=== PATIENT | male | born 1960 | race Caucasian/White ===

== ENCOUNTER 2019-12-29 11:49 | Inpatient (IN) ==
--- NOTE | 2019-12-29 12:20 | Emergency Department Note ---
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 He states his electronic systems technician was concerned that he might have infection and was concern for osteomyelitis. He states he noticed the ulcer 4 days ago. He denies any fevers. He does did not describe tenderness as well as redness around the toe. Home Medications Home Medications Medication Instructions Recorded Confirmed Type aspirin 81 mg PO QAM 12/29/19 12/29/19 History epinephrine 0.3 mg SUBCUT UD 12/29/19 12/29/19 History ezetimibe 10 mg PO QAM 12/29/19 12/29/19 History insulin lispro [Humalog U-100 100 unit CONTINUOUS SUBCUTANEOUS 12/29/19 12/29/19 History Insulin] INFUSION DAILY multivitamin 1 tab PO QAM 12/29/19 12/29/19 History niacin 0 mg PO QAM 12/29/19 12/29/19 History omega 5-mfq-fud-fish oil [Fish Oil] 1 cap PO QAM 12/29/19 12/29/19 History vitamin E 400 unit PO QAM 12/29/19 12/29/19 History Allergies Allergy/AdvReac Type Severity Reaction Status Date / Time bee venom protein (honey bee) Allergy Severe Anaphylaxis Unverified 12/29/19 13:36 Past Med/Surg History Medical History Amputation toe Diabetes HTN (hypertension) Social History Preferred Language: Setswana Communication Ability: Effective Loin Trimmer Required: No Beliefs That Will Affect Care: None Current Living Situation: Spouse Other Information That Helps Us Care for You: No Feels Safe at Home: Yes Safety Concerns: Feels Safe At This Time Smoking Status: Never smoker Hx Alcohol Use: No Hx Substance Use: No Review of Systems A total of 10 systems reviewed and were otherwise negative Physical Exam Vital Signs Vital Signs - 24 hr 12/29/19 12:00 06/03/20 14:00 Temperature 36.7 C Temperature Source Oral Pulse Rate 86 Pulse Rate [Right Finger] 75 Pulse Rhythm [Right Finger] Regular Pulse Strength [Right Finger] Normal Respiratory Rate 20 16 Respiratory Effort / Characteristics Non-Labored Non-Labored Respiratory Depth Normal Normal Respiratory Pattern Regular Blood Pressure 192/93 H Blood Pressure [Right Arm] 194/99 H Blood Pressure Mean 126 Blood Pressure Mean [Right Arm] 130 Blood Pressure Position [Right Arm] Lying Pulse Oximetry 96 98 Oxygen Delivery Method Room Air Room Air Sepsis Recent Fever Within 48 Hours No Sepsis Action Taken by Nursing No Action Required Physical Exam GENERAL: He is oriented to person, place, and time. He appears well-developed and well-nourished. He does not appear distressed. HENT: Exam performed. - Head: Normocephalic and atraumatic. - Right Ear: External ear normal. No mastoid tenderness. - Left Ear: External ear normal. No mastoid tenderness. - Mouth/Throat: The oropharynx is clear and moist. No trismus in the jaw. No dental abscesses or uvula swelling. No oropharyngeal exudate or tonsillar abscesses. EYES: Conjunctivae and EOM are normal. Pupils are equal, round, and reactive to light. Right eye exhibits no discharge. Left eye exhibits no discharge. No scleral icterus. NECK: Normal range of motion. Neck supple. No JVD present. No spinous process tenderness present. No carotid bruit present. No rigidity. No tracheal deviation and normal range of motion present. No Brudzinski's sign and no Kernig's sign noted. CV: Normal rate, regular rhythm, normal heart sounds and intact distal pulses. There is no peripheral edema. Palpable radial pulses bue. PULM/CHEST: Effort normal and breath sounds normal. No respiratory distress. No stridor. He has no wheezes. He has no rales. - Chest Wall: He exhibits no tenderness. ABD: The abdomen is soft. Bowel sounds are normal. He has no distension. No mass is present. There is no tenderness. There is no rebound, no guarding, no Lao's sign and no tenderness at McBurney's point. Rovsig negative. MUSC/SKEL: Left foot: Multiple amputated toes. Ulcer over the fourth digit. No discharge. Mild surrounding erythema. Purulent swelling LYMPH: No cervical adenopathy. NEURO: He is alert and oriented to person, place, and time. He has normal strength. No cranial nerve deficit or sensory deficit. Coordination and gait normal. GCS eye subscore is 4. GCS verbal subscore is 5. GCS motor subscore is 6. Cerebellar tests wnl. SKIN: Skin is warm and dry. He is not diaphoretic. PSYCH: He has a normal mood and affect. Behavior is normal. Judgment and thought content normal. Course Course 1215: The patient was evaluated in room B2. A complete history and physical exam was performed. 1350: Vital signs stable. Labs within normal limits. X-ray nonconclusive for osteomyelitis. Given the patient's long history of diabetes and resultant amputations of his toes, the patient would be admitted for IV antibiotics. Discussed with Dr. Moran [facility] hospitalist who agreed to accept the patient. Administered Medications Gadobutrol (Gadavist 65ml) 11.5 ml IV ONCE PRN PRN Reason: Interaction Checking Stop: 01/02/20 18:47 Last Admin: 12/29/19 18:48 Dose: 11.5 ml Documented by: [id number] Discontinued Medications Vancomycin HCl 2,250 mg/ (Sodium Chloride) 545 mls @ 200 mls/hr IV NOW ONE Stop: 12/29/19 16:31 Last Infusion: 12/29/19 17:05 Dose: 0 mls/hr Documented by: [id number] Admin: 12/29/19 14:02 Dose: 200 mls/hr Documented by: [id number] Piperacillin Sod/Tazobactam (Sod 3.375 gm/ Dextrose) 115 mls @ 28.75 mls/hr IV Q8H COUNT INCLUDES THE [facility]; Protocol Stop: 12/29/19 18:00 Last Admin: 12/29/19 16:22 Dose: 28.8 mls/hr Documented by: [id number] Lisinopril (Zestril) 2.5 mg PO ONE ONE Stop: 12/29/19 17:31 Last Admin: 12/29/19 19:00 Dose: 2.5 mg Documented by: [id number] Medical Decision Making Laboratory Data Result diagrams: 12/29/19 12:25 12/29/19 12:25 Lab Results 12/29/19 12/29/19 12/29/19 Range/Units 12:25 12:25 12:25 WBC 8.06 (4.8-10.8) K/uL RBC 5.62 (4.7-6.1) M/uL Hgb 15.5 (14.0-18.0) g/dL Hct 46.7 (42-52) % MCV 83.1 (80-100) fL MCH 27.6 (25-34) pg MCHC 33.2 (32-36) g/dL RDW Std Deviation 40.4 (36.4-46.3) fL RDW Coeff of Spenser 13.4 (11.5-14.5) % Plt Count 240 (130-400) K/uL MPV 11.0 H (7.4-10.4) fL Immature Gran % (Auto) 0.2 % Neut % (Auto) 66.3 % Lymph % (Auto) 24.3 % [place] % (Auto) 6.6 % Eos % (Auto) 2.0 % Baso % (Auto) 0.6 % Immature Gran # (Auto) 0.02 (0.00-0.02) K/uL Neut # (Auto) 5.34 (1.4-6.5) K/uL Lymph # (Auto) 1.96 (1.2-3.4) K/uL [place] # (Auto) 0.53 (0.11-0.59) K/uL Eos # (Auto) 0.16 (0-0.5) K/uL Baso # (Auto) 0.05 (0-0.2) K/uL ESR (0-14) mm/hr Sodium 138 (136-145) mmol/L Potassium 4.3 (3.5-5.1) mmol/L Chloride 104 (98-107) mmol/L Carbon Dioxide 29 (21-32) mmol/L Anion Gap 5.0 (3-11) BUN 18 (7-18) mg/dl Creatinine 0.98 (0.6-1.4) mg/dl Est Cr Clr Drug Dosing 109.6 ml/min Est GFR ( Amer) 98.1 Est GFR (Non-Af Amer) 84.6 BUN/Creatinine Ratio 18.7 (10-20) Glucose 201 H (70-99) mg/dl Lactate 1.6 (0.4-2.0) mmol/L Calcium 9.3 (8.5-10.1) mg/dl C-Reactive Protein (0-0.29) mg/dl 12/29/19 12/29/19 Range/Units 12:25 12:25 WBC (4.8-10.8) K/uL RBC (4.7-6.1) M/uL Hgb (14.0-18.0) g/dL Hct (42-52) % MCV (80-100) fL MCH (25-34) pg MCHC (32-36) g/dL RDW Std Deviation (36.4-46.3) fL RDW Coeff of Spenser (11.5-14.5) % Plt Count (130-400) K/uL MPV (7.4-10.4) fL Immature Gran % (Auto) % Neut % (Auto) % Lymph % (Auto) % [place] % (Auto) % Eos % (Auto) % Baso % (Auto) % Immature Gran # (Auto) (0.00-0.02) K/uL Neut # (Auto) (1.4-6.5) K/uL Lymph # (Auto) (1.2-3.4) K/uL [place] # (Auto) (0.11-0.59) K/uL Eos # (Auto) (0-0.5) K/uL Baso # (Auto) (0-0.2) K/uL ESR 18 H (0-14) mm/hr Sodium (136-145) mmol/L Potassium (3.5-5.1) mmol/L Chloride (98-107) mmol/L Carbon Dioxide (21-32) mmol/L Anion Gap (3-11) BUN (7-18) mg/dl Creatinine (0.6-1.4) mg/dl Est Cr Clr Drug Dosing ml/min Est GFR ( Amer) Est GFR (Non-Af Amer) BUN/Creatinine Ratio (10-20) Glucose (70-99) mg/dl Lactate (0.4-2.0) mmol/L Calcium (8.5-10.1) mg/dl C-Reactive Protein 3.61 H (0-0.29) mg/dl Imaging Data Radiologist's Impression: LEFT FOURTH AND FIFTH TOES CLINICAL HISTORY: Ulceration. Evaluate for osteomyelitis. COMPARISON: None. DISCUSSION: There are postsurgical changes of amputation of the second toe at the level of the proximal interphalangeal joint. There are postsurgical changes of amputation of the third/middle toe at the level of the distal interphalangeal joint. No acute fractures are visualized. No destructive lesions are delineated. IMPRESSION: 1. Postsurgical changes 2. No conventional radiographic evidence of acute osteomyelitis ACT 112: Negative or not required by law. Electronically signed by: Gopi Palencia M.D. 12/29/2019 1:19 PM Dictated: 12/29/19 1317 Transcribed: 12/29/19 1317 [facility] [place] Narrative Vital signs stable. Labs within normal limits. X-ray nonconclusive for osteomyelitis. Given the patient's long history of diabetes and resultant ampu tations of his toes, the patient would be admitted for IV antibiotics. Discussed with Dr. Moran [facility] hospitalist who agreed to accept the patient. Impression & Plan Diabetic ulcer of toe Discharge Plan Visit Data *Final* Discharge Date/Time: 12/29/19 16:34 Chief Complaint: Infection, Wound Stated Complaint: INFECTION IN TOE ON LEFT FOOT ED Provider: Zach Prasad Discharge Problem: Diabetic ulcer of toe Patient Disposition: Admitted As Inpatient Discharge Instructions Interventions: ED Discharge Assessment Last Done: 12/29/19 16:34 Discharge Problem: Diabetic ulcer of toe Qualifiers: Diabetes mellitus type: other specified (including MAR) Laterality: left Non- pressure ulcer stage: unspecified non-pressure ulcer stage Qualified Code(s): E13.621 - Other specified diabetes mellitus with foot ulcer
[2019-12-29 12:40] LABS: Basophils # (auto) 0.05 K/uL (0-0.2); Basophils % (auto) 0.6 %; Eosinophils # (auto) 0.16 K/uL (0-0.5); Hematocrit (blood only) 46.7 % (42-52); Hemoglobin 15.5 g/dL (14.0-18.0); Immature Granulocytes # (auto) 0.02 K/uL (0.00-0.02); Immature Granulocytes % (auto) 0.2 %; Lymphocytes # (auto) 1.96 K/uL (1.2-3.4); Lymphocytes % (auto) 24.3 %; Mean Corpuscular Hemoglobin 27.6 pg (25-34); Mean Corpuscular Hgb Conc 33.2 g/dL (32-36); Mean Corpuscular Volume 83.1 fL (80-100); Monocytes # (auto) 0.53 K/uL (0.11-0.59); Monocytes % (auto) 6.6 %; Neutrophils # (auto) 5.34 K/uL (1.4-6.5); Neutrophils % (auto) 66.3 %; Platelet Count 240 K/uL (130-400); RDW Coefficient of Variation 13.4 % (11.5-14.5); RDW Standard Deviation 40.4 fL (36.4-46.3); Red Blood Count 5.62 M/uL (4.7-6.1); White Blood Count 8.06 K/uL (4.8-10.8)
[2019-12-29 12:55] LABS: BUN Creatinine Ratio 18.7 (10-20); Calcium 9.3 mg/dl (8.5-10.1); Creatinine Clr Calc Pharmacy 109.6 ml/min; Est GFR (African American) 98.1; Est GFR (Non-African American) 84.6; Potassium 4.3 mmol/L (3.5-5.1)
--- NOTE | 2019-12-29 13:20 | XRay Report ---
LEFT FOURTH AND FIFTH TOES CLINICAL HISTORY: Ulceration. Evaluate for osteomyelitis. COMPARISON: None. DISCUSSION: There are postsurgical changes of amputation of the second toe at the level of the proxim al interphalangeal joint. There are postsurgical changes of amputation of the third/middle toe at the level of the distal interphalangeal joint. No acute fractures are visualized. No destructive lesions are delineated. IMPRESSION: 1. Postsurgical changes 2. No conventional radiographic evidence of acute osteomyelitis ACT 112: Negative or not required by law. Electronically signed by: Gopi Palencia M.D. 12/29/2019 1:19 PM
[2019-12-29] MEDS ORDERED: VANCOMYCIN CONSULT ACTIVE PRN ×2 (13:48→16:48)
[2019-12-29] MEDS ORDERED: VANCOMYCIN HCL 2,250 MG in SODIUM CHLORIDE 0.9% 500 ML IV ONE (13:48)
--- NOTE | 2019-12-29 15:16 | History & Physical Report ---
Date of Service December 29, 2019 Assessment & Plan (1) Diabetic ulcer of toe: Here with rapidly worsening left fourth toe diabetic foot ulcer with cellulitis spreading up the foot and leg and possible osteomyelitis ESR and CRP are not significantly elevated X-rays not significant for osteomyelitis, but MRI obtained shortly after admission is very concerning for osteomyelitis of the left fourth toe With a history of multiple other amputations of toes on the same foot Follows closely with podiatry who does not have privileges at the hospital (Dr. Meraz)-she has spoken with Dr. Vannesa Carrion who will consult on the patient here to see about possible amputation -Admit to medical/surgical floor -IV vancomycin was given in the ER-we will continue this and add on IV Zosyn for Pseudomonas coverage given that he is an uncontrolled diabetic -No evidence of sepsis at this time-no blood cultures were drawn prior to initiation of antibiotics -Needs improved control of diabetes -will keep dressing on wound for drainage and keep foot elevated -We will keep n.p.o. after midnight in case of surgery planned for tomorrow (2) Diabetic neuropathy: Longstanding history of such With uncontrolled diabetes since 1995 and multiple toe amputations as above -Neuropathy precautions -Continue care with podiatry (3) HTN (hypertension): With hypertensive urgency here with blood pressure close to 200 systolic over 99 diastolic, ECG with T wave inversions in inferior leads but no chest pain or shortness of breath, no headache or neurological focal symptoms Patient reports in the past when he has been tried on antihypertensives, that when he exercises, he gets very lightheaded. He reports his usual blood pressure is 160-180 systolic over 90s diastolic. He is willing to try a low-dose of lisinopril -Start lisinopril 2.5 mg p.o. once daily -Monitor blood pressures (4) Diabetes: Uncontrolled as noted above, he reports his last hemoglobin A1c is around 9% He follows with endocrinology Dr. Rajendra Monet in [place] Has an insulin pump and would like to continue using this while he is in the hospital-his basal rate he thinks is 1.6 units/h and he typically uses 75-100 units/day of insulin including his bolus insulin -Accu-Cheks before meals and at bedtime -If uncontrolled, could always turn off pump and resort to basal and bolus insulin here -will start D5 normal saline after midnight while n.p.o. in case of surgery tomorrow so he does not become hypoglycemic while n.p.o. (5) Hyperlipidemia: -Continue home Zetia -Hold home fish oil as is a blood thinner -Okay to continue home aspirin 81 mg even if going to surgery as primary prevention for HI (6) DVT prophylaxis: TO hose to the right leg only at this time, would add on Lovenox SQ if surgery to be delayed beyond tomorrow Disposition-admit to medical/surgical floor, expected least a 2 midnight stay given osteomyelitis, need for IV antibiotics, and likely amputation of the toe History of Present Illness Chief Complaint: Toe infection, sent by naturopathic physician Primary Care Provider: Maxwell Velarde This patient is a 59-year-old male with a history of longstanding uncontrolled diabetes with insulin pump, HTN, hyperlipidemia, and diabetic neuropathy with 3 previous toe amputations, who presents from the podiatry office with rapidly worsening left fourth toe ulcer and infection to start IV antibiotics and be evaluated for amputation. He reports he first noticed the ulcer about 4 to 5 days ago when he was doing some work at his property in [place]. He does check his feet daily and has a history of rapidly progressing lower extremity infections. He was just on Augmentin and finished a 10-day course last week for another cellulitis of the left leg in the posterior calf which resolved. He denies a history of MRSA and does not know of any previous organisms that have grown out from his other infections. An x-ray in the ER did not show any evidence of osteomyelitis, and he was afebrile, no leukocytosis or evidence of sepsis. Allergies Allergy/AdvReac Type Severity Reaction Status Date / Time bee venom protein (honey bee) Allergy Severe Anaphylaxis Unverified 12/29/19 13:36 Home Medications Home Medications Medication Instructions Recorded Confirmed Type aspirin 81 mg PO QAM 12/29/19 12/29/19 History epinephrine 0.3 mg SUBCUT UD 12/29/19 12/29/19 History ezetimibe 10 mg PO QAM 12/29/19 12/29/19 History insulin lispro [Humalog U-100 100 unit CONTINUOUS SUBCUTANEOUS 12/29/19 12/29/19 History Insulin] INFUSION DAILY multivitamin 1 tab PO QAM 12/29/19 12/29/19 History niacin 0 mg PO QAM 12/29/19 12/29/19 History omega 6-egf-lxw-fish oil [Fish Oil] 1 cap PO QAM 12/29/19 12/29/19 History vitamin E 400 unit PO QAM 12/29/19 12/29/19 History Past Med/Surg History Medical History Amputation toe Diabetes Diabetic neuropathy HTN (hypertension) Hyperlipidemia Surgical History History of amputation of toe History of arthroscopic knee surgery History of tonsillectomy Family History Father Heart disease, Onset Age: 54 Had CABG at age 54 Mother Diabetes Social History Preferred Language: Korean Communication Ability: Effective Billing Collections Specialist Required: No Beliefs That Will Affect Care: None Current Living Situation: Spouse current occupational status: employed 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 No fevers or chills. Physical Exam Constitutional: WD/WN, vitals as above Eyes: PERRL, conjunctivae normal, anicteric sclerae ENMT: external ear and nose normal, oropharynx normal Neck: trachea midline, no thyromegaly Respiratory: normal respiratory effort, lungs clear to auscultation Cardiovascular: RRR, no murmur, no edema Chest (Breasts): Chest: normal inspection of chest Gastrointestinal (Abdomen): normal bowel sounds, soft, nontender, no hepatosplenomegaly Musculoskeletal: Extremities: no cyanosis and no clubbing Left fourth toe appears to be a sausage digit with an open deep ulceration on the plantar and dorsal surface of the distal phalanx with significant erythema, with mild er ythema and edema spread up to the mid tibia anteriorly 1+ dorsalis pedis pulses bilaterally Also noted to have distal phalanx amputations of the left great and middle toes Skin: no rashes, warm and dry Neurologic: moves all extremities and awake; no focal motor deficits Psychiatric: A+Ox3, euthymic affect Lymphatic: no lymphedema Results & Data Results & Data ([facility]) Vital Signs (Past 12 Hours) Vital Signs Temp Pulse Pulse Resp BP BP Pulse Ox 12/29/19 14:00 75 16 194/99 H 98 12/29/19 12:00 36.7 C 86 20 192/93 H 96 Laboratory Results 12/29/19 12/29/19 12/29/19 Range/Units 12:25 12:25 12:25 WBC (4.8-10.8) K/uL RBC (4.7-6.1) M/uL Hgb (14.0-18.0) g/dL Hct (42-52) % MCV (80-100) fL MCH (25-34) pg MCHC (32-36) g/dL RDW Std Deviation (36.4-46.3) fL RDW Coeff of Spenser (11.5-14.5) % Plt Count (130-400) K/uL MPV (7.4-10.4) fL Immature Gran % (Auto) % Neut % (Auto) % Lymph % (Auto) % [place] % (Auto) % Eos % (Auto) % Baso % (Auto) % Immature Gran # (Auto) (0.00-0.02) K/uL Neut # (Auto) (1.4-6.5) K/uL Lymph # (Auto) (1.2-3.4) K/uL [place] # (Auto) (0.11-0.59) K/uL Eos # (Auto) (0-0.5) K/uL Baso # (Auto) (0-0.2) K/uL ESR 18 H (0-14) mm/hr Sodium (136-145) mmol/L Potassium (3.5-5.1) mmol/L Chloride (98-107) mmol/L Carbon Dioxide (21-32) mmol/L Anion Gap (3-11) BUN (7-18) mg/dl Creatinine (0.6-1.4) mg/dl Est Cr Clr Drug Dosing ml/min Est GFR ( Amer) Est GFR (Non-Af Amer) BUN/Creatinine Ratio (10-20) Glucose (70-99) mg/dl Lactate 1.6 (0.4-2.0) mmol/L Calcium (8.5-10.1) mg/dl C-Reactive Protein 3.61 H (0-0.29) mg/dl 12/29/19 12/29/19 Range/Units 12:25 12:25 WBC 8.06 (4.8-10.8) K/uL RBC 5.62 (4.7-6.1) M/uL Hgb 15.5 (14.0-18.0) g/dL Hct 46.7 (42-52) % MCV 83.1 (80-100) fL MCH 27.6 (25-34) pg MCHC 33.2 (32-36) g/dL RDW Std Deviation 40.4 (36.4-46.3) fL RDW Coeff of Spenser 13.4 (11.5-14.5) % Plt Count 240 (130-400) K/uL MPV 11.0 H (7.4-10.4) fL Immature Gran % (Auto) 0.2 % Neut % (Auto) 66.3 % Lymph % (Auto) 24.3 % [place] % (Auto) 6.6 % Eos % (Auto) 2.0 % Baso % (Auto) 0.6 % Immature Gran # (Auto) 0.02 (0.00-0.02) K/uL Neut # (Auto) 5.34 (1.4-6.5) K/uL Lymph # (Auto) 1.96 (1.2-3.4) K/uL [place] # (Auto) 0.53 (0.11-0.59) K/uL Eos # (Auto) 0.16 (0-0.5) K/uL Baso # (Auto) 0.05 (0-0.2) K/uL ESR (0-14) mm/hr Sodium 138 (136-145) mmol/L Potassium 4.3 (3.5-5.1) mmol/L Chloride 104 (98-107) mmol/L Carbon Dioxide 29 (21-32) mmol/L Anion Gap 5.0 (3-11) BUN 18 (7-18) mg/dl Creatinine 0.98 (0.6-1.4) mg/dl Est Cr Clr Drug Dosing 109.6 ml/min Est GFR ( Amer) 98.1 Est GFR (Non-Af Amer) 84.6 BUN/Creatinine Ratio 18.7 (10-20) Glucose 201 H (70-99) mg/dl Lactate (0.4-2.0) mmol/L Calcium 9.3 (8.5-10.1) mg/dl C-Reactive Protein (0-0.29) mg/dl Diagnostic Findings LEFT FOURTH AND FIFTH TOES CLINICAL HISTORY: Ulceration. Evaluate for osteomyelitis. COMPARISON: None. DISCUSSION: There are postsurgical changes of amputation of the second toe at the level of the proximal interphalangeal joint. There are postsurgical changes of amputation of the third/middle toe at the level of the distal interphalangeal joint. No acute fractures are visualized. No destructive lesions are delineated. IMPRESSION: 1. Postsurgical changes 2. No conventional radiographic evidence of acute osteomyelitis ECG Additional Comments: ECG with normal sinus rhythm with T wave inversions in leads III and aVF with T wave flattening in lead II, no old ECGs to compare to Code Status & VTE Plan Code Status Full code VTE Prophylaxis Plan VTE Prophylaxis will be ordered: Yes PG Care Time/CCT Total # of Minutes Spent Total Time Spent with Patient: Total time spent is greater than 50% in coordination of care (as documented) at patient's floor/unit and/or counseling patient: Coding Level of Care Code 62257 Initial Inpt Care Lvl 3 Diagnoses Diabetic ulcer of toe E13.621; L97.529 Diabetes mellitus type: other specified (including MAR) Laterality: left Non-pressure ulcer stage: unspecified non-pressure ulcer stage Diabetic neuropathy E11.40 HTN (hypertension) I10 Diabetes E11.9 Hyperlipidemia E78.5 DVT prophylaxis Z29.9 (1) Diabetic ulcer of toe Diabetes mellitus type: other specified (including MAR) Laterality: left Non-pressure ulcer stage: unspecified non-pressure ulcer stage Qualified Code(s): E13.621 - Other specified diabetes mellitus with foot ulcer; L97.529 - Non-pressure chronic ulcer of other part of left foot with unspecified severity
[2019-12-29] MEDS ORDERED: PIPERACILLIN/TAZOBACTAM 3.375 GM in DEXTROSE 5% 100 ML IV SCH (15:58)
[2019-12-29] MEDS ORDERED: PIPERACILL/TAZOBAC CONSULT ACTIVE PRN (15:58)
[2019-12-29] MEDS ORDERED: DEXTROSE 50% 50 ML SYRINGE IV PRN ×2 (16:48→17:15)
[2019-12-29] MEDS ORDERED: MAGNESIUM HYDROXIDE SUSP 30 ML UDC PO PRN (16:48)
[2019-12-29] MEDS ORDERED: GLUCOSE 10 TABS/TUBE PO PRN ×2 (16:48→17:15)
[2019-12-29] MEDS ORDERED: POLYETHYLENE (MIRALAX) 17 GM PACK PO PRN (16:48)
[2019-12-29] MEDS ORDERED: ONDANSETRON INJ 2 MG/ML 2 ML VIAL IV PRN (16:48)
[2019-12-29] MEDS ORDERED: ALUMINUM/MAGNESIUM SUSP 30 ML UDC PO PRN (16:48)
[2019-12-29] MEDS ORDERED: ACETAMINOPHEN 325 MG TAB PO PRN (16:48)
[2019-12-29] MEDS ORDERED: CARBOHYDRATES FOR HYPOGLYCEMIA PO PRN ×2 (16:48→17:15)
[2019-12-29] MEDS ORDERED: GLUCAGON FOR INJ 1 MG VIAL SQ PRN ×2 (16:48→17:15)
[2019-12-29] MEDS ORDERED: GLUCOSE 40% GEL 15 GM TUBE PO PRN ×2 (16:48→17:15)
[2019-12-29] MEDS ORDERED: INSULIN HUMAN LISPRO (humaLOG) 100 UNITS/ML VIAL SC PRN (17:15)
[2019-12-29] MEDS ORDERED: GADOBUTROL 65ML VIAL IV PRN (18:48)
--- NOTE | 2019-12-29 19:03 | Magnetic Resonance Report ---
Study: MRI left foot HISTORY: Toe infection COMPARISON: Routine series 12/29/2019 FINDINGS: Findings suggesting potential bone marrow replacement involving the distal phalanx of the f ourth toe. Considerable surrounding granulation and/or inflammatory tissue. Generalized cellulitis about the foot. All major ligamentous and tendinous structures are intact. No evidence for drainable abscess or collection. IMPRESSION: 1. Abnormal signal characteristics distal phalanx left fourth toe. 2. Osteomyelitis must be considered. 3. Considerable surrounding local extensive soft tissue granulation and/or inflammatory tissue. 4. No evidence for drainable abscess or collection. 5. Mild to moderate degenerative change of the articular surfaces throughout. Electronically signed by: Rajendra Garcia M.D. 12/29/2019 7:02 PM
--- NOTE | 2019-12-29 19:49 | Pharmacy Report ---
Pharmacy Abx Initial Consult - Date of Service December 29, 2019 - Pharmacy Dosing Scope Date of Consult: 12/29/19 Consultation requested by: Dr. Moran Pharmacy is consulted to initiate vancomycin and zosyn IV dosing therapy, order appropriate labs and adjust drug dose/frequency. - Subjective The patient is a 59 year old M admitted on 12/29/19 15:58. - Objective Height: 6 ft 1 in Weight: 116 kg Vital Signs (Past 12hrs): Vital Signs Temp Pulse Pulse Resp BP BP Pulse Ox 12/29/19 16:50 36.8 C 71 18 197/91 H 97 12/29/19 16:18 79 19 192/91 H 96 12/29/19 14:00 75 16 194/99 H 98 12/29/19 12:00 36.7 C 86 20 192/93 H 96 Lab Results (24hrs): Laboratory Tests (24 Hours) 12/29/19 12/29/19 12/29/19 12:25 12:25 12:25 WBC Neut # (Auto) ESR 18 H Creatinine 0.98 Est Cr Clr Drug Dosing 109.6 C-Reactive Protein 3.61 H 12/29/19 12:25 WBC 8.06 Neut # (Auto) 5.34 ESR Creatinine Est Cr Clr Drug Dosing C-Reactive Protein - Assessment & Plan Assessment 59 year old M ordered empiric vancomycin and Zosyn for treatment of infected left fourth toe. Osteomyelitis must be considered per foot MRI obtained on 12/28. CRP and ESR elevated. Patient afebrile with no leukocytosis. Unsure of baseline renal function - current SCr of 0.98 mg/dL. Plan Vancomycin IV * Estimated PK Parameters: Vd 0.61 L/kg, Walt 0.096 hr-1, t1/2 7 hr * Loading dose: 2250 mg (19 mg/kg) * Maintenance dose: 1250 mg IV (11 mg/kg) every 8 hours * Goal trough level for osteomyelitis : 15 to 20 mcg/mL * Trough level ordered for 12/31/19 Piperacillin/tazobactam * 3.375 g bolus administered over 30 minutes, then 3.375 g IV extended infusion every 8 hours for CrCl greater than 20 mL/min Pharmacy will continue to follow and will adjust dose/frequency as necessary. Thank you.
[2019-12-29] MEDS: VANCOMYCIN HCL 1,250 MG in SODIUM CHLORIDE 0.9% 250 ML IV SCH (21:31)
[2019-12-29] MEDS: PIPERACILLIN/TAZOBACTAM 3.375 GM in DEXTROSE 5% 100 ML IV SCH (21:31)
[2019-12-29] MEDS ORDERED: D5NSS + 20MEQ KCL 20 MEQ/1,000 ML BAG IV SCH (23:59)
[2019-12-30] MEDS: SODIUM CHLOR 0.45% + 20MEQ KCL 20 MEQ/1,000 ML BAG IV SCH (01:15)
[2019-12-30] MEDS: PIPERACILLIN/TAZOBACTAM 3.375 GM in DEXTROSE 5% 100 ML IV SCH ×3 (05:40→21:23)
[2019-12-30] MEDS: VANCOMYCIN HCL 1,250 MG in SODIUM CHLORIDE 0.9% 250 ML IV SCH ×3 (05:41→21:23)
[2019-12-30 05:53] LABS: Basophils # (auto) 0.04 K/uL (0-0.2); Basophils % (auto) 0.6 %; Eosinophils # (auto) 0.15 K/uL (0-0.5); Eosinophils % (auto) 2.2 %; Hematocrit (blood only) 42.9 % (42-52); Hemoglobin 14.5 g/dL (14.0-18.0); Immature Granulocytes # (auto) 0.01 K/uL (0.00-0.02); Immature Granulocytes % (auto) 0.1 %; Lymphocytes # (auto) 1.92 K/uL (1.2-3.4); Lymphocytes % (auto) 27.6 %; Mean Corpuscular Hemoglobin 27.9 pg (25-34); Mean Corpuscular Hgb Conc 33.8 g/dL (32-36); Mean Corpuscular Volume 82.5 fL (80-100); Mean Platelet Volume 10.4 fL (7.4-10.4); Monocytes # (auto) 0.45 K/uL (0.11-0.59); Monocytes % (auto) 6.5 %; Neutrophils # (auto) 4.39 K/uL (1.4-6.5); Platelet Count 228 K/uL (130-400); RDW Coefficient of Variation 13.2 % (11.5-14.5); RDW Standard Deviation 39.9 fL (36.4-46.3); White Blood Count 6.96 K/uL (4.8-10.8)
[2019-12-30 06:05] LABS: Partial Thromboplastin Time 29.2 Seconds (21.0-31.0); Prothrombin Time 10.7 Seconds (9.0-12.0)
[2019-12-30 06:22] LABS: Estimated Average Glucose 200 mg/dl; Hemoglobin A1C 8.6 % (4.5-5.6)
[2019-12-30 06:32] LABS: BUN Creatinine Ratio 15.7 (10-20); Calcium 8.6 mg/dl (8.5-10.1); Creatinine Clr Calc Pharmacy 119.4 ml/min; Est GFR (African American) 108.7; Est GFR (Non-African American) 93.8; Potassium 3.8 mmol/L (3.5-5.1)
[2019-12-30] MEDS: ASPIRIN 81 MG ECTAB PO SCH (08:17)
[2019-12-30] MEDS: MULTIVITAMIN TAB PO SCH (08:17)
[2019-12-30] MEDS: EZETIMIBE 10 MG TABLET PO SCH (08:17)
--- NOTE | 2019-12-30 13:05 | Podiatry Consultation ---
Date of Consultation December 30, 2019 Assessment & Plan (1) Diabetic ulcer of toe: Diabetes mellitus type: other specified (including MAR) Laterality: left Non-pressure ulcer stage: unspecified non-pressure ulcer stage Qualified Code(s): E13.621 - Other specified diabetes mellitus with foot ulcer; L97.529 - Non-pressure chronic ulcer of other part of left foot with unspecified severity (2) Diabetic neuropathy: History of Present Illness Attending Physician: Vivi Alcantara MD Patient seen at bedside today due to an infected diabetic ulcer of the left 4th toe. 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 Patient stated he developed this ulcer recently and it escalated to the infection present. MRI ordered at the hospital concerning for osteomyelitis of the distal phalanx of the left 4th toe. Patient was sent to the ED from another podiatry office, patient is being seen today and will need distal Symes amputation of the left 4th toe. Consent was obtained at bedside today and patient is scheduled in the OR for procedure tomorrow 12/30 at 1:15pm and will need to be NPO tonight in prep for the procedure tomorrow. Allergies Allergy/AdvReac Type Severity Reaction Status Date / Time bee venom protein (honey bee) Allergy Severe Anaphylaxis Unverified 12/29/19 13:36 Home Medications Home Medications Medication Instructions Recorded Confirmed Type aspirin 81 mg PO QAM 12/29/19 12/29/19 History epinephrine 0.3 mg SUBCUT UD 12/29/19 12/29/19 History ezetimibe 10 mg PO QAM 12/29/19 12/29/19 History insulin lispro [Humalog U-100 100 unit CONTINUOUS SUBCUTANEOUS 12/29/19 12/29/19 History Insulin] INFUSION DAILY multivitamin 1 tab PO QAM 12/29/19 12/29/19 History niacin 0 mg PO QAM 12/29/19 12/29/19 History omega 4-zch-gsa-fish oil [Fish Oil] 1 cap PO QAM 12/29/19 12/29/19 History vitamin E 400 unit PO QAM 12/29/19 12/29/19 History Patient History Medical History Amputation toe Diabetes Diabetic neuropathy HTN (hypertension) Hyperlipidemia Surgical History History of amputation of toe History of arthroscopic knee surgery History of tonsillectomy Family History Father Heart disease, Onset Age: 54 Had CABG at age 54 Mother Diabetes Social History Preferred Language: Ecuadorean Communication Ability: Effective Rim Roller Operator Required: No Beliefs That Will Affect Care: None Current Living Situation: Spouse current occupational status: employed 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 History of well healed 1,2,3 digit distal Symes amputation left 4th toe with significant swelling and proximal erythema of the digit, ulcer is present of the distal aspect of the toe with malodor and significant swelling. Patient has neuropathy and cannot "feel" the pain. MRI concerning for osteomyelitis dorsal pedis pulse palpable 2 out of 4 and pedal hair is present, capillary refill time less than 3 seconds to the left foot with good turgor pressure noted to the remaining digits. Patient in need of distal Symes amputation left 4th toe Results & Data Vital Signs (Past 12 Hours) Vital Signs Temp Pulse Pulse Resp BP Pulse Ox 12/30/19 07:50 63 12/30/19 07:19 36.7 C 69 18 163/90 H 94 12/30/19 02:43 76
--- NOTE | 2019-12-30 13:09 | Hospitalist Progress Note ---
Date of Service December 30, 2019 Assessment & Plan (1) Diabetes: Lul Mendez is a 59 year old man with a past medical history of diabetes with diabetic neuropathy, and hyperlipidemia who is here with suppurative fourth toe ulcer Osteomyelitis Left fourth toe, MRI showing osteomyelitis Has had three other amputations on this foot Does not appear to be spreading infection, patient not septic, no fever, no systemic symptoms Will treat with vanc and zosyn Podiatry consulted tentatively planning on amputation tomorrow NPO after midnight Diabetes Has insulin pump he uses keeps bsg in the 100's for the most part However his last A1C was 8.6 Will monitor his control while inpatient and if not successful will transition to sliding scale While inpatient Will need close outpatient follow up. Follows with Dr. Rajendra Keller in [place]. HLD Continuing home zetia HTN Admits his blood pressure is normally high has not taken anything for it previously. Lisinopril 2.5 mg daily. Will need outpatient BP management DVT PPx: Son stockings and ambulation F/E/N: diabetic diet, npo at midnight with D5 nss Dispo: Admit to med/surg pending podiatry evaluation and likely amputation, home following amputation tomorrow Full Code (2) Diabetic ulcer of toe: (3) Amputation toe: (4) HTN (hypertension): (5) Diabetic neuropathy: (6) Hyperlipidemia: (7) DVT prophylaxis: Admission and Anticipated Discharge Date Admission Date: December 29, 2019 Supervising Physician Co-Signing Physician Notes Resident Physician Supervision Note: I independently interviewed and examined the patient and verified the moise history and physical, reviewed labs and image studies, discussed the case with the resident Dr. Zhang and agree with the findings and care plan. Subjective Lul Mendez is resting comfortably today, he tells me he feels in his usual state of health. He has no sensation below his mid shah and first noticed this wound last . As it became more purulent he decided to come in. No fevers, chills, sweats, or any other systemic symptoms on review of systems. Ambulating without difficulty. Review of Systems Review of Systems: All systems reviewed & are unremarkable except as noted in HPI & below Physical Exam Constitutional: WD/WN, vitals as above + well hydrated and + obese Eyes: PERRL, conjunctivae normal, anicteric sclerae ENMT: external ear and nose normal, oropharynx normal Neck: trachea midline, no thyromegaly Respiratory: normal respiratory effort, lungs clear to auscultation Cardiovascular: RRR, no murmur, no edema Gastrointestinal (Abdomen): normal bowel sounds, soft, nontender, no hepatosplenomegaly Musculoskeletal: Amputations to 3 of toes on left foot, large bloody purulent ulcer of 3rd digit Skin: no rashes, warm and dry No spreading cellulitis up leg. Results & Data Results & Data ([facility]) Vital Signs (Past 12 Hours) Vital Signs Temp Pulse Pulse Resp BP Pulse Ox 12/30/19 07:50 63 12/30/19 07:19 36.7 C 69 18 163/90 H 94 12/30/19 02:43 76 Resident Activity Tracking Resident Involvement: Resident Care Provided Care Provided: Adult Hospital Medicine (1) Diabetic ulcer of toe Diabetes mellitus type: other specified (including MAR) Laterality: left Non-pressure ulcer stage: unspecified non-pressure ulcer stage Qualified Code(s): E13.621 - Other specified diabetes mellitus with foot ulcer; L97.529 - Non-pressure chronic ulcer of other part of left foot with unspecified severity
--- NOTE | 2019-12-30 14:49 | Electrocardiogram Report ---
Test Reason : Blood Pressure : / mmHG Vent. Rate : 068 BPM Atrial Rate : 068 BPM P-R Int : 204 ms QRS Dur : 102 ms QT Int : 408 ms P-R-T Axes : 036 007 -31 degrees QTc Int : 433 ms Normal sinus rhythm Cannot rule out Anterior infarct , age undetermined T wave abnormality, consider inferior ischemia Abnormal ECG No previous ECGs available Confirmed by Faustino Oliveros ([id number]) on 12/30/2019 2:49:21 PM Referred By: REFERRED SELF Confirmed By:Faustino Oliveros
--- NOTE | 2019-12-30 17:59 | Anesthesiology Consultation ---
Date of Service December 30, 2019 The patient has poorly controlled DM with HA1c of 8.6. His EKG is concerning for possible inferior ischemia. The surgery is urgent as the patient has osteomyelitis. Dr. Jama will be the anesthesia provider and is aware of the EKG. Assessment & Plan (1) Encounter for pre-operative examination: Chart Review Chart Review: Acceptable Risk for Surgery (elevated risk but necessary surgery) and Patient NOT seen in Pre Admission Testing Consults Requested none History Surgery Operation Date: 12/31/19 13:15 Proposed Procedures p Left 4th Toe Amputation - Letitia Granado DPM Height/Weight Height: 6 ft 1 in Weight: 116 kg Allergies Allergy/AdvReac Type Severity Reaction Status Date / Time bee venom protein (honey bee) Allergy Severe Anaphylaxis Unverified 12/29/19 13 :36 Medications Home Medications Medication Instructions Recorded Confirmed Last Taken aspirin 81 mg PO QAM 12/29/19 12/29/19 12/29/19 epinephrine 0.3 mg SUBCUT UD 12/29/19 12/29/19 Unknown ezetimibe 10 mg PO QAM 12/29/19 12/29/19 12/29/19 insulin lispro [Humalog U-100 100 unit CONTINUOUS SUBCUTANEOUS 12/29/19 12/29/19 12/29/19 Insulin] INFUSION DAILY multivitamin 1 tab PO QAM 12/29/19 12/29/19 12/29/19 niacin 0 mg PO QAM 12/29/19 12/29/19 12/29/19 omega 6-xdz-zcq-fish oil [Fish Oil] 1 cap PO QAM 12/29/19 12/29/19 12/29/19 vitamin E 400 unit PO QAM 12/29/19 12/29/19 12/29/19 Active Medications Generic Name Dose Route Start Last Admin Trade Name Freq PRN Reason Stop Dose Admin Aspirin 81 mg 12/30/19 09:00 12/30/19 08:17 Ecotrin Ectab PO 01/29/20 08:59 81 mg QAM IZAIAH Administration Ezetimibe 10 mg 12/30/19 09:00 12/30/19 08:17 Zetia PO 01/29/20 08:59 10 mg QAM IZAIAH Administration Gadobutrol 11.5 ml 12/29/19 18:48 12/29/19 18:48 Gadavist 65ml IV 01/02/20 18:47 11.5 ml ONCE PRN Administration Interaction Checking Vancomycin HCl 1,250 mg/ 275 mls @ 125 mls/hr 12/29/19 22:00 12/30/19 16:57 Sodium Chloride IV 01/05/20 21:59 Infused Q8H IZAIAH Infusion Protocol Piperacillin Sod/Tazobactam 115 mls @ 28.75 mls/hr 12/29/19 22:00 12/30/19 14:10 Sod 3.375 gm/ Dextrose IV 01/05/20 21:59 28.8 mls/hr Q8H IZAIAH Administration Protocol Potassium Chloride/Sodium Chloride 20 meq in 1,000 mls @ 80 mls/hr 12/30/19 00:15 12/30/19 13:55 1/2 Nss + 20meq Kcl 1000ml IV 01/29/20 00:14 Infused .[id number] IZAIAH Infusion Insulin Human Lispro 1 ea 12/29/19 21:00 12/30/19 12:36 Humalog Insulin Pump N/A 01/28/20 20:59 1 ea ACHS IZAIAH Administration Protocol Lisinopril 2.5 mg 12/30/19 09:00 12/30/19 08:17 Zestril PO 01/29/20 08:59 2.5 mg QAM IZAIAH Administration Multivitamins 1 tab 12/30/19 09:00 12/30/19 08:17 Multivitamin Tab PO 01/29/20 08:59 1 tab QAM IZAIAH Administration Past Medical History Medical History Amputation toe Diabetes Diabetic neuropathy HTN (hypertension) Hyperlipidemia Past Family History Family History Father Heart disease, Onset Age: 54 Had CABG at age 54 Mother Diabetes Past Surgical History Surgical History History of amputation of toe History of arthroscopic knee surgery History of tonsillectomy Social History Smoking Status: Never smoker Hx Alcohol Use: No Hx Substance Use: No Physical Exam Vital Signs Last Vital Signs Temp 37.3 C 12/30/19 15:13 Pulse 74 12/30/19 15:23 Resp 16 12/30/19 15:13 BP 169/82 H 12/30/19 15:13 Pulse Ox 96 12/30/19 15:13 Testing Laboratory Results 12/30/19 05:36 12/30/19 05:36 PT 10.7 Seconds (9.0-12.0) 12/30/19 05:36 INR 1.0 (0.9-1.1) 12/30/19 05:36 APTT 29.2 Seconds (21.0-31.0) 12/30/19 05:36 Hemoglobin A1c 8.6 % (4.5-5.6) H 12/30/19 05:36 12/30/19 12/30/19 12/30/19 16:46 12:06 07:33 POC Glucose 196 H 166 H 200 H Electrocardiogram Date: 12/29/19 Findings: + NSR @ cannot rule out anterior infarct, consider inferior ischemia
[2019-12-31] MEDS: SODIUM CHLOR 0.45% + 20MEQ KCL 20 MEQ/1,000 ML BAG IV SCH (00:08)
[2019-12-31] MEDS: PIPERACILLIN/TAZOBACTAM 3.375 GM in DEXTROSE 5% 100 ML IV SCH ×2 (05:13→13:56)
[2019-12-31] MEDS ORDERED: VANCOMYCIN TROUGH ONE (05:30)
[2019-12-31] MEDS: VANCOMYCIN HCL 1,250 MG in SODIUM CHLORIDE 0.9% 250 ML IV SCH (06:14)
[2019-12-31 06:53] LABS: Creatinine Clr Calc Pharmacy 107.4 ml/min; Est GFR (African American) 95.7; Est GFR (Non-African American) 82.6
[2019-12-31 07:59] LABS: Basophils # (auto) 0.05 K/uL (0-0.2); Basophils % (auto) 0.7 %; Eosinophils # (auto) 0.16 K/uL (0-0.5); Eosinophils % (auto) 2.3 %; Hematocrit (blood only) 45.1 % (42-52); Hemoglobin 14.7 g/dL (14.0-18.0); Immature Granulocytes # (auto) 0.02 K/uL (0.00-0.02); Immature Granulocytes % (auto) 0.3 %; Lymphocytes % (auto) 23.5 %; Mean Corpuscular Hemoglobin 27.3 pg (25-34); Mean Corpuscular Hgb Conc 32.6 g/dL (32-36); Mean Corpuscular Volume 83.8 fL (80-100); Mean Platelet Volume 10.7 fL (7.4-10.4); Monocytes # (auto) 0.55 K/uL (0.11-0.59); Monocytes % (auto) 8.1 %; Neutrophils # (auto) 4.43 K/uL (1.4-6.5); Neutrophils % (auto) 65.1 %; Platelet Count 250 K/uL (130-400); RDW Coefficient of Variation 13.3 % (11.5-14.5); Red Blood Count 5.38 M/uL (4.7-6.1); White Blood Count 6.81 K/uL (4.8-10.8)
[2019-12-31] MEDS: EZETIMIBE 10 MG TABLET PO SCH (08:07)
[2019-12-31] MEDS: MULTIVITAMIN TAB PO SCH (08:07)
[2019-12-31] MEDS: ASPIRIN 81 MG ECTAB PO SCH (08:08)
--- NOTE | 2019-12-31 08:53 | Pharmacy Report ---
Pharmacy Abx Dose Short Note - Date of Service December 31, 2019 - Assessment & Plan Assessment 59 year old M receiving vancomycin and Zosyn for treatment of L toe osteomyelitis Day # 3 of antimicrobial therapy. Plan Vancomycin * Trough level of 12 mcg/mL is subtherapeutic * Change to 1500 mg IV every 8 hours + start 2 hours earlier since trough subtherapeutic. * Goal trough level for osteomyelitis : 15 to 20 mcg/mL * Trough ordered for: 12/31/2019 prior to 0400 dose to ensure no accumulation Pharmacy will continue to follow and will adjust dose/frequency as necessary. Thank you.
[2019-12-31] MEDS ORDERED: VANCOMYCIN HCL 1,500 MG in SODIUM CHLORIDE 0.9% 500 ML IV ONE (11:00)
[2019-12-31] MEDS ORDERED: VANCOMYCIN HCL 1,500 MG in SODIUM CHLORIDE 0.9% 500 ML IV SCH (12:00)
[2019-12-31] MEDS ORDERED: MIDAZOLAM HCL 1 MG/ML 2ML VIAL ONE (12:01)
[2019-12-31] MEDS ORDERED: fentaNYL citrate 100 MCG/2 ML VIAL ONE (12:02)
--- NOTE | 2019-12-31 12:21 | History & Physical Bridge Note ---
Date of Service December 31, 2019 History & Physical Bridge Note I have examined the patient, reviewed the History & Physical and in the interval since the performance of the History & Physical I have noted the following changes of clinical significance: no changes noted left foot fourth digit amputation.
[2019-12-31] MEDS ORDERED: LIDOCAINE HCL 1% 20 ML VIAL ONE (12:27)
[2019-12-31] MEDS ORDERED: BUPIVACAINE 0.25% 30 ML VIAL ONE (12:27)
[2019-12-31] MEDS ORDERED: fentaNYL citrate 100 MCG/2 ML VIAL IV PRN (12:30)
[2019-12-31] MEDS ORDERED: ePHEDrine sulfate 50 MG/ML AMP IV PRN (12:30)
[2019-12-31] MEDS ORDERED: ONDANSETRON INJ 2 MG/ML 2 ML VIAL IV PRN (12:30)
[2019-12-31] MEDS ORDERED: ATROPINE SULFATE 0.1 MG/ML 10ML SYR IV PRN (12:30)
[2019-12-31] MEDS ORDERED: ONDANSETRON INJ 2 MG/ML 2 ML VIAL ONE (12:46)
[2019-12-31] MEDS ORDERED: PROPOFOL IV EMULSION 10 MG/ML 20 ML VIAL IV ONE (12:46)
[2019-12-31] MEDS ORDERED: LIDOCAINE HCL 2% 2 ML VIAL/AMP(20MG/ML) INFIL ONE (12:46)
--- NOTE | 2019-12-31 13:25 | Post Operative Brief Note ---
Immediate Post Op Note v1 Date of Surgery December 31, 2019 Pre & Post Diagnosis Operation Date: 12/31/19 13:15 Pre-Op Diagnosis: Diabetic toe infection, left 4th toe Post-Op Diagnosis: Diabetic toe infection, left 4th toe I identified the patient and participated in the time-out.: Yes Procedure Operation Date: 12/31/19 13:15 Actual Procedures p Left 4th Toe Amputation(Left) - Letitia Granado DPM Surgeon Letitia Granado DPM Melter Operator none Estimated Blood Loss 0 Findings Consistent with Post-Op Diagnosis
--- NOTE | 2019-12-31 14:02 | Operative Report (OR) ---
DATE OF OPERATION: 12/31/2019 The patient is a 59-year-old male. PREOPERATIVE DIAGNOSIS: Left foot fourth toe diabetic ulcer with osteomyelitis of distal phalanx. POSTOPERATIVE DIAGNOSIS: Left foot fourth toe diabetic ulcer with osteomyelitis of distal phalanx. PROCEDURE: Left foot fourth toe distal Syme's amputation. BLOOD LOSS: Zero. HEMOSTASIS: Pneumatic ankle tourniquet at 250 mmHg. ANESTHESIA: Local IV sedation. DESCRIPTION OF PROCEDURE FOLLOWS: The patient was brought into the operating room and placed in the supine position. The left lower extremity was prepped and draped in the usual sterile manner. A 1:1 mix of 1% lidocaine plain and 0.5% Marcaine was utilized to anesthetize the left foot in the area of the left fourth distal interphalangeal joint. An injection was also given at the metatarsophalangeal joint as well. Next, a time-out was taken. The patient was identified, procedure verified and anesthesia was induced. A 1:1 mix of 1% lidocaine plain and 0.5% Marcaine was utilized to inject in a digital block at the left fourth toe. Next, anesthesia was induced and the procedure began. A fish mouth incision was made at the distal interphalangeal joint. Dissection was carried through the skin and subcutaneous tissues to the level of the joint capsule. Next, the joint capsule was transcribed in line with the fish mouth incision and the distal interphalangeal joint was disarticulated distally. The area was then flushed with copious amounts of normal saline followed by pulse lavage. Next, any redundant tissue and skin was removed. Another portion of the bone of the head of the middle phalanx was removed utilizing the sagittal and sent with the toe that was disarticulated and removed for permanent specimen to assess that there was no further osteomyelitic infection past the distal phalanx. All remaining bone was hard and within normal appearance, and there did not appear to be any further infection deeper past that distal interphalangeal joint. Next, 3-0 Vicryl was used for subcutaneous tissues followed by 2-0 Prolene for reapproximation of the skin. Next, corrective and compressive dressings were applied. The tourniquet was deflated. The patient had good hemodynamic response noted to the left lower extremity. He was taken to the recovery room with all vital signs stable and intact. He will then return to his medicine bed via the medicine team, which is taking care of this patient. I attest to the content of the Intraoperative Record and any orders documented therein. Any exception s are noted below.
--- NOTE | 2019-12-31 14:12 | XRay Report ---
XR foot LT min 3V routine CLINICAL HISTORY: post op portable COMPARISON: 12/29/2019 DISCUSSION: Evidence for amputation of prior phalanges throughout the foot. Interval resection of distal phalanx of the fourth toe. Partial resection of the distal component of the middle phalanx. All remaining bony structures are stable. There are findings of moderate stable degenerative changes throughout. There is no evidence for soft tissue swelling. IMPRESSION: Interval resection of the distal phalanx as well as components of the middle phalanx left fourth toe. Pre-existing amputations as described. ACT 112: Negative or not required by law. The above report was generated using voice recognition software. It may contain grammatical, syntax or spelling errors. Electronically signed by: Rajendra Garcia M.D. 12/31/2019 2:11 PM
--- NOTE | 2019-12-31 14:30 | Anesthesiology Progress Note ---
Date of Service December 31, 2019 Anesthesia Post Procedure Vital Signs Vital Signs: Temp Pulse Pulse Pulse Resp BP Pulse Ox 12/31/19 14:21 36.5 C 65 18 172/92 H 93 12/31/19 14:00 36.8 C 64 20 179/91 H 97 12/31/19 13:50 64 21 183/85 H 95 12/31/19 13:40 72 21 184/97 H 96 12/31/19 13:31 36.8 C 67 18 172/84 H 95 12/31/19 12:20 36.8 C 68 16 188/90 H 96 12/31/19 08:00 59 L 12/31/19 07:29 36.4 C L 64 16 172/98 H 98 12/31/19 00:21 66 12/30/19 22:20 36.8 C 68 18 170/72 H 96 12/30/19 15:23 74 12/30/19 15:13 37.3 C 66 16 169/82 H 96 Transfer of Care Handoff Completed per policy Notes Mental Status: alert / awake / arousable Patient Amnestic to Procedure: Yes Nausea / Vomiting: adequately controlled Pain: adequately controlled Airway Patency, RR, SpO2: stable & adequate BP & HR: stable & adequate Hydration State: stable & adequate Anesthetic Complications: no major complications apparent
--- NOTE | 2019-12-31 15:33 | Discharge Summary ---
Date of Service December 31, 2019 Admission HPI Per Admitting Provider This patient is a 59-year-old male with a history of longstanding uncontrolled diabetes with insulin pump, HTN, hyperlipidemia, and diabetic neuropathy with 3 previous toe amputations, who presents from the podiatry office with rapidly worsening left fourth toe ulcer and infection to start IV antibiotics and be evaluated for amputation. He reports he first noticed the ulcer about 4 to 5 days ago when he was doing some work at his property in [place]. He does check his feet daily and has a history of rapidly progressing lower extremity infections. He was just on Augmentin and finished a 10-day course last week for another cellulitis of the left leg in the posterior calf which resolved. He denies a history of MRSA and does not know of any previous organisms that have grown out from his other infections. An x-ray in the ER did not show any evidence of osteomyelitis, and he was afebrile, no leukocytosis or evidence of sepsis. Admission Exam Per Admitting Provider Constitutional: WD/WN, vitals as above Eyes: PERRL, conjunctivae normal, anicteric sclerae ENMT: external ear and nose normal, oropharynx normal Neck: trachea midline, no thyromegaly Respiratory: normal respiratory effort, lungs clear to auscultation Cardiovascular: RRR, no murmur, no edema Chest (Breasts): Chest: normal inspection of chest Gastrointestinal (Abdomen): normal bowel sounds, soft, nontender, no hepatosplenomegaly Musculoskeletal: Extremities: no cyanosis and no clubbing Left fourth toe appears to be a sausage digit with an open deep ulceration on the plantar and dorsal surface of the distal phalanx with significant erythema, with mild erythema and edema spread up to the mid tibia anteriorly 1+ dorsalis pedis pulses bilaterally Also noted to have distal phalanx amputations of the left great and middle toes Skin: no rashes, warm and dry Neurologic: moves all extremities and awake; no focal motor deficits Psychiatric: A+Ox3, euthymic affect Lymphatic: no lymphedema Principal Diagnosis OSteomyelitis distal fourth toe of left foot s/p amputation. Discharge Exam Constitutional: WD/WN, vitals as above + well hydrated and + obese Eyes: PERRL, conjunctivae normal, anicteric sclerae ENMT: external ear and nose normal, oropharynx normal Neck: trachea midline, no thyromegaly Respiratory: normal respiratory effort, lungs clear to auscultation Cardiovascular: RRR, no murmur, no edema Gastrointestinal (Abdomen): normal bowel sounds, soft, nontender, no hepatosplenomegaly Musculoskeletal: Fresh bandage across foot. Skin: no rashes, warm and dry No spreading cellulitis up leg. Constitutional WD/WN, vitals as above + well hydrated and + obese Eyes PERRL, conjunctivae normal, anicteric sclerae ENMT external ear and nose normal, oropharynx normal Neck trachea midline, no thyromegaly Respiratory normal respiratory effort, lungs clear to auscultation Cardiovascular RRR, no murmur, no edema Gastrointestinal (Abdomen) normal bowel sounds, soft, nontender, no hepatosplenomegaly Skin no rashes, warm and dry Discharge Data Allergies Allergy/AdvReac Type Severity Reaction Status Date / Time bee venom protein (honey bee) Allergy Severe Anaphylaxis Unverified 12/29/19 13:36 Procedures Performed Operation Date: 12/31/19 13:15 Actual Procedures p Left 4th Toe Amputation(Left) - Letitia Granado DPM Ordered Studies 12/29/19 15:58 MR foot LT wo/w con Routine Hospital Course (1) Diabetes: Lul Mendez is a 59 year old man with a past medical history of diabetes with diabetic neuropathy, and hyperlipidemia who is here with suppurative fourth toe ulcer Osteomyelitis Left fourth toe, MRI showed osteomyelitis Has had three other amputations on this foot in past Placed on vanc and jon Podiatry performed distal fourth digit amputation Home on one week of augmentin and bactrim Follow up with Dr. Vannesa Carrion on Friday Diabetes Has insulin pump he uses keeps bsg in the 100's for the most part However his last A1C was 8.6 Will need close outpatient follow up. Follows with Dr. Rajendra Keller in [place]. Recommended scheduling outpatient diabetes appointment in the next couple of weeks. HLD Continue zetia for HLD HTN Admits his blood pressure is normally high has not taken anything for it previously. Starting new medication Lisinopril 2.5 mg daily. Will need outpatient BP management (2) Diabetic ulcer of toe: (3) Amputation toe: (4) HTN (hypertension): (5) Diabetic neuropathy: (6) Hyperlipidemia: (7) DVT prophylaxis: Total Time Total Time Spent Total Time Spent (In Minutes): 28 Discharge Plan Discharge Items Patient Disposition: Home - Self-Care Reason For Visit: DIABETIC TOE INFECTION Discharge Diagnosis: Diabetic toe wound with osteomyelitis requiring amputation Activity: Per Instructions section Non-emergency contact: Primary Care Provider Call non-emergency contact if: you have any medication questions, your symptoms worsen and your pain is not controlled Follow-up/Referrals: Maxwell Velarde [Primary Care Provider] - Diet: Carb Consistent or DM2 Addtl Attending Provider Instructions: Mr. Mendez, it was our pleasure taking care of you for your osteomyelitis. We believe this infection arose secondary to your diabetes and peripheral neuropathy. The infection appears to have been confined to just the distal aspect of your bone. This bone has been removed in surgery by Dr. Geo Carrion and everything is looking good. We will send you home with a surgical boot and on oral antibiotics. You can follow up with podiatry and your primary care provider when you are able. The most improtant thing is to try to keep your diabetes well controlled and to regular check your feet for wounds moving forward to prevent futher infections and amputations. Your follow up appointment for Dr. Thibodeaux will be on this coming Friday at 1 pm and will be located at the [facility] orthopedic office on the first floor of the building across from this hospital at [address] We want to sincerely wish you all the best moving forward, Gregory Zhang MD Pending Studies at Discharge: Yes Studies:: Wound cultures Stand-Alone Forms: My [facility] [employer], Smoking Cessation Medications and DC Order Prescriptions: New lisinopril 2.5 mg Tablet 2.5 mg PO QAM Qty: 30 RF: 0 amoxicillin-pot clavulanate [Augmentin] 875-125 mg tablet 1 tab PO BID Qty: 14 RF: 0 sulfamethoxazole-trimethoprim [Bactrim DS] 800-160 mg tablet 2 tab PO BID 7 Days Qty: 28 RF: 0 Continued multivitamin Tablet 1 tab PO QAM RF: 0 aspirin 81 mg Tablet,Delayed Release (Dr/Ec) 81 mg PO QAM RF: 0 insulin lispro [Humalog U-100 Insulin] 100 unit/mL solution 100 unit continuous subcutaneous infusion DAILY RF: 0 epinephrine 0.3 mg/0.3 mL auto-injector 0.3 mg subcut UD RF: 0 vitamin E 400 unit Capsule 400 unit PO QAM RF: 0 ezetimibe 10 mg tablet 10 mg PO QAM RF: 0 omega 2-jgo-osq-fish oil [Fish Oil] 1,000 mg (120 mg-180 mg) Capsule 1 cap PO QAM RF: 0 niacin 1,000 mg Tablet Extended Release 0 mg PO QAM RF: 0 Discharge Orders: Discharge Order (Routine); Ordered 12/31/19 Ordered By: Gregory Farfan/Other Patient Handouts: Diabetes Manage A1C Test Admission Data Admit Date/Time: 12/29/19 23:36 Attending Provider: Vivi Alcantara Admit Provider: Argelia Moran Primary Care Provider: Maxwell Velarde Other Interventions: Discharge Summary Assessment (RN) Last Done: 12/31/19 14:37 DC Date/Time DO NOT enter until pt leaves facility: 12/31/19 16:20 Supervising Physician Co-Signing Physician Notes Resident Physician Supervision Note: I independently interviewed and examined the patient and verified the moise history and physical, reviewed labs and image studies, discussed the case with the resident Dr. Zhang and agree with the findings and care plan. Resident Activity Tracking Resident Involvement: Resident Care Provided Care Provided: Adult Hospital Medicine
[2020-01-01] MEDS ORDERED: VANCOMYCIN TROUGH ONE (03:30)
[2020-01-01] MEDS ORDERED: OMEGA-3 (PURIFIED FISH OIL) 1 GM CAP PO SCH (09:00)
[2020-01-01] MEDS ORDERED: TOCOPHERYL, DL-ALPHA 400 UNITS CAP PO SCH (09:00)
== END 2019-12-31 16:20 | disposition home or self-care (01) | DRG 617 ==
LOC: ED 11:49 → 2N 11:49 → SUATTDRO 23:36

== ENCOUNTER 2021-09-10 10:28 | Inpatient (IN) ==
[2021-09-10 11:35] LABS: Basophils # (auto) 0.06 K/uL (0-0.2); Basophils % (auto) 0.3 %; Eosinophils # (auto) 0.07 K/uL (0-0.5); Eosinophils % (auto) 0.4 %; Hematocrit (blood only) 37.9 % (42-52); Hemoglobin 12.7 g/dL (14.0-18.0); Immature Granulocytes # (auto) 0.04 K/uL (0.00-0.02); Immature Granulocytes % (auto) 0.2 %; Lymphocytes # (auto) 1.12 K/uL (1.2-3.4); Lymphocytes % (auto) 6.2 %; Mean Corpuscular Hemoglobin 27.9 pg (25-34); Mean Corpuscular Hgb Conc 33.5 g/dL (32-36); Mean Corpuscular Volume 83.1 fL (80-100); Mean Platelet Volume 9.6 fL (7.4-10.4); Monocytes # (auto) 0.84 K/uL (0.11-0.59); Monocytes % (auto) 4.7 %; Neutrophils # (auto) 15.88 K/uL (1.4-6.5); Neutrophils % (auto) 88.2 %; Platelet Count 384 K/uL (130-400); RDW Coefficient of Variation 13.3 % (11.5-14.5); RDW Standard Deviation 40.3 fL (36.4-46.3); Red Blood Count 4.56 M/uL (4.7-6.1); White Blood Count 18.01 K/uL (4.8-10.8)
[2021-09-10 11:50] LABS: Albumin Globulin Ratio 0.9 (0.9-2); Albumin Level 3.2 gm/dl (3.4-5.0); BUN Creatinine Ratio 18.6 (10-20); Bilirubin,Total 0.7 mg/dl (0.2-1.0); Calcium 8.7 mg/dl (8.5-10.1); Creatinine Clr Calc Pharmacy 109.1 ml/min; Est GFR (African American) 98.6 ml/min; Est GFR (Non-African American) 85.1 ml/min; Globulin 3.6 gm/dl (2.5-4.0); Total Protein 6.8 gm/dl (6.0-8.3)
[2021-09-10] MEDS ORDERED: CLINDAMYCIN 600 MG in DEXTROSE 5% 50 ML IV ONE (12:07)
--- NOTE | 2021-09-10 12:07 | Emergency Department Note ---
Impression & Plan Infection of left foot, Leukocytosis ED Provider Note Name: ADE DAVIES Age: 60 Sex: M Arrives Via: Walk-In Informant: Patient ED Provider: Lenny Allison MD Chief Complaint: Foot infection Impression: As per impressions above Medical Decision Makin-year-old male with diabetes who arrives for evaluation of infection of his left pinky toe and left side of his foot. He has extensive history of foot infections with multiple toe amputations. He was seen by podiatry this morning who noted gas-forming bacteria in the lateral aspect of his left foot. Plan is to go directly to the OR after ER evaluation. I examined the patient and while he is not septic appearing he does have a moderately elevated white blood cell count. After evaluation I ordered blood cultures and a lactic acid as well as empiric antibiotics with Zosyn and clindamycin and made the manager employee benefits aware of patient's arrival to the ER. Preoperative chest x-ray and Covid testing was also ordered. Due to the extreme volumes associated with the COVID-19 pandemic patient was evaluated in a triage that waiting room but was agreeable to this approach. He understands that this is not a typical ER room and was on board with moving the work-up as quickly as possible. Furthermore after consulting the manager employee benefits I made the hospitalist aware as patient will likely need hospitalization after the surgery. Patient was rapidly taken to the OR for further management in stable condition. Prior Medical Record and Triage/Nursing Notes reviewed by Me Additional history obtained from chart Differentials:Cellulitis, gangrene, ischemia, sepsis, abscess, hyperglycemia, amongst others Vital Signs: reviewed and remarkable for hypertension Interventions: IV Zosyn, IV clindamycin ordered Labs:Reviewed and remarkable for elevated WBC Imaging:Reviewed in chart Consults:Podiatry and hospitalist medicine Plan: Disposition:Taken to OR Condition: Good History of Present Illness:60-year-old male arrives for evaluation of foot infection. Patient with a long history of foot infections and multiple toe amputations. Secondary to his diabetes. He notes a left toe pinky infection last few weeks. It has been operated on by the manager employee benefits. Over the last week rapidly worsening infection. He has been on Keflex and Cipro without improvement. He was seen this morning by his manager employee benefits who sent him to the ER for evaluation and IV antibiotics. He was advised he will need further surgery to remove the toe and likely part of the foot. He states there is gas under the skin. He denies any fevers, chills, syncope or other symptoms. He just notes some foot pain and swelling. He denies any calf pain, leg swelling, shortness of breath, chest pain, fevers, chills, syncope, nausea, vomiting or other symptoms. He states pain is worse with walking. Sitting and resting makes the foot better. He had no medications for pain this morning. Symptoms have not gotten better with Keflex or the Cipro that he is now on. ROS: See above HPI for pertinent positives & negatives. A total of 10 systems reviewed and were otherwise negative. Past Medical History:See Below Past Surgical History:See Below Family History:See Below Social History:See Below Home Medications:See Below Allergies:bees Vitals:Blood Pressure: 162/79, Pulse 96, RR 18, T 36.4C, O2 98% on RA Physical Exam: GENERAL: Patient is well appearing and in mild distress. EYES: No scleral icterus, unremarkable pupils. ENT: Mucous membranes moist, no nasal congestion. NECK: No masses appreciated, nomeningismus, trachea is midline. RESPIRATORY: No dyspnea. Clear to auscultation and equal bilaterally. No wheeze, no rhonchi. CARDIOVASCULAR: Regular rate and rhythm.No murmurs, rubs, gallops appreciated. GASTROINTESTINAL: Abdomen soft, non-tender, no peritonitis.Bowel sounds positive.No masses appreciated. BACK: No midline tenderness, no CVA tenderness EXTREMITIES: foot in boot and wrapped. Normal motion all extremities, no cyanosis, no edema. NEUROLOGIC: Alert and oriented, no acute motor or sensory deficits, no focal weakness, cranial nerves grossly intact. SKIN: No rash, no jaundice, no diaphoresis. PSYCH: Appropriate GCS: 15 Lenny Allison MD Past Med/Surg History Medical History BPH (benign prostatic hyperplasia) Cardiac murmur slight--follows with Dr. Singh Diabetes type 2--IDDM has insulin pump in place Diabetic neuropathy bilt feet HTN (hypertension) Hyperlipidemia Insulin pump in place Osteoarthritis Surgical History History of amputation of toe x4 History of arthroscopic knee surgery meniscus repair History of cardiac cath x2--in [place] 1995 (no stents) and [place] 2019 no stents--follows with Dr. 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 [employer] Feels Safe at Home: Yes Assistive Devices: Glasses Allergies Allergies Allergy/AdvReac Type Severity Reaction Status Date / Time bee venom protein (honey bee) Allergy Severe Anaphylaxis Verified 09/10/21 12:33 Home Meds Home Medications Medication Instructions Recorded Confirmed aspirin 81 mg tablet,delayed 81 mg PO QAM 12/29/19 09/10/21 release epinephrine 0.3 mg/0.3 mL 0.3 mg SUBCUT UD PRN 12/29/19 09/10/21 injection, auto-injector ezetimibe 10 mg tablet 10 mg PO QAM 12/29/19 09/10/21 insulin lispro 100 unit/mL 100 unit CONTINUOUS SUBCUTANEOUS 12/29/19 09/10/21 subcutaneous solution (Humalog INFUSION DAILY U-100 Insulin) omega 6-tys-fxb-fish oil 1,000 mg 2 cap PO QAM 12/29/19 09/10/21 (120 mg-180 mg) capsule (Fish Oil) cholecalciferol (vitamin D3) 125 125 mcg PO QAM 09/07/21 09/10/21 mcg (5,000 unit) tablet (Vitamin D3) finasteride 5 mg tablet 5 mg PO QPM 09/07/21 09/10/21 ibuprofen 200 mg tablet 600 mg PO TID PRN 09/07/21 09/10/21 lisinopril 20 mg tablet 20 mg PO QAM 09/07/21 09/10/21 tamsulosin 0.4 mg capsule 0.4 mg PO QPM 09/07/21 09/10/21 vitamin E 100 unit tablet 180 unit PO QAM 09/07/21 09/10/21 zinc 50 mg tablet 50 mg PO QAM 09/07/21 09/10/21 Previous Rx's Medication Instructions Recorded ciprofloxacin HCl 500 mg tablet 500 mg PO BID #2 tab 08/13/21 Results & Data (ED) Vital Signs Vital Signs - 24 hr 09/10/21 10:53 Temperature 36.4 C L Temperature Source Temporal Artery Scan Pulse Rate 96 H Pulse Rhythm Regular Pulse Strength Normal Respiratory Rate 18 Respiratory Effort / Characteristics Non-Labored Spontaneous Respiratory Depth Normal Respiratory Pattern Regular Blood Pressure 162/79 H Blood Pressure Mean 106 Blood Pressure Position Sitting Pulse Oximetry 98 Oxygen Delivery Method Room Air Sepsis Recent Fever Within 48 Hours No Sepsis New/Unexplained Change in Mental Status No Sepsis Action Taken by Nursing No Action Required Laboratory Data Result diagrams: 09/10/21 11:10 09/10/21 11:10 Lab Results 09/10/21 09/10/21 09/10/21 Range/Units 11:10 11:10 11:10 WBC 18.01 H (4.8-10.8) K/uL RBC 4.56 L (4.7-6.1) M/uL Hgb 12.7 L (14.0-18.0) g/dL Hct 37.9 L (42-52) % MCV 83.1 (80-100) fL MCH 27.9 (25-34) pg MCHC 33.5 (32-36) g/dL RDW Std Deviation 40.3 (36.4-46.3) fL RDW Coeff of Spenser 13.3 (11.5-14.5) % Plt Count 384 (130-400) K/uL MPV 9.6 (7.4-10.4) fL Immature Gran % (Auto) 0.2 % Neut % (Auto) 88.2 % Lymph % (Auto) 6.2 % Bracken % (Auto) 4.7 % Eos % (Auto) 0.4 % Baso % (Auto) 0.3 % Neut # (Auto) 15.88 H (1.4-6.5) K/uL Lymph # (Auto) 1.12 L (1.2-3.4) K/uL Bracken # (Auto) 0.84 H (0.11-0.59) K/uL Eos # (Auto) 0.07 (0-0.5) K/uL Baso # (Auto) 0.06 (0-0.2) K/uL Immature Gran # (Auto) 0.04 H (0.00-0.02) K/uL Sodium 130 L (136-145) mmol/L Potassium 4.0 (3.5-5.1) mmol/L Chloride 98 (98-107) mmol/L Carbon Dioxide 22 (21-32) mmol/L Anion Gap 10 (3-11) BUN 18 (6-23) mg/dl Creatinine 0.97 (0.6-1.4) mg/dl Est Cr Clr Drug Dosing 109.1 ml/min Est GFR ( Amer) 98.6 ml/min Est GFR (Non-Af Amer) 85.1 ml/min BUN/Creatinine Ratio 18.6 (10-20) Glucose 278 H (70-99(Fasting)) mg/dl POC Glucose (70-99) mg/dl Calcium 8.7 (8.5-10.1) mg/dl Total Bilirubin 0.7 (0.2-1.0) mg/dl AST 19 (13-39) U/L ALT 17 (7-52) U/L Alkaline Phosphatase 131 H (34-104) U/L C-Reactive Protein 34.85 H (0-0.5) mg/dl Total Protein 6.8 (6.0-8.3) gm/dl Albumin 3.2 L (3.4-5.0) gm/dl Globulin 3.6 (2.5-4.0) gm/dl Albumin/Globulin Ratio 0.9 (0.9-2) 09/10/21 09/10/21 Range/Units 12:35 16:30 WBC (4.8-10.8) K/uL RBC (4.7-6.1) M/uL Hgb (14.0-18.0) g/dL Hct (42-52) % MCV (80-100) fL MCH (25-34) pg MCHC (32-36) g/dL RDW Std Deviation (36.4-46.3) fL RDW Coeff of Spenser (11.5-14.5) % Plt Count (130-400) K/uL MPV (7.4-10.4) fL Immature Gran % (Auto) % Neut % (Auto) % Lymph % (Auto) % Bracken % (Auto) % Eos % (Auto) % Baso % (Auto) % Neut # (Auto) (1.4-6.5) K/uL Lymph # (Auto) (1.2-3.4) K/uL Bracken # (Auto) (0.11-0.59) K/uL Eos # (Auto) (0-0.5) K/uL Baso # (Auto) (0-0.2) K/uL Immature Gran # (Auto) (0.00-0.02) K/uL Sodium (136-145) mmol/L Potassium (3.5-5.1) mmol/L Chloride (98-107) mmol/L Carbon Dioxide (21-32) mmol/L Anion Gap (3-11) BUN (6-23) mg/dl Creatinine (0.6-1.4) mg/dl Est Cr Clr Drug Dosing ml/min Est GFR ( Amer) ml/min Est GFR (Non-Af Amer) ml/min BUN/Creatinine Ratio (10-20) Glucose (70-99(Fasting)) mg/dl POC Glucose 280 H 205 H (70-99) mg/dl Calcium (8.5-10.1) mg/dl Total Bilirubin (0.2-1.0) mg/dl AST (13-39) U/L ALT (7-52) U/L Alkaline Phosphatase (34-104) U/L C-Reactive Protein (0-0.5) mg/dl Total Protein (6.0-8.3) gm/dl Albumin (3.4-5.0) gm/dl Globulin (2.5-4.0) gm/dl Albumin/Globulin Ratio (0.9-2) Discharge Plan Visit Data Chief Complaint: Infection, Wound Stated Complaint: INFECTION IN LEFT FOOT,OPEN WOUND ED Provider: Lenny Allison Discharge Problem: Infection of left foot, Leukocytosis Patient Disposition: Admitted As Inpatient Discharge Instructions Interventions: ED Discharge Assessment Last Done: 09/10/21 12:10 Discharge Problem: Leukocytosis Qualifiers: Leukocytosis type: unspecified Qualified Code(s): D72.829 - Elevated white blood cell count, unspecified
[2021-09-10] MEDS ORDERED: PIPERACILLIN/TAZOBACTAM 4.5 GM/120 ML BAG IV ONE (12:11)
[2021-09-10] MEDS ORDERED: PIPERACILL/TAZOBAC CONSULT ACTIVE PRN (12:11)
[2021-09-10] MEDS ORDERED: CLINDAMYCIN 900 MG in DEXTROSE 5% 50 ML IV ONE (12:17)
[2021-09-10] MEDS ORDERED: HYDROmorphone INJ 0.5 MG/0.5 ML SYR IV PRN (16:57)
--- NOTE | 2021-09-11 02:07 | Operative Report ---
DATE OF SURGERY: 09/10/2021. SURGEON: Letitia Granado DPM. PREOPERATIVE DIAGNOSES: Left foot diabetic foot ulcer, gas gangrene, cellulitis and osteomyelitis of the fifth toe. POSTOPERATIVE DIAGNOSES: Left foot diabetic foot ulcer, gas gangrene, cellulitis and osteomyelitis o f the fifth toe. PROCEDURE: Left fifth toe amputation and fifth metatarsal head resection with incision and drainage. ANESTHESIA: Local IV sedation. BLOOD LOSS: 1 mL. HEMOSTASIS: Pneumatic ankle tourniquet at 250 mmHg. DESCRIPTION OF PROCEDURE: The patient was brought in the operating room and placed in the supine pos ition. The left lower extremity was prepped and draped in the usual sterile manner. A 1:1 mix of 1% lidocaine plain, 0.5% Marcaine was utilized to anesthetize the left foot in the area of the left fif th metatarsophalangeal joint and left fifth toe. A timeout was taken. The patient was verified, pro cedure verified and the procedure began. A fishmouth incision was made at the left fifth toe and the toe was disarticulated at the metatarsophalangeal joint. There was significant purulent drainage ex pressible from the area. Next, the incision was extended along the lateral aspect of the fifth metatarsal and the bone of the fifth metatarsal head appeared to be irregular with osteomyelitic change. The head of the fifth meta tarsal was resected until the bone showed no further changes consistent with osteomyelitis there. Th ere was still considerable amounts of purulent drainage about 2-3 mL expressed from the area. The ar ea was then flushed with a pulse lavage with 1000 mL of normal saline. Next, any remaining tissue th at appeared abnormal with discoloration or changes consistent with necrotic tissue was debrided from the site. Next, care was used to obtain all cultures and sensitivities. The toe on all soft tissue was sent to pathology for permanent specimen. Next, utilizing 2-0 Vicryl and 2-0 Prolene, the wound was closed, packing was applied at both the proximal and distal ends of the incision. The patient then was admi tted through the ER and is under the care of the medicine team. He will return to the floor bed unde r the medicine care for continued antibiotics and I will continue to follow with the patient. Job ID: [id number]
== END 2021-09-14 14:54 | disposition home health service (06) | DRG 853 ==
LOC: ED 10:28 → OR 12:10 → EDINP 17:07

== ENCOUNTER 2021-09-10 16:56 | Inpatient (IN) ==
--- NOTE | 2021-09-10 13:43 | History & Physical Bridge Note ---
Date of Service September 10, 2021 History & Physical Bridge Note I have examined the patient, reviewed the History & Physical and in the interval since the performance of the History & Physical I have noted the following changes of clinical significance: no changes noted, patient has been cleared by cardiology and his PCP, he was seen by medicine and admitted under medicine service, he has failed outpatient therapy and has worsening left foot wound, necessitating surgery today and has subcutaneous gas on x-ray taken today, left foot surgery.
--- NOTE | 2021-09-10 16:14 | Post Operative Brief Note ---
Immediate Post Op Note v1 Date of Surgery September 10, 2021 Pre & Post Diagnosis Operation Date: 09/10/21 12:05 Pre-Op Diagnosis: Left Toe Amputation and metatarsal head resection, incision and drainage I identified the patient and participated in the time-out.: Yes Procedure Operation Date: 09/10/21 12:05 Actual Procedures p Left Fifth Toe Amputation(Left) - Letitia Thibodeaux DPM left fifth metatarsal head resection incision and drainage left foot Surgeon Letitia Thibodeaux DPM V Belt Builder Aishwarya Aguirre Estimated Blood Loss 1 Findings Consistent with Post-Op Diagnosis
[~2021-09-10 16:56] MED LIST: ATROPINE SULFATE 0.1 MG/ML 10ML SYR IV PRN; BUPIVACAINE 0.25% 30 ML VIAL ONE; FLUMAZENIL 0.1 MG/1 ML 10 ML VIAL IV PRN; HYDROmorphone INJ 1 MG/ML SYRINGE IV PRN; KETAMINE 50 MG/5 ML SYRINGE ONE; LABETALOL HCL IV 5 MG/ML 20ML IV PRN; LIDOCAINE 1% LOCAL 20 ML VIAL ONE; LIDOCAINE 2% 2 ML VIAL/AMP(20MG/ML) INFIL ONE; MIDAZOLAM HCL 1 MG/ML 2ML VIAL ONE; NALOXONE HCL 0.4 MG/1 ML VIAL/CARP IV PRN; ONDANSETRON INJ 2 MG/ML 2 ML VIAL IV PRN; ONDANSETRON INJ 2 MG/ML 2 ML VIAL ONE; PROMETHAZINE HCL 12.5 MG in SODIUM CHLORIDE 0.9% 50 ML IV PRN; PROPOFOL IV EMULSION 10 MG/ML 20 ML VIAL IV ONE; ePHEDrine sulfate 50 MG/ML AMP IV PRN; fentaNYL citrate 100 MCG/2 ML VIAL IV PRN; fentaNYL citrate 100 MCG/2 ML VIAL ONE
[2021-09-10] MEDS ORDERED: LABETALOL HCL IV 5 MG/ML 20ML IV STA (17:32)
--- NOTE | 2021-09-10 18:11 | Anesthesiology Progress Note ---
Date of Service September 10, 2021 Anesthesia Post Procedure Vital Signs Vital Signs: Temp Pulse Pulse Resp BP Pulse Ox 09/10/21 18:00 36.7 C 91 H 28 H 172/86 H 99 09/10/21 17:50 91 H 28 H 147/78 H 98 09/10/21 17:40 96 H 21 163/88 H 96 09/10/21 17:30 36.8 C 98 H 33 H 183/98 H 98 09/10/21 17:20 91 H 23 162/81 H 99 09/10/21 17:12 80 21 160/78 H 98 09/10/21 17:00 76 20 140/75 98 09/10/21 16:50 77 17 141/74 H 98 09/10/21 16:40 76 17 138/69 98 09/10/21 16:31 75 24 126/61 100 09/10/21 16:21 36.0 C L 74 20 117/61 99 09/10/21 12:46 36.5 C 94 H 20 156/83 H 97 09/10/21 12:35 36.5 C 94 H 20 156/83 H 97 Pain Intensity Left Foot: Pain Intensity: 2 Transfer of Care Handoff Completed per policy Notes Mental Status: alert / awake / arousable Patient Amnestic to Procedure: Yes Nausea / Vomiting: adequately controlled Pain: adequately controlled Airway Patency, RR, SpO2: stable & adequate BP & HR: stable & adequate Hydration State: stable & adequate Anesthetic Complications: no major complications apparent
[2021-09-10] MEDS ORDERED: GLUCAGON FOR INJ 1 MG VIAL SQ PRN ×2 (19:15→21:00)
[2021-09-10] MEDS ORDERED: PHARMACY GLYCEMIC MGMT CONSULT PRN (19:15)
[2021-09-10] MEDS ORDERED: GLUCOSE 40% GEL 15 GM TUBE PO PRN ×2 (19:15→21:00)
[2021-09-10] MEDS ORDERED: DEXTROSE 50% 50 ML SYRINGE IV PRN ×2 (19:15→21:00)
[2021-09-10] MEDS ORDERED: HYDROmorphone INJ 0.5 MG/0.5 ML SYR IV PRN (19:15)
[2021-09-10] MEDS ORDERED: CARBOHYDRATES FOR HYPOGLYCEMIA PO PRN ×2 (19:15→21:00)
[2021-09-10] MEDS ORDERED: POLYETHYLENE (MIRALAX) 17 GM PACK PO PRN (19:15)
[2021-09-10] MEDS ORDERED: PIPERACILL/TAZOBAC CONSULT ACTIVE PRN (19:15)
[2021-09-10] MEDS ORDERED: GLUCOSE 10 TABS/TUBE PO PRN ×2 (19:15→21:00)
[2021-09-10] MEDS ORDERED: lisinopril 20 MG TAB PO ONE (19:18)
[2021-09-10] MEDS ORDERED: PIPERACILLIN/TAZOBACTAM 3.375 GM in DEXTROSE 5% 100 ML IV ONE (19:30)
[2021-09-10] MEDS: ACETAMINOPHEN 325 MG TAB PO PRN (19:36)
[2021-09-10] MEDS: CLINDAMYCIN 600 MG in DEXTROSE 5% 50 ML IV SCH (19:57)
[2021-09-10] MEDS: DAPTOmycin 325 MG in SYRINGE 0 ML IV SCH (20:42)
[2021-09-10] MEDS: FINASTERIDE 5 MG TAB PO SCH (20:47)
[2021-09-10] MEDS ORDERED: INSULIN HUMAN LISPRO (humaLOG) 100 UNITS/ML VIAL SC PRN (21:00)
[2021-09-11] MEDS: PIPERACILLIN/TAZOBACTAM 3.375 GM in DEXTROSE 5% 100 ML IV SCH ×3 (00:42→17:59)
--- NOTE | 2021-09-11 02:07 | Operative Report ---
DATE OF SURGERY: 09/10/2021. SURGEON: Letitia Granado DPM. PREOPERATIVE DIAGNOSES: Left foot diabetic foot ulcer, gas gangrene, cellulitis and osteomyelitis of the fifth toe. POSTOPERATIVE DIAGNOSES: Left foot diabetic foot ulcer, gas gangrene, cellulitis and osteomyelitis o f the fifth toe. PROCEDURE: Left fifth toe amputation and fifth metatarsal head resection with incision and drainage. ANESTHESIA: Local IV sedation. BLOOD LOSS: 1 mL. HEMOSTASIS: Pneumatic ankle tourniquet at 250 mmHg. DESCRIPTION OF PROCEDURE: The patient was brought in the operating room and placed in the supine pos ition. The left lower extremity was prepped and draped in the usual sterile manner. A 1:1 mix of 1% lidocaine plain, 0.5% Marcaine was utilized to anesthetize the left foot in the area of the left fif th metatarsophalangeal joint and left fifth toe. A timeout was taken. The patient was verified, pro cedure verified and the procedure began. A fishmouth incision was made at the left fifth toe and the toe was disarticulated at the metatarsophalangeal joint. There was significant purulent drainage ex pressible from the area. Next, the incision was extended along the lateral aspect of the fifth metatarsal and the bone of the fifth metatarsal head appeared to be irregular with osteomyelitic change. The head of the fifth meta tarsal was resected until the bone showed no further changes consistent with osteomyelitis there. Th ere was still considerable amounts of purulent drainage about 2-3 mL expressed from the area. The ar ea was then flushed with a pulse lavage with 1000 mL of normal saline. Next, any remaining tissue th at appeared abnormal with discoloration or changes consistent with necrotic tissue was debrided from the site. Next, care was used to obtain all cultures and sensitivities. The toe on all soft tissue was sent to pathology for permanent specimen. Next, utilizing 2-0 Vicryl and 2-0 Prolene, the wound was closed, packing was applied at both the proximal and distal ends of the incision. The patient then was admi tted through the ER and is under the care of the medicine team. He will return to the floor bed unde r the medicine care for continued antibiotics and I will continue to follow with the patient. Job ID: [id number]
[2021-09-11] MEDS: ACETAMINOPHEN 325 MG TAB PO PRN ×2 (04:26→19:28)
[2021-09-11] MEDS: CLINDAMYCIN 600 MG in DEXTROSE 5% 50 ML IV SCH ×4 (04:26→20:26)
[2021-09-11] MEDS ORDERED: MELATONIN 3 MG TAB PO PRN (07:36)
[2021-09-11 08:01] LABS: Hematocrit (blood only) 35.3 % (42-52); Hemoglobin 11.6 g/dL (14.0-18.0); Mean Corpuscular Hemoglobin 27.2 pg (25-34); Mean Corpuscular Hgb Conc 32.9 g/dL (32-36); Mean Corpuscular Volume 82.9 fL (80-100); Mean Platelet Volume 9.2 fL (7.4-10.4); Platelet Count 362 K/uL (130-400); RDW Coefficient of Variation 13.6 % (11.5-14.5); RDW Standard Deviation 41.6 fL (36.4-46.3); Red Blood Count 4.26 M/uL (4.7-6.1); White Blood Count 17.55 K/uL (4.8-10.8)
[2021-09-11 08:21] LABS: Basophils # (auto) 0.05 K/uL (0-0.2); Basophils % (auto) 0.3 %; Eosinophils # (auto) 0.07 K/uL (0-0.5); Eosinophils % (auto) 0.4 %; Immature Granulocytes # (auto) 0.08 K/uL (0.00-0.02); Immature Granulocytes % (auto) 0.5 %; Lymphocytes # (auto) 1.43 K/uL (1.2-3.4); Lymphocytes % (auto) 8.1 %; Monocytes # (auto) 1.02 K/uL (0.11-0.59); Monocytes % (auto) 5.8 %; Neutrophils % (auto) 84.9 %
[2021-09-11] MEDS: lisinopril 20 MG TAB PO SCH (09:22)
[2021-09-11] MEDS: EZETIMIBE 10 MG TABLET PO SCH (09:23)
--- NOTE | 2021-09-11 10:27 | Podiatry Consultation ---
Date of Consultation September 11, 2021 Assessment & Plan (1) Infection of left foot: continue abx per medicine team and await c and s results continue light ambulation to left foot and elevate left foot dressing changed today dueing my visit (2) Diabetic ulcer of toe: Diabetes mellitus type: other specified (including MAR) Laterality: left Non-pressure ulcer stage: unspecified non-pressure ulcer stage Qualified Code(s): E13.621 - Other specified diabetes mellitus with foot ulcer; L97.529 - Non-pressure chronic ulcer of other part of left foot with unspecified severity (3) Diabetic neuropathy: History of Present Illness Reason for Consultation: patient seen today at bedside s/p left foot I and D, 5th toe amputation and 5th metatarsal head resection patient noted today he was feeling much better, WBC with slight decrease, temp remains normal I still was able to express purulent drainage from the wound/incision with some malodor still detected All dressings removed and incision flushed with saline, new dressings applied patient will need to continue to rest and elevate the left LE, continue IV abx, cultures still pending I will order a post op show for patient to wear as well Post op day #1 Attending Physician: Bertrand Liao DO Allergies Allergy/AdvReac Type Severity Reaction Status Date / Time bee venom protein (honey bee) Allergy Severe Anaphylaxis Verified 09/10/21 12:33 Home Medications Medication Instructions Recorded Confirmed Type aspirin 81 mg tablet,delayed 81 mg PO QAM 12/29/19 09/10/21 History release epinephrine 0.3 mg/0.3 mL 0.3 mg SUBCUT UD PRN 12/29/19 09/10/21 History injection, auto-injector ezetimibe 10 mg tablet 10 mg PO QAM 12/29/19 09/10/21 History insulin lispro 100 unit/mL 100 unit CONTINUOUS SUBCUTANEOUS 12/29/19 09/10/21 History subcutaneous solution (Humalog INFUSION DAILY U-100 Insulin) omega 0-bbx-yuv-fish oil 1,000 mg 2 cap PO QAM 12/29/19 09/10/21 History (120 mg-180 mg) capsule (Fish Oil) ciprofloxacin HCl 500 mg tablet 500 mg PO BID #2 tab 08/13/21 09/10/21 Rx cholecalciferol (vitamin D3) 125 125 mcg PO QAM 09/07/21 09/10/21 History mcg (5,000 unit) tablet (Vitamin D3) finasteride 5 mg tablet 5 mg PO QPM 09/07/21 09/10/21 History ibuprofen 200 mg tablet 600 mg PO TID PRN 09/07/21 09/10/21 History lisinopril 20 mg tablet 20 mg PO QAM 09/07/21 09/10/21 History tamsulosin 0.4 mg capsule 0.4 mg PO QPM 09/07/21 09/10/21 History vitamin E 100 unit tablet 180 unit PO QAM 09/07/21 09/10/21 History zinc 50 mg tablet 50 mg PO QAM 09/07/21 09/10/21 History Patient History Medical History BPH (benign prostatic hyperplasia) Cardiac murmur slight--follows with Dr. Singh Diabetes type 2--IDDM has insulin pump in place Diabetic neuropathy bilt feet HTN (hypertension) Hyperlipidemia Insulin pump in place Osteoarthritis Surgical History History of amputation of toe x4 History of arthroscopic knee surgery meniscus repair History of cardiac cath x2--in [place] 1995 (no stents) and [place] 2019 no stents--follows with Dr. 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 [employer] Feels Safe at Home: Yes Assistive Devices: Glasses Physical Exam Skin: dressings removed, and incision flushed as stated above, erythema and swelling improving from yesterdays visit, I still appreciated pitting edema but again improved from yesterday patient has a ways to go and will need continued abx and wound dressings but stable today and patient feeling better Results & Data ([facility]) Vital Signs (Past 12 Hours) Vital Signs Temp Pulse Pulse Resp BP Pulse Ox 09/11/21 07:35 36.8 C 86 18 145/77 H 96 09/11/21 06:20 89 09/11/21 05:19 37.0 C 09/11/21 03:58 37.5 C 101 H 18 185/85 H 94 09/11/21 00:43 36.7 C 99 H 16 167/79 H 93 09/10/21 23:33 37.4 C 95 H 16 161/73 H 94 09/10/21 23:25 37.1 C 96 H 18 149/71 H 93
[2021-09-11 11:08] LABS: BUN Creatinine Ratio 15.5 (10-20); Creatinine Clr Calc Pharmacy 123.6 ml/min; Est GFR (African American) 111.1 ml/min; Est GFR (Non-African American) 95.8 ml/min; Potassium 4.1 mmol/L (3.5-5.1)
[2021-09-11 14:44] LABS: Estimated Average Glucose 189 mg/dl; Hemoglobin A1C 8.2 % (4.5-5.6)
[2021-09-11] MEDS: ADVANCED PROBIOTIC 1250 MG CAPSULE PO SCH (15:27)
--- NOTE | 2021-09-11 17:34 | Hospitalist Progress Note ---
Date of Service September 11, 2021 Assessment & Plan (1) Infection of left foot: Plan: sepsis present on admission gas in foot - probably polymicrobial gangrene, can't definitively r/o early necrotizing fasciitis from my pesrpective - will d/w podiatry re ?intraop ddx (mostly this factors in to ?continuing clinda or not) - continue polymicrobial coverage for now, ocnitnue clinda for anti-toxin effect until at least situation has become more clear (2) Diabetes: Plan: extensive education -discussed "high sugars clog arteries" -discussed carb matching and 2hr pp glucose checks to "grade his work" and discussed "soft carb counting" as an alternative to weighing/measuring -discussed re-balancing basal/bolus to closer to 50/50 on the day (for now increased basal rate to 2) (3) Hyperlipidemia: Plan: contineu zetia for now. will need to explore further re ?adrs or reasons why not - but if no contraindication would probably benefit from high intensity statin (4) HTN (hypertension): Plan: continue home meds, follow (5) DVT prophylaxis: Plan: lovenox Admission and Anticipated Discharge Date Admission Date: September 10, 2021 Subjective feeling better foot and leg still hurt but better has a hard time w glucoses - eats well, exercises regularly - but ntoes that he feels like sugars are often random. checks different times of day but not consistently 2hr postprandial. notes a hard time w carb counting. basal 1.5/hr but total insulin on the day ~100 units suggesting bolus >>> basal Review of Systems Review of Systems: All systems reviewed & are unremarkable except as noted in HPI & below Physical Exam Physical Exam: gen aao pleasant nad heent nc at mmm breathing unlabored no accessory muscles good effort skin no rashes but does have tender erythema L shha no crepitis (+) edema foot dressed and wrapped. no focal neuro deficits Results & Data Results & Data ([facility]) Vital Signs (Past 12 Hours) Vital Signs Temp Pulse Pulse Resp BP Pulse Ox 09/11/21 15:33 99.9 F H 95 H 18 163/75 H 97 09/11/21 14:20 90 09/11/21 13:29 98.2 F 09/11/21 11:14 100.2 F H 102 H 18 184/84 H 97 09/11/21 07:35 98.2 F 86 18 145/77 H 96 09/11/21 06:20 89 PG Care Time/CCT Total # of Minutes Spent Total Time Spent with Patient: Total time spent is greater than 50% in coordination of care (as documented) at patient's floor/unit and/or counseling patient: Coding Level of Care Code 70254 Subseq Hosp Care Lvl 3 Diagnoses Infection of left foot L08.9 Diabetes E11.9 Hyperlipidemia E78.5 HTN (hypertension) I10 DVT prophylaxis Z29.9
[2021-09-11] MEDS: ENOXAPARIN INJ 40 MG/0.4 ML SYR SQ SCH (18:59)
[2021-09-11] MEDS: DAPTOmycin 325 MG in SYRINGE 0 ML IV SCH (20:19)
[2021-09-11] MEDS: FINASTERIDE 5 MG TAB PO SCH (20:26)
[2021-09-12] MEDS: PIPERACILLIN/TAZOBACTAM 3.375 GM in DEXTROSE 5% 100 ML IV SCH ×3 (00:02→16:35)
[2021-09-12] MEDS: CLINDAMYCIN 600 MG in DEXTROSE 5% 50 ML IV SCH ×4 (04:50→20:42)
[2021-09-12 06:41] LABS: Basophils # (auto) 0.05 K/uL (0-0.2); Basophils % (auto) 0.3 %; Eosinophils # (auto) 0.18 K/uL (0-0.5); Eosinophils % (auto) 1.1 %; Hematocrit (blood only) 34.5 % (42-52); Hemoglobin 11.3 g/dL (14.0-18.0); Immature Granulocytes # (auto) 0.06 K/uL (0.00-0.02); Immature Granulocytes % (auto) 0.4 %; Lymphocytes # (auto) 1.53 K/uL (1.2-3.4); Mean Corpuscular Hemoglobin 27.6 pg (25-34); Mean Corpuscular Hgb Conc 32.8 g/dL (32-36); Mean Corpuscular Volume 84.1 fL (80-100); Mean Platelet Volume 9.2 fL (7.4-10.4); Monocytes # (auto) 1.18 K/uL (0.11-0.59); Neutrophils # (auto) 13.94 K/uL (1.4-6.5); Neutrophils % (auto) 82.2 %; Platelet Count 434 K/uL (130-400); RDW Coefficient of Variation 13.8 % (11.5-14.5); RDW Standard Deviation 42.4 fL (36.4-46.3); White Blood Count 16.94 K/uL (4.8-10.8)
[2021-09-12 07:05] LABS: BUN Creatinine Ratio 13.9 (10-20); Creatinine Clr Calc Pharmacy 132.1 ml/min; Est GFR (African American) 113.9 ml/min; Est GFR (Non-African American) 98.3 ml/min; Potassium 3.9 mmol/L (3.5-5.1)
[2021-09-12] MEDS: ADVANCED PROBIOTIC 1250 MG CAPSULE PO SCH (08:21)
[2021-09-12] MEDS: lisinopril 20 MG TAB PO SCH (08:21)
[2021-09-12] MEDS: ASPIRIN 81 MG ECTAB PO SCH (08:22)
[2021-09-12] MEDS: EZETIMIBE 10 MG TABLET PO SCH (08:22)
[2021-09-12] MEDS: SACCHAROMYCES BOULARDII 250 MG CAP PO SCH (10:17)
--- NOTE | 2021-09-12 12:34 | Medical Student Progress Note ---
Date of Service September 12, 2021 Assessment & Plan (1) Infection of left foot: Plan: sepsis present on admission gas in foot - probably polymicrobial gangrene, can't definitively r/o early necrotizing fasciitis from my pesrpective - will d/w podiatry re ?intraop ddx (mostly this factors in to ?continuing clinda or not) - continue polymicrobial coverage for now, ocnitnue clinda for anti-toxin effect until at least situation has become more clear (2) Diabetes: Plan: extensive education -discussed "high sugars clog arteries" -discussed carb matching and 2hr pp glucose checks to "grade his work" and discussed "soft carb counting" as an alternative to weighing/measuring -discussed re-balancing basal/bolus to closer to 50/50 on the day (for now increased basal rate to 2) (3) Hyperlipidemia: Plan: contineu zetia for now. will need to explore further re ?adrs or reasons why not - but if no contraindication would probably benefit from high intensity statin (4) HTN (hypertension): Plan: continue home meds, follow (5) DVT prophylaxis: Plan: lovenox Admission and Anticipated Discharge Date Admission Date: September 10, 2021 Subjective Pt is a 60 yo insulin dependent diabetic s/p day #3 surgical debridement of the left 5th toe and metatarsal bone. Pt feels his change in basal rate to 2.1 units/h has brought his sugar down some, but it was recently still high above 200's after a meal. He is able to move his left foot with no pain. checks different times of day but not consistently 2hr postprandial. notes a hard time w carb counting. basal 1.5/hr but total insulin on the day ~100 units suggesting bolus >>> basal Physical Exam Physical Exam: gen aao pleasant nad heent nc at mmm breathing unlabored no accessory muscles good effort skin no rashes but does have tender erythema L shah no crepitis (+) edema foot dressed and wrapped. no focal neuro deficits Results & Data ([facility]) Vital Signs (Past 12 Hours) Vital Signs Temp Pulse Pulse Resp BP Pulse Ox 09/12/21 11:12 36.9 C 79 24 166/86 H 96 09/12/21 07:09 36.4 C L 87 24 174/90 H 94 09/12/21 06:16 43 L 09/12/21 02:53 36.9 C 93 H 18 162/83 H 93
--- NOTE | 2021-09-12 12:46 | Medical Student Progress Note ---
Date of Service September 12, 2021 Assessment & Plan (1) Infection of left foot: Plan: Pt is a 60 yo insulin dependent diabetic post op day #2 amputation of the left 5th toe and part of the metatarsal bone. Infection: Pt had crepitus in the left foot on admission and left foot XR showed gas in the tissue. OR culture came back GBS +ve. Pt's WBC still elevated but downtrending (16.94). Daptomycin- 325 mg IV Q24H Clindamycin- 600 mg IV Q8H for anti-toxen effect Rogwtikvrwdv-Tgjyglhsiq-3.375 gm IV Q8H (2) Diabetes: Plan: -increased basal from 1.6 u/h to 2.1 u/h -last a1c 8.2% -follow up with [place] die [employer] electronic Rajendra Monet (3) Hyperlipidemia: Plan: -contineu zetia for now. will need to explore further reasons or reasons why not - but if no contraindication would probably benefit from high intensity statin (4) HTN (hypertension): Plan: continue home lisinopril (5) DVT prophylaxis: Plan: lovenox 4mg Q24H inj Admission and Anticipated Discharge Date Admission Date: September 10, 2021 Supervising Attestation I personally examined the patient and verified all moise points of history and exam, discussed case, and agree with decision making with A Leopoldo MS2 foot feeling better hurting less. sugars running high since a little after breakfast vitals noted nad heent nc at mmm breathing unlabored no accessory muscles good effort LLE resolving erythema distal shah, benzol still operator but less than before sepsis present on admission due to gas gangrene DM foot infection - probably polymicrobial - continue broad coverage. improving. appreciate podiatry input DM -uncontrolled -ongoing education -biggest problems appear to be that he is not covering meals quite as aggressively as he needs to be; also paradoxically that he concomittantly tends to run far more bolus than basal in 24hrs -educating, helping adjust insulin -follow otherwise as above Subjective Pt reports feeling better. Pt feels his change in basal rate to 2.1 units/h has brought his sugar down some, but it was recently still high above 200's immediately after breakfast meal. He is able to move his left foot with no pain and can ambulate to and from bathroom using his walker. He feels he may have no problem walking without the walker but hasnt tried it yet. Understands to check before and after a meal preferably at 2 hrs. Review of Systems Constitutional: no fever, no chills, no sweats and no body aches Physical Exam Physical Exam: Gen Appearance: pt appears in no acute distress Respiration: non labored breathing Ext: left foot able to move without pain. Patient benzol still operator to palpation in the shah. Shah is still erythematous and swollen but not as bad as yesterday. Results & Data ([facility]) Vital Signs (Past 12 Hours) Vital Signs Temp Pulse Pulse Resp BP Pulse Ox 09/12/21 11:12 36.9 C 79 24 166/86 H 96 09/12/21 07:09 36.4 C L 87 24 174/90 H 94 09/12/21 06:16 43 L 09/12/21 02:53 36.9 C 93 H 18 162/83 H 93 Laboratory Results 09/10/21 15:50 Gram Stain - Final Foot,Left Aerobic and Anaerobic Culture - Preliminary Group B Beta Strep 09/12/21 09/12/21 09/12/21 11:30 07:29 06:10 WBC RBC Hgb Hct MCV MCH MCHC RDW Std Deviation RDW Coeff of Spenser Plt Count MPV Immature Gran % (Auto) Neut % (Auto) Lymph % (Auto) [place] % (Auto) Eos % (Auto) Baso % (Auto) Neut # (Auto) Lymph # (Auto) [place] # (Auto) Eos # (Auto) Baso # (Auto) Immature Gran # (Auto) Sodium 132 L Potassium 3.9 Chloride 100 Carbon Dioxide 24 Anion Gap 8 BUN 11 Creatinine 0.79 Est Cr Clr Drug Dosing 132.1 Est GFR ( Amer) 113.9 Est GFR (Non-Af Amer) 98.3 BUN/Creatinine Ratio 13.9 Glucose 144 H POC Glucose 223 H 160 H Estimat Average Glucose Hemoglobin A1c Calcium 8.0 L 09/12/21 09/11/21 09/11/21 06:10 20:07 16:49 WBC 16.94 H RBC 4.10 L Hgb 11.3 L Hct 34.5 L MCV 84.1 MCH 27.6 MCHC 32.8 RDW Std Deviation 42.4 RDW Coeff of Spenser 13.8 Plt Count 434 H MPV 9.2 Immature Gran % (Auto) 0.4 Neut % (Auto) 82.2 Lymph % (Auto) 9.0 [place] % (Auto) 7.0 Eos % (Auto) 1.1 Baso % (Auto) 0.3 Neut # (Auto) 13.94 H Lymph # (Auto) 1.53 [place] # (Auto) 1.18 H Eos # (Auto) 0.18 Baso # (Auto) 0.05 Immature Gran # (Auto) 0.06 H Sodium Potassium Chloride Carbon Dioxide Anion Gap BUN Creatinine Est Cr Clr Drug Dosing Est GFR ( Amer) Est GFR (Non-Af Amer) BUN/Creatinine Ratio Glucose POC Glucose 174 H 147 H Estimat Average Glucose Hemoglobin A1c Calcium 09/11/21 07:42 WBC RBC Hgb Hct MCV MCH MCHC RDW Std Deviation RDW Coeff of Spenser Plt Count MPV Immature Gran % (Auto) Neut % (Auto) Lymph % (Auto) [place] % (Auto) Eos % (Auto) Baso % (Auto) Neut # (Auto) Lymph # (Auto) [place] # (Auto) Eos # (Auto) Baso # (Auto) Immature Gran # (Auto) Sodium Potassium Chloride Carbon Dioxide Anion Gap BUN Creatinine Est Cr Clr Drug Dosing Est GFR ( Amer) Est GFR (Non-Af Amer) BUN/Creatinine Ratio Glucose POC Glucose Estimat Average Glucose 189 Hemoglobin A1c 8.2 H Calcium Diagnostic Findings L foot XR: gas in 5th digit
[2021-09-12] MEDS: ACETAMINOPHEN 325 MG TAB PO PRN (14:42)
--- NOTE | 2021-09-12 16:37 | Podiatry Consultation ---
Date of Consultation September 12, 2021 Assessment & Plan (1) Infection of left foot: continue abx per medicine team group b strep noted continue light ambulation to left foot and elevate left foot dressing changed today during my visit (2) Diabetic ulcer of toe: Diabetes mellitus type: other specified (including MAR) Laterality: left Non-pressure ulcer stage: unspecified non-pressure ulcer stage Qualified Code(s): E13.621 - Other specified diabetes mellitus with foot ulcer; L97.529 - Non-pressure chronic ulcer of other part of left foot with unspecified severity (3) Diabetic neuropathy: History of Present Illness Attending Physician: Bertrand Liao DO History of Present Illness post op day 2 patient was feeling significantly better, still has purulent drainage expressible from incision but I not the swelling and erythema, continuing today to improve even more, wbc continues to decline continue Zosyn and clinda due to gas gangrene dressings changed today and incision flushed Allergies Allergy/AdvReac Type Severity Reaction Status Date / Time bee venom protein (honey bee) Allergy Severe Anaphylaxis Verified 09/10/21 12:33 Home Medications Medication Instructions Recorded Confirmed Type aspirin 81 mg tablet,delayed 81 mg PO QAM 12/29/19 09/10/21 History release epinephrine 0.3 mg/0.3 mL 0.3 mg SUBCUT UD PRN 12/29/19 09/10/21 History injection, auto-injector ezetimibe 10 mg tablet 10 mg PO QAM 12/29/19 09/10/21 History insulin lispro 100 unit/mL 100 unit CONTINUOUS SUBCUTANEOUS 12/29/19 09/10/21 History subcutaneous solution (Humalog INFUSION DAILY U-100 Insulin) omega 2-drm-ogb-fish oil 1,000 mg 2 cap PO QAM 12/29/19 09/10/21 History (120 mg-180 mg) capsule (Fish Oil) ciprofloxacin HCl 500 mg tablet 500 mg PO BID #2 tab 08/13/21 09/10/21 Rx cholecalciferol (vitamin D3) 125 125 mcg PO QAM 09/07/21 09/10/21 History mcg (5,000 unit) tablet (Vitamin D3) finasteride 5 mg tablet 5 mg PO QPM 09/07/21 09/10/21 History ibuprofen 200 mg tablet 600 mg PO TID PRN 09/07/21 09/10/21 History lisinopril 20 mg tablet 20 mg PO QAM 09/07/21 09/10/21 History tamsulosin 0.4 mg capsule 0.4 mg PO QPM 09/07/21 09/10/21 History vitamin E 100 unit tablet 180 unit PO QAM 09/07/21 09/10/21 History zinc 50 mg tablet 50 mg PO QAM 09/07/21 09/10/21 History Patient History Medical History BPH (benign prostatic hyperplasia) Cardiac murmur slight--follows with Dr. Singh Diabetes type 2--IDDM has insulin pump in place Diabetic neuropathy bilt feet HTN (hypertension) Hyperlipidemia Insulin pump in place Osteoarthritis Surgical History History of amputation of toe x4 History of arthroscopic knee surgery meniscus repair History of cardiac cath x2--in [place] 1995 (no stents) and [place] 2019 no stents--follows with Dr. 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 [employer] Feels Safe at Home: Yes Assistive Devices: Glasses and Walker Physical Exam Skin: dressing removed and incision inspected, there is still some non viable tissue with purulent drainage, erythema swelling improved, less malodor appreciated today vs yesterday dressings reapplied today as well Results & Data ([facility]) Vital Signs (Past 12 Hours) Vital Signs Temp Pulse Pulse Resp BP Pulse Ox 09/12/21 14:58 36.8 C 79 18 168/81 H 96 09/12/21 14:18 86 09/12/21 11:12 36.9 C 79 24 166/86 H 96 09/12/21 07:09 36.4 C L 87 24 174/90 H 94 09/12/21 06:16 43 L
[2021-09-12] MEDS: ENOXAPARIN INJ 40 MG/0.4 ML SYR SQ SCH (18:02)
--- NOTE | 2021-09-12 18:20 | Billing Data ---
Date of Service September 12, 2021 Coding Level of Care Code 11616 Subseq Hosp Care Lvl 3
--- NOTE | 2021-09-12 18:20 | Billing Data ---
Date of Service September 12, 2021 Coding Level of Care Code 74926 Subseq Hosp Care Lvl 3
[2021-09-12] MEDS: FINASTERIDE 5 MG TAB PO SCH (20:42)
[2021-09-12] MEDS: DAPTOmycin 325 MG in SYRINGE 0 ML IV SCH (20:42)
[2021-09-13] MEDS: PIPERACILLIN/TAZOBACTAM 3.375 GM in DEXTROSE 5% 100 ML IV SCH ×3 (00:16→16:51)
[2021-09-13] MEDS: CLINDAMYCIN 600 MG in DEXTROSE 5% 50 ML IV SCH ×3 (03:55→20:51)
[2021-09-13 06:44] LABS: Hematocrit (blood only) 37.5 % (42-52); Hemoglobin 12.4 g/dL (14.0-18.0); Mean Corpuscular Hemoglobin 27.5 pg (25-34); Mean Corpuscular Hgb Conc 33.1 g/dL (32-36); Mean Corpuscular Volume 83.1 fL (80-100); Mean Platelet Volume 8.9 fL (7.4-10.4); Platelet Count 413 K/uL (130-400); RDW Coefficient of Variation 13.6 % (11.5-14.5); RDW Standard Deviation 41.4 fL (36.4-46.3); Red Blood Count 4.51 M/uL (4.7-6.1); White Blood Count 13.48 K/uL (4.8-10.8)
[2021-09-13 07:11] LABS: BUN Creatinine Ratio 12.6 (10-20); Calcium 8.4 mg/dl (8.5-10.1); Creatinine Clr Calc Pharmacy 119.9 ml/min; Est GFR (African American) 109.5 ml/min; Est GFR (Non-African American) 94.5 ml/min
[2021-09-13] MEDS: ACETAMINOPHEN 325 MG TAB PO PRN (07:30)
[2021-09-13] MEDS: ASPIRIN 81 MG ECTAB PO SCH (07:33)
[2021-09-13] MEDS: EZETIMIBE 10 MG TABLET PO SCH (07:33)
[2021-09-13] MEDS: lisinopril 20 MG TAB PO SCH (07:33)
[2021-09-13] MEDS: SACCHAROMYCES BOULARDII 250 MG CAP PO SCH (09:26)
--- NOTE | 2021-09-13 09:57 | Orthopedic Progress Note ---
Date of Service September 13, 2021 Assessment & Plan (1) Amputation toe: Plan: Patient was seen in his room. A new dressing was applied by me. He he may continue to be weightbearing as tolerated in his postop shoe. Dr. Vannesa Carrion will follow with him tomorrow. At this point, his wound is improving. Continue the IV Zosyn and clindamycin. Admission and Anticipated Discharge Date Admission Date: September 10, 2021 Subjective Patient is seen in his room this morning. I have checking on him at the request of Dr. Vannesa Carrion. He denies any complaints overnight. States his leg is feeling better. He was able to bear weight on it this morning without pain. He denies any fevers or chills. No chest pain or shortness of breath. No nausea or vomiti ng. Review of Systems Review of Systems: Unchanged from previous. Physical Exam Physical Exam: Left lower extremity has an intact bandage with Derian wrap. Upon removal, there is scant dried blood on the inner dressings. His surgical wound has eschar present. There is no active drainage. Sutures are in place. Wound remains mildly unstable distally. There is no pus present. Nothing is expressible. He has no significant erythema on the lower leg, ankle, or heel. Very mild edema in the foot, though it is minimal. Musculoskeletal: Patient has intact motor function of his ankle. Neurologic: Gross sensation is intact across the lower leg and ankle. He has no pain with palpation over the midfoot or forefoot. Peripheral pulses are 2+. Results & Data ([facility]) Vital Signs (Past 12 Hours) Vital Signs Temp Pulse Pulse Resp BP Pulse Ox 09/13/21 07:06 36.3 C L 81 75 18 174/96 H 94 09/13/21 03:29 36.8 C 89 20 186/93 H 97 09/12/21 23:08 37.2 C 88 18 197/89 H 95 09/12/21 22:18 90 Laboratory Results H&H this morning are 12.4 and 37.5. White count has improved from yesterday. It was 16.9 and is now 13.5. Glucose this morning is 159. PRP is unremarkable. BUN of 11 with creatinine 0.87.
--- NOTE | 2021-09-13 12:57 | Medical Student Progress Note ---
Date of Service September 13, 2021 Assessment & Plan (1) Infection of left foot: Plan: Pt is a 60 yo insulin dependent diabetic post op day #3 amputation of the left 5th toe and part of the metatarsal bone. Pt had crepitus in the left foot on admission and left foot XR showed gas in the tissue. OR culture came back GBS +ve. Pt's WBC still elevated but downtrending (13.48). Culture resistant is to azithromycin and erythromycin. 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 notes that PA was really pleased with appearance at dressing change. 7-10 units bolus for breakfast and lunch, sugars in high 100's after. bolused 15 for dinner - sugar now about 150 but also just finished eating/just bolused about 30mins ago so too soon to really placing judge vitals noted nad heent nc at mmm breathing unlabored no accessory muscles good effort LLE resolved erythema distal shah, essentially nontender sepsis present on admission due to gas gangrene DM foot infection - probably polymicrobial - continue broad coverage. improving. appreciate podiatry input. depending on ?any concerning bone -- if none - then probably home on PO abx. if concerning bone left - then may need to consider outpt IV given risk/complexity of situation. given progress, though - will want to discuss with podiatry but possibly IV through tomorrow then home late tomorrow vs early friday DM -uncontrolled -ongoing education -biggest problems appear to be that he is not covering meals quite as aggressively as he needs to be; also paradoxically that he concomittantly tends to run far more bolus than basal in 24hrs -educating, helping adjust insulin - increased basal appears to be helping. today encouraged to bolus a bit more aggressively. -follow - improving. otherwise as above Subjective Pt doing better this morning. He denies any complaints overnight. States his leg is feeling better. He was able to bear weight on it this morning without pain. His POC glc this morning was 166, and corrected with 2.8 units of insulin. For breakfast his bolus was 4.4 insulin. He does report feeling sweaty. He denies any fevers or chills. No chest pain or shortness of breath. No nausea or vomiting. Review of Systems Review of Systems: per HPI Physical Exam Physical Exam: Gen Appearance: pt appears in no acute distress Respiration: non labored breathing Ext: left foot able to move without pain. Patient no longer tender to palpation in the shah. Shah still has some redness. Results & Data ([facility]) Vital Signs (Past 12 Hours) Vital Signs Temp Pulse Pulse Resp BP Pulse Ox 09/13/21 11:28 36.4 C L 70 20 183/84 H 96 09/13/21 07:06 36.3 C L 81 75 18 174/96 H 94 09/13/21 03:29 36.8 C 89 20 186/93 H 97
[2021-09-13] MEDS: ENOXAPARIN INJ 40 MG/0.4 ML SYR SQ SCH (18:29)
--- NOTE | 2021-09-13 19:39 | Billing Data ---
Date of Service September 13, 2021 Coding Level of Care Code 23603 Subseq Hosp Care Lvl 3
[2021-09-13] MEDS ORDERED: DAPTOmycin 325 MG in SYRINGE 0 ML IV SCH (20:00)
[2021-09-13] MEDS: FINASTERIDE 5 MG TAB PO SCH (20:52)
[2021-09-14] MEDS: PIPERACILLIN/TAZOBACTAM 3.375 GM in DEXTROSE 5% 100 ML IV SCH ×2 (00:50→09:21)
[2021-09-14] MEDS: CLINDAMYCIN 600 MG in DEXTROSE 5% 50 ML IV SCH ×2 (03:22→11:27)
[2021-09-14] MEDS: SACCHAROMYCES BOULARDII 250 MG CAP PO SCH (07:45)
[2021-09-14] MEDS: EZETIMIBE 10 MG TABLET PO SCH (07:45)
[2021-09-14] MEDS: lisinopril 20 MG TAB PO SCH (07:45)
[2021-09-14] MEDS: ASPIRIN 81 MG ECTAB PO SCH (07:45)
[2021-09-14 08:38] LABS: Basophils # (auto) 0.04 K/uL (0-0.2); Basophils % (auto) 0.4 %; Eosinophils # (auto) 0.35 K/uL (0-0.5); Eosinophils % (auto) 3.4 %; Hematocrit (blood only) 39.3 % (42-52); Immature Granulocytes # (auto) 0.09 K/uL (0.00-0.02); Immature Granulocytes % (auto) 0.9 %; Lymphocytes # (auto) 1.59 K/uL (1.2-3.4); Lymphocytes % (auto) 15.4 %; Mean Corpuscular Hemoglobin 27.8 pg (25-34); Mean Corpuscular Hgb Conc 33.1 g/dL (32-36); Mean Corpuscular Volume 84.2 fL (80-100); Monocytes # (auto) 0.68 K/uL (0.11-0.59); Monocytes % (auto) 6.6 %; Neutrophils # (auto) 7.56 K/uL (1.4-6.5); Neutrophils % (auto) 73.3 %; Platelet Count 546 K/uL (130-400); RDW Coefficient of Variation 13.7 % (11.5-14.5); Red Blood Count 4.67 M/uL (4.7-6.1); White Blood Count 10.31 K/uL (4.8-10.8)
[2021-09-14 09:03] LABS: BUN Creatinine Ratio 16.5 (10-20); Calcium 8.8 mg/dl (8.5-10.1); Creatinine Clr Calc Pharmacy 132.1 ml/min; Est GFR (African American) 113.9 ml/min; Est GFR (Non-African American) 98.3 ml/min; Potassium 4.1 mmol/L (3.5-5.1)
[2021-09-14] MEDS: ADVANCED PROBIOTIC 1250 MG CAPSULE PO SCH (09:58)
--- NOTE | 2021-09-14 12:09 | Podiatry Consultation ---
Date of Consultation September 14, 2021 Assessment & Plan (1) Infection of left foot: ok for d/c today with abx and will f/u with me on Friday (2) Diabetic ulcer of toe: Diabetes mellitus type: other specified (including MAR) Laterality: left Non-pressure ulcer stage: unspecified non-pressure ulcer stage Qualified Code(s): E13.621 - Other specified diabetes mellitus with foot ulcer; L97.529 - Non-pressure chronic ulcer of other part of left foot with unspecified severity (3) Diabetic neuropathy: History of Present Illness Attending Physician: Bertrand Liao DO History of Present Illness Patient is s/p left foot I and D, 5th toe amputation and metatarsal head resection, significant improvement noted today -no purulent material expressible from incision, patient feeling better, temp is normal and WBC normal - patient is ok for d/c today, and discussed with medicine team that if possible to d/c with picc line, if not oral combo of Augmentin/Bactrim is good as well - he will use the surgical shoe ordered and is at bedside, I changed the dressing today and I asked him to leave it in place until f/u with me Friday - he will see me Friday in my office Allergies Allergy/AdvReac Type Severity Reaction Status Date / Time bee venom protein (honey bee) Allergy Severe Anaphylaxis Verified 09/10/21 12:33 Home Medications Medication Instructions Recorded Confirmed Type aspirin 81 mg tablet,delayed 81 mg PO QAM 12/29/19 09/10/21 History release epinephrine 0.3 mg/0.3 mL 0.3 mg SUBCUT UD PRN 12/29/19 09/10/21 History injection, auto-injector ezetimibe 10 mg tablet 10 mg PO QAM 12/29/19 09/10/21 History insulin lispro 100 unit/mL 100 unit CONTINUOUS SUBCUTANEOUS 12/29/19 09/10/21 History subcutaneous solution (Humalog INFUSION DAILY U-100 Insulin) omega 5-ibw-itx-fish oil 1,000 mg 2 cap PO QAM 12/29/19 09/10/21 History (120 mg-180 mg) capsule (Fish Oil) ciprofloxacin HCl 500 mg tablet 500 mg PO BID #2 tab 08/13/21 09/10/21 Rx cholecalciferol (vitamin D3) 125 125 mcg PO QAM 09/07/21 09/10/21 History mcg (5,000 unit) tablet (Vitamin D3) finasteride 5 mg tablet 5 mg PO QPM 09/07/21 09/10/21 History ibuprofen 200 mg tablet 600 mg PO TID PRN 09/07/21 09/10/21 History lisinopril 20 mg tablet 20 mg PO QAM 09/07/21 09/10/21 History tamsulosin 0.4 mg capsule 0.4 mg PO QPM 09/07/21 09/10/21 History vitamin E 100 unit tablet 180 unit PO QAM 09/07/21 09/10/21 History zinc 50 mg tablet 50 mg PO QAM 09/07/21 09/10/21 History Patient History Medical History BPH (benign prostatic hyperplasia) Cardiac murmur slight--follows with Dr. Singh Diabetes type 2--IDDM has insulin pump in place Diabetic neuropathy bilt feet HTN (hypertension) Hyperlipidemia Insulin pump in place Osteoarthritis Surgical History History of amputation of toe x4 History of arthroscopic knee surgery meniscus repair History of cardiac cath x2--in [place] 1995 (no stents) and [place] 2019 no stents--follows with Dr. 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 Required: No Beliefs That Will Affect Care: None marital status: Current Living Situation: Spouse current occupational status: employed 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
[2021-09-14] MEDS ORDERED: cefTRIAXone SODIUM 2,000 MG in DEXTROSE 5% 50 ML IV SCH (13:00)
--- NOTE | 2021-09-14 16:05 | Discharge Summary ---
Date of Service September 14, 2021 Admission HPI Per Admitting Provider Lul Mendez is a 60-year-old male with a past medical history of diabetes with foot ulceration, lower urinary tract symptoms, hypertension who was seen as outpatient by podiatry and who was referred for a left gas-forming bacterial infection of the foot. Is pending surgical debridement with Dr. Vannesa Carrion and has been recommended for medical admission pending debridement.Multiple foot infections and amputations Patient is seen in the [facility] has he is being prepped for surgical intervention. History somewhat abbreviated by surgical urgency. Patient reports that he has no sensation in his feet bilaterally up until about the mid calf, and does not generally experience pain. Has had increased pain in his ankle for approximately 1 week and has been followed as an outpatient. He denies fever, chills, sweats, chest pain, chest pressure, lightheadedness, dizziness, nausea, vomiting, diarrhea although he does endorse a diminished appetite. He denies lung problems, heart attack, and angina but does note he had a catheterization a year ago which noted 40% obstruction of a blood vessel of which 1 he does not remember. Has a history of diabetes last A1c approximately 8, on continuous glucose pump. Endorses left foot problems as noted, denies any history of kidney disease or eye disease. Does endorse swelling of his left foot, worsened over the last week. History of multiple distal toe amputations, no proximal toe amputations. No amputations of the right foot Denies any medication allergies Medical History: Reviewed Medications: Reviewed FHx: CABG in his father Surgical History: Reviewed Allergies: Reviewed Social History:Denies tobacco use, alcohol use, recreational drug use Code Status:Full code. Surrogate decision maker would be his . Admission Exam Per Admitting Provider General: A&Ox3. NAD. Cooperative. HEENT: Atraumatic, normocephalic.[place] acuity and hearing grossly intact. Pulm: CTAB A&P. -wheezes, -rales, -rhonchi. Symmetrical chest rise. No increase in work of breathing. No respiratory distress. Cardiac: RRR, -mrg. Radial pulses intact and symmetrical. Abdominal: Nontender, nondistended, soft. BS present. Extremities: Left lower extremity in Derian wrap, erythematous to 2-3 cm proximal to the ankle. Patient with absent sensation at baseline, but does endorse pain in the ankle with weight loading to his left foot. All L toes with distal amputations. Difficult to assess for crepitus due to swelling and surgical wrap. Right foot intact, atraumatic but with absent sensation to the mid calf. PT pulse difficult to appreciate on left due to swelling, intact on the right. Radial pulses intact bilaterally. Gas Appliance Servicer Helper strength 5/5 bilaterally. Principal Diagnosis foot infection Discharge Exam General: well appearing, no acute distress cardio: rrr wo mrg lungs: cta, nonlabored breathing ext: left leg swollen, slightly tender to palpation, no redness Discharge Data Allergies Allergy/AdvReac Type Severity Reaction Status Date / Time bee venom protein (honey bee) Allergy Severe Anaphylaxis Verified 09/10/21 12:33 Procedures Performed Operation Date: 09/10/21 12:05 Actual Procedures p Left fifth toe amputation and metatarsal head resection,(Left) - Letitia Thibodeaux DPM s Incision and drainage(Left) - Letitia Thibodeaux DPM Hospital Course (1) Infection of left foot: (1) Infection of left foot: Plan: Pt is a 60 yo man with a pmh of uncontrolled insulin dependent T2D complicated by neuropathy, multiple toe amputations, HTN, and HLD who presented to the ED Sep 10 at the direction of his Systems Software Engineer for concern of necrotizing fasciitis. he was given empiric abx and taken immediately to the OR for surgical debridement. due to the visualization of bony involvement (osteomyelitis), the fifth digit and part of the 5th metatarsal bone was amputated. He is now Post Op day #4. OR tissue culture came back GBS +ve. Culture sensitivity: resistant to azithromycin and erythromycin. While inpatient pt received 5 days of the following regimen: Daptomycin- 325 mg IV Q24H cover for MRSA Clindamycin- 600 mg IV Q8H empiric tx for gas forming organisms Jhsbkkkexaul-Ratldcnlys-1.375 gm IV Q8H Pt's WBC have normalized to 10.3 from 18 on admission Continue treatment at home: Cetriaxone- 2g IV daily 14 days Doxycycline- 100mg 2x/day 14 days flagyl- 500 mg TID 14 days follow up with Dr. Thibodeaux (2) Diabetes: Plan: --uncontrolled, last a1c 8.2% -biggest problems appear to be that he is not covering meals quite as aggressively as he needs to be; also paradoxically that he concomittantly tends to run far more bolus than basal in 24hrs -helping adjust insulin - increased basal appears to be helping. 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 Rajendra Monet (3) Hyperlipidemia: Plan: patient taking zetia: had intolerance in the past to high intensity statins consider trial of low/high dose statin as outpatient (4) CAD: Plan: continue daily baby aspirin, zetia, antihypertinsives (5) HTN (hypertension): Plan: continue home lisinopril Total Time Total Time Spent Total Time Spent (In Minutes): <30 min Discharge Plan Discharge Items Patient Disposition: Home - Home Health Services Reason For Visit: SOFT TISSUE INFECTION OF DIABETIC FOOT WITH GAS Discharge Diagnosis: Infected skin wound Activity: Resume your previous activity Non-emergency contact: Primary Care Provider and Surgeon Call non-emergency contact if: you have any medication questions, your symptoms worsen and your temperature is above 101 Follow-up/Referrals: PCP,NO [Physician] - Diet: Carb Consistent or DM2 Addtl Attending Provider Instructions: You were hospitalized at [facility] for treatment of a left foot infection. Your ball assembler, Dr. Thibodeaux, took you to the operating room and debrided the wound (cleaned out the , infected tissue). We treated with you 3 different IV antibiotics in the days following your surgery. Your white blood cell count, a marker of infection, was elevated on admission, but normalized by the time of your discharge. We recommend you take the following antibiotics at discharge to complete treatment for the foot infection: ceftriaxone 2 grams IV daily for 14 days, metronidazole 500mg three times a day for 14 days, and doxycycline 100mg twice a day for 14 days (take with food as it can upset your stomach) We discussed how your diabetes pre-disposes you to get recurrent infections - and empathized that improving control of your blood sugars will help reduce the risk of further infections and other complications. Working underlying the principle that high blood sugars clog arteries, the quicker we can achieve good blood sugar control, the lower your chance of suffering further vascular damage. We increased your basal glucose dose rate from 1.6 units/hr to 2.1 units/hr, which resulted in improved blood sugars. We recommend continuing on the 2.1 units/hr of your basal insulin upon discharge. With regards to your mealtime insulin dosing, we also recommended checking a post-meal blood glucose level, roughly 90 minutes after eating - as a way to "check your work." Ie if your blood sugar is greater than 150 on the post-meal check, this would suggest your under-dosed your insulin for that meal - and the next time you have that same meal, or one of similar nutrient composition, you use a higher dose of meal-time insulin. As a starting point, we recommend you use between 8-12 units for mealtime boluses, and if you're finding that this isn't enoug to get to a goal of 100-150, then give a trial to a little bit more. As a general rule, look to have your total insulin in 24 hours be about 50% basal and about 50% bolus -- this doesn't have to be an ironclad rule, but the more hpr-bw-[id number] the ratio between basal and bolus gets, the more sugars can sometimes seem erratic in ways that are hard to interpret. Please follow up with Dr. Thibodeaux as directed - and also your PCP in the next week. Your HbA1c will be due to be rechcked in 3 months. Your goal is an A1c < 7.0. Pending Studies at Discharge: No Stand-Alone Forms: My [facility] [employer], Smoking Cessation Medications and DC Order Prescriptions: New ceftriaxone 2 gram recon soln 2 g IV DAILY Qty: 14 RF: 0 metronidazole 500 mg tablet 500 mg PO TID Qty: 42 RF: 0 doxycycline hyclate 100 mg capsule 100 mg PO BID 14 Days Qty: 28 RF: 0 Continued aspirin 81 mg Tablet,Delayed Release (Dr/Ec) 81 mg PO QAM RF: 0 insulin lispro [Humalog U-100 Insulin] 100 unit/mL solution 100 unit continuous subcutaneous infusion DAILY RF: 0 epinephrine 0.3 mg/0.3 mL auto-injector 0.3 mg subcut UD PRN (Reason: Anaphylaxis) RF: 0 ezetimibe 10 mg tablet 10 mg PO QAM RF: 0 omega 8-zlc-wwl-fish oil [Fish Oil] 1,000 mg (120 mg-180 mg) Capsule 2 cap PO QAM RF: 0 lisinopril 20 mg Tablet 20 mg PO QAM RF: 0 tamsulosin 0.4 mg Capsule 0.4 mg PO QPM RF: 0 zinc 50 mg Tablet 50 mg PO QAM RF: 0 finasteride 5 mg Tablet 5 mg PO QPM RF: 0 vitamin E 100 unit Tablet 180 unit PO QAM RF: 0 cholecalciferol (vitamin D3) [Vitamin D3] 125 mcg (5,000 unit) Tablet 125 mcg PO QAM RF: 0 Discontinued ciprofloxacin HCl 500 mg tablet 500 mg PO BID Qty: 2 RF: 0 ibuprofen 200 mg Tablet 600 mg PO TID PRN (Reason: Pain) RF: 0 Discharge Orders: Discharge Order (Routine); Ordered 09/14/21 Ordered By: Bertrand Liao Admission Data Admit Date/Time: 09/10/21 17:07 Attending Provider: Bertrand Liao Admit Provider: Altaf Whyte Primary Care Provider: Maxwell Velarde Other Providers: Altaf Whyte ; [facility] Other Interventions: Discharge Summary Assessment (RN) Last Done: 09/14/21 13:57 Supervising Physician Co-Signing Physician Notes I personally examined the patient and verified all moise points of history and exam, discussed case, and agree with decision making with A Leopoldo MS2 feels up to going home. no new complaitns. podiatry input appreciated vitals noted nad heent nc at mmm breathing unlabored no accessory muscles good effort LLE resolved erythema distal shah, essentially nontender sepsis present on admission due to gas gangrene DM foot infection - probably polymicrobial - continue broad coverage. d/w podiatry -- feels strongly that all infected bone was removed, but also she notes knowing the patient well she harbors significant concerns on a purely PO course since he's failed so much before to that end: -ceftriaxone - covering the strep cultured well, as well as other possible gram negatives. low concern on pseudomonas since none grew on culture, given the circumstances -metronidazole - to cover for anaerobes since gangrenous/gas forming infection -doxy as this was a skin and soft tissue infection with purulence, these are often polymicrobial, and somewhere on the order of ~30% of community acquired staph is MRSA ---->treating as polymicrobial for certain given the risk and probability of this being the case, as well as the risk to him if treatment doesn't cover all offenders given his severity of infection and risk of future amputation DM -uncontrolled -ongoing education -biggest problems appear to be that he is not covering meals quite as aggressive ly as he needs to be; also paradoxically that he concomittantly tends to run far more bolus than basal in 24hrs -educating, helping adjust insulin - see discharge instructions. outpt PCP and endocrine f/u otherwise as above
--- NOTE | 2021-09-14 17:46 | Billing Data ---
Date of Service September 14, 2021 Coding Level of Care Code D/C DAY MANAGEMENT <30 MINS
== END 2021-09-14 14:54 | disposition home health service (06) | DRG 853 ==
LOC: ASU 16:56 → 2N 16:57 → SUATTDRO 16:57

== ENCOUNTER 2023-01-04 11:47 | Inpatient (IN) ==
--- NOTE | 2023-01-04 12:46 | Emergency Department Note ---
Impression & Plan Acute urinary retention, Overflow incontinence, LUIS (acute kidney injury), Enlarged prostate, Acute hyperglycemia, Ataxia [facility] Provider Note NAME: ADE DAVIES AGE: 62 SEX: M ARRIVES VIA: Walk-In INFORMANT: Patient and his ED PROVIDER(S): Maricel Carrillo DO CHIEF COMPLAINT: Urinary incontinence and ataxia PLAN: Disposition: [facility] Condition: Guarded MEDICAL DECISION MAKING: This is a 62-year-old male patient who presents to the emergency department with worsening urinary incontinence and balance issues since November 30. Patient has also noticed that his blood sugars have been significantly rising over the past 4 days. Patient states that he first noticed a problem when he was out walking and felt as if he could not walk straight and lost his balance back in November. He then noticed that he was losing control of his ability to hold his urine. He describes slowly becoming incontinent to the point now that he will completely soaked his bed over the past 2 nights. He is now also describing moderate suprapubic abdominal pain. CT scan showed evidence of a significantly enlarged prostate that was greater than 7 cm which was causing massive urinary retention. This led to hydroureteronephrosis with perinephric stranding. This also led to obstructive uropathy which in turn has led to overflow incontinence. A Milner catheter was placed and the patient felt much better. There was no evidence of UTI. I believe the patient's obstructive uropathy has most likely led to an LUIS. I did perform a CT scan of the brain initially to rule out the possibility of hydrocephalus. This was negative. The patient does describe significant ataxia. On physical exam, there were no focal neurological deficits with testing of his strength in his lower extremities or sensation in his lower extremities. We did talk about the possibility of a demyelinating disorder as the cause but he denied any history of this or any family history of this. This would be unusual to present so abruptly as he describes November 30 as the day that this abruptly happened. I discussed this with the [facility] and they will admit the patient to the hospital for further evaluation. Triage Nursing notes reviewed and agree with them. Additional history obtained from patient's is at the bedside Vital Signs: reviewed and remarkable for hypertension Differential diagnosis: Hydrocephalus; spinal cord compression; demyelinating process, intra-abdominal pathology; UTI; prostatitis or prostate enlargement with urinary overflow ER treatment provided: IV normal saline bolus Diagnostics interpreted by me: ECG: Normal sinus rhythm at a rate of [address] segment depression in the inferior leads. This was compared to an EKG from 2019 and was essentially unchanged. Cardiac Monitoring: Normal sinus rhythm at a rate of 70 Laboratory studies: See below Imaging studies: As per radiology CT brain: See report CT abdomen/pelvis: See report CT lumbar spine: See report HPI: 62/M arrives for evaluation of urinary incontinence, ataxia and hyperglycemia. ROS: See above HPI for pertinent positives & negatives. A total of 10 systems reviewed and were otherwise negative. PAST MEDICAL HISTORY:Type 2 diabetes; large prostate; heart murmur PAST SURGICAL HISTORY:See Below FAMILY HISTORY:See Below SOCIAL HISTORY:Patient lives with his HOME MEDICATIONS:See Below ALLERGIES:See Below VITALS:See Below PHYSICAL EXAMINATION: HEENT: Head - normocephalic and atraumatic. Pupils are equal, round, and reactive to light. Extraocular eye muscles are intact and sclera are anicteric. Ears - bilaterally patent canals with noninjected tympanic membranes and no evidence of hemotympanum. Nose - moist nasal mucosa without discharge. Mouth - moist buccal mucosa. Oropharynx is nonerythematous and there is no tonsillar exudate or edema noted. Neck: Supple; no JVD, nuchal rigidity, cervical lymphadenopathy, or auscultated bruits. Heart: Regular rate with a 3/6 systolic ejection murmur there is a normal S1 and S2 with no murmurs, clicks, or gallops appreciated. Lungs: Clear to auscultation bilaterally with no wheezes, rales, or rhonchi. Abdomen: Soft, moderately distended and tender to palpation in the suprapubic region With good bowel sounds. There are no palpable pulsatile masses or hepatosplenomegaly. There is no guarding, rigidity, or rebound noted. Extremities: No evidence of cyanosis, clubbing, or edema. There are easily palpable peripheral pulses. Neuro:The patient is awake and alert, oriented to day, time, and place. Muscle strength is 5/5 in all 4 extremities. The patient has equal stereotyper helper strength and equal pedal push and pull. There are no cerebellar signs. ED COURSE: Times/Reassessments: 1205: Patient was evaluated in room A-11. A complete history and physical was performed. A twelve-lead EKG was obtained. An order was placed for continuous cardiac monitoring. The patient was in a normal sinus rhythm at a rate of 70. An IV lock was initiated and labs were drawn as above. Patient went for CT scan of the abdomen/pelvis which showed a very large urine filled bladder. A Milner catheter was immediately placed to relieve his urinary retention. Urinalysis was sent and there was no signs of infection. Patient had also had a CT scan of the brain which was unremarkable. They reconstructed the CT of the lumbar spine which showed no significant abnormalities. Laboratory studies revealed no leukocytosis and a stable H&H. Sodium level was slightly low at 130. There was evidence of acute kidney injury with a BUN of 49 and creatinine of 2.49 and the patient was significantly hyperglycemic with a blood sugar of 459. Of note on the CT scan of the abdomen/pelvis there was not only significant amount of urine in the bladder consistent with significant urinary retention and obstructive uropathy but there was also perinephric fluid and hydroureteronephrosis. There was extreme prostamegaly with the prostate measuring greater than 7 cm. This has significantly increased in size from the previous CT from a year ago. I discussed the case with the [facility]ist and they will evaluate for further management. Maricel Carrillo DO Past Med/Surg History Medical History BPH (benign prostatic hyperplasia) Cardiac murmur slight--follows with Dr. Singh Diabetes type 2--IDDM has insulin pump in place HTN (hypertension) Hyperlipidemia Insulin pump in place Osteoarthritis Surgical History History of amputation of lesser toe of left foot (~09/10/21) fifth toe amputation and fifth metatarsal head resection with I&D History of amputation of toe x4 History of arthroscopic knee surgery meniscus repair History of cardiac cath x2--in 1995 (no stents) and 2019 no stents--follows with Dr. Singh History of colonoscopy History of tonsillectomy and adenoids History of wisdom tooth extraction Status post insertion of insulin pump Family History Father Heart disease, Onset Age: 54 Had CABG at age 54 Mother Diabetes Other No family history of adverse response to anesthesia Social History Smoking Status: Never smoker Second Hand Exposure: No; Do You Dip or Chew Tobacco: No; Hx Alcohol Use: No Hx Substance Use: No Preferred Language: [place]se Communication Ability: Effective Visual Impairment: Limited Hearing Ability: Normal Shirring Tender Required: No Beliefs That Will Affect Care: None marital status: Current Living Situation: Spouse current occupational status: employed 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 [employer] Feels Safe at Home: Yes Diet: diabetic and low carbohydrate caffeine: Yes (tea) Assistive Devices: None Allergies Allergies Allergy/AdvReac Type Severity Reaction Status Date / Time bee venom protein (honey bee) Allergy Severe Anaphylaxis Verified 04/02/22 14:45 Home Meds Home Medications Medication Instructions Recorded Confirmed aspirin 81 mg tablet,delayed 81 mg PO QAM 12/29/19 01/04/23 release epinephrine 0.3 mg/0.3 mL 0.3 mg subcut UD PRN Anaphylaxis 12/29/19 01/04/23 injection, auto-injector ezetimibe 10 mg tablet 10 mg PO QAM 12/29/19 01/04/23 omega [id number]-wky-[id number]-fish oil 1,000 mg 2 cap PO QAM 12/29/19 01/04/23 (120 mg-180 mg) capsule (Fish Oil) cholecalciferol (vitamin D3) 125 125 mcg PO QAM 09/07/21 01/04/23 mcg (5,000 unit) tablet (Vitamin D3) lisinopril 20 mg tablet 20 mg PO BID 09/07/21 01/04/23 vitamin E 100 unit tablet 180 unit PO QAM 09/07/21 04/02/22 zinc 50 mg tablet 50 mg PO QAM 09/07/21 01/04/23 coQ10 (ubiquinol) 100 mg capsule 100 mg PO QAM 11/26/21 01/04/23 insulin degludec 100 unit/mL (3 25 unit subcut BID 01/04/23 01/04/23 mL) subcutaneous pen (Tresiba FlexTouch U-100 insulin) Previous Rx's Medication Instructions Recorded finasteride 5 mg tablet 5 mg PO DAILY #90 tabs 04/09/22 tamsulosin 0.4 mg capsule 0.4 mg PO QPM #90 caps 09/03/22 Results & Data (ED) Vital Signs Vital Signs - 24 hr 01/04/23 11:49 01/04/23 13:00 01/04/23 13:07 Temperature 36.9 C Temperature Source Temporal Artery Scan Pulse Rate 81 81 78 Pulse Rate [Right Finger] Pulse Rate from SpO2 Sensor 64 Pulse Rhythm Regular Respiratory Rate 18 25 H Blood Pressure 188/74 H 179/93 H Blood Pressure [Left Arm] Blood Pressure Mean 112 121 Blood Pressure Mean [Left Arm] Pulse Oximetry 97 97 96 Oxygen Delivery Method Room Air Room Air Sepsis Recent Fever Within 48 Hours No Sepsis New/Unexplained Change in Mental Status No Sepsis Action Taken by Nursing No Action Required 01/04/23 13:30 01/04/23 14:02 01/04/23 15:46 Temperature Temperature Source Pulse Rate 76 80 Pulse Rate [Right Finger] 71 Pulse Rate from SpO2 Sensor 74 Pulse Rhythm Respiratory Rate 18 19 Blood Pressure 199/94 H Blood Pressure [Left Arm] 200/109 H Blood Pressure Mean 129 Blood Pressure Mean [Left Arm] 139 Pulse Oximetry 95 97 Oxygen Delivery Method Room Air Sepsis Recent Fever Within 48 Hours Sepsis New/Unexplained Change in Mental Status Sepsis Action Taken by Nursing 01/04/23 16:00 01/04/23 14:00 01/04/23 14:00 Temperature Temperature Source Pulse Rate 79 Pulse Rate [Right Finger] 72 Pulse Rate from SpO2 Sensor 79 Pulse Rhythm Respiratory Rate 16 22 Blood Pressure 208/105 H Blood Pressure [Left Arm] 221/109 H Blood Pressure Mean 139 Blood Pressure Mean [Left Arm] 146 Pulse Oximetry 97 97 Oxygen Delivery Method Sepsis Recent Fever Within 48 Hours Sepsis New/Unexplained Change in Mental Status Sepsis Action Taken by Nursing 01/04/23 14:30 01/04/23 14:30 01/04/23 15:00 Temperature Temperature Source Pulse Rate 75 Pulse Rate [Right Finger] Pulse Rate from SpO2 Sensor 76 68 Pulse Rhythm Respiratory Rate 22 Blood Pressure 200/107 H Blood Pressure [Left Arm] Blood Pressure Mean 138 Blood Pressure Mean [Left Arm] Pulse Oximetry 97 98 Oxygen Delivery Method Sepsis Recent Fever Within 48 Hours Sepsis New/Unexplained Change in Mental Status Sepsis Action Taken by Nursing 01/04/23 15:13 01/04/23 15:45 01/04/23 16:00 Temperature Temperature Source Pulse Rate Pulse Rate [Right Finger] Pulse Rate from SpO2 Sensor 74 Pulse Rhythm Respiratory Rate Blood Pressure 200/109 H 221/109 H Blood Pressure [Left Arm] Blood Pressure Mean 139 146 Blood Pressure Mean [Left Arm] Pulse Oximetry 98 Oxygen Delivery Method Sepsis Recent Fever Within 48 Hours Sepsis New/Unexplained Change in Mental Status Sepsis Action Taken by Nursing 01/04/23 16:00 01/04/23 16:30 01/04/23 16:30 Temperature Temperature Source Pulse Rate 72 69 Pulse Rate [Right Finger] Pulse Rate from SpO2 Sensor Pulse Rhythm Respiratory Rate 14 17 Blood Pressure 231/108 H Blood Pressure [Left Arm] Blood Pressure Mean 149 Blood Pressure Mean [Left Arm] Pulse Oximetry Oxygen Delivery Method Sepsis Recent Fever Within 48 Hours Sepsis New/Unexplained Change in Mental Status Sepsis Action Taken by Nursing 01/04/23 16:32 01/04/23 16:32 Temperature Temperature Source Pulse Rate 75 Pulse Rate [Right Finger] Pulse Rate from SpO2 Sensor Pulse Rhythm Respiratory Rate 20 Blood Pressure 211/116 H Blood Pressure [Left Arm] Blood Pressure Mean 147 Blood Pressure Mean [Left Arm] Pulse Oximetry Oxygen Delivery Method Sepsis Recent Fever Within 48 Hours Sepsis New/Unexplained Change in Mental Status Sepsis Action Taken by Nursing Laboratory Data 01/04/23 13:00 01/04/23 16:49 Lab Results 01/04/23 01/04/23 01/04/23 Range/Units 13:00 13:00 13:00 WBC 10.07 (4.8-10.8) K/ul RBC 5.29 (4.70-6.10) M/uL Hgb 15.0 (14.0-18.0) g/dl POC Hgb (14.0-18.0) g/dl Hct 43.7 (42.0-52.0) % POC Hct (42-52) % MCV 82.6 (80.0-100.0) fL MCH 28.4 (25.0-34.0) pg MCHC 34.3 (32.0-36.0) g/dL RDW Std Deviation 38.9 (36.4-46.3) fL RDW Coeff of Spenser 13.1 (11.5-14.5) % Plt Count 196 (130-400) K/uL MPV 11.3 (9.4-12.4) fL Immature Gran % (Auto) 0.4 % Neut % (Auto) 79.7 % Lymph % (Auto) 9.8 % Jefferson % (Auto) 8.4 % Eos % (Auto) 1.1 % Baso % (Auto) 0.6 % Neut # (Auto) 8.02 H (1.40-6.50) K/uL Lymph # (Auto) 0.99 L (1.2-3.4) K/uL Jefferson # (Auto) 0.85 H (0.11-0.59) K/uL Eos # (Auto) 0.11 (0-0.50) K/uL Baso # (Auto) 0.06 (0-0.2) K/uL Immature Gran # (Auto) 0.04 (0.01-0.20) K/uL POC Sodium (135-144) mmol/L Sodium 130 L (136-145) mmol/L POC Potassium (3.3-5.0) mmol/L Potassium TNP POC Chloride (101-112) mmol/L Chloride 99 (98-107) mmol/L Carbon Dioxide 21 (21-32) mmol/L POC Total CO2 (24-31) mmol/L Anion Gap 10 (3-11) POC Anion Gap (16-25) mmol/L POC BUN (7-18) mg/dl BUN 49 H (6-23) mg/dl Creatinine 2.49 H D (0.6-1.4) mg/dl POC Creatinine (0.6-1.3) mg/dl Est Cr Clr Drug Dosing 40.5 ml/min Est GFR ( Amer) 31.1 ml/min Est GFR (Non-Af Amer) 26.8 ml/min BUN/Creatinine Ratio 19.7 (10-20) Glucose 459 H* (70-99(Fasting)) mg/dl POC Glucose (other) (70-99) mg/dl Calcium 8.9 (8.6-10.3) mg/dl POC Ioniz Calcium Demond (1.12-1.32) mmol/l Magnesium 2.0 (1.7-2.4) mg/dl Total Bilirubin 0.7 (0.2-1.0) mg/dl AST TNP ALT 15 (7-52) U/L Alkaline Phosphatase 71 (34-104) U/L Total Creatine Kinase 102 (30-223) U/L Total Protein 6.6 (6.0-8.3) gm/dl Albumin 3.7 (3.4-5.0) gm/dl Globulin 2.9 (2.5-4.0) gm/dl Albumin/Globulin Ratio 1.3 (0.9-2) TSH 1.548 (0.300-4.500) uIu/ml Urine Color Urine Appearance (Clear) Urine pH (4.5-7.5) Ur Specific [place] (1.000-1.030) Urine Protein (Negative) Urine Glucose (UA) (Negative) Urine Ketones (Negative) Urine Blood (Negative) Urine Nitrite (Negative) Urine Bilirubin (Negative) Urine Urobilinogen (Negative) Ur Leukocyte Esterase (Negative) Urine WBC (Auto) (0-5) /hpf Urine RBC (Auto) (0-4) /hpf U Hyaline Cast (Auto) (0-5) /lpf U Epithel Cells (Auto) (0-5) /lpf Urine Bacteria (Auto) (Negative) Anaplasma Smear See Comment Lyme Disease IgG Ab (Negative) Lyme Disease IgM Ab (Negative) SARS-CoV-2, RNA, NAAT (NEGATIVE) 01/04/23 01/04/23 01/04/23 Range/Units 15:36 15:50 16:23 WBC (4.8-10.8) K/ul RBC (4.70-6.10) M/uL Hgb (14.0-18.0) g/dl POC Hgb (14.0-18.0) g/dl Hct (42.0-52.0) % POC Hct (42-52) % MCV (80.0-100.0) fL MCH (25.0-34.0) pg MCHC (32.0-36.0) g/dL RDW Std Deviation (36.4-46.3) fL RDW Coeff of Spenser (11.5-14.5) % Plt Count (130-400) K/uL MPV (9.4-12.4) fL Immature Gran % (Auto) % Neut % (Auto) % Lymph % (Auto) % [place] % (Auto) % Eos % (Auto) % Baso % (Auto) % Neut # (Auto) (1.40-6.50) K/uL Lymph # (Auto) (1.2-3.4) K/uL [place] # (Auto) (0.11-0.59) K/uL Eos # (Auto) (0-0.50) K/uL Baso # (Auto) (0-0.2) K/uL Immature Gran # (Auto) (0.01-0.20) K/uL POC Sodium (135-144) mmol/L Sodium (136-145) mmol/L POC Potassium (3.3-5.0) mmol/L Potassium TNP POC Chloride (101-112) mmol/L Chloride (98-107) mmol/L Carbon Dioxide (21-32) mmol/L POC Total CO2 (24-31) mmol/L Anion Gap (3-11) POC Anion Gap (16-25) mmol/L POC BUN (7-18) mg/dl BUN (6-23) mg/dl Creatinine (0.6-1.4) mg/dl POC Creatinine (0.6-1.3) mg/dl Est Cr Clr Drug Dosing ml/min Est GFR ( Amer) ml/min Est GFR (Non-Af Amer) ml/min BUN/Creatinine Ratio (10-20) Glucose (70-99(Fasting)) mg/dl POC Glucose (other) (70-99) mg/dl Calcium (8.6-10.3) mg/dl POC Ioniz Calcium Demond (1.12-1.32) mmol/l Magnesium (1.7-2.4) mg/dl Total Bilirubin (0.2-1.0) mg/dl AST TNP ALT (7-52) U/L Alkaline Phosphatase (34-104) U/L Total Creatine Kinase (30-223) U/L Total Protein (6.0-8.3) gm/dl Albumin (3.4-5.0) gm/dl Globulin (2.5-4.0) gm/dl Albumin/Globulin Ratio (0.9-2) TSH (0.300-4.500) uIu/ml Urine Color Yellow Urine Appearance Clear (Clear) Urine pH 5.0 (4.5-7.5) Ur Specific [place] 1.012 (1.000-1.030) Urine Protein 1+ H (Negative) Urine Glucose (UA) 3+ H (Negative) Urine Ketones Trace H (Negative) Urine Blood 2+ H (Negative) Urine Nitrite Negative (Negative) Urine Bilirubin Negative (Negative) Urine Urobilinogen Negative (Negative) Ur Leukocyte Esterase Negative (Negative) Urine WBC (Auto) 1-5 (0-5) /hpf Urine RBC (Auto) 0-4 (0-4) /hpf U Hyaline Cast (Auto) 1-5 (0-5) /lpf U Epithel Cells (Auto) 5-10 H (0-5) /lpf Urine Bacteria (Auto) Negative (Negative) Anaplasma Smear Lyme Disease IgG Ab (Negative) Lyme Disease IgM Ab (Negative) SARS-CoV-2, RNA, NAAT NEGATIVE (NEGATIVE) 01/04/23 01/04/23 01/04/23 Range/Units 16:49 16:51 19:05 WBC (4.8-10.8) K/ul RBC (4.70-6.10) M/uL Hgb (14.0-18.0) g/dl POC Hgb 16.0 (14.0-18.0) g/dl Hct (42.0-52.0) % POC Hct 47 (42-52) % MCV (80.0-100.0) fL MCH (25.0-34.0) pg MCHC (32.0-36.0) g/dL RDW Std Deviation (36.4-46.3) fL RDW Coeff of Spenser (11.5-14.5) % Plt Count (130-400) K/uL MPV (9.4-12.4) fL Immature Gran % (Auto) % Neut % (Auto) % Lymph % (Auto) % [place] % (Auto) % Eos % (Auto) % Baso % (Auto) % Neut # (Auto) (1.40-6.50) K/uL Lymph # (Auto) (1.2-3.4) K/uL [place] # (Auto) (0.11-0.59) K/uL Eos # (Auto) (0-0.50) K/uL Baso # (Auto) (0-0.2) K/uL Immature Gran # (Auto) (0.01-0.20) K/uL POC Sodium 136 (135-144) mmol/L Sodium (136-145) mmol/L POC Potassium 4.4 (3.3-5.0) mmol/L Potassium 4.4 POC Chloride 100 L (101-112) mmol/L Chloride (98-107) mmol/L Carbon Dioxide (21-32) mmol/L POC Total CO2 22 L (24-31) mmol/L Anion Gap (3-11) POC Anion Gap 19.0 (16-25) mmol/L POC BUN 44 H (7-18) mg/dl BUN (6-23) mg/dl Creatinine (0.6-1.4) mg/dl POC Creatinine 2.4 H (0.6-1.3) mg/dl Est Cr Clr Drug Dosing ml/min Est GFR ( Amer) ml/min Est GFR (Non-Af Amer) ml/min BUN/Creatinine Ratio (10-20) Glucose (70-99(Fasting)) mg/dl POC Glucose (other) 401 H* (70-99) mg/dl Calcium (8.6-10.3) mg/dl POC Ioniz Calcium Demond 1.24 (1.12-1.32) mmol/l Magnesium (1.7-2.4) mg/dl Total Bilirubin (0.2-1.0) mg/dl AST 18 ALT (7-52) U/L Alkaline Phosphatase (34-104) U/L Total Creatine Kinase (30-223) U/L Total Protein (6.0-8.3) gm/dl Albumin (3.4-5.0) gm/dl Globulin (2.5-4.0) gm/dl Albumin/Globulin Ratio (0.9-2) TSH (0.300-4.500) uIu/ml Urine Color Urine Appearance (Clear) Urine pH (4.5-7.5) Ur Specific [place] (1.000-1.030) Urine Protein (Negative) Urine Glucose (UA) (Negative) Urine Ketones (Negative) Urine Blood (Negative) Urine Nitrite (Negative) Urine Bilirubin (Negative) Urine Urobilinogen (Negative) Ur Leukocyte Esterase (Negative) Urine WBC (Auto) (0-5) /hpf Urine RBC (Auto) (0-4) /hpf U Hyaline Cast (Auto) (0-5) /lpf U Epithel Cells (Auto) (0-5) /lpf Urine Bacteria (Auto) (Negative) Anaplasma Smear Lyme Disease IgG Ab Negative (Negative) Lyme Disease IgM Ab Negative (Negative) SARS-CoV-2, RNA, NAAT (NEGATIVE) Administered Medications Ezetimibe (Ezetimibe 10 Mg Tablet) 10 mg PO QAM [facility] Stop: 02/04/23 08:59 Last Admin: 01/06/23 08:24 Dose: 10 mg Documented By: Admin: 01/05/23 08:17 Dose: 10 mg Documented By: JADON Finasteride (Finasteride 5 Mg Tab) 5 mg PO DAILY [facility] Stop: 02/04/23 08:59 Last Admin: 01/06/23 08:24 Dose: 5 mg Documented By: Admin: 01/05/23 08:17 Dose: 5 mg Documented By: JADON Fish Oil ([place]-3 (Purified Fish Oil) 1 Gm Cap) 2 gm PO QAM [facility] Stop: 02/04/23 08:59 Last Admin: 01/06/23 08:23 Dose: 2 gm Documented By: Admin: 01/05/23 08:18 Dose: 2 gm Documented By: JADON Insulin Aspart (Insulin Aspart Per Unit Charge) 0 units SC ACHS [facility] Stop: 02/03/23 20:59 Last Admin: 01/06/23 12:12 Dose: 3 units Documented By: JADON Co-signed By: MILEY Admin: 01/06/23 09:54 Dose: Not Given Documented By: JADON Co-signed By: SHAINA Admin: 01/05/23 20:30 Dose: 3 units Documented By: TAVO Co-signed By: JORDYN Admin: 01/05/23 17:17 Dose: 6 units Documented By: JADON Co-signed By: SAMUEL Admin: 01/05/23 12:43 Dose: 4 units Documented By: JADON Co-signed By: SAMUEL Admin: 01/05/23 08:45 Dose: 3 units Documented By: JADON Co-signed By: SAMUEL Admin: 01/04/23 21:33 Dose: 5 units Documented By: JEEVAN Co-signed By: JAMARCUS Insulin Glargine (Lantus Per Unit Charge) 13 units SQ BID [facility] Stop: 02/03/23 20:59 Last Admin: 01/06/23 09:55 Dose: 13 units Documented By: JADON Co-signed By: SHAINA Admin: 01/05/23 20:30 Dose: 13 units Documented By: TAOV Co-signed By: JORDYN Admin: 01/05/23 08:46 Dose: 13 units Documented By: JADON Co-signed By: SAMUEL Admin: 01/04/23 21:34 Dose: 13 units Documented By: JEEVAN Co-signed By: JAMARCUS Tamsulosin HCl (Tamsulosin Hcl 0.4 Mg Cap) 0.4 mg PO QPM [facility] Stop: 02/03/23 20:59 Last Admin: 01/05/23 20:32 Dose: 0.4 mg Documented By: Admin: 01/04/23 21:35 Dose: 0.4 mg Documented By: JEEVAN Vitamin D (Cholecalciferol 5,000 Units 125 Mcg Tab) 5,[facility] [place] Stop: 02/04/23 08:59 Last Admin: 01/06/23 08:24 Dose: 5,000 units Documented By: Admin: 01/05/23 08:18 Dose: 5,000 units Documented By: JADON Zinc Sulfate (Zinc Sulfate 220 Mg Capsule) 220 mg [facility] [place] Stop: 02/04/23 08:59 Last Admin: 01/06/23 08:23 Dose: 220 mg Documented By: Admin: 01/05/23 08:17 Dose: 220 mg Documented By: JADON Discontinued Medications Gadobutrol (Gadobutrol 65ml Vial) 10.5 ml IV ONCE ONE Stop: 01/05/23 16:18 Last Admin: 01/05/23 16:17 Dose: 10.5 ml Documented By: BECKI Hydralazine HCl (Hydralazine Hcl 20 Mg/Ml Vial) 5 mg IV NOW ONE Stop: 01/04/23 16:42 Last Admin: 01/04/23 16:47 Dose: 5 mg Documented By: MES Sodium Chloride (Nss) 500 mls @ 999 mls/hr IV .Q31M ONE Stop: 01/04/23 14:58 Last Infusion: 01/04/23 15:11 Dose: 0 mls/hr Documented By: Admin: 01/04/23 14:34 Dose: 999 mls/hr Documented By: KJS Sodium Chloride (Nss 1000ml) 1,000 mls @ 125 mls/hr IV .Q8H [facility] Stop: 02/03/23 19:14 Last Admin: 01/06/23 11:53 Dose: Not Given Documented By: Infusion: 01/06/23 09:57 Dose: 0 mls/hr Documented By: Admin: 01/06/23 01:37 Dose: 125 mls/hr Documented By: Infusion: 01/06/23 01:37 Dose: 125 mls/hr Documented By: Admin: 01/05/23 12:40 Dose: 125 mls/hr Documented By: Infusion: 01/05/23 12:40 Dose: 125 mls/hr Documented By: Admin: 01/05/23 05:31 Dose: 125 mls/hr Documented By: Infusion: 01/05/23 05:31 Dose: 125 mls/hr Documented By: Admin: 01/04/23 21:36 Dose: 125 mls/hr Documented By: JEEVAN Insulin Human Regular (Novolin-R Insulin Per Unit Charge) 10 units IV NOW STA Stop: 01/04/23 16:55 Last Admin: 01/04/23 17:06 Dose: 10 units Documented By: ZAHIRA Co-signed By: LUZ MARIA Insulin Human Regular (Novolin-R Insulin Per Unit Charge) 5 units IV NOW STA Stop: 01/04/23 19:42 Last Admin: 01/04/23 19:54 Dose: 5 units Documented By: YARIEL Co-signed By: RIVERA Imaging Data Radiologist's Impression: Abdomen/Pelvis CT 01/04/23 12:36 CT OF THE ABDOMEN AND PELVIS WITHOUT CONTRAST CLINICAL HISTORY: Lower abdominal pain. COMPARISON STUDY: CT of the abdomen and pelvis April 11, 2022. TECHNIQUE: Axial images of the abdomen and pelvis were obtained without IV contrast. Images were reviewed in the axial, sagittal, and coronal planes. Automated exposure control was utilized for the study. A dose lowering technique was utilized adhering to the principles of ALARA. FINDINGS: Lung bases are unremarkable. No pneumatosis, free air or portal venous gas is present. Small 3 mm left renal calculus is present. There are no ureteral calculi. There is mild to moderate bilateral hydroureteronephrosis. The bladder is significantly distended. The prostate is markedly enlarged, measuring 7.3 cm in transverse dimension. Bilateral perinephric fluid extends into the pelvis. Evaluation of the remainder of the abdomen and pelvis is suboptimal on this unenhanced exam. 2.8 cm left adrenal nodule is unchanged and CT of April 11, 2022. Liver, spleen, right adrenal gland and pancreas are unremarkable. Prominent bilateral iliac chain lymph nodes remain unchanged. The appendix is normal. No acute fractures are identified. Lumbar spine CT will be reported separately. IMPRESSION: 1. Mild to moderate bilateral hydroureteronephrosis with significant bladder distention. Associated perinephric fluid extending into the pelvis. The findings suggest acute bladder outlet obstruction, likely due to a markedly enlarged prostate. 2. 3 mm left renal calculus. No ureteral calculi or hydronephrosis. 3. No bowel obstruction. No bowel wall thickening on unenhanced exam. 4. No change in a 2.8 cm left adrenal nodule since CT of April 11, 2022. Given stability, this is likely benign but should be assessed on follow-up exams. ACT 112: Negative or not required by law. Electronically signed by: Jf Mathis M.D. 01/04/2023 3:[address] 01/04/23 12:36 CT OF THE HEAD WITHOUT CONTRAST CLINICAL HISTORY: urinary incontinence; ataxia COMPARISON STUDY: No previous studies for comparison. CT DOSE: 625.80 mGy.cm TECHNIQUE: Helical axial images of the head were obtained without IV contrast. Automated exposure control was utilized for the study. A dose lowering technique was utilized adhering to the principles of ALARA. FINDINGS: No acute intracranial hemorrhage, midline shift or mass effect is present. Mild white matter hypodensities favor small vessel disease. The ventricular system is unremarkable. The basal cisterns are patent. No extra- axial collections are present. There are no findings to suggest acute dural sinus thrombosis or acute territorial infarct. No significant calvarial abnormalities are present. Visualized portions of the sinuses and mastoid air cells are clear. IMPRESSION: No acute intracranial findings. ACT 112: Negative or not required by law. Electronically signed by: Jf Mathis M.D. 01/04/2023 3:[address] 01/04/23 12:39 CT lumbar spine wo con CLINICAL HISTORY: Left lower back pain. COMPARISON STUDY: CT of the abdomen and pelvis April 11, 2022. TECHNIQUE: Axial images of the lumbar spine were obtained without IV contrast. Sagittal and coronal reconstructions were viewed. Automated exposure control was utilized for the study. A dose lowering technique was utilized adhering to the principles of ALARA. FINDINGS: Alignment of the lumbar spine is anatomic. Vertebral body heights are maintained. There is no lumbar spine fracture. A lucent lesion within the L2 vertebral bodies unchanged. This favors a hemangioma. There are no suspicious osseous lesions within the lumbar spine. There is mild disc space narrowing with osteophytosis at L5-S1. There is mild multilevel facet arthrosis. The central canal and neural foramen are suboptimally assessed given CT technique. Mild to moderate bilateral hydroureteronephrosis is better depicted on CT of the abdomen and pelvis as is bladder distention. There is a 3 mm left renal calculus. IMPRESSION: 1. No acute lumbar spine fracture or subluxation. 2. Mild multilevel degenerative disc disease and facet arthrosis within lumbar spine. 3. Mild to moderate bilateral hydroureteronephrosis with a distended bladder, better depicted on the CT of the abdomen and pelvis which will be reported separately. ACT 112: Negative or not required by law. Electronically signed by: Jf Mathis M.D. 01/04/2023 3:15 PM Brain MRI 01/04/23 16:35 MRI OF THE BRAIN WITHOUT CONTRAST CLINICAL HISTORY: Severe acute urinary retention, ataxia. COMPARISON STUDY: Head CT performed earlier today. TECHNIQUE: Utilizing a 1.5 Anita magnet and dedicated coil, multiplanar, multiecho imaging of the brain was performed without IV contrast. FINDINGS: Note is made of numerous small hyperintense foci within the bilateral cerebral hemispheres on the diffusion-weighted sequence. These appear isointense on the ADC map and therefore do not reflect acute infarcts. Brain volume is normal. Ventricular system is normal. Basal cisterns are patent. There are no extra axial collections. Flow-voids for the major intracranial vessels are present. No intracranial mass is identified on this unenhanced examination. Note is made of numerous supra and infratentorial T2 hyperintense foci, predominantly within the white matter. Several of these are periventricular in distribution. There is also a 1.9 x 0.7 cm T2 hyperintense focus within the medial left cerebellar hemisphere. A few foci of signal abnormality within the corpus callosum are also noted. There is no mass effect. Calvarial signal is normal. Orbits are unremarkable. There is no evidence for sinusitis. There is no mastoid fluid. No acute intracranial hemorrhage is present. IMPRESSION: 1. Numerous white matter T2 hyperintense foci, several of which are periventricular in distribution. In addition, T2 hyperintense foci within the medial left cerebellar hemisphere and portions of the corpus callosum. Although nonspecific, the findings are highly suggestive of a demyelinating process such as multiple sclerosis or Lyme disease. Assessment for active demyelination is suboptimal given lack of postcontrast imaging. 2. No evidence for acute infarct. No acute intracranial hemorrhage. No mass effect. ACT 112: Negative or not required by law. Electronically signed by: Jf Mathis M.D. 01/04/2023 5:58 PM Lumbar Spine MRI 01/04/23 16:43 MRI OF THE LUMBAR SPINE WITHOUT CONTRAST CLINICAL HISTORY: loss of bladder funct, saddle paresthesia, ataxia COMPARISON STUDY: Lumbar spine CT performed earlier today. TECHNIQUE: Utilizing a 1.5 Anita magnet and dedicated coil, multiplanar, multiecho imaging of the lumbar spine was performed without IV contrast. FINDINGS: For purposes of numbering on this exam, the L5-S1 disc space is assigned to axial image 27 of 30. Alignment of the lumbar spine is anatomic. Vertebral body heights are maintained. A T1 and T2 hyperintense lesion within the L5 to vertebral body is noted. This represents a hemangioma. There are also hemangiomas within the S2 and S3 vertebral bodies. There is no suspicious marrow replacement. The conus terminates at the mid L1 level. No definite cord signal abnormality is identified within the visualized lower cord. There is no intraca nalicular mass or fluid collection. Paravertebral soft tissues are unremarkable. Bilateral hydronephrosis is noted. This is better depicted on recent abdominal CT. This may slightly improved. L1-2: The central canal and neural foramen are patent. L2-3: The central canal and neural foramen are patent. L3-4: There is mild facet arthrosis. Central canal is patent. There is mild bilateral neural foraminal stenosis. L4-5: Central canal is patent. There is mild facet arthrosis. There is mild bilateral neural foraminal stenosis. L5-S1: Mild disc space narrowing is noted. The central canal is patent. There is mild facet arthrosis. The neural foramen are patent. IMPRESSION: 1. No acute process within the lumbar spine by MRI. 2. No central canal stenosis. Mild degenerative changes within the lumbar spine. Mild multilevel neural foraminal stenosis. 3. Several hemangiomas within the lumbar spine and sacrum. ACT 112: Negative or not required by law. Electronically signed by: Jf Mathis M.D. 01/04/2023 6:37 PM Discharge Plan Visit Data Chief Complaint: Dehydration Stated Complaint: DEHYDRATION ED Provider: Maricel Carrillo Discharge Problem: Acute urinary retention, Overflow incontinence, LUIS (acute kidney injury), Enlarged prostate, Acute hyperglycemia, Ataxia Patient Disposition: Admitted As Inpatient Discharge Instructions Interventions: ED Discharge Assessment Last Done: 01/04/23 19:58
[2023-01-04 13:22] LABS: Basophils # (auto) 0.06 K/uL (0-0.2); Basophils % (auto) 0.6 %; Eosinophils # (auto) 0.11 K/uL (0-0.50); Eosinophils % (auto) 1.1 %; Hematocrit (blood only) 43.7 % (42.0-52.0); Immature Granulocytes # (auto) 0.04 K/uL (0.01-0.20); Immature Granulocytes % (auto) 0.4 %; Lymphocytes # (auto) 0.99 K/uL (1.2-3.4); Lymphocytes % (auto) 9.8 %; Mean Corpuscular Hemoglobin 28.4 pg (25.0-34.0); Mean Corpuscular Hgb Conc 34.3 g/dL (32.0-36.0); Mean Corpuscular Volume 82.6 fL (80.0-100.0); Mean Platelet Volume 11.3 fL (9.4-12.4); Monocytes # (auto) 0.85 K/uL (0.11-0.59); Monocytes % (auto) 8.4 %; Neutrophils # (auto) 8.02 K/uL (1.40-6.50); Neutrophils % (auto) 79.7 %; Platelet Count 196 K/uL (130-400); RDW Coefficient of Variation 13.1 % (11.5-14.5); RDW Standard Deviation 38.9 fL (36.4-46.3); Red Blood Count 5.29 M/uL (4.70-6.10); White Blood Count 10.07 K/ul (4.8-10.8)
[2023-01-04 13:53] LABS: Alanine Aminotransferase 15 U/L (7-52); Albumin Globulin Ratio 1.3 (0.9-2); Albumin Level 3.7 gm/dl (3.4-5.0); Alkaline Phosphatase 71 U/L (34-104); Anion Gap 10 (3-11); BUN Creatinine Ratio 19.7 (10-20); Bilirubin,Total 0.7 mg/dl (0.2-1.0); Blood Urea Nitrogen 49 mg/dl (6-23); Calcium 8.9 mg/dl (8.6-10.3); Carbon Dioxide 21 mmol/L (21-32); Chloride 99 mmol/L (98-107); Creatine Kinase 102 U/L (30-223); Creatinine Clr Calc Pharmacy 40.5 ml/min; Est GFR (African American) 31.1 ml/min; Est GFR (Non-African American) 26.8 ml/min; Globulin 2.9 gm/dl (2.5-4.0); Glucose 459 mg/dl (70-99(Fasting)); Sodium 130 mmol/L (136-145); Total Protein 6.6 gm/dl (6.0-8.3)
[2023-01-04] MEDS ORDERED: SODIUM CHLORIDE 0.9% 500 ML IV ONE (14:28)
--- NOTE | 2023-01-04 15:12 | CT Scan Report ---
CT OF THE ABDOMEN AND PELVIS WITHOUT CONTRAST CLINICAL HISTORY: Lower abdominal pain. COMPARISON STUDY: CT of the abdomen and pelvis April 11, 2022. TECHNIQUE: Axial images of the abdomen and pelvis were obtained without IV contrast. Images were revi ewed in the axial, sagittal, and coronal planes. Automated exposure control was utilized for the darling dy. A dose lowering technique was utilized adhering to the principles of ALARA. FINDINGS: Lung bases are unremarkable. No pneumatosis, free air or portal venous gas is present. Smal l 3 mm left renal calculus is present. There are no ureteral calculi. There is mild to moderate bilat eral hydroureteronephrosis. The bladder is significantly distended. The prostate is markedly enlarged , measuring 7.3 cm in transverse dimension. Bilateral perinephric fluid extends into the pelvis. Eval uation of the remainder of the abdomen and pelvis is suboptimal on this unenhanced exam. 2.8 cm left adrenal nodule is unchanged and CT of April 11, 2022. Liver, spleen, right adrenal gland and panc reas are unremarkable. Prominent bilateral iliac chain lymph nodes remain unchanged. The appendix is normal. No acute fractures are identified. Lumbar spine CT will be reported separately. IMPRESSION: 1. Mild to moderate bilateral hydroureteronephrosis with significant bladder distention. Associated p erinephric fluid extending into the pelvis. The findings suggest acute bladder outlet obstruction, li sonam due to a markedly enlarged prostate. 2. 3 mm left renal calculus. No ureteral calculi or hydronephrosis. 3. No bowel obstruction. No bowel wall thickening on unenhanced exam. 4. No change in a 2.8 cm left adrenal nodule since CT of April 11, 2022. Given stability, this is likely benign but should be assessed on follow-up exams. ACT 112: Negative or not required by law. Electronically signed by: Jf Mathis M.D. 01/04/2023 3:10 PM
--- NOTE | 2023-01-04 15:13 | CT Scan Report ---
CT OF THE HEAD WITHOUT CONTRAST CLINICAL HISTORY: urinary incontinence; ataxia COMPARISON STUDY: No previous studies for comparison. CT DOSE: 625.80 mGy.cm TECHNIQUE: Helical axial images of the head were obtained without IV contrast. Automated exposure con trol was utilized for the study. A dose lowering technique was utilized adhering to the principles o f ALARA. FINDINGS: No acute intracranial hemorrhage, midline shift or mass effect is present. Mild white matte r hypodensities favor small vessel disease. The ventricular system is unremarkable. The basal cistern s are patent. No extra-axial collections are present. There are no findings to suggest acute dural si nus thrombosis or acute territorial infarct. No significant calvarial abnormalities are present. Visu alized portions of the sinuses and mastoid air cells are clear. IMPRESSION: No acute intracranial findings. ACT 112: Negative or not required by law. Electronically signed by: Jf Mathis M.D. 01/04/2023 3:11 PM
--- NOTE | 2023-01-04 15:17 | CT Scan Report ---
CT lumbar spine wo con CLINICAL HISTORY: Left lower back pain. COMPARISON STUDY: CT of the abdomen and pelvis April 11, 2022. TECHNIQUE: Axial images of the lumbar spine were obtained without IV contrast. Sagittal and coronal r econstructions were viewed. Automated exposure control was utilized for the study. A dose lowering t echnique was utilized adhering to the principles of ALARA. FINDINGS: Alignment of the lumbar spine is anatomic. Vertebral body heights are maintained. There is no lumbar spine fracture. A lucent lesion within the L2 vertebral bodies unchanged. This favors a hem angioma. There are no suspicious osseous lesions within the lumbar spine. There is mild disc space na rrowing with osteophytosis at L5-S1. There is mild multilevel facet arthrosis. The central canal and neural foramen are suboptimally assessed given CT technique. Mild to moderate bilateral hydroureteron ephrosis is better depicted on CT of the abdomen and pelvis as is bladder distention. There is a 3 mm left renal calculus. IMPRESSION: 1. No acute lumbar spine fracture or subluxation. 2. Mild multilevel degenerative disc disease and facet arthrosis within lumbar spine. 3. Mild to moderate bilateral hydroureteronephrosis with a distended bladder, better depicted on the CT of the abdomen and pelvis which will be reported separately. ACT 112: Negative or not required by law. Electronically signed by: Jf Mathis M.D. 01/04/2023 3:15 PM
[2023-01-04 15:58] LABS: Appearance Urine Clear (Clear); Bacteria Urine Automated Negative (Negative); Bilirubin Urine Negative (Negative); Blood Urine 2+ (Negative); Color Urine Yellow; Glucose Urine UA 3+ (Negative); Ketones Urine Trace (Negative); Leukocyte Esterase Urine Negative (Negative); Nitrite Urine Negative (Negative); Protein Urine 1+ (Negative); RBC Urine Automated 0-4 /hpf (0-4); Specific Gravity Urine 1.012 (1.000-1.030); Urobilinogen Urine Negative (Negative)
--- NOTE | 2023-01-04 16:34 | History & Physical Report ---
Date of Service January 04, 2023 Assessment & Plan (1) Urinary retention: Plan: Obstructive AKR, severe urinary retention Suspect obstructive due to enlarged prostate With evaluation for MS below Follows with urology as outpatient, given enlarged prostate and obstructive LUIS urology consulted on admission. Patient has also had decompressive bladder hematuria - Meets criteria for acute renal failure based on creatinine rise greater than 3 times baseline (2.49 on admission). Milner placed, trended Has been on maximal medical therapy noted 03/2022, further complications would require surgical intervention per that note. Was recommended to [facility] for HOLEP based on gland size, patient was not interested in surgical intervention at that time. Is on tamsulosin 0.4 mg, finasteride [address] CLEARER -CThead: No acute findings -CTA/P without contrast: Mild to moderate bilateral hydro with bladder distention, perinephric fluid extending into the pelvis. Suggestive of acute bladder outlet obstruction suspect due to prostatomegaly. 3 mm left renal calculus. Stable 2.8 cm left adrenal nodule. -CTL-spine: No acute lumbar spine fracture or subluxation, multilevel degenerative disc disease. Bilateral hydroureteronephrosis with distended bladder. -No leukocytosis -Hemoglobin normal - Potassium pending -Creatinine baseline: 1.25, previously below 1.0 2021; last creatinine 1.72, acutely elevated at 2.49 on admission -UA: No leukocyte esterase, no bacteria. Epithelial cells, glucose, blood. Uninfected appearing. -EKG: Normal sinus rhythm, no ST segment changes, T wave inversions in anterolateral leads similar in comparison to 12/28/2022 Continue Milner, draining light yellow urine and then subsequently light pink urine after 4 L of drainage. Do not clamp. Bladder scan every shift, if retaining with Milner may have formed clot and need irrigation Ataxia, paresthesia suspect MS 1 month of symptoms, patient reports he was walking a dog and following that walk he felt his legs were heavier bilaterally than normal, easily fatigued, and has had some increased paresthesias although the legs themselves are not numb. He reports he does have a history of lower extremity neuropathy from his diabetes. Patient reports that many many years ago he had a history of 6th nerve palsy which resolved after 3 months. Before that had symptoms and tingling of the legs, had nerve studies but it was unclear the cause of this and was multifactorial in the setting of diabetes Given history of multiple neurologic symptoms at different times, and MRI findings below suspect multiple sclerosis Deficits have been present for at least several days, and initial onset was a month ago -MRI-B:1. Numerous white matter T2 hyperintense foci, several of which are periventricular in distribution. In addition, T2 hyperintense foci within the medial left cerebellar hemisphere and portions of the corpus callosum. Although nonspecific, the findings are highly suggestive of a demyelinating process such as multiple sclerosis or Lyme disease. Assessment for active demyelination is suboptimal given lack of postcontrast imaging. 2. No evidence for acute infarct. No acute intracranial hemorrhage. No mass effect. -MRI-Lspine: 1. No acute process within the lumbar spine by MRI. 2. No central canal stenosis. Mild degenerative changes within the lumbar spine. Mild multilevel neural foraminal stenosis.3. Several hemangiomas within the lumbar spine and sacrum. Discussed with neurology. Will defer additional MRI imaging pending creatinine improvement, and then complete work-up with cervical and thoracic spine with contrast. Recommended LP under fluoroscopy and completion of CSF studies prior to steroid initiation. We will formally consult once all studies are back. Appreciate recommendations Type II DM A1c 12/2022 greater than 9 With history of foot ulceration, fifth left toe amputation, and distal left toe 1-4 partial amputations Admitting BSG 459, 10 units insulin ordered at time of hospitalist consultation Additional fluids limited in the setting of clinical hypervolemia and obstructive LUIS Potassium 4.4 Q1H BSG x3. If BSG downtrends under [id number] then may convert to basal bolus SQ insulin at that time Total home insulin-based 50 units converted to basal 13 twice daily, CF 30, ratio 11 Hypertension Aspirin 81 mg Lisinopril 20 mg p.o. twice daily held for LUIS Dissipate will improve now that urine is draining. Hydralazine every 6 hours as needed for SBP greater than 180 persistently over 180, contact provider for reassessment. No Lasix in the setting of LUIS Patient reports he is on a ketogenic diet for his diabetes which has been very helpful for lipid control; however as part of this diet he takes a very large amount of salt including several bouillon cubes per day. With concurrent severe urinary obstruction likely hypertensive from salt/volume overload. No headache. Obstruction being managed as above, hydralazine as needed. Defer Lasix in the setting of LUIS. Hyperlipidemia Zetia 10 mg every morning DVT prophylaxis: Heparin SQ Diet: N.p.o. pending MRI results, advance to DM 2 if clear Disposition: Telemetry for hyperglycemia, severe urinary retention (2) Diabetic peripheral neuropathy associated with type 2 diabetes mellitus: (3) Status post partial amputation of foot: (4) Hyperlipidemia: (5) HTN (hypertension): (6) Diabetes: History of Present Illness Primary Care Provider: Maxwell Mccarty is a 62-year-old male with a past medical history of type II DM, LUTS, hyperlipidemia, hypertension who presented to the ER 01/04 with urinary incontinence, poor balance, elevated blood sugars. Per reprot pts symptoms began November 30 and was walking his dog uphill, when coming back downhill he felt his legs became weak and could not walk well. He started to lose control of urine and was Ataxic acutely. Now has overflow incontience. Last 2-3 days no control of bladder, has been feely leaking into depends. Saw PCP as outpatient, was pending some tests but his symptoms continued Friday- Friday and he came to ER Has had tinling in the legs into the groin which began from the knees down and now extends into the thighs and lower back.Has come and gone, not there right. Does have some tinlging in the saddle area. Some R lumbar low back tingling, no pain. BP has always been high (160s -> 190s) even in college, has been following with [facility] and a strict ketogenic diet which he started in October with dramatic improvements in BP but does take bullion cubes every day and salt with each meal due to that diet. Had prostate MRI, no evidence of cancer. NO headache NO chest pain, chest pressure NO headache, no vision change. Had a heart cath 3 years ago in [facility] to 'get a baseline' due to very high FHX. Had not had chest pain. Father had HI at 54 and 75. 40% single artery blockage, no stents placed. Denies chest pain, crescendo angina, shortness of breath Last A1C >9%. Multiple DM infection sin the past. Denies current ulcers/infection 2021. Medical History: Reviewed Medications: Reviewed. Took AM meds. Surgical History: Reviewed. Hx of L 5th digit revision 2/2 DM infection last year, well healed. Sep 10, 2021. Distal amputation of each L distal digit. NO R foot surgeries. Family history: Reviewed Allergies: Reviewed. NKDA Social History: no tobacco or etoh use. Code Status: FUll COde Allergies Allergy/AdvReac Type Severity Reaction Status Date / Time bee venom protein (honey bee) Allergy Severe Anaphylaxis Verified 04/02/22 14:45 Home Medications Medication Instructions Recorded Confirmed Type aspirin 81 mg tablet,delayed 81 mg PO QAM 12/29/19 01/04/23 History release epinephrine 0.3 mg/0.3 mL 0.3 mg subcut UD PRN Anaphylaxis 12/29/19 01/04/23 History injection, auto-injector ezetimibe 10 mg tablet 10 mg PO QAM 12/29/19 01/04/23 History omega 3-dpz-mbj-fish oil 1,000 mg 2 cap PO QAM 12/29/19 01/04/23 History (120 mg-180 mg) capsule (Fish Oil) cholecalciferol (vitamin D3) 125 125 mcg PO QAM 09/07/21 01/04/23 History mcg (5,000 unit) tablet (Vitamin D3) lisinopril 20 mg tablet 20 mg PO BID 09/07/21 01/04/23 History vitamin E 100 unit tablet 180 unit PO QAM 09/07/21 04/02/22 History zinc 50 mg tablet 50 mg PO QAM 09/07/21 01/04/23 History coQ10 (ubiquinol) 100 mg capsule 100 mg PO QAM 11/26/21 01/04/23 History finasteride 5 mg tablet 5 mg PO DAILY #90 tabs 04/09/22 01/04/23 Rx tamsulosin 0.4 mg capsule 0.4 mg PO QPM #90 caps 09/03/22 01/04/23 Rx insulin degludec 100 unit/mL (3 25 unit subcut BID 01/04/23 01/04/23 History mL) subcutaneous pen (Tresiba FlexTouch U-100 insulin) Past Med/Surg History Medical History (Updated 01/04/23 @ 17:16 by Altaf Whyte MD) BPH (benign prostatic hyperplasia) Cardiac murmur slight--follows with Dr. Shanoudy Diabetes type 2--IDDM has insulin pump in place HTN (hypertension) Hyperlipidemia Insulin pump in place Osteoarthritis Surgical History History of amputation of lesser toe of left foot (~09/10/21) fifth toe amputation and fifth metatarsal head resection with I&D History of amputation of toe x4 History of arthroscopic knee surgery meniscus repair History of cardiac cath x2--in [place] 1995 (no stents) and [place] 2019 no stents--follows with Dr. Singh History of colonoscopy History of tonsillectomy and adenoids History of wisdom tooth extraction Status post insertion of insulin pump Family History Father Heart disease, Onset Age: 54 Had CABG at age 54 Mother Diabetes Other No family history of adverse response to anesthesia Social History Smoking Status: Never smoker Second Hand Exposure: No; Do You Dip or Chew Tobacco: No; Hx Alcohol Use: No Hx Substance Use: No Preferred Language: Slovenian Communication Ability: Effective Visual Impairment: Limited Hearing Ability: Normal Staff Radiation Therapist Required: No Beliefs That Will Affect Care: None marital status: Current Living Situation: Spouse current occupational status: employed 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 NAD. Cooperative. HEENT: Atraumatic, normocephalic. Pulm: CTAB A&P. -wheezes, -rales, -rhonchi. Symmetrical chest rise. No increased work of breathing. No respiratory distress. Cardiac: RRR,+sm. Radial pulses intact and symmetrical. Abdominal: Nontender, nondistended, soft. BS present. CRANIAL NERVES: II: Pupils equal and reactive, no relative afferent pupillary defect, no VF cuts III, IV, : EOM intact, no gaze preference or deviation, no nystagmus. V: normal sensation in V1, V2, and V3 segments bilaterally VII: no asymmetry, no nasolabial fold flattening VIII: normal hearing to speech IX, X: normal palatal elevation, no uvular deviation XI: 5/5 head turn and 5/5 shoulder shrug bilaterally XII: midline tongue protrusion Sensory: Sensation of soft touch intact in hands, feet, ankles, and thighs bilaterally. Patient does not have saddle anesthesia, but does have saddle paresthesias and reports numbness and tingling running in a straight from his l umbar spine down around his side and inner proximal thighs bilaterally MOTOR: RUE: 5/5 Elbow flexion/extension, wrist flexion/extension 5/5 vice president strength, finger flexion/extension, interosseus LUE: 5/5 Elbow flexion/extension, wrist flexion/extension 5/5 vice president strength, finger flexion/extension, interosseus RLE: 5/5 to hip flexion, ankle dorsiflexion/plantarflexion LLE: 5/5 to hip flexion, ankle dorsiflexion/plantarflexion Coordination: [id number]-xx-butc intact without prominent dysmetria Results & Data Results & Data Vital Signs (Past 12 Hours) Vital Signs Temp Pulse Pulse Resp BP BP Pulse Ox 01/04/23 16:00 72 16 221/109 H 97 01/04/23 15:46 71 19 200/109 H 97 01/04/23 14:02 80 01/04/23 13:30 76 18 199/94 H 95 01/04/23 13:07 78 25 H 179/93 H 96 01/04/23 13:00 81 18 97 01/04/23 11:49 36.9 C 81 188/74 H 97 O2 Del Method 01/04/23 16:00 01/04/23 15:46 Room Air 01/04/23 14:02 01/04/23 13:30 01/04/23 13:07 01/04/23 13:00 Room Air 01/04/23 11:49 Room Air PG Care Time/CCT Total # of Minutes Spent Total Time Spent with Patient: Total time spent is greater than 50% in coordination of care (as documented) at patient's floor/unit and/or counseling patient: Coding Level of Care Code 70757 INT INP/OBS CARE 3/75MIN Diagnoses Urinary retention R33.9 Diabetic peripheral neuropathy associated with type 2 diabetes mellitus E11.42 Status post partial amputation of foot Z89.439 Hyperlipidemia E78.5 HTN (hypertension) I10 Diabetes E11.9
[2023-01-04] MEDS ORDERED: hydrALAZINE HCL 20 MG/ML VIAL IV ONE (16:41)
[2023-01-04] MEDS ORDERED: NovoLIN-R INSULIN PER UNIT CHARGE IV STA ×2 (16:54→19:41)
[2023-01-04 17:03] LABS: iSTAT Creatinine 2.4 mg/dl (0.6-1.3); iSTAT Ionized Calcium 1.24 mmol/l (1.12-1.32); iSTAT Potassium 4.4 mmol/L (3.3-5.0)
[2023-01-04 17:24] LABS: Potassium 4.4 mmol/L (3.5-5.1)
--- NOTE | 2023-01-04 18:00 | Magnetic Resonance Report ---
MRI OF THE BRAIN WITHOUT CONTRAST CLINICAL HISTORY: Severe acute urinary retention, ataxia. COMPARISON STUDY: Head CT performed earlier today. TECHNIQUE: Utilizing a 1.5 Anita magnet and dedicated coil, multiplanar, multiecho imaging of the bra in was performed without IV contrast. FINDINGS: Note is made of numerous small hyperintense foci within the bilateral cerebral hemispheres on the diffusion-weighted sequence. These appear isointense on the ADC map and therefore do not refle ct acute infarcts. Brain volume is normal. Ventricular system is normal. Basal cisterns are patent. T here are no extra axial collections. Flow-voids for the major intracranial vessels are present. No in tracranial mass is identified on this unenhanced examination. Note is made of numerous supra and infr atentorial T2 hyperintense foci, predominantly within the white matter. Several of these are perivent ricular in distribution. There is also a 1.9 x 0.7 cm T2 hyperintense focus within the medial left ce rebellar hemisphere. A few foci of signal abnormality within the corpus callosum are also noted. Ther e is no mass effect. Calvarial signal is normal. Orbits are unremarkable. There is no evidence for si nusitis. There is no mastoid fluid. No acute intracranial hemorrhage is present. IMPRESSION: 1. Numerous white matter T2 hyperintense foci, several of which are periventricular in distribution. In addition, T2 hyperintense foci within the medial left cerebellar hemisphere and portions of the co rpus callosum. Although nonspecific, the findings are highly suggestive of a demyelinating process rodriguez ch as multiple sclerosis or Lyme disease. Assessment for active demyelination is suboptimal given lac k of postcontrast imaging. 2. No evidence for acute infarct. No acute intracranial hemorrhage. No mass effect. ACT 112: Negative or not required by law. Electronically signed by: Jf Mathis M.D. 01/04/2023 5:58 PM
--- NOTE | 2023-01-04 18:39 | Magnetic Resonance Report ---
MRI OF THE LUMBAR SPINE WITHOUT CONTRAST CLINICAL HISTORY: loss of bladder funct, saddle paresthesia, ataxia COMPARISON STUDY: Lumbar spine CT performed earlier today. TECHNIQUE: Utilizing a 1.5 Anita magnet and dedicated coil, multiplanar, multiecho imaging of the bob ar spine was performed without IV contrast. FINDINGS: For purposes of numbering on this exam, the L5-S1 disc space is assigned to axial image 27 of 30. Ali gnment of the lumbar spine is anatomic. Vertebral body heights are maintained. A T1 and T2 hyperinten se lesion within the L5 to vertebral body is noted. This represents a hemangioma. There are also tanner ngiomas within the S2 and S3 vertebral bodies. There is no suspicious marrow replacement. The conus t erminates at the mid L1 level. No definite cord signal abnormality is identified within the visualize d lower cord. There is no intracanalicular mass or fluid collection. Paravertebral soft tissues are u nremarkable. Bilateral hydronephrosis is noted. This is better depicted on recent abdominal CT. This may slightly improved. L1-2: The central canal and neural foramen are patent. L2-3: The central canal and neural foramen are patent. L3-4: There is mild facet arthrosis. Central canal is patent. There is mild bilateral neural foramina l stenosis. L4-5: Central canal is patent. There is mild facet arthrosis. There is mild bilateral neural foramina l stenosis. L5-S1: Mild disc space narrowing is noted. The central canal is patent. There is mild facet arthrosis . The neural foramen are patent. IMPRESSION: 1. No acute process within the lumbar spine by MRI. 2. No central canal stenosis. Mild degenerative changes within the lumbar spine. Mild multilevel neur al foraminal stenosis. 3. Several hemangiomas within the lumbar spine and sacrum. ACT 112: Negative or not required by law. Electronically signed by: Jf Mathis M.D. 01/04/2023 6:37 PM
[2023-01-04] MEDS ORDERED: hydrALAZINE HCL 20 MG/ML VIAL IV PRN (19:12)
--- NOTE | 2023-01-04 20:07 | Urology Consultation ---
Date of Consultation January 04, 2023 Assessment & Plan (1) Urinary retention: (2) Hematuria, gross: (3) Diuresis: (4) Diabetic peripheral neuropathy associated with type 2 diabetes mellitus: (5) Diabetes: (6) Lower urinary tract symptoms (LUTS): Plan Patient going to be admitted for observation. Severe bladder outlet obstruction/retention. Patient has history of prostate enlargement and has previously been on dual therapy. Had been voiding fairly well. Does have a complicated history. Has history of diabetes. Also has been having increasing issues and was undergoing work-up for a possible neurologic issue. Patient found to have severe retention. Imaging had all been reviewed interpreted by myself. On imaging patient had severe distention of the bladder with bilateral hydronephrosis. This was seen on CT scan. The patient subsequently underwent catheter placement while in the ER and greater than 4 L of urine had drained over the course of the initial placement. Patient had had significant issues with voiding that has been worsening over a while. Reviewed extensively concerns and issues. Discussed severe obstructive issues. Discussed possible issues related to neurogenic bladder as well as other problems and concerns. Discussed need for further work-up after the resolution of the acute episode. Did discuss the patient's sudden large-volume diuresis. Discussed possible issues related to electrolyte abnormalities. Discussed different options for management. At this point patient is eating and drinking normally he had been having some nausea earlier in the day but is otherwise tolerating p.o. at this point. Would recommend normal fluid intake. Did discuss utilization of drinks with electrolytes such as Gatorade or other sports type drink. This would help to replenish some of the salts that would likely be diuresed during the process. Patient's creatinine had elevated significantly to 2.49 above his baseline however was not severe and prior to admission he had previously had a PSA done and in February 2022 that had been 2.53. Previously patient's creatinine had been around 1.2. Patient's white count is 10.07. Hemoglobin was 15.0. Extensively reviewed options. Discussed concerns and issues. Discussed need for outpatient work-up and assessment. Patient complicated medical and surgical history was reviewed and summarized above. All imaging have been reviewed interpreted by myself please see the above notes. His labs and vitals were all reviewed with pertinent values as above. Currently he is satting 97% on room air. He is mildly hypertensive. Had initially had hypertension but no significant tachycardia. Currently afebrile. We will plan to monitor moving forward. Gross hematuria is likely due to the severe over distention of the bladder. Will likely resolve over time. We will monitor for development of clots or other obstructive issues that would possibly worsen issues with emptying. At this point all small clots that are visible within the catheter tubing appear to be passing without major issue. Did discuss that only a small amount of blood is necessary to turn the urine is fairly bright red color. We will plan to monitor output moving forward. We will likely need strict input and output monitored while during this admission. We will also need likely close electrolyte monitoring due to the possibility of postobstructive diuresis. We will need to monitor patient's sodium as well as his other electrolytes very closely. Could consider possible replacement including IV replacement if necessary. Most likely as patient is tolerating p.o. intake would likely be good with normal fluid intake and management without considerable replacement unless necessary based on electrolyte abnormality. Did discuss briefly with patient and family the possibility of significant issues with severe electrolyte imbalances. Discussed possibility of seizures arrhythmias and other issues that will need to be monitored closely and is the main reason for the observation after the significant retention. Patient is going to be monitored closely. We will plan to follow while hospitalized with plans for outpatient work-up and assessment in order to fully assess the patient's bladder outlet obstruction issues as well as to assist in the work-up of some of the neurologic concerns and issues. History of Present Illness History of Present Illness Consult for urinary issues with incomplete emptying and possible retention. Patient presents to the ER with worsening weakness ill feelings and trouble voiding. Patient has known history of significant prostate enlargement issues. Had previously seen Dr. Farley. Found to have prostate enlargement and was started on medical therapy. Has been utilizing dual therapy with some mixed results. Patient has had worsening lower urinary tract issues. Has known history of diabetes as well as concern for possibly developing a neurologic condition. There was some concern about the increasing issues of neurologic problems. Patient had been found on assessment to have a severely dilated bladder with bilateral hydronephrosis. Imaging was reviewed interpreted by myself. A catheter was placed by the ER and over 4 L of urine was drained over the course of the drainage with the initial placement. Patient has mild to moderate discomfort in pelvis and groin going to back and side in waves. Is dealing with acute illness. Has been deconditioned from this. Has decreased mobility significantly with acute issues. Developed hematuria after the significant diuresis. Previously no major issues and denies bleeding in the past. No severe nausea or vomiting. Currently no fevers. Discussed with patient multifactorial nature of urinary issues, retention, and incomplete bladder emptying. Discussed concerns and issues. Discussed decreased mobility and trouble voiding. Discussed issues related to deconditioning and weakened state. Discussed possibility that patient had more moderate to severe issues and with the acute illness and deconditioning these issues became more prevalent and obvious. Discussed bowel function and possible issues related to decrease in function and its relation to other pelvic organs and systems. Discussed different medications, will use during hospitalization and their effect on ability to empty. Allergies Allergy/AdvReac Type Severity Reaction Status Date / Time bee venom protein (honey bee) Allergy Severe Anaphylaxis Verified 04/02/22 14:45 Home Medications Medication Instructions Recorded Confirmed Type aspirin 81 mg tablet,delayed 81 mg PO QAM 12/29/19 01/04/23 History release epinephrine 0.3 mg/0.3 mL 0.3 mg subcut UD PRN Anaphylaxis 12/29/19 01/04/23 History injection, auto-injector ezetimibe 10 mg tablet 10 mg PO QAM 12/29/19 01/04/23 History omega 0-csr-uix-fish oil 1,000 mg 2 cap PO QAM 12/29/19 01/04/23 History (120 mg-180 mg) capsule (Fish Oil) cholecalciferol (vitamin D3) 125 125 mcg PO QAM 09/07/21 01/04/23 History mcg (5,000 unit) tablet (Vitamin D3) lisinopril 20 mg tablet 20 mg PO BID 09/07/21 01/04/23 History vitamin E 100 unit tablet 180 unit PO QAM 09/07/21 04/02/22 History zinc 50 mg tablet 50 mg PO QAM 09/07/21 01/04/23 History coQ10 (ubiquinol) 100 mg capsule 100 mg PO QAM 11/26/21 01/04/23 History finasteride 5 mg tablet 5 mg PO DAILY #90 tabs 04/09/22 01/04/23 Rx tamsulosin 0.4 mg capsule 0.4 mg PO QPM #90 caps 09/03/22 01/04/23 Rx insulin degludec 100 unit/mL (3 25 unit subcut BID 01/04/23 01/04/23 History mL) subcutaneous pen (Tresiba FlexTouch U-100 insulin) Patient History Medical History BPH (benign prostatic hyperplasia) Cardiac murmur slight--follows with Dr. Singh Diabetes type 2--IDDM has insulin pump in place HTN (hypertension) Hyperlipidemia Insulin pump in place Osteoarthritis Surgical History History of amputation of lesser toe of left foot (~09/10/21) fifth toe amputation and fifth metatarsal head resection with I&D History of amputation of toe x4 History of arthroscopic knee surgery meniscus repair History of cardiac cath x2--in [place] 1995 (no stents) and [place] 2019 no stents--follows with Dr. Singh History of colonoscopy History of tonsillectomy and adenoids History of wisdom tooth extraction Status post insertion of insulin pump Family History Father Heart disease, Onset Age: 54 Had CABG at age 54 Mother Diabetes Other No family history of adverse response to anesthesia Social History Smoking Status: Never smoker Second Hand Exposure: No; Do You Dip or Chew Tobacco: No; Hx Alcohol Use: No Hx Substance Use: No Preferred Language: Bulgarian Communication Ability: Effective Visual Impairment: Limited Hearing Ability: Normal Global Commodity Manager Required: No Beliefs That Will Affect Care: None marital status: Current Living Situation: Spouse current occupational status: employed 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 Patient is well nourished and well kept. HEENT: Normocephalic Atraumatic. Inspection normal. Cranial Nerves 2-12 Grossly intact. Nares are clear. Neck is supple. Normal inspection of face. Normal inspection of neck. Neurologic: No deficits on inspection. Baseline for motor function and sensory. Psychologic: Normal affect. Respiratory: Nonlabored. No use of accessory muscles. No tachypnea or dyspnea. Cardiovascular: No tachycardia Skin: [place] and Dry. No rashes or visible lesions. Extremities: Moving without issues. No motor deficits on inspection Lymphatics: No edema Abdomen: Soft Non-distended. No acites. No rebound or guarding. : Milner catheter in place draining light red urine without considerable clot. Results & Data Vital Signs (Past 12 Hours) Vital Signs Temp Pulse Pulse Resp BP BP Pulse Ox 01/04/23 19:58 01/04/23 19:30 69 188/85 H 97 01/04/23 16:32 211/116 H 01/04/23 16:32 75 20 01/04/23 16:30 69 17 01/04/23 16:30 231/108 H 01/04/23 16:00 72 14 01/04/23 16:00 221/109 H 01/04/23 15:45 200/109 H 01/04/23 15:13 98 01/04/23 15:00 98 01/04/23 14:30 75 22 97 01/04/23 14:30 200/107 H 01/04/23 14:00 79 22 97 01/04/23 14:00 208/105 H 01/04/23 16:00 72 16 221/109 H 97 01/04/23 15:46 71 19 200/109 H 97 01/04/23 14:02 80 01/04/23 13:30 76 18 199/94 H 95 01/04/23 13:07 78 25 H 179/93 H 96 01/04/23 13:00 81 18 97 01/04/23 11:49 36.9 C 81 188/74 H 97 O2 Del Method 01/04/23 19:58 Room Air 01/04/23 19:30 Room Air 01/04/23 16:32 01/04/23 16:32 01/04/23 16:30 01/04/23 16:30 01/04/23 16:00 01/04/23 16:00 01/04/23 15:45 01/04/23 15:13 01/04/23 15:00 01/04/23 14:30 01/04/23 14:30 01/04/23 14:00 01/04/23 14:00 01/04/23 16:00 01/04/23 15:46 Room Air 01/04/23 14:02 01/04/23 13:30 01/04/23 13:07 01/04/23 13:00 Room Air 01/04/23 11:49 Room Air PG Care Time/CCT Total # of Minutes Spent Total Time Spent with Patient: Total time spent is greater than 50% in coordination of care (as documented) at patient's floor/unit and/or counseling patient: Coding Level of Care Code 79067 IN/OBS CONSULT LVL 5,80M Diagnoses Urinary retention R33.9 Hematuria, gross R31.0 Diuresis R35.89 Diabetic peripheral neuropathy associated with type 2 diabetes mellitus E11.42 Diabetes E11.9 Lower urinary tract symptoms (LUTS) R39.9
[2023-01-04 20:27] LABS: Lyme Ab IgG w/WB Rflx Negative (Negative); Lyme Ab IgM w/WB Rflx Negative (Negative)
[2023-01-04] MEDS ORDERED: CARBOHYDRATES FOR HYPOGLYCEMIA PO PRN (20:48)
[2023-01-04] MEDS ORDERED: GLUCOSE 40% GEL 15 GM TUBE PO PRN (20:48)
[2023-01-04] MEDS ORDERED: GLUCAGON FOR INJ 1 MG VIAL SQ PRN (20:48)
[2023-01-04] MEDS ORDERED: POLYETHYLENE (MIRALAX) 17 GM PACK PO PRN (20:48)
[2023-01-04] MEDS ORDERED: DEXTROSE 50% 50 ML SYRINGE IV PRN (20:48)
[2023-01-04] MEDS ORDERED: ACETAMINOPHEN 325 MG TAB PO PRN (20:48)
[2023-01-04] MEDS ORDERED: GLUCOSE 10 TAB/TUBE PO PRN (20:48)
[2023-01-04] MEDS: INSULIN ASPART PER UNIT CHARGE SC SCH (21:33)
[2023-01-04] MEDS: LANTUS PER UNIT CHARGE SQ SCH (21:34)
[2023-01-04] MEDS: TAMSULOSIN HCL 0.4 MG CAP PO SCH (21:35)
[2023-01-04] MEDS: SODIUM CHLORIDE 0.9% 1000ML 1,000 ML IV SCH (21:36)
[2023-01-05] MEDS: SODIUM CHLORIDE 0.9% 1000ML 1,000 ML IV SCH ×2 (05:31→12:40)
[2023-01-05 07:21] LABS: Basophils # (auto) 0.06 K/uL (0-0.2); Basophils % (auto) 0.8 %; Eosinophils # (auto) 0.22 K/uL (0-0.50); Eosinophils % (auto) 2.8 %; Hematocrit (blood only) 43.5 % (42.0-52.0); Hemoglobin 14.7 g/dl (14.0-18.0); Immature Granulocytes # (auto) 0.03 K/uL (0.01-0.20); Immature Granulocytes % (auto) 0.4 %; Lymphocytes # (auto) 1.67 K/uL (1.2-3.4); Lymphocytes % (auto) 21.2 %; Mean Corpuscular Hemoglobin 28.2 pg (25.0-34.0); Mean Corpuscular Hgb Conc 33.8 g/dL (32.0-36.0); Mean Corpuscular Volume 83.5 fL (80.0-100.0); Mean Platelet Volume 11.9 fL (9.4-12.4); Monocytes # (auto) 0.61 K/uL (0.11-0.59); Monocytes % (auto) 7.8 %; Neutrophils # (auto) 5.27 K/uL (1.40-6.50); Platelet Count 207 K/uL (130-400); RDW Coefficient of Variation 13.2 % (11.5-14.5); RDW Standard Deviation 39.8 fL (36.4-46.3); Red Blood Count 5.21 M/uL (4.70-6.10); White Blood Count 7.86 K/ul (4.8-10.8)
--- NOTE | 2023-01-05 07:33 | Electrocardiogram Report ---
Test Reason : Blood Pressure : / mmHG Vent. Rate : 076 BPM Atrial Rate : 076 BPM P-R Int : 180 ms QRS Dur : 096 ms QT Int : 372 ms P-R-T Axes : 068 008 -26 degrees QTc Int : 418 ms Normal sinus rhythm Possible Anterior infarct (cited on or before 29-DEC-2019) T wave abnormality, consider inferolateral ischemia Abnormal ECG When compared with ECG of 29-DEC-2019 16:14, No significant change was found Confirmed by Del Trammell ([id number]) on 01/05/2023 7:33:08 AM Referred By: REFERRED SELF Confirmed By:Del Trammell
[2023-01-05 07:40] LABS: Albumin Globulin Ratio 1.4 (0.9-2); Albumin Level 3.4 gm/dl (3.4-5.0); BUN Creatinine Ratio 27.4 (10-20); Bilirubin,Total 0.8 mg/dl (0.2-1.0); Calcium 8.6 mg/dl (8.6-10.3); Creatinine Clr Calc Pharmacy 80.1 ml/min; Est GFR (African American) 72.3 ml/min; Est GFR (Non-African American) 62.4 ml/min; Globulin 2.5 gm/dl (2.5-4.0); Potassium 3.9 mmol/L (3.5-5.1); Total Protein 5.9 gm/dl (6.0-8.3)
[2023-01-05] MEDS: ZINC SULFATE 220 MG CAPSULE PO SCH (08:17)
[2023-01-05] MEDS: EZETIMIBE 10 MG TABLET PO SCH (08:17)
[2023-01-05] MEDS: FINASTERIDE 5 MG TAB PO SCH (08:17)
[2023-01-05] MEDS: CHOLECALCIFEROL 5,000 UNITS 125 MCG TAB PO SCH (08:18)
[2023-01-05] MEDS: OMEGA-3 (PURIFIED FISH OIL) 1 GM CAP PO SCH (08:18)
[2023-01-05] MEDS: INSULIN ASPART PER UNIT CHARGE SC SCH ×4 (08:45→20:30)
[2023-01-05] MEDS: LANTUS PER UNIT CHARGE SQ SCH ×2 (08:46→20:30)
[2023-01-05] MEDS ORDERED: NON-FORMULARY MEDICATION (Coq10 (Ubiquinol) 100 mg Capsule) PO SCH (09:00)
[2023-01-05] MEDS ORDERED: GADOBUTROL 65ML VIAL IV ONE (16:17)
--- NOTE | 2023-01-05 16:55 | Hospitalist Progress Note ---
Date of Service January 05, 2023 Assessment & Plan (1) Urinary retention: Plan: Obstructive LUIS, severe urinary retention Suspect obstructive due to enlarged prostate With evaluation for MS below as far as concern for your neurogenic bladder Follows with urology as outpatient, given enlarged prostate and obstructive LUIS urology consulted on admission. 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 Suggestive of acute bladder outlet obstruction suspect due to prostatomegaly. 3 mm left renal calculus. Stable 2.8 cm left adrenal nodule. -CTL-spine: No acute lumbar spine fracture or subluxation, multilevel degenerative disc disease. Bilateral hydroureteronephrosis with distended bladder. - -MRI-B brain:1. Numerous white matter T2 hyperintense foci, several of which are periventricular in distribution. In addition, T2 hyperintense foci within the medial left cerebellar hemisphere and portions of the corpus callosum. Although nonspecific, the findings are highly suggestive of a demyelinating process such as multiple sclerosis or Lyme disease. Assessment for active demyelination is suboptimal given lack of postcontrast imaging. 2. No evidence for acute infarct. No acute intracranial hemorrhage. No mass effect. -MRI-Lspine: 1. No acute process within the lumbar spine by MRI. 2. No central canal stenosis. Mild degenerative changes within the lumbar spine. Mild multilevel neural foraminal stenosis.3. Several hemangiomas within the lumbar spine and sacrum. Discussed with neurology. Will defer additional MRI imaging pending creatinine improvement, and then complete work-up with cervical and thoracic spine with contrast. Recommended LP under fluoroscopy and completion of CSF studies prior to steroid initiation. We will formally consult once all studies are back. Appreciate recommendations Pending MRI of C-spine and T-spine neurology consultation and lumbar puncture Type II DM uncontrolledcould make high-dose steroids challenging A1c 12/2022 greater than 9 With history of foot ulceration, fifth left toe amputation, and distal left toe 1-4 partial amputations Admitting BSG 459, 10 units insulin ordered at time of hospitalist consultation Basal bolus insulin with attempts of better control Hypertension chronic and stable Aspirin 81 mg Lisinopril 20 mg p.o. twice daily held for LUIS Hyperlipidemia Zetia 10 mg every morning DVT prophylaxis: Heparin SQ Diet: N.p.o. pending MRI results, advance to DM 2 if clear Disposition: Telemetry for hyperglycemia, severe urinary retention (2) Diabetic peripheral neuropathy associated with type 2 diabetes mellitus: (3) Status post partial amputation of foot: (4) Hyperlipidemia: (5) HTN (hypertension): (6) Diabetes: Admission and Anticipated Discharge Date Admission Date: January 04, 2023 Subjective Patient is improved after urinary catheter was placed. Still has some hematuria in the bag but is recurrent urine that is effluxing from his bladder is now without bleeding. Patient still has lower extremity weakness and paresthesias or tingling to his lower legs below the knees bilaterally. He is aware of concerns of possible multiple sclerosis seen on imaging and is agreeable to continue work-up with the remainder of his spine imaging and lumbar puncture likely on 01/06/2023 Physical Exam Physical Exam: Awake alert appropriate. Patient has mostly subjective paresthesias his leg weakness is difficult to test in bed but he definitely does legs against gravity no hyperreflexia seen Results & Data Results & Data Vital Signs (Past 12 Hours) Vital Signs Temp Pulse Pulse Pulse Resp BP Pulse Ox 01/05/23 15:06 58 L 01/05/23 14:24 58 L 01/05/23 11:59 97.9 F 60 18 166/81 H 97 01/05/23 11:21 01/05/23 07:07 98.2 F 70 18 145/77 H 98 01/05/23 05:13 79 O2 Del Method 01/05/23 15:06 01/05/23 14:24 01/05/23 11:59 Room Air 01/05/23 11:21 Room Air 01/05/23 07:07 Room Air 01/05/23 05:13 Laboratory Results Reviewed CBC reviewed chemistry reviewed [id number] glucose PG Care Time/CCT Total # of Minutes Spent Total Time Spent with Patient: Total time spent is greater than 50% in coordination of care (as documented) at patient's floor/unit and/or counseling patient: Coding Level of Care Code 75499 SUB INP/OBS CARE 2/35MIN Diagnoses Urinary retention R33.9 Diabetic peripheral neuropathy associated with type 2 diabetes mellitus E11.42 Status post partial amputation of foot Z89.439 Hyperlipidemia E78.5 HTN (hypertension) I10 Diabetes E11.9
[2023-01-05] MEDS: TAMSULOSIN HCL 0.4 MG CAP PO SCH (20:32)
--- NOTE | 2023-01-05 21:53 | Magnetic Resonance Report ---
CLINICAL HISTORY: ms eval TECHNIQUE: MRI of the cervical spine and thoracic is performed utilizing various T1 and T2 sequences in the axial and sagittal planes. IV contrast was administered for this examination. Comparison: None available at the time of this dictation. FINDINGS: Multilevel degenerative changes are seen. Disc disease is most prominent at C5-C6 however no signific ant canal or neuroforaminal stenosis is seen. In the cervical spine, focal T2 hyperintensities are seen most prominently at C3-C4, C5-C6, and C6-C7 . Enhancement is noted at C3-C4 and C6-C7. In the thoracic spine, T2 hyperintensity is seen at T4-5 and T7. Enhancement is seen at T4-T5. IMPRESSION: Multiple foci of T2 hyperintensity and a few foci of enhancement are seen to suggest demyelinating di sease with an active component. ACT 112: Negative or not required by law. Electronically signed by: Francis Resendiz M.D. 01/05/2023 9:50 PM
[2023-01-06] MEDS: SODIUM CHLORIDE 0.9% 1000ML 1,000 ML IV SCH ×2 (01:37→11:53)
[2023-01-06] MEDS ORDERED: Nursing to Pharmacy Communication SCH (01:45)
[2023-01-06] MEDS: OMEGA-3 (PURIFIED FISH OIL) 1 GM CAP PO SCH (08:23)
[2023-01-06] MEDS: ZINC SULFATE 220 MG CAPSULE PO SCH (08:23)
[2023-01-06] MEDS: FINASTERIDE 5 MG TAB PO SCH (08:24)
[2023-01-06] MEDS: EZETIMIBE 10 MG TABLET PO SCH (08:24)
[2023-01-06] MEDS: CHOLECALCIFEROL 5,000 UNITS 125 MCG TAB PO SCH (08:24)
[2023-01-06 08:28] LABS: Basophils # (auto) 0.08 K/uL (0-0.2); Basophils % (auto) 1.1 %; Eosinophils # (auto) 0.26 K/uL (0-0.50); Eosinophils % (auto) 3.4 %; Immature Granulocytes # (auto) 0.03 K/uL (0.01-0.20); Immature Granulocytes % (auto) 0.4 %; Lymphocytes # (auto) 2.15 K/uL (1.2-3.4); Lymphocytes % (auto) 28.5 %; Mean Corpuscular Hemoglobin 28.4 pg (25.0-34.0); Mean Corpuscular Hgb Conc 33.3 g/dL (32.0-36.0); Mean Corpuscular Volume 85.1 fL (80.0-100.0); Mean Platelet Volume 11.6 fL (9.4-12.4); Monocytes % (auto) 7.9 %; Neutrophils # (auto) 4.43 K/uL (1.40-6.50); Neutrophils % (auto) 58.7 %; Platelet Count 228 K/uL (130-400); RDW Coefficient of Variation 13.2 % (11.5-14.5); RDW Standard Deviation 40.6 fL (36.4-46.3); Red Blood Count 5.29 M/uL (4.70-6.10); White Blood Count 7.55 K/ul (4.8-10.8)
[2023-01-06 08:50] LABS: Est GFR (African American) 98.5 ml/min; Potassium 3.4 mmol/L (3.5-5.1)
[2023-01-06 08:51] LABS: Albumin Globulin Ratio 1.3 (0.9-2); Albumin Level 3.5 gm/dl (3.4-5.0); BUN Creatinine Ratio 17.7 (10-20); Bilirubin,Total 0.7 mg/dl (0.2-1.0); Calcium 8.4 mg/dl (8.6-10.3); Globulin 2.8 gm/dl (2.5-4.0); Total Protein 6.3 gm/dl (6.0-8.3)
[2023-01-06] MEDS: INSULIN ASPART PER UNIT CHARGE SC SCH ×5 (09:54→23:26)
--- NOTE | 2023-01-06 09:54 | Neurology Consultation ---
Date of Consultation January 06, 2023 Assessment & Plan (1) Multiple sclerosis: Patient meets Santizo criteria for the diagnosis of multiple sclerosis. Suspect this is the reason for his urinary retention. Would start solumedrol 1g IV x3 days for symptom management given the active lesions. This does not impact overall progression of disease. Monitor BGs closely, if they are unable to be controlled, would not continue steroids. Would arrange close outpatient follow- up to discuss disease modifying therapy. -- Solumedrol 1g IV x3 days, if wants to go home and BGs are controlled, can switch to 500mg PO prednisone BID as an outpatient alternative with equal efficacy -- If BGs not controlled on steroids, would stop the course -- Close outpatient follow-up for discussion of disease modifying therapy -- Send before discharge - DAKOTA, LANDRY, Hepatits B/C Panel, HIV, anti-NMO serum, anti-MOG serum (if available), B12, folate, vit D Telehealth Consultation Telehealth Information Telehealth Information: I performed this visit using a real-time telehealth connection between my location and the patients location ([facility]). After connecting through interactive tele-video, patient was identified by name and date of and/or wristband check.Patient (or authorized healthcare premium service representative) was informed that this was a telemedicine visit and it was being conducted confidentially over secure lines. My office door was closed and no one else was present in the room with me.Patient (or authorized healthcare premium service representative) provided consent to proceed with the visit, expressed an understanding of privacy and security of the telemedicine visit, and gave permission to have a hospital premium service representative in the room in order to assist with the visit and to conduct portions of the visit, as needed. I informed the patient (or authorized healthcare premium service representative) that I reviewed their record and presented the opportunity for them to ask any questions regarding the visit today. The patient agreed to participate. History of Present Illness Reason for Consultation: MS Requesting Physician: Dr. Lees Attending Physician: Miah Lees MD History of Present Illness Lul Mendez is a 62 yo M presenting with a month of lower extremity weakness, fatigue, gait instability and now urinary retention. The patient reports he has had diabetic neuropathy for years but never had difficulty with long hikes or using the treadmill as he has had over the past month. No history of autoimmune disorders, no vision changes in the past, no recent illnesses. Has a history of neuropathy secondary to diabetes. Currently complains of numbness at various levels of the back. No shooting pain. Allergies Allergy/AdvReac Type Severity Reaction Status Date / Time bee venom protein (honey bee) Allergy Severe Anaphylaxis Verified 04/02/22 14:45 Home Medications Medication Instructions Recorded Confirmed Type aspirin 81 mg tablet,delayed 81 mg PO QAM 12/29/19 01/04/23 History release epinephrine 0.3 mg/0.3 mL 0.3 mg subcut UD PRN Anaphylaxis 12/29/19 01/04/23 History injection, auto-injector ezetimibe 10 mg tablet 10 mg PO QAM 12/29/19 01/04/23 History omega 4-mbk-moe-fish oil 1,000 mg 2 cap PO QAM 12/29/19 01/04/23 History (120 mg-180 mg) capsule (Fish Oil) cholecalciferol (vitamin D3) 125 125 mcg PO QAM 09/07/21 01/04/23 History mcg (5,000 unit) tablet (Vitamin D3) lisinopril 20 mg tablet 20 mg PO BID 09/07/21 01/04/23 History vitamin E 100 unit tablet 180 unit PO QAM 09/07/21 04/02/22 History zinc 50 mg tablet 50 mg PO QAM 09/07/21 01/04/23 History coQ10 (ubiquinol) 100 mg capsule 100 mg PO QAM 11/26/21 01/04/23 History finasteride 5 mg tablet 5 mg PO DAILY #90 tabs 04/09/22 01/04/23 Rx tamsulosin 0.4 mg capsule 0.4 mg PO QPM #90 caps 09/03/22 01/04/23 Rx insulin degludec 100 unit/mL (3 25 unit subcut BID 01/04/23 01/04/23 History mL) subcutaneous pen (Tresiba FlexTouch U-100 insulin) Patient History Medical History BPH (benign prostatic hyperplasia) Cardiac murmur slight--follows with Dr. Singh Diabetes type 2--IDDM has insulin pump in place HTN (hypertension) Hyperlipidemia Insulin pump in place Osteoarthritis Surgical History History of amputation of lesser toe of left foot (~09/10/21) fifth toe amputation and fifth metatarsal head resection with I&D History of amputation of toe x4 History of arthroscopic knee surgery meniscus repair History of cardiac cath x2--in [place] 1995 (no stents) and [place] 2019 no stents--follows with Dr. Singh History of colonoscopy History of tonsillectomy and adenoids History of wisdom tooth extraction Status post insertion of insulin pump Family History Father Heart disease, Onset Age: 54 Had CABG at age 54 Mother Diabetes Other No family history of adverse response to anesthesia Social History Smoking Status: Never smoker Second Hand Exposure: No; Do You Dip or Chew Tobacco: No; Hx Alcohol Use: No Hx Substance Use: No Preferred Language: Croatian Communication Ability: Effective Visual Impairment: Limited Hearing Ability: Normal Director Learning Services Required: No Beliefs That Will Affect Care: None marital status: Current Living Situation: Spouse current occupational status: employed 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 Oriented to person, place, and time. Fluent. Comprehension intact. Affect appropriate. Cranial Nerves: II: pupils 3/3 to 2/2, crum grossly intact. III/IV/: Versions intact without nystagmus, no gaze preference. V: Facial sensation symmetric to light touch VII: Facial expression symmetric VIII: Hearing intact to voice IX/X: Palate elevates symmetrically XI: Shoulder shrug symmetric XII: Tongue midline Motor: Strength was symmetric and antigravity throughout. Pronator drift was absent. There were no abnormal movements. Coordination: Finger to nose intact. Mild dysmetria with HTS. Reflexes: Unable to assess over telemedicine Results & Data Vital Signs (Past 12 Hours) Vital Signs Temp Pulse Pulse Pulse Resp BP BP 01/06/23 07:05 36.5 C 57 L 19 174/90 H 01/06/23 02:54 36.7 C 70 18 174/86 H 01/05/23 22:01 61 01/05/23 23:00 36.7 C 70 17 157/81 H Pulse Ox O2 Del Method 01/06/23 07:05 98 Room Air 01/06/23 02:54 94 Room Air 01/05/23 22:01 01/05/23 23:00 95 Room Air Laboratory Results Abnormal lab results 01/05/23 01/05/23 01/05/23 Range/Units 11:32 16:54 20:14 [place] # (Auto) (0.11-0.59) K/uL Potassium (3.5-5.1) mmol/L Glucose (70-99(Fasting)) mg/dl POC Glucose 224 H 167 H 215 H (70-99) mg/dl Calcium (8.6-10.3) mg/dl 01/06/23 01/06/23 01/06/23 Range/Units 07:05 07:21 07:21 [place] # (Auto) 0.60 H (0.11-0.59) K/uL Potassium 3.4 L (3.5-5.1) mmol/L Glucose 125 H (70-99(Fasting)) mg/dl POC Glucose 138 H (70-99) mg/dl Calcium 8.4 L (8.6-10.3) mg/dl Diagnostic Findings Cervical Spine MRI 01/05/23 07:48 CLINICAL HISTORY: ms eval TECHNIQUE: MRI of the cervical spine and thoracic is performed utilizing various T1 and T2 sequences in the axial and sagittal planes. IV contrast was administered for this examination. Comparison: None available at the time of this dictation. FINDINGS: Multilevel degenerative changes are seen. Disc disease is most prominent at C5- C6 however no significant canal or neuroforaminal stenosis is seen. In the cervical spine, focal T2 hyperintensities are seen most prominently at C3-C4, C5-C6, and C6-C7. Enhancement is noted at C3-C4 and C6-C7. In the thoracic spine, T2 hyperintensity is seen at T4-5 and T7. Enhancement is seen at T4-T5. IMPRESSION: Multiple foci of T2 hyperintensity and a few foci of enhancement are seen to suggest demyelinating disease with an active component. ACT 112: Negative or not required by law. Electronically signed by: Francis Resendiz M.D. 01/05/2023 9:50 PM Thoracic Spine MRI 01/05/23 07:48 CLINICAL HISTORY: ms eval TECHNIQUE: MRI of the cervical spine and thoracic is performed utilizing various T1 and T2 sequences in the axial and sagittal planes. IV contrast was administered for this examination. Comparison: None available at the time of this dictation. FINDINGS: Multilevel degenerative changes are seen. Disc disease is most prominent at C5- C6 however no significant canal or neuroforaminal stenosis is seen. In the cervical spine, focal T2 hyperintensities are seen most prominently at C 3-C4, C5-C6, and C6-C7. Enhancement is noted at C3-C4 and C6-C7. In the thoracic spine, T2 hyperintensity is seen at T4-5 and T7. Enhancement is seen at T4-T5.
[2023-01-06] MEDS: LANTUS PER UNIT CHARGE SQ SCH (09:55)
[2023-01-06] MEDS ORDERED: PHARMACY GLYCEMIC MGMT CONSULT PRN (10:44)
[2023-01-06 14:16] LABS: Total Protein CSF 110.8 mg/dl (15-45)
--- NOTE | 2023-01-06 15:14 | Pharmacy Report ---
Pharmacy Glycemic Short Note 2 - Date of Service January 06, 2023 - Glycemic Short BSG Results (Last 24 hours): 01/05/23 01/05/23 01/06/23 16:54 20:14 07:05 Glucose POC Glucose 167 H 215 H 138 H 01/06/23 01/06/23 01/06/23 07:21 11:09 14:07 Glucose 125 H 210 H POC Glucose 179 H OUTPATIENT ANTIDIABETIC REGIMEN: * Tresiba 25 units bid * A1c 9.4% ASSESSMENT: * 62 year old, undergoing MS workup. Type 2 diabetic managed on Tresiba at home. A1c elevated from 01/03/23. Patient received total of 42 units of insulin yesterday, of which 26 units were basal insulin * Fasting BSG 138 mg/dL - continues on Lantus 13 units bid. Planning to start high dose steroids this evening therefore will increase basal ~30% and also tighten CF/CR. * Could consider addition of NPH once daily tomorrow AM if BSGs become uncontrolled PLAN FOR INPATIENT GLYCEMIC CONTROL: * Hold outpatient oral diabetes medications * Basal insulin - increase * Lantus 17 units bid * Bolus insulin * NovoLog per scale ACHS or Q6hrs while NPO * Goal Range: Low 110 mg/dL - High 140 mg/dL * Correction Factor: 15 mg/dL/unit * Nutritional / Prandial insulin per carb ratio of 1 unit per 5 grams CHO consumed
[2023-01-06 15:18] LABS: Appearance CSF Clear; CSF Count Tube # 3; CSF Xanthrochromic No xanthochromia; Color CSF Colorless
--- NOTE | 2023-01-06 15:44 | Hospitalist Progress Note ---
Date of Service January 06, 2023 Assessment & Plan (1) Urinary retention: Plan: Obstructive LUIS, severe urinary retention Suspect obstructive due to enlarged prostate cannot rule out neurogenic bladder from new MS diagnosis Follows with urology as outpatient, given enlarged prostate and obstructive LUIS urology consulted on admission. 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 Suggestive of acute bladder outlet obstruction suspect due to prostatomegaly. 3 mm left renal calculus. Stable 2.8 cm left adrenal nodule. Multiple sclerosis diagnosed by imaging, will have LP for confirmation testing and wolf virus send out -MRI-B brain:1. Numerous white matter T2 hyperintense foci, several of which are periventricular in distribution. In addition, T2 hyperintense foci within the medial left cerebellar hemisphere and portions of the corpus callosum. Although nonspecific, the findings are highly suggestive of a demyelinating process such as multiple sclerosis or Lyme disease. Assessment for active demyelination is suboptimal given lack of postcontrast imaging. 2. No evidence for acute infarct. No acute intracranial hemorrhage. No mass effect. -MRI cervical spine shows multiple foci of T2 hyperintensity and a few foci of enhancement seen to suggest demyelinating disease -MRI thoracic spine shows multiple areas of T2 hyperintensity and a few foci of enhancement suggesting demyelinating disease -MRI-Lspine: 1. No acute process within the lumbar spine by MRI. 2. No central canal stenosis. Mild degenerative changes within the lumbar spine. Mild multilevel neural foraminal stenosis.3. Several hemangiomas within the lumbar spine and sacrum. Neurologist consultation Dr. Jamil Patient meets Santizo criteria for the diagnosis of multiple sclerosis. Suspect this is the reason for his urinary retention. Would start solumedrol 1g IV x3 days for symptom management given the active lesions. This does not impact overall progression of disease. Monitor BGs closely, if they are unable to be controlled, would not continue steroids. Would arrange close outpatient follow- up to discuss disease modifying therapy. -- Solumedrol 1g IV x3 days, if wants to go home and BGs are controlled, can switch to 500mg PO prednisone BID as an outpatient alternative with equal efficacy -- If BGs not controlled on steroids, would stop the course -- Close outpatient follow-up for discussion of disease modifying therapy -- Send before discharge - DAKOTA, LANDRY, Hepatits B/C Panel, HIV, anti-NMO serum, anti-MOG serum (if available), B12, folate, vit D Type II DM uncontrolledcould make high-dose steroids challenging A1c 12/2022 greater than 9 With history of foot ulceration, fifth left toe amputation, and distal left toe 1-4 partial amputations Admitting BSG 459, 10 units insulin ordered at time of hospitalist consultation Basal bolus insulin with attempts of better control Personally spoke to his outpatient nurse practitioner in [facility] regarding his diabetic control Hypertension chronic and stable Aspirin 81 mg Lisinopril 20 mg p.o. twice daily held for LUIS Hyperlipidemia Zetia 10 mg every morning DVT prophylaxis: Heparin SQ Disposition: Telemetry for hyperglycemia, severe urinary retention (2) Diabetic peripheral neuropathy associated with type 2 diabetes mellitus: (3) Status post partial amputation of foot: (4) Hyperlipidemia: (5) HTN (hypertension): (6) Diabetes: Admission and Anticipated Discharge Date Admission Date: January 04, 2023 Subjective Patient was tearful today he has not no change in his physical symptoms. He was given news by the neurologist that this most likely is multiple sclerosis as he does have identified changes on his MRI scans consistent with the same. We will go ahead and perform a lumbar puncture to send away for formal MS testing and also sent for WOLF virus Physical Exam Physical Exam: Awake alert appropriate. Patient has mostly subjective paresthesias his leg weakness is difficult to test in bed but he definitely does legs against gravity no hyperreflexia seen Results & Data Results & Data Vital Signs (Past 12 Hours) Vital Signs Temp Pulse Pulse Resp BP BP Pulse Ox 01/06/23 15:36 98.1 F 72 20 197/93 H 200/88 H 95 01/06/23 15:31 72 01/06/23 08:00 67 01/06/23 11:09 97.7 F 71 19 172/72 H 95 01/06/23 09:17 01/06/23 07:05 97.7 F 57 L 19 174/90 H 98 O2 Del Method 01/06/23 15:36 Room Air 01/06/23 15:31 01/06/23 08:00 01/06/23 11:09 Room Air 01/06/23 09:17 Room Air 06/12/23 07:05 Room Air Laboratory Results Reviewed CBC reviewed chemistry reviewed lumbar puncture fluid analysis PG Care Time/CCT Total # of Minutes Spent Total Time Spent with Patient: Total time spent is greater than 50% in coordination of care (as documented) at patient's floor/unit and/or counseling patient: Prolonged Care Time I spent approximately 45 minutes additional time to my typical visit with this patient calling multiple people including his [facility] diabetic management nurse practitioner, discussing the case with the neurologist and then calling her laboratory to order the WOLF virus test which is not on our EMR system but needs to be ordered separately, to talk with my nurse navigator to coordinate outpatient neurology follow-up Coding Level of Care Code 62241 SUB INP/OBS CARE 3/50MIN (25 - SIGNIFICANT, SEPARATELY IDENTIFIABLE ) Diagnoses Urinary retention R33.9 Diabetic peripheral neuropathy associated with type 2 diabetes mellitus E11.42 Status post partial amputation of foot Z89.439 Hyperlipidemia E78.5 HTN (hypertension) I10 Diabetes E11.9
[2023-01-06] MEDS ORDERED: POTASSIUM CHLORIDE CRTAB 20 MEQ TABCR PO STA (15:58)
[2023-01-06] MEDS ORDERED: methylPREDNISolone 1,000 MG in DEXTROSE 5% 250 ML IV SCH (16:00)
--- NOTE | 2023-01-06 16:04 | Fluoroscopy Report ---
Lumbar puncture under fluoroscopy INDICATION: Evaluate for MS PROCEDURE: Procedure and risks were explained. Informed consent was obtained. A final timeout was com pleted. The patient was placed prone on the fluoroscopic exam table. The lower lumbar region was prep ped and draped in sterile fashion. 1% lidocaine was utilized for skin anesthesia. Utilizing fluoroscopic guidance, a 22-gauge spinal needle was advanced into the intrathecal space at the L4-5 disc space level. Fluoroscopic spot image was obtained. Approximately 8 mL of clear CSF flui d was removed and sent to lab for analysis. The needle was removed and Band-Aid applied. The patient tolerated the procedure well. Vital signs will be monitored postprocedure. Total fluoroscopy time 17 seconds. DAP is 2.87 mcGy/m2. IMPRESSION: Lumbar puncture as detailed above. Performed, dictated, and signed by Marco Kay PA-C; to be co-signed by Dr. Francis Resendiz. Electronically signed by: Francis Resendiz M.D. 01/06/2023 4:01 PM
--- NOTE | 2023-01-06 16:46 | Urology Progress Note ---
Date of Service January 06, 2023 Assessment & Plan (1) Acute urinary retention: Plan 62yo/M admitted with urinary retention, LUIS. Afebrile and hemodynamically stable. Labs show no leukocytosis, hemoglobin stable, normal renal function. Suspect obstructive issue possible due to enlarged prostate and/or neurogenic bladder from new MS diagnosis. Maintain Milner catheter for now. Can consider possible voiding trial prior to discharge or we can arrange as an outpatient. Continue dual therapy with Flomax and finasteride. Discussed need for further work-up after the resolution of the acute episode. Urology will sign-off. Please contact us with any further questions, concerns, or changes in patient status Admission and Anticipated Discharge Date Admission Date: January 04, 2023 Subjective Patient examined at bedside this AM. Awake, resting bed on arrival. No acute distress. Milner catheter intact, draining clear yellow urine. Review of Systems Constitutional: as per Subjective / HPI Genitourinary: + as per Subjective / HPI Physical Exam Constitutional: well developed and well nourished; no acute distress Respiratory: no respiratory distress and no labored breathing Musculoskeletal: Head/Neck/Chest: normocephalic Skin: No visible rashes or lesions to exposed skin areas Neurologic: awake Psychiatric: A+Ox3, euthymic affect Genitourinary: Milner catheter intact Results & Data Vital Signs (Past 12 Hours) Vital Signs Temp Pulse Pulse Resp BP BP Pulse Ox 01/06/23 16:03 194/85 H 01/06/23 15:36 36.7 C 72 20 197/93 H 200/88 H 95 01/06/23 15:31 72 01/06/23 08:00 67 01/06/23 11:09 36.5 C 71 19 172/72 H 95 01/06/23 09:17 01/06/23 07:05 36.5 C 57 L 19 174/90 H 98 O2 Del Method 01/06/23 16:03 01/06/23 15:36 Room Air 01/06/23 15:31 01/06/23 08:00 01/06/23 11:09 Room Air 01/06/23 09:17 Room Air 01/06/23 07:05 Room Air PG Care Time/CCT Total # of Minutes Spent Total Time Spent with Patient: Total time spent is greater than 50% in coordination of care (as documented) at patient's floor/unit and/or counseling patient: Coding Level of Care Code 37078 SUB INP/OBS CARE 2/35MIN Diagnoses Acute urinary retention R33.8
[2023-01-06] MEDS ORDERED: lisinopril 20 MG TAB PO STA (18:21)
[2023-01-06] MEDS ORDERED: hydrALAZINE HCL 20 MG/ML VIAL IV PRN (18:22)
[2023-01-06] MEDS ORDERED: hydrALAZINE HCL 20 MG/ML VIAL IV ONE (18:22)
[2023-01-06] MEDS: TAMSULOSIN HCL 0.4 MG CAP PO SCH (20:11)
[2023-01-06] MEDS ORDERED: LANTUS PER UNIT CHARGE SQ SCH (21:00)
[2023-01-07] MEDS: INSULIN ASPART PER UNIT CHARGE SC SCH ×5 (03:46→20:59)
[2023-01-07 06:49] LABS: Albumin Globulin Ratio 1.2 (0.9-2); Albumin Level 3.6 gm/dl (3.4-5.0); BUN Creatinine Ratio 21.8 (10-20); Bilirubin,Total 0.5 mg/dl (0.2-1.0); Calcium 8.8 mg/dl (8.6-10.3); Creatinine Clr Calc Pharmacy 126.7 ml/min; Est GFR (African American) 112.9 ml/min; Est GFR (Non-African American) 97.4 ml/min; Globulin 2.9 gm/dl (2.5-4.0); Potassium 3.4 mmol/L (3.5-5.1); Total Protein 6.5 gm/dl (6.0-8.3)
[2023-01-07 07:15] LABS: Vitamin B12 618 pg/ml (180-914)
[2023-01-07 08:38] LABS: Basophils # (auto) 0.02 K/uL (0-0.2); Basophils % (auto) 0.3 %; Hematocrit (blood only) 42.7 % (42.0-52.0); Hemoglobin 15.2 g/dl (14.0-18.0); Immature Granulocytes # (auto) 0.04 K/uL (0.01-0.20); Immature Granulocytes % (auto) 0.5 %; Lymphocytes # (auto) 0.95 K/uL (1.2-3.4); Lymphocytes % (auto) 11.9 %; Mean Corpuscular Hemoglobin 28.4 pg (25.0-34.0); Mean Corpuscular Hgb Conc 35.6 g/dL (32.0-36.0); Mean Corpuscular Volume 81.4 fL (80.0-100.0); Monocytes # (auto) 0.04 K/uL (0.11-0.59); Monocytes % (auto) 0.5 %; Neutrophils # (auto) 6.94 K/uL (1.40-6.50); Neutrophils % (auto) 86.8 %; Platelet Count 256 K/uL (130-400); RDW Coefficient of Variation 12.7 % (11.5-14.5); RDW Standard Deviation 35.9 fL (36.4-46.3); Red Blood Count 5.35 M/uL (4.70-6.10); White Blood Count 7.99 K/ul (4.8-10.8)
[2023-01-07] MEDS: LANTUS PER UNIT CHARGE SQ SCH ×2 (09:08→20:59)
[2023-01-07] MEDS: EZETIMIBE 10 MG TABLET PO SCH (09:11)
[2023-01-07] MEDS: FINASTERIDE 5 MG TAB PO SCH (09:12)
[2023-01-07] MEDS: CHOLECALCIFEROL 5,000 UNITS 125 MCG TAB PO SCH (09:12)
[2023-01-07] MEDS: OMEGA-3 (PURIFIED FISH OIL) 1 GM CAP PO SCH (09:12)
[2023-01-07] MEDS: ZINC SULFATE 220 MG CAPSULE PO SCH (09:12)
[2023-01-07] MEDS: POTASSIUM CHLORIDE CRTAB 20 MEQ TABCR PO SCH ×2 (09:16→21:00)
--- NOTE | 2023-01-07 09:24 | Pharmacy Report ---
Pharmacy Glycemic Short Note 2 - Date of Service January 07, 2023 - Glycemic Short BSG Results (Last 24 hours): 01/06/23 01/06/23 01/06/23 11:09 14:07 16:09 Glucose 210 H POC Glucose 179 H 168 H 01/06/23 01/06/23 01/07/23 20:17 23:10 03:22 Glucose POC Glucose 227 H 220 H 209 H 01/07/23 01/07/23 06:08 07:16 Glucose 214 H POC Glucose 221 H OUTPATIENT ANTIDIABETIC REGIMEN: * Tresiba 25 units bid HbA1c: 9.4% (01/03/23) ASSESSMENT: 01/07/23: * BSGs unsurprisingly elevated throughout the day yesterday with initiation of Solu-medrol 1000 mg IV daily * Fasting BSG of 221 mg/dL this morning - will increase basal insulin * Day 2 of 3 of methylprednisolone 1000 mg IV daily (timed for 1600) * BSGs trending up again at lunchtime - will further tighten Novolog parameters 01/06/23: * 62 year old, undergoing MS workup. Type 2 diabetic managed on Tresiba at home. A1c elevated from 01/03/23. Patient received total of 42 units of insulin yesterday, of which 26 units were basal insulin * Fasting BSG 138 mg/dL - continues on Lantus 13 units bid. Planning to start high dose steroids this evening therefore will increase basal ~30% and also tighten CF/CR. * Could consider addition of NPH once daily tomorrow AM if BSGs become uncontrolled PLAN FOR INPATIENT GLYCEMIC CONTROL: * Basal insulin - increase * Lantus 25 units SC BID * Bolus insulin * NovoLog per scale ACHS or Q6hrs while NPO * Goal Range: Low 110 mg/dL - High 140 mg/dL * Correction Factor: 12 mg/dL/unit * Nutritional / Prandial insulin per carb ratio of 1 unit per 4 grams CHO consumed
[2023-01-07] MEDS: lisinopril 20 MG TAB PO SCH (10:44)
[2023-01-07] MEDS ORDERED: methylPREDNISolone 1,000 MG in DEXTROSE 5% 250 ML IV ONE (14:00)
--- NOTE | 2023-01-07 14:34 | Hospitalist Progress Note ---
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 Suggestive of acute bladder outlet obstruction suspect due to prostatomegaly. 3 mm left renal calculus. Stable 2.8 cm left adrenal nodule. Multiple sclerosis diagnosed by imaging, will have LP for confirmation testing and wolf virus send out -MRI-B brain:1. Numerous white matter T2 hyperintense foci, several of which are periventricular in distribution. In addition, T2 hyperintense foci within the medial left cerebellar hemisphere and portions of the corpus callosum. Although nonspecific, the findings are highly suggestive of a demyelinating process such as multiple sclerosis or Lyme disease. Assessment for active demyelination is suboptimal given lack of postcontrast imaging. 2. No evidence for acute infarct. No acute intracranial hemorrhage. No mass effect. -MRI cervical spine shows multiple foci of T2 hyperintensity and a few foci of enhancement seen to suggest demyelinating disease -MRI thoracic spine shows multiple areas of T2 hyperintensity and a few foci of enhancement suggesting demyelinating disease -MRI-Lspine: 1. No acute process within the lumbar spine by MRI. 2. No central canal stenosis. Mild degenerative changes within the lumbar spine. Mild multilevel neural foraminal stenosis.3. Several hemangiomas within the lumbar spine and sacrum. Neurologist consultation Dr. Jamil Patient meets Santizo criteria for the diagnosis of multiple sclerosis. Suspect this is the reason for his urinary retention. Would start solumedrol 1g IV x3 days for symptom management given the active lesions. This does not impact overall progression of disease. Monitor BGs closely, if they are unable to be controlled, would not continue steroids. Would arrange close outpatient follow- up to discuss disease modifying therapy. -- Solumedrol 1g IV x3 days, if wants to go home after third pulse of steroids, patient is involved in [employer] which is an outpatient type 2 diabetes monitoring company in conjunction with his healthcare insurance I did speak personally to his nurse practitioner with regard to this service and his steroid pulse dosing -- If BGs not controlled on steroids, would stop the course -- Has outpatient neurology follow-up scheduled for discussion of disease modifying therapy -- Laboratory signout prior to discharge include- DAKOTA, LANDRY, Hepatits B/C Panel, HIV, anti-NMO serum, anti-MOG serum (if available), B12, folate, vit D Type II DM uncontrolledcould make high-dose steroids challenging A1c 12/2022 greater than 9 With history of foot ulceration, fifth left toe amputation, and distal left toe 1-4 partial amputations Admitting BSG 459, 10 units insulin ordered at time of hospitalist consultation Basal bolus insulin with attempts of better control Personally spoke to his outpatient nurse practitioner in [facility] regarding his diabetic control Hypertension chronic and stable Aspirin 81 mg Lisinopril 20 mg p.o. twice daily held for LUIS Hyperlipidemia Zetia 10 mg every morning DVT prophylaxis: Heparin SQ (2) Diabetic peripheral neuropathy associated with type 2 diabetes mellitus: (3) Status post partial amputation of foot: (4) Hyperlipidemia: (5) HTN (hypertension): (6) Diabetes: Admission and Anticipated Discharge Date Admission Date: January 04, 2023 Subjective Patient states feels somewhat improved after his initial dose of steroids glucoses not been significantly out of control however the patient's been checked on a more frequent basis every 4 hours. Patient has many questions on holistic treatment for MS in conjunction with his allopathic treatment Physical Exam Physical Exam: Awake alert appropriate. Patient has mostly subjective paresthesias his leg weakness patient states his legs feel more strong to him paresthesias are less He has no focal deficits Results & Data Results & Data Vital Signs (Past 12 Hours) Vital Signs Temp Pulse Pulse Pulse Resp BP Pulse Ox 01/07/23 11:22 97.5 F L 67 20 132/71 95 01/07/23 08:14 71 01/07/23 07:57 01/07/23 07:17 97.7 F 63 19 149/74 H 94 01/07/23 03:19 97.9 F 75 20 132/65 92 O2 Del Method 01/07/23 11:22 Room Air 01/07/23 08:14 01/07/23 07:57 Room Air 01/07/23 07:17 Room Air 01/07/23 03:19 Room Air PG Care Time/CCT Total # of Minutes Spent Total Time Spent with Patient: Total time spent is greater than 50% in coordination of care (as documented) at patient's floor/unit and/or counseling patient: Coding Level of Care Code 22740 SUB INP/OBS CARE 350MIN Diagnoses Urinary retention R33.9 Diabetic peripheral neuropathy associated with type 2 diabetes mellitus E11.42 Status post partial amputation of foot Z89.439 Hyperlipidemia E78.5 HTN (hypertension) I10 Diabetes E11.9
[2023-01-07] MEDS: TAMSULOSIN HCL 0.4 MG CAP PO SCH (21:00)
[2023-01-08] MEDS ORDERED: LANTUS PER UNIT CHARGE SC ONE (08:00)
[2023-01-08] MEDS: INSULIN ASPART PER UNIT CHARGE SC SCH ×3 (08:09→17:56)
--- NOTE | 2023-01-08 08:11 | Pharmacy Report ---
Pharmacy Glycemic Short Note 2 - Date of Service January 08, 2023 - Glycemic Short BSG Results (Last 24 hours): 01/07/23 01/07/23 01/07/23 11:21 16:11 20:16 POC Glucose 295 H 293 H 274 H 01/08/23 07:04 POC Glucose 248 H OUTPATIENT ANTIDIABETIC REGIMEN: * Tresiba 25 units BID HbA1c: 9.4% (01/03/23) ASSESSMENT: 01/08/23: * Blood sugars remain elevated on steroids, tighten CF/CR and give larger dose of basal x1 this AM. * Day 3 of 3 of methylprednisolone 1000 mg IV daily (timed for 1200) 01/07/23: * BSGs unsurprisingly elevated throughout the day yesterday with initiation of Solu-medrol 1000 mg IV daily * Fasting BSG of 221 mg/dL this morning - will increase basal insulin * Day 2 of 3 of methylprednisolone 1000 mg IV daily (timed for 1400) * BSGs trending up again at lunchtime - will further tighten Novolog parameters 01/06/23: * 62 year old, undergoing MS workup. Type 2 diabetic managed on Tresiba at home. A1c elevated from 01/03/23. Patient received total of 42 units of insulin yesterday, of which 26 units were basal insulin * Fasting BSG 138 mg/dL - continues on Lantus 13 units bid. Planning to start high dose steroids this evening therefore will increase basal ~30% and also tighten CF/CR. * Could consider addition of NPH once daily tomorrow AM if BSGs become uncontrolled PLAN FOR INPATIENT GLYCEMIC CONTROL: * Basal insulin * Lantus 40 units x1 this AM, then Lantus 25 units SC BID * Bolus insulin * NovoLog per scale ACHS or Q6hrs while NPO * Goal Range: Low 110 mg/dL - High 140 mg/dL * Correction Factor: 8 mg/dL/unit * Nutritional / Prandial insulin per carb ratio of 1 unit per 2 grams CHO consumed
[2023-01-08] MEDS: OMEGA-3 (PURIFIED FISH OIL) 1 GM CAP PO SCH (08:59)
[2023-01-08] MEDS: lisinopril 20 MG TAB PO SCH (08:59)
[2023-01-08] MEDS: ZINC SULFATE 220 MG CAPSULE PO SCH (08:59)
[2023-01-08] MEDS: FINASTERIDE 5 MG TAB PO SCH (08:59)
[2023-01-08] MEDS: EZETIMIBE 10 MG TABLET PO SCH (08:59)
[2023-01-08] MEDS: POTASSIUM CHLORIDE CRTAB 20 MEQ TABCR PO SCH (09:00)
[2023-01-08] MEDS: CHOLECALCIFEROL 5,000 UNITS 125 MCG TAB PO SCH (09:00)
[2023-01-08] MEDS ORDERED: methylPREDNISolone 1,000 MG in DEXTROSE 5% 250 ML IV ONE (12:00)
--- NOTE | 2023-01-08 16:34 | Discharge Summary ---
Date of Service January 08, 2023 Admission HPI Per Admitting Provider Lul is a 62-year-old male with a past medical history of type II DM, LUTS, hyperlipidemia, hypertension who presented to the ER 01/04 with urinary incontinence, poor balance, elevated blood sugars. Per reprot pts symptoms began November 30 and was walking his dog uphill, when coming back downhill he felt his legs became weak and could not walk well. He started to lose control of urine and was Ataxic acutely. Now has overflow incontience. Last 2-3 days no control of bladder, has been feely leaking into depends. Saw PCP as outpatient, was pending some tests but his symptoms continued Friday- Friday and he came to ER Has had tinling in the legs into the groin which began from the knees down and now extends into the thighs and lower back.Has come and gone, not there right. Does have some tinlging in the saddle area. Some R lumbar low back tingling, no pain. BP has always been high (160s -> 190s) even in college, has been following with [facility] and a strict ketogenic diet which he started in October with dramatic improvements in BP but does take bullion cubes every day and salt with each meal due to that diet. Had prostate MRI, no evidence of cancer. NO headache NO chest pain, chest pressure NO headache, no vision change. Had a heart cath 3 years ago in [facility] to 'get a baseline' due to very high FHX. Had not had chest pain. Father had LA at 54 and 75. 40% single artery blockage, no stents placed. Denies chest pain, crescendo angina, shortness of breath Last A1C >9%. Multiple DM infection sin the past. Denies current ulcers/infection 2021. Medical History: Reviewed Medications: Reviewed. Took AM meds. Surgical History: Reviewed. Hx of L 5th digit revision 2/2 DM infection last year, well healed. Sep 10, 2021. Distal amputation of each L distal digit. NO R foot surgeries. Family history: Reviewed Allergies: Reviewed. NKDA Social History: no tobacco or etoh use. Code Status: FUll COde Principal Diagnosis Multiple sclerosis Discharge Exam Awake alert appropriate. Patient has mostly subjective paresthesias his leg weakness patient states his legs feel more strong to him paresthesias are less He has no focal deficits Discharge Data Allergies Allergy/AdvReac Type Severity Reaction Status Date / Time bee venom protein (honey bee) Allergy Severe Anaphylaxis Verified 04/02/22 14:45 Consultations 01/04/23 16:33 ED Decision to Admit Stat 01/04/23 18:50 Consult Urology Routine 01/04/23 19:18 Consult Radiology Routine 01/06/23 08:13 Consult Neurology Stat Ordered Studies 01/04/23 12:36 CT abd pelvis wo con Stat CT head/brain wo con Stat 01/04/23 12:39 CT lumbar spine wo con Stat 01/04/23 16:35 MRI Brain [MR brain wo con] Stat 01/04/23 16:43 MRI Lumbar Spine [MR lumbar spine wo con] Stat 01/05/23 07:48 MRI Cervical [MR cervical spine wo/w con] Routine MRI Thoracic [MR thoracic spine wo/w con] Routine 01/06/23 08:00 IR lumbar puncture diagnostic Routine Hospital Course (1) Urinary retention: Obstructive LUIS, severe urinary retention suspect due to enlarged prostate and possible neurogenic bladder from multiple sclerosis Urology saw the patient recommends continue Milner at discharge with voiding trial set up likely for the office Continues on on tamsulosin 0.4 mg, 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 Suggestive of acute bladder outlet obstruction suspect due to prostatomegaly. 3 mm left renal calculus. Stable 2.8 cm left adrenal nodule. Multiple sclerosis diagnosed by imaging, will have LP for confirmation testing and wolf virus send out -MRI-B brain:1. Numerous white matter T2 hyperintense foci, several of which are periventricular in distribution. In addition, T2 hyperintense foci within the medial left cerebellar hemisphere and portions of the corpus callosum. Although nonspecific, the findings are highly suggestive of a demyelinating process such as multiple sclerosis or Lyme disease. Assessment for active demyelination is suboptimal given lack of postcontrast imaging. 2. No evidence for acute infarct. No acute intracranial hemorrhage. No mass effect. -MRI cervical spine shows multiple foci of T2 hyperintensity and a few foci of enhancement seen to suggest demyelinating disease -MRI thoracic spine shows multiple areas of T2 hyperintensity and a few foci of enhancement suggesting demyelinating disease -MRI-Lspine: 1. No acute process within the lumbar spine by MRI. 2. No central canal stenosis. Mild degenerative changes within the lumbar spine. Mild multilevel neural foraminal stenosis.3. Several hemangiomas within the lumbar spine and sacrum. Neurologist consultation Dr. Jamil Patient meets Santizo criteria for the diagnosis of multiple sclerosis. Suspect this is the reason for his urinary retention. Would start solumedrol 1g IV x3 days for symptom management given the active lesions. This does not impact overall progression of disease. Arranged close outpatient follow-up to discuss disease modifying therapy. -- Solumedrol 1g IV x3 days, if wants to go home after third pulse of steroids, patient is involved in [employer] which is an outpatient type 2 diabetes monitoring company in conjunction with his healthcare insurance I did speak personally to his nurse practitioner with regard to this service and his steroid pulse dosing -- If BGs not controlled on steroids, would stop the course -- Has outpatient neurology follow-up scheduled for discussion of disease modifying therapy -- Laboratory signout prior to discharge include- DAKOTA, LANDRY, Hepatits B/C Panel, HIV, anti-NMO serum, anti-MOG serum (if available), B12, folate, vit D Type II DM uncontrolledcould make high-dose steroids challenging A1c 12/2022 greater than 9 With history of foot ulceration, fifth left toe amputation, and distal left toe 1-4 partial amputations Admitting BSG 459, 10 units insulin ordered at time of hospitalist con sultation Basal bolus insulin with attempts of better control Personally spoke to his outpatient nurse practitioner in [employer] regarding his diabetic control Patient will be discharged on levemir 25 mg BID. may need to closely monitor his BSG as an outpatient and titrate up. Hypertension chronic and stable Aspirin 81 mg Lisinopril 20 mg p.o. twice daily held for LUIS Hyperlipidemia Zetia 10 mg every morning DVT prophylaxis: Heparin SQ (2) Diabetic peripheral neuropathy associated with type 2 diabetes mellitus: (3) Status post partial amputation of foot: (4) Hyperlipidemia: (5) HTN (hypertension): (6) Diabetes: Total Time Total Time Spent Total Time Spent (In Minutes): 35 Discharge Plan Discharge Items Patient Disposition: Home - Self-Care Reason For Visit: ARF 2/2 URINARY RETENTION, ?MS Discharge Diagnosis: ARF Activity: Resume your previous activity Non-emergency contact: Primary Care Provider Call non-emergency contact if: you have any medication questions Follow-up/Referrals: Maxwell Richards MD [Physician] - 01/16/23 10:30 am (Please arrive 15 minutes prior to appointment time. ) Maxwell Velarde [Primary Care Provider] - Albert Farley MD [Physician] - 01/10/23 8:30 am (Nurse appointment for Voiding Trial) Diet: Carb Consistent or DM2 Addtl Attending Provider Instructions: Recommendations: Urology recommends to continue Milner at discharge with voiding trial set up likely for the office Continues on tamsulosin 0.4 mg, finasteride 5 mg -CTA/P without contrast: Mild to moderate bilateral hydro with bladder distention, perinephric fluid extending into the pelvis. Suggestive of acute bladder outlet obstruction suspect due to prostatomegaly. 3 mm left renal calculus. Stable 2.8 cm left adrenal nodule. Multiple sclerosis diagnosed by imaging, will have LP for confirmation testing and wolf virus send out For your multplie sclerosis, you were treatd with IV solumedrol. We will have you followup with Neurology to discuss further therapy Pending Studies at Discharge: Yes (DAKOTA, LANDRY, Hepatits B/C Panel, HIV, anti-NMO serum, anti-MOG serum) Stand-Alone Forms: My [facility], Smoking Cessation Medications and DC Order Prescriptions: Continued finasteride 5 mg tablet 5 mg PO DAILY Qty: 90 3RF tamsulosin 0.4 mg capsule 0.4 mg PO QPM Qty: 90 3RF aspirin 81 mg Tablet,Delayed Release (Dr/Ec) 81 mg PO QAM epinephrine 0.3 mg/0.3 mL auto-injector 0.3 mg subcut UD PRN (Reason: Anaphylaxis) ezetimibe 10 mg tablet 10 mg PO QAM omega 3-wyu-lca-fish oil [Fish Oil] 1,000 mg (120 mg-180 mg) Capsule 2 cap PO QAM lisinopril 20 mg Tablet 20 mg PO BID zinc 50 mg Tablet 50 mg PO QAM vitamin E 100 unit Tablet 180 unit PO QAM cholecalciferol (vitamin D3) [Vitamin D3] 125 mcg (5,000 unit) Tablet 125 mcg PO QAM insulin degludec [Tresiba FlexTouch U-100] 100 unit/mL (3 mL) insulin pen 25 unit SUBCUT BID Qty: 15 0RF coQ10 (ubiquinol) 100 mg Capsule 100 mg PO QAM Discharge Orders: Discharge Order (Routine); Ordered 01/08/23 Ordered By: Juan F Farfan/Other Patient Handouts: High Blood Sugar (Hyperglycemia), Managing Type 2 Diabetes Admission Data Admit Date/Time: 01/04/23 19:09 Attending Provider: Juan F Pompa Admit Provider: Altaf Whyte Primary Care Provider: Maxwell Velarde Other Providers: Altaf Whyte ; Jan Kay ; Tara De La Fuente ; Lidia Godinez ; Jf Mathis ; Jeet Barnard ; Marco Kay ; Philip Otero ; Arnold Liu ; Francis Resendiz ; Anil Bateman ; Lane Jamil Other Interventions: Discharge Summary Assessment (RN) Last Done: 01/08/23 16:43 Coding Level of Care Code 69319 INP/OBS DISCH >30 MIN Diagnoses Urinary retention R33.9 Diabetic peripheral neuropathy associated with type 2 diabetes mellitus E11.42 Status post partial amputation of foot Z89.439 Hyperlipidemia E78.5 HTN (hypertension) I10 Diabetes E11.9
[2023-01-08 17:27] LABS: Angiotensin Converting Enzyme 7 U/L (9-67); Anti Nuclear Antibody Screen NEGATIVE (NEGATIVE); HBSAG NON-REACTIVE (NON-REACTIVE); Hepatitis A Antibody IgM NON-REACTIVE (NON-REACTIVE); Hepatitis B Core Antibody IgM NON-REACTIVE (NON-REACTIVE)
[2023-01-09] MEDS ORDERED: INSULIN ASPART PER UNIT CHARGE SC SCH
[2023-01-10 16:12] LABS: Lyme DNA PCR CSF or Synovial Not Detected (Not Detected); Lyme DNA Source CSF
== END 2023-01-08 17:58 | disposition home or self-care (01) | DRG 59 ==
LOC: ED 11:47 → 2S 19:09 → SUATTDRO 19:09 → 2S 19:58

== ENCOUNTER 2023-03-17 15:55 | Inpatient (IN) ==
[2023-03-17] MEDS ORDERED: CEFEPIME 2,000 MG/20 ML VIAL IV STA (16:11)
[2023-03-17] MEDS ORDERED: STAT IV Infusion **Titration per Protocol STA (16:11)
[2023-03-17] MEDS ORDERED: dilTIAZem HCl 5 MG/ML 5 ML VIAL IV STA (16:11)
[2023-03-17] MEDS ORDERED: dilTIAZem HCL 125 MG in DEXTROSE 5% 100 ML IV SCH (16:15)
[2023-03-17] MEDS ORDERED: SODIUM CHLORIDE 0.9% 500 ML IV SCH (16:15)
--- NOTE | 2023-03-17 16:19 | Emergency Department Note ---
Impression & Plan Atrial fibrillation with rapid ventricular response, Hypomagnesemia, Hypokalemia, Elevated troponin, Syncope, Abnormal ECG, Acute UTI ED Provider Note NAME: ADE DAVIES AGE: 62 SEX: M : 1960 ARRIVES VIA: Ambulance INFORMANT: [Patient][ems, nursing] ED PROVIDER(S): [Arnold Sanchez MD] CHIEF COMPLAINT: Cardiac assessment, syncope HISTORY OF PRESENT ILLNESS: The patient is a 62-year-old male who was recently diagnosed with MS. He has a Milner catheter in place. Last month, he was noted to have a UTI with Enterobacter. It is not completely clear whether this was ever completely treated. 4 days ago, he had a urine culture showing Enterobacter. He started Bactrim today for this infection. The patient states that around 2 hours ago he was at work and sitting. He began to feel sweaty and unwell and weak. He felt his heart was missing beats. He was not short of breath, no chest pain. The patient states that he did lose consciousness while standing. He was very dizzy and lightheaded and fainted. He did not hit his head and denies a current headache. There is no neck pain. He still has no chest pain. Patient states that he has never had any issues with dysrhythmia. EMS reports that he was in A-fib on their arrival. His blood pressure was soft at 90 sy stolic but improved to over 100 systolic after a 500 cc saline bolus. The patient takes aspirin, no other stronger blood thinners. No black or bloody stool reported. PMHx/PSHx: See Below SOCIAL HISTORY: See Below. PHYSICAL EXAM: GENERAL: Patient is in no acute distress. HEENT: No acute trauma, normocephalic atraumatic, mucous membranes dry, no nasal congestion. NECK: No stridor, no adenopathy, no meningismus, trachea is midline. LUNGS: Clear to auscultation bilaterally, no wheeze, no rhonchi, breath sounds equal. HEART: 3/6 systolic murmur, irregular rhythm, slightly tachycardic. ABDOMEN: Soft, nontender, bowel sounds positive, no peritonitis. Milner catheter noted. EXTREMITIES: No cyanosis, mild bilateral pedal edema, full range of motion of all the joints without pain or difficulty, no signs for acute trauma. NEUROLOGIC: Oriented x 3, no acute motor or sensory deficits, no focal weakness. SKIN: No rash, no jaundice, no diaphoresis. DIFFERENTIAL DIAGNOSIS: Sepsis or bacteremia, dysrhythmia, FL, anemia, electrolyte imbalance, A-fib or a flutter, UTI, among others. EMERGENCY DEPARTMENT COURSE/PROCEDURES: Prior/Outside records reviewed: Microbiology reports, recent pharmacy note, recent ED note. ECG per my interpretation: Indication was syncope. The ECG shows atrial fibrillation with a rate of 104. There are inverted T waves along the inferior and lateral leads. No ST elevation. No PVCs. The QTc is 476. Compared to an ECG from 04 January 2023, the inferior and lateral T wave changes are much more pronounced. A-fib is now present. Repeat ECG per my interpretation: Indication was A-fib. The ECG shows a normal sinus rhythm with a rate of 85. 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 There are inverted T waves in the inferior and lateral leads. No ST elevation, no PVCs. Compared to an ECG from earlier today, sinus rhythm is now present. Continuous Cardiac Monitoring per my interpretation: An order was placed for continuous cardiac monitoring. The monitor shows a rate of 108 with atrial fibrillation. Critical Care Note: I have personally spent 54 minutes of critical care time in the direct management of this patient. This includes bedside care, interpretation of diagnostic studies, and testing, discussion with consultants, patient, and family members, and other required patient management activities. This 54 minutes is in excess of all separately billable procedures. MEDICAL DECISION MAKING: There is no leukocytosis but the patient does have a mild anemia. This value is not low enough to have caused his syncope. There was a normal platelet count. No coagulopathy. Potassium was low, magnesium was low. No renal failure. Lactic acid level was not elevated making severe sepsis less likely. No concerning liver enzyme elevation the patient appeared to be in a euthyroid state. Procalcitonin level was not elevated making serious bacterial infection less likely. Chest x-ray per my review did not show mediastinal widening, pneumonia or pneumothorax. Initial ECG showed a rapid A-fib with some T wave inversions in the inferior lateral leads. No ST elevation. Cardiac enzyme testing x1 was slightly elevated. This cardiac elevation could be secondary to cardiac injury or potentially mismatch from his rapid rate. Of note, he had no chest pain. A repeat ECG was performed, he had converted to sinus rhythm, the T wave inversions were still noted. The patient was aggressively managed given his presentation. He had 2 IVs placed. He was given 500 cc of IV saline. He was given IV potassium and IV magnesium. He was given IV cefepime as empiric antibiotic coverage. He was initially placed on a diltiazem drip after an IV diltiazem bolus. The drip was discontinued when he converted to a sinus rhythm. Patient's doing well, he seems comfortable. His electrolytes are being replaced. He did receive IV antibiotics. He received IV saline. Luckily, he has converted to a sinus rhythm. His T wave abnormalities remain. The patient is in need of a hospital stay. I suspect the syncope was primarily from his rapid A-fib. His A-fib may be the result of the electrolyte abnormalities. I suspect his UTI was contributing to how he was feeling today. I did speak with the patient and case management, the on-call hospitalist was consulted. DISPOSITION: Patient's presentation and findings warrant a hospital stay. Past Med/Surg History Medical History BPH (benign prostatic hyperplasia) Cardiac murmur slight--follows with Dr. Singh Diabetes type 2--IDDM has insulin pump in place HTN (hypertension) Hyperlipidemia Insulin pump in place Osteoarthritis Surgical History History of amputation of lesser toe of left foot (~09/10/21) fifth toe amputation and fifth metatarsal head resection with I&D History of amputation of toe x4 History of arthroscopic knee surgery meniscus repair History of cardiac cath x2--in [place] 1995 (no stents) and [place] no stents--follows with Dr. Singh History of colonoscopy History of tonsillectomy and adenoids History of wisdom tooth extraction Status post insertion of insulin pump Family History Father Heart disease, Onset Age: 54 Had CABG at age 54 Mother Diabetes Other No family history of adverse response to anesthesia Social History Smoking Status: Never smoker Second Hand Exposure: No; Do You Dip or Chew Tobacco: No; Hx Alcohol Use: No Hx Substance Use: No Preferred Language: Hungarian Communication Ability: Effective Visual Impairment: Limited Hearing Ability: Normal Dentistry Professor Required: No Beliefs That Will Affect Care: None marital status: Current Living Situation: Spouse current occupational status: employed 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 [employer] Feels Safe at Home: Yes Diet: diabetic and low carbohydrate caffeine: Yes (tea) Assistive Devices: None Allergies Allergies Allergy/AdvReac Type Severity Reaction Status Date / Time bee venom protein (honey bee) Allergy Severe Anaphylaxis Verified 01/22/23 15:06 Home Meds Home Medications Medication Instructions Recorded Confirmed aspirin 81 mg tablet,delayed 81 mg PO QAM 12/29/19 03/17/23 release epinephrine 0.3 mg/0.3 mL 0.3 mg subcut UD PRN Anaphylaxis 12/29/19 03/17/23 injection, auto-injector ezetimibe 10 mg tablet 10 mg PO QAM 12/29/19 03/17/23 omega [id number] oil 1,000 mg 2 cap PO QAM 12/29/19 03/17/23 (120 mg-180 mg) capsule (Fish Oil) cholecalciferol (vitamin D3) 125 125 mcg PO QAM 09/07/21 03/17/23 mcg (5,000 unit) tablet (Vitamin D3) lisinopril 20 mg tablet 2.5 mg PO DAILY 09/07/21 03/17/23 vitamin E 100 unit tablet 180 unit PO QAM 09/07/21 03/17/23 zinc 50 mg tablet 50 mg PO QAM 09/07/21 03/17/23 coQ10 (ubiquinol) 100 mg capsule 100 mg PO QAM 11/26/21 03/17/23 insulin degludec 100 unit/mL (3 26 unit subcut DAILY 02/18/23 03/17/23 mL) subcutaneous pen (Tresiba FlexTouch U-100 insulin) Advance Digestive Enzyme 1 cap PO DAILY 03/17/23 03/17/23 B12 1 tab PO DAILY 03/17/23 03/17/23 Bcq 5 cap PO BID 03/17/23 03/17/23 Gi Revive Gut Health 1 dose PO DIRECTED 03/17/23 03/17/23 Nerve Support Complex 3 cap PO DIRECTED 03/17/23 03/17/23 Previous Rx's Medication Instructions Recorded finasteride 5 mg tablet 5 mg PO DAILY #90 tabs 04/09/22 tamsulosin 0.4 mg capsule 0.4 mg PO QPM #90 caps 09/03/22 sulfamethoxazole 800 1 tab PO BID 10 days #20 tabs 03/13/23 mg-trimethoprim 160 mg tablet (Bactrim DS) Results & Data (ED) Vital Signs Vital Signs - 24 hr 03/17/23 15:45 03/17/23 15:45 03/17/23 16:12 Temperature 35.5 C L Temperature Source Axillary Pulse Rate 83 Pulse Rate from SpO2 Sensor Respiratory Rate 18 Respiratory Effort / Characteristics Non-Labored Spontaneous Respiratory Depth Normal Respiratory Pattern Regular Blood Pressure 132/79 Blood Pressure Mean 96 Pulse Oximetry 98 98 98 Oxygen Delivery Method Room Air Room Air Room Air Oxygen Flow Rate 0 Sepsis Recent Fever Within 48 Hours No Sepsis New/Unexplained Change in Mental Status N/A Sepsis Action Taken by Nursing No Action Required 03/17/23 16:18 03/17/23 16:15 03/17/23 16:15 Temperature Temperature Source Pulse Rate 84 84 Pulse Rate from SpO2 Sensor 85 Respiratory Rate 21 Respiratory Effort / Characteristics Respiratory Depth Respiratory Pattern Blood Pressure 138/79 Blood Pressure Mean 99 Pulse Oximetry 100 Oxygen Delivery Method Oxygen Flow Rate Sepsis Recent Fever Within 48 Hours Sepsis New/Unexplained Change in Mental Status Sepsis Action Taken by Nursing 03/17/23 16:30 03/17/23 16:45 03/17/23 17:00 Temperature Temperature Source Pulse Rate 88 82 Pulse Rate from SpO2 Sensor Respiratory Rate 24 24 Respiratory Effort / Characteristics Respiratory Depth Respiratory Pattern Blood Pressure 158/80 H Blood Pressure Mean 97 Pulse Oximetry Oxygen Delivery Method Oxygen Flow Rate Sepsis Recent Fever Within 48 Hours Sepsis New/Unexplained Change in Mental Status Sepsis Action Taken by Nursing 03/17/23 17:00 03/17/23 17:15 03/17/23 17:15 Temperature Temperature Source Pulse Rate 82 85 Pulse Rate from SpO2 Sensor 86 Respiratory Rate 18 22 Respiratory Effort / Characteristics Respiratory Depth Respiratory Pattern Blood Pressure 165/85 H Blood Pressure Mean 104 Pulse Oximetry 96 Oxygen Delivery Method Room Air Oxygen Flow Rate Sepsis Recent Fever Within 48 Hours Sepsis New/Unexplained Change in Mental Status Sepsis Action Taken by Nursing 03/17/23 17:30 03/17/23 17:30 03/17/23 17:45 Temperature Temperature Source Pulse Rate 84 Pulse Rate from SpO2 Sensor 85 Respiratory Rate 23 Respiratory Effort / Characteristics Respiratory Depth Respiratory Pattern Blood Pressure 164/89 H 178/92 H Blood Pressure Mean 100 127 Pulse Oximetry 98 Oxygen Delivery Method Room Air Oxygen Flow Rate Sepsis Recent Fever Within 48 Hours Sepsis New/Unexplained Change in Mental Status Sepsis Action Taken by Nursing 03/17/23 17:45 03/17/23 18:00 03/17/23 18:00 Temperature Temperature Source Pulse Rate 86 91 H Pulse Rate from SpO2 Sensor 87 91 H Respiratory Rate 24 32 H Respiratory Effort / Characteristics Respiratory Depth Respiratory Pattern Blood Pressure 158/86 H Blood Pressure Mean 114 Pulse Oximetry 97 96 Oxygen Delivery Method Oxygen Flow Rate Sepsis Recent Fever Within 48 Hours Sepsis New/Unexplained Change in Mental Status Sepsis Action Taken by Nursing 03/17/23 18:15 03/17/23 18:15 03/17/23 18:30 Temperature Temperature Source Pulse Rate 81 Pulse Rate from SpO2 Sensor 81 Respiratory Rate 28 H Respiratory Effort / Characteristics Respiratory Depth Respiratory Pattern Blood Pressure 157/86 H 169/91 H Blood Pressure Mean 114 120 Pulse Oximetry 97 Oxygen Delivery Method Oxygen Flow Rate Sepsis Recent Fever Within 48 Hours Sepsis New/Unexplained Change in Mental Status Sepsis Action Taken by Nursing 03/17/23 18:30 03/17/23 18:45 03/17/23 18:45 Temperature Temperature Source Pulse Rate 84 82 Pulse Rate from SpO2 Sensor 85 82 Respiratory Rate 22 26 H Respiratory Effort / Characteristics Respiratory Depth Respiratory Pattern Blood Pressure 167/87 H Blood Pressure Mean 106 Pulse Oximetry 97 96 Oxygen Delivery Method Oxygen Flow Rate Sepsis Recent Fever Within 48 Hours Sepsis New/Unexplained Change in Mental Status Sepsis Action Taken by Custodial Medications Current Medication List: was personally reviewed by me Laboratory Data Attestation: I reviewed the patient's lab results. 03/17/23 16:08 03/17/23 16:08 Lab Results 03/17/23 03/17/23 03/17/23 Range/Units 16:08 16:08 16:08 WBC 5.64 (4.8-10.8) K/ul RBC 4.11 L (4.70-6.10) M/uL Hgb 11.9 L (14.0-18.0) g/dl POC Hgb (14.0-18.0) g/dl Hct 35.3 L (42.0-52.0) % POC Hct (42-52) % MCV 85.9 (80.0-100.0) fL MCH 29.0 (25.0-34.0) pg MCHC 33.7 (32.0-36.0) g/dL RDW Std Deviation 45.2 (36.4-46.3) fL RDW Coeff of Spenesr 14.5 (11.5-14.5) % Plt Count 162 (130-400) K/uL MPV 12.0 (9.4-12.4) fL Immature Gran % (Auto) 0.7 % Neut % (Auto) 71.3 % Lymph % (Auto) 25.5 % Cloud % (Auto) 1.6 % Eos % (Auto) 0.9 % Baso % (Auto) 0.0 % Neut # (Auto) 4.02 (1.40-6.50) K/uL Lymph # (Auto) 1.44 (1.2-3.4) K/uL Cloud # (Auto) 0.09 L (0.11-0.59) K/uL Eos # (Auto) 0.05 (0-0.50) K/uL Baso # (Auto) 0.00 (0-0.2) K/uL Immature Gran # (Auto) 0.04 (0.01-0.20) K/uL PT 11.0 (9.0-12.0) Seconds INR 1.0 (0.9-1.1) APTT < 20.0 L (21.0-31.0) Seconds PTT Ratio 0.7 POC Sodium (135-144) mmol/L Sodium 140 (136-145) mmol/L POC Potassium (3.3-5.0) mmol/L Potassium 3.0 L (3.5-5.1) mmol/L POC Chloride (101-112) mmol/L Chloride 105 (98-107) mmol/L Carbon Dioxide 24 (21-32) mmol/L POC Total CO2 (24-31) mmol/L Anion Gap 11 (3-11) POC Anion Gap (16-25) mmol/L POC BUN (7-18) mg/dl BUN 24 H (6-23) mg/dl Creatinine 1.23 (0.6-1.4) mg/dl POC Creatinine (0.6-1.3) mg/dl Est Cr Clr Drug Dosing 81.1 ml/min Est GFR ( Amer) 73.0 ml/min Est GFR (Non-Af Amer) 63.0 ml/min BUN/Creatinine Ratio 19.5 (10-20) Glucose 192 H (70-99(Fasting)) mg/dl POC Glucose (other) (70-99) mg/dl Lactate (0.4-2.0) mmol/L Calcium 8.9 (8.6-10.3) mg/dl POC Ioniz Calcium Demond (1.12-1.32) mmol/l Magnesium 1.6 L (1.7-2.4) mg/dl Total Bilirubin 0.5 (0.2-1.0) mg/dl Direct Bilirubin 0.1 (0-0.2) mg/dl AST 19 (13-39) U/L ALT 14 (7-52) U/L Alkaline Phosphatase 69 (34-104) U/L Troponin I High Sens 81.2 H* (0-20) pg/ml Total Protein 6.0 (6.0-8.3) gm/dl Albumin 3.8 (3.4-5.0) gm/dl Procalcitonin (0-0.5) ng/ml 03/17/23 03/17/23 03/17/23 Range/Units 16:08 16:18 16:38 WBC (4.8-10.8) K/ul RBC (4.70-6.10) M/uL Hgb (14.0-18.0) g/dl POC Hgb 12.2 L (14.0-18.0) g/dl Hct (42.0-52.0) % POC Hct 36 L (42-52) % MCV (80.0-100.0) fL MCH (25.0-34.0) pg MCHC (32.0-36.0) g/dL RDW Std Deviation (36.4-46.3) fL RDW Coeff of Spenser (11.5-14.5) % Plt Count (130-400) K/uL MPV (9.4-12.4) fL Immature Gran % (Auto) % Neut % (Auto) % Lymph % (Auto) % Cloud % (Auto) % Eos % (Auto) % Baso % (Auto) % Neut # (Auto) (1.40-6.50) K/uL Lymph # (Auto) (1.2-3.4) K/uL Cloud # (Auto) (0.11-0.59) K/uL Eos # (Auto) (0-0.50) K/uL Baso # (Auto) (0-0.2) K/uL Immature Gran # (Auto) (0.01-0.20) K/uL PT (9.0-12.0) Seconds INR (0.9-1.1) APTT (21.0-31.0) Seconds PTT Ratio POC Sodium 142 (135-144) mmol/L Sodium (136-145) mmol/L POC Potassium 2.8 L (3.3-5.0) mmol/L Potassium (3.5-5.1) mmol/L POC Chloride 102 (101-112) mmol/L Chloride (98-107) mmol/L Carbon Dioxide (21-32) mmol/L POC Total CO2 22 L (24-31) mmol/L Anion Gap (3-11) POC Anion Gap 21.0 (16-25) mmol/L POC BUN 24 H (7-18) mg/dl BUN (6-23) mg/dl Creatinine (0.6-1.4) mg/dl POC Creatinine 1.3 (0.6-1.3) mg/dl Est Cr Clr Drug Dosing ml/min Est GFR ( Amer) ml/min Est GFR (Non-Af Amer) ml/min BUN/Creatinine Ratio (10-20) Glucose (70-99(Fasting)) mg/dl POC Glucose (other) 190 H (70-99) mg/dl Lactate 1.9 (0.4-2.0) mmol/L Calcium (8.6-10.3) mg/dl POC Ioniz Calcium Demond 1.14 (1.12-1.32) mmol/l Magnesium (1.7-2.4) mg/dl Total Bilirubin (0.2-1.0) mg/dl Direct Bilirubin (0-0.2) mg/dl AST (13-39) U/L ALT (7-52) U/L Alkaline Phosphatase (34-104) U/L Troponin I High Sens (0-20) pg/ml Total Protein (6.0-8.3) gm/dl Albumin (3.4-5.0) gm/dl Procalcitonin < 0.05 (0-0.5) ng/ml Administered Medications Heparin Sodium (Porcine) (Heparin Sod 5,000 Unit/0.5 Ml Vial) 5,000 units SQ Q8 IZAIAH Stop: 04/16/23 21:59 Last Admin: 03/17/23 21:56 Dose: Not Given Documented By: AFSANEH Insulin Aspart (Insulin Aspart Per Unit Charge) 0 units SC ACHS IZAIAH Stop: 04/16/23 20:59 Last Admin: 03/17/23 21:20 Dose: Not Given Documented By: AFSANEH Insulin Glargine (Lantus Per Unit Charge) 10 units SQ BID IZAIAH Stop: 04/16/23 20:59 Last Admin: 03/17/23 21:56 Dose: 10 units Documented By: AFSANEH Co-signed By: VERONICA Tamsulosin HCl (Tamsulosin Hcl 0.4 Mg Cap) 0.4 mg PO QPM IZAIAH Stop: 04/16/23 20:59 Last Admin: 03/17/23 21:56 Dose: 0.4 mg Documented By: AFSANEH Discontinued Medications Diltiazem HCl (Diltiazem Hcl 5 Mg/Ml 5 Ml Vial) 10 mg IV NOW STA Stop: 03/17/23 16:12 Last Admin: 03/17/23 16:29 Dose: 10 mg Documented By: AURELIANO Co-signed By: NGHIA Sodium Chloride (Nss 1000ml) 500 mls @ 999 mls/hr IV .Q31M IZAIAH Stop: 03/17/23 16:45 Last Infusion: 03/17/23 17:16 Dose: 0 mls/hr Documented By: Admin: 03/17/23 16:33 Dose: 999 mls/hr Documented By: AURELIANO Cefepime HCl (Maxipime) 2,000 mg in 20 mls @ 5 mls/min IV NOW STA; Protocol Stop: 03/17/23 16:14 Last Admin: 03/17/23 17:04 Dose: 5 mls/min Documented By: AURELIANO Diltiazem HCl 125 mg/ Dextrose 125 mls @ 5 mls/hr IV .Q24H IZAIAH; Protocol Stop: 04/16/23 16:14 Last Titration: 03/17/23 20:58 Dose: 0 mg/hr, 0 mls/hr Documented By: AFSANEH Co-signed By: MARANDA Titration: 03/17/23 17:43 Dose: 0 mg/hr, 0 mls/hr Documented By: AURELIANO Co-signed By: NGHIA Admin: 03/17/23 17:10 Dose: 5 mg/hr, 5 mls/hr Documented By: AURELIANO Co-signed By: ML Potassium Chloride (K Stefan / Wtr) 10 meq in 100 mls @ 100 mls/hr IV ONE ONE Stop: 03/17/23 17:20 Last Infusion: 03/17/23 19:18 Dose: 0 mls/hr Documented By: Admin: 03/17/23 17:08 Dose: 100 mls/hr Documented By: AURELIANO Magnesium Sulfate/Dextrose (Magnesium Sulfate / D5w) 1 gm in 100 mls @ 100 mls/hr IV NOW STA Stop: 03/17/23 18:32 Last Infusion: 03/17/23 19:18 Dose: 0 mls/hr Documented By: Admin: 03/17/23 17:56 Dose: 100 mls/hr Documented By: AURELIANO Magnesium Sulfate/Dextrose (Magnesium Sulfate / D5w) 1 gm in 100 mls @ 100 mls/hr IV NOW STA Stop: 03/17/23 20:25 Last Infusion: 03/17/23 22:17 Dose: 0 mls/hr Documented By: Admin: 03/17/23 21:12 Dose: 100 mls/hr Documented By: AFSANEH Miscellaneous (Stat Iv Infusion Titration Per Protocol) 1 each N/A NOW STA Stop: 03/17/23 16:12 Last Admin: 03/17/23 19:18 Dose: Not Given Documented By: AURELIANO Potassium Chloride (Potassium Chloride Crtab 20 Meq Tabcr) 20 meq PO NOW STA Stop: 03/17/23 20:49 Last Admin: 03/17/23 21:12 Dose: 20 meq Documented By: AFSANEH Imaging Data Radiologist's Impression: Chest X-Ray 03/17/23 16:12 XR chest 1V portable HISTORY: 62 years-old Male Sepsis acute sepsis COMPARISON: 11/28/2021 TECHNIQUE: AP view of the chest FINDINGS: Cardiac silhouette is enlarged. No pneumothorax, pleural effusion, airspace consolidation or pulmonary edema. Degenerative changes of the shoulders and spine. Lower thoracic levoscoliosis. IMPRESSION: No acute process. ACT 112: Negative or not required by law. The above report was generated using voice recognition software. It may contain grammatical, syntax or spelling errors. Electronically signed by: Jeet Barnard M.D. 03/17/2023 4:30 PM Discharge Plan Visit Data Chief Complaint: Cardiac Assessment ED Provider: Arnold Sanchez Discharge Problem: Atrial fibrillation with rapid ventricular response, Hypomagnesemia, Hypokalemia, Elevated troponin, Syncope, Abnormal ECG, Acute UTI Patient Disposition: Admitted As Inpatient Condition: Fair Discharge Instructions Interventions: ED Discharge Assessment Last Done: 03/17/23 20:15
[2023-03-17] MEDS ORDERED: POTASSIUM CHLORIDE / WTR 10 MEQ/100 ML PLCT IV ONE (16:21)
[2023-03-17 16:26] LABS: Eosinophils # (auto) 0.05 K/uL (0-0.50); Eosinophils % (auto) 0.9 %; Hematocrit (blood only) 35.3 % (42.0-52.0); Hemoglobin 11.9 g/dl (14.0-18.0); Immature Granulocytes # (auto) 0.04 K/uL (0.01-0.20); Immature Granulocytes % (auto) 0.7 %; Lymphocytes # (auto) 1.44 K/uL (1.2-3.4); Lymphocytes % (auto) 25.5 %; Mean Corpuscular Hgb Conc 33.7 g/dL (32.0-36.0); Mean Corpuscular Volume 85.9 fL (80.0-100.0); Monocytes # (auto) 0.09 K/uL (0.11-0.59); Monocytes % (auto) 1.6 %; Neutrophils # (auto) 4.02 K/uL (1.40-6.50); Neutrophils % (auto) 71.3 %; Platelet Count 162 K/uL (130-400); RDW Coefficient of Variation 14.5 % (11.5-14.5); RDW Standard Deviation 45.2 fL (36.4-46.3); Red Blood Count 4.11 M/uL (4.70-6.10); White Blood Count 5.64 K/ul (4.8-10.8)
[2023-03-17 16:31] LABS: iSTAT Creatinine 1.3 mg/dl (0.6-1.3); iSTAT Hemoglobin 12.2 g/dl (14.0-18.0); iSTAT Ionized Calcium 1.14 mmol/l (1.12-1.32); iSTAT Potassium 2.8 mmol/L (3.3-5.0)
--- NOTE | 2023-03-17 16:32 | XRay Report ---
XR chest 1V portable HISTORY: 62 years-old Male Sepsis acute sepsis COMPARISON: 11/28/2021 TECHNIQUE: AP view of the chest FINDINGS: Cardiac silhouette is enlarged. No pneumothorax, pleural effusion, airspace consolidation or pulmonar y edema. Degenerative changes of the shoulders and spine. Lower thoracic levoscoliosis. IMPRESSION: No acute process. ACT 112: Negative or not required by law. The above report was generated using voice recognition software. It may contain grammatical, syntax o r spelling errors. Electronically signed by: Jeet Barnard M.D. 03/17/2023 4:30 PM
[2023-03-17 16:54] LABS: Troponin I High Sensitivity 81.2 pg/ml (0-20)
[2023-03-17 16:55] LABS: Albumin Level 3.8 gm/dl (3.4-5.0); BUN Creatinine Ratio 19.5 (10-20); Bilirubin,Total 0.5 mg/dl (0.2-1.0); Calcium 8.9 mg/dl (8.6-10.3); Creatinine Clr Calc Pharmacy 81.1 ml/min; Magnesium 1.6 mg/dl (1.7-2.4)
[2023-03-17 17:10] LABS: Bilirubin Direct 0.1 mg/dl (0-0.2)
[2023-03-17] MEDS ORDERED: MAGNESIUM SULFATE / D5W 1 GM/100 ML BAG IV STA ×2 (17:33→19:26)
[2023-03-17 17:40] LABS: Partial Thromboplastin Ratio 0.7
[2023-03-17 17:42] LABS: Partial Thromboplastin Time < 20.0 Seconds (21.0-31.0)
--- NOTE | 2023-03-17 18:25 | History & Physical Report ---
Date of Service March 17, 2023 Assessment & Plan (1) Atrial fibrillation with RVR: Plan: -Admit to the PCU on tele -Currently stable, back in NSR, with HR in the 80's -Patient without a previous hx afib -Converted after being started on diltiazem drip, now off the drip and stable, will continue to hold the diltiazem drip for now -Noted to have an untreated UTI, also noted to have a potassium of 3.0 and mag of 1.6, these all could be contributing -Will add on TSH with free T4 as needed for further evaluation -Continue to monitor on tele for recurrence of afib, if so, he may need to be started on anticoagulation with a TRAE-VASc of 2 -Will obtain TTE tomorrow -SQ Heparin for DVT PPX -DMII and HH diet -AM CBC, CMP, Mag, PT/INR (2) Syncope: Plan: -Likely due to his afib RVR with possible orthostasis as well -Has not occurred since arriving to the ED -Has been hemodynamically stable -Fall precautions and am orthostatic vitals ordered -Follow TTE tomorrow (3) Catheter-associated urinary tract infection: Plan: -Patient was diagnosed with a UTI at the Urology clinic on 03/13 -Kay cath was placed on 03/13 due to recurrent urinary retention -Will have nursing staff exchange his kay and collect a new UA with urine culture -Urine culture from 03/13 shows Enterobacter cloacae intermediately sensitive to ceftriaxone but otherwise pansensitive -S/P one dose of cefepime in the ED -Will start IV ciprofloxacin, can convert to PO prior to discharge (4) Elevated troponin: Plan: -Initial high sen trop elevated at 80 -Patient has been without chest discomfort -Was noted to have ST depression in the inferior leads -Likely due to demand from acute infection and afib RVR -Will repeat a STAT 2 hour trop now then continue to trend q6h overnight -Follow TTE tomorrow (5) LUIS (acute kidney injury): Plan: -Patient with mild LUIS, cr today is 1.23, baseline appears near 0.80 -Likely multifactorial including untreated UTI and urinary retention -Will exchange his kay catheter and obtain new UA with culture -Avoid nephrotoxic agents -Monitor daily renal function (6) Multiple sclerosis: Plan: -Recently diagnosed during his last admission in December -Not on medical therapy at this time but denies acute decreased in strength or new neuro defects -Continue to monitor (7) Hypomagnesemia: Plan: -Noted to be 1.6 -Likely due to poor oral intake with recent diet adjustments -S/P 1gm IV mag sulfate in the ED -Will give another 1gm IV on admission -Monitor on tele and daily mag level, consider discharging on PO mag (8) Diabetes: Plan: -Monitor BSG ACHS, goal is 110-160 -Normally takes 26 units of Tresiba daily, will convert to 10 units Lantus BID for now -CF of 50 ACHS for now -DMII and HH diet -Adjust regimen as needed (9) HTN (hypertension): Plan: -Stable -Hold lisinopril for now with recent syncopal episode andmild LUIS (10) Enlarged prostate: Plan: -Continue kay cath, flomax, and finasteride (11) Hypokalemia: Plan: -Noted to be 3.0 today -Likely due to poor oral intake and low mag level -S/P 10 meq IV KCL in the ED -Will give 2 doses of 20 meq PO KCL q2h on admission -Continue to monitor on tele and monitor daily electrolytes Plan The patient was discussed with Dr. Villanueva at the time of the admission History of Present Illness Chief Complaint: Syncopal episode Primary Care Provider: Maxwell Stewartdarnell Mccarty is a 62 year old male with a PMH significant for recent MS diagnosis, BPH with urinary retention, DMII, HTN, and hyperlipidemia who presented to the [facility] ED on 03/17 via EMS after a syncopal event at work this afternoon. In the ED the patient was noted to be hypothermic at 35.5C but otherwise stable. Labs were significant for a Hgb of 11.9 (down from 15 as of 01/07), HCT of 35 (down from 42 as of 01/07), potassium of 3.0, cr of 1.23 (baseline appears near 0.8), mag of 1.6, initial high sen trop of 81, and procal less than 0.05. Chest xray was read as "No acute process.". ECG on arrival showed new onset afiv RVR with HR in the low 100's. Prior to admission the patient was given a dose of Cefepime, 500 mL NSS, 1gm IV mag sulfate, 10 meq IV KCL, and 10 mg IV diltiazem. He was rodriguez bsequently transitioned onto a diltiazem drip but converted back to NSR shortly after. Per chart review, the patient was recently seen in the [facility] clinic for follow up. They had plans to obtain urodynamics at that visit, but there were concerns for acute UTI so this was delayed. He was started on a 10 day course of bactrim and wanted to try straight cathing at home prior to another Kay catheter being placed in the office. At the time of the exam the patient was lying in bed in no acute distress with his sitting bedside, history was obtained from both. He states that he was in his normal state of health this am upon waking. He was at work when he began to feel light-headed/dizzy while sitting at his desk at approximately 2 pm. He went and laid flat on another desk in his office, his symptoms started to improve but he did notice an irregular heartbeat, which is new for him. He sat back at his desk but his symptoms continued to progress. He got up to go to the bathroom and lost consciousness shortly after. He woke up on the ground, surround by coworkers. He denies recent fever, chills, chest pain, SOB, cough, abd pain, nausea, vomiting, diarrhea, hematuria, melena, diarrhea, LE swelling. When speaking about his recent UTI, he explains that he only picked the Bactrim up from the Pharmacy today as he was unaware that it was filled after Urology called the prescription in on 03/13. He confirms that he has been without chest discomfort throughout the day today. He states that he had a heart cath in [place] approximately 2 years ago. He was told that one of his coronary arteries was approximately 40% occluded but his coronaries were otherwise unremarkable. We discussed code status, he is a full code. Please refer to Dr. Villanueva's attestation for any changes to the treatment plan Allergies Allergy/AdvReac Type Severity Reaction Status Date / Time bee venom protein (honey bee) Allergy Severe Anaphylaxis Verified 01/22/23 15:06 Home Medications Medication Instructions Recorded Confirmed Type aspirin 81 mg tablet,delayed 81 mg PO QAM 12/29/19 03/17/23 History release epinephrine 0.3 mg/0.3 mL 0.3 mg subcut UD PRN Anaphylaxis 12/29/19 03/17/23 History injection, auto-injector ezetimibe 10 mg tablet 10 mg PO QAM 12/29/19 03/17/23 History omega 4-avj-sqz-fish oil 1,000 mg 2 cap PO QAM 12/29/19 03/17/23 History (120 mg-180 mg) capsule (Fish Oil) cholecalciferol (vitamin D3) 125 125 mcg PO QAM 09/07/21 03/17/23 History mcg (5,000 unit) tablet (Vitamin D3) lisinopril 20 mg tablet 2.5 mg PO DAILY 09/07/21 03/17/23 History vitamin E 100 unit tablet 180 unit PO QAM 09/07/21 03/17/23 History zinc 50 mg tablet 50 mg PO QAM 09/07/21 03/17/23 History coQ10 (ubiquinol) 100 mg capsule 100 mg PO QAM 11/26/21 03/17/23 History finasteride 5 mg tablet 5 mg PO DAILY #90 tabs 04/09/22 03/17/23 Rx tamsulosin 0.4 mg capsule 0.4 mg PO QPM #90 caps 09/03/22 03/17/23 Rx insulin degludec 100 unit/mL (3 26 unit subcut DAILY 02/18/23 03/17/23 History mL) subcutaneous pen (Tresiba FlexTouch U-100 insulin) sulfamethoxazole 800 1 tab PO BID 10 days #20 tabs 03/13/23 03/17/23 Rx mg-trimethoprim 160 mg tablet (Bactrim DS) Advance Digestive Enzyme 1 cap PO DAILY 03/17/23 03/17/23 History B12 1 tab PO DAILY 03/17/23 03/17/23 History Bcq 5 cap PO BID 03/17/23 03/17/23 History Gi Revive Gut Health 1 dose PO DIRECTED 03/17/23 03/17/23 History Nerve Support Complex 3 cap PO DIRECTED 03/17/23 03/17/23 History Past Med/Surg History Medical History BPH (benign prostatic hyperplasia) Cardiac murmur slight--follows with Dr. Singh Diabetes type 2--IDDM has insulin pump in place HTN (hypertension) Hyperlipidemia Insulin pump in place Osteoarthritis Surgical History History of amputation of lesser toe of left foot (~09/10/21) fifth toe amputation and fifth metatarsal head resection with I&D History of amputation of toe x4 History of arthroscopic knee surgery meniscus repair History of cardiac cath x2--in [place] 1995 (no stents) and [place] 2019 no stents--follows with Dr. Singh History of colonoscopy History of tonsillectomy and adenoids History of wisdom tooth extraction Status post insertion of insulin pump Family History Father Heart disease, Onset Age: 54 Had CABG at age 54 Mother Diabetes Other No family history of adverse response to anesthesia Social History Smoking Status: Never smoker Second Hand Exposure: No; Do You Dip or Chew Tobacco: No; Hx Alcohol Use: No Hx Substance Use: No Preferred Language: Tajik Communication Ability: Effective Visual Impairment: Limited Hearing Ability: Normal Crime Prevention Police Officer Required: No Beliefs That Will Affect Care: None marital status: Current Living Situation: Spouse current occupational status: employed 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 [employer] Feels Safe at Home: Yes Diet: diabetic and low carbohydrate caffeine: Yes (tea) Assistive Devices: None Physical Exam Physical Exam: Physical Exam: General: In no acute distress, stated age, well-nourished, non-toxic appearing HEENT: Normocephalic, atraumatic, no scleral icterus, pupils around round, sy mmetrical, and reactive to light, moist mucus membranes, trachea midline, no thyromegaly Chest/Pulm: No respiratory distress, symmetrical chest expansion, clear breath sounds throughout Cardiac: RRR, 4/6 systolic murmur noted (patient confirms he has a hx of murmur) Abdomen: Negative for ascites and bruising, normoactive bowel sounds, soft, non-tender to palpation throughout : Kay cath in place with kay bag attached to the right LE, currently draining cloudy, yellow urine Musculoskeletal: No acute trauma noted on exam Extremities: Radial, dorsalis pedis, and posterior tibial pulses are intact and symmetrical, 1-2+ pitting edema noted in the BL LE's Skin: Warm, dry, no rashes , lesions, or scars noted Neuro: Alert and oriented to person, place, month, year, and president, no focal defects, no tremors noted Psych: No acute distress, calm and cooperative during the exam Results & Data Results & Data Vital Signs (Past 12 Hours) Vital Signs Temp Pulse Resp BP Pulse Ox O2 Del Method O2 Flow Rate 03/17/23 17:30 84 23 98 Room Air 03/17/23 17:30 164/89 H 03/17/23 17:15 85 22 96 Room Air 03/17/23 17:15 165/85 H 03/17/23 17:00 82 18 03/17/23 17:00 158/80 H 03/17/23 16:45 82 24 03/17/23 16:30 88 24 03/17/23 16:15 84 21 100 03/17/23 16:15 138/79 03/17/23 16:18 84 03/17/23 16:12 98 Room Air 03/17/23 15:45 98 Room Air 0 03/17/23 15:45 35.5 C L 83 18 132/79 98 Room Air Laboratory Results Abnormal lab results 03/17/23 03/17/23 03/17/23 Range/Units 16:08 16:08 16:08 RBC 4.11 L (4.70-6.10) M/uL Hgb 11.9 L (14.0-18.0) g/dl POC Hgb (14.0-18.0) g/dl Hct 35.3 L (42.0-52.0) % POC Hct (42-52) % [place] # (Auto) 0.09 L (0.11-0.59) K/uL APTT < 20.0 L (21.0-31.0) Seconds POC Potassium (3.3-5.0) mmol/L Potassium 3.0 L (3.5-5.1) mmol/L POC Total CO2 (24-31) mmol/L POC BUN (7-18) mg/dl BUN 24 H (6-23) mg/dl Glucose 192 H (70-99(Fasting)) mg/dl POC Glucose (other) (70-99) mg/dl Magnesium 1.6 L (1.7-2.4) mg/dl Troponin I High Sens 81.2 H* (0-20) pg/ml 03/17/23 Range/Units 16:18 RBC (4.70-6.10) M/uL Hgb (14.0-18.0) g/dl POC Hgb 12.2 L (14.0-18.0) g/dl Hct (42.0-52.0) % POC Hct 36 L (42-52) % [place] # (Auto) (0.11-0.59) K/uL APTT (21.0-31.0) Seconds POC Potassium 2.8 L (3.3-5.0) mmol/L Potassium (3.5-5.1) mmol/L POC Total CO2 22 L (24-31) mmol/L POC BUN 24 H (7-18) mg/dl BUN (6-23) mg/dl Glucose (70-99(Fasting)) mg/dl POC Glucose (other) 190 H (70-99) mg/dl Magnesium (1.7-2.4) mg/dl Troponin I High Sens (0-20) pg/ml ECG Additional Comments: Normal sinus rhythm Septal infarct , age undetermined Marked ST abnormality, possible inferior subendocardial injury Abnormal ECG When compared with ECG of 17-MAR-2023 16:01, (unconfirmed) Sinus rhythm has replaced Atrial fibrillation ST no longer depressed in Lateral leads Code Status & VTE Plan Code Status Full code VTE Prophylaxis Plan VTE Prophylaxis will be ordered: Yes Supervising Physician Co-Signing Physician Notes I personally saw and examined the patient. I verified all moise points and agree with Sulaiman Campbell PA-C with the following exceptions and/or additions: 62 male with T2DM and multiple sclerosis now with indwelling kay catheter due to urinary retention presents to the ER with sudden onset dizziness with irregular heart beat. No chest pain or shortness of breath. O/E A&Ox3, HS RRR, no murmurs, Chest CTAB, Abdo SNT, no CVA tenderness A/P New onset A. fib RVR - now resolved with diltiazem and electrolyte replacement. Given symptomatic low suspicion this has been ongoing. Monitor on telemetry for recurrence. Would favor outpatient clinical research monitor to assess for recurrence rather than anticoagulation at this stage given occurred in the setting of infection and electrolyte abnormalities Syncope - suspect due to a. fib RVR and inefficient forward cardiac output in setting of UTI Catheter associated UTI - IV ciprofloxacin, follow up Hypokalemia/hypomagnesemia - suspect related to his restricted diet, acutely will replace but may need further workup if persistent Elevated troponin - patient is without chest pain or shortness of breath, suspect related to a. fib with RVR. TTE. TSH WNL. Replete electrolytes. PG Care Time/CCT Total # of Minutes Spent Total Time Spent with Patient: Total time spent is greater than 50% in coordination of care (as documented) at patient's floor/unit and/or counseling patient: [place] [address] INT INP/OBS CARE 3/75MIN Patient Type Established Medical Decision Making High Complexity Diagnoses Atrial fibrillation with RVR I48.91 Syncope R55 Catheter-associated urinary tract infection T83.511A; N39.0 Elevated troponin R77.8 LUIS (acute kidney injury) N17.9 Multiple sclerosis G35 Hypomagnesemia E83.42 Diabetes E11.9 HTN (hypertension) I10 Enlarged prostate N40.0 Hypokalemia E87.6
[2023-03-17] MEDS ORDERED: CARBOHYDRATES FOR HYPOGLYCEMIA PO PRN (19:54)
[2023-03-17] MEDS ORDERED: GLUCAGON FOR INJ 1 MG VIAL SQ PRN (19:54)
[2023-03-17] MEDS ORDERED: GLUCOSE 10 TAB/TUBE PO PRN (19:54)
[2023-03-17] MEDS ORDERED: DEXTROSE 50% 50 ML SYRINGE IV PRN (19:54)
[2023-03-17] MEDS ORDERED: GLUCOSE 40% GEL 15 GM TUBE PO PRN (19:54)
[2023-03-17] MEDS ORDERED: ACETAMINOPHEN 325 MG TAB PO PRN (20:41)
[2023-03-17] MEDS ORDERED: POTASSIUM CHLORIDE CRTAB 20 MEQ TABCR PO STA (20:48)
[2023-03-17] MEDS: INSULIN ASPART PER UNIT CHARGE SC SCH (21:20)
[2023-03-17] MEDS ORDERED: POTASSIUM CHLORIDE CRTAB 20 MEQ TABCR PO ONE ×2 (21:30→23:00)
[2023-03-17] MEDS: HEPARIN SOD 5,000 UNIT/0.5 ML VIAL SQ SCH (21:56)
[2023-03-17] MEDS: TAMSULOSIN HCL 0.4 MG CAP PO SCH (21:56)
[2023-03-17] MEDS: LANTUS PER UNIT CHARGE SQ SCH (21:56)
[2023-03-17] MEDS: CIPROFLOXACIN / D5W 400 MG/200 ML BAG IV SCH (23:33)
[2023-03-18] MEDS: HEPARIN SOD 5,000 UNIT/0.5 ML VIAL SQ SCH ×3 (05:29→21:07)
[2023-03-18 06:07] LABS: Appearance Urine Cloudy (Clear); Bilirubin Urine Negative (Negative); Blood Urine 1+ (Negative); Color Urine Yellow; Glucose Urine UA Negative (Negative); Ketones Urine Negative (Negative); Leukocyte Esterase Urine 3+ (Negative); Nitrite Urine Negative (Negative); Protein Urine Trace (Negative); Specific Gravity Urine 1.007 (1.000-1.030); Urobilinogen Urine Negative (Negative)
--- NOTE | 2023-03-18 06:11 | Electrocardiogram Report ---
Test Reason : Blood Pressure : / mmHG Vent. Rate : 104 BPM Atrial Rate : 000 BPM P-R Int : 000 ms QRS Dur : 102 ms QT Int : 362 ms P-R-T Axes : 000 034 253 degrees QTc Int : 476 ms Atrial fibrillation with rapid ventricular response Marked ST abnormality, possible inferior subendocardial injury Abnormal ECG When compared with ECG of 04-JAN-2023 12:54, Atrial fibrillation has replaced Sinus rhythm Borderline criteria for Anterior infarct are no longer Present ST now depressed in Inferior leads ST now depressed in Lateral leads Confirmed by Faustino Oliveros ([id number]) on 03/18/2023 6:11:20 AM Referred By: Confirmed By:Faustino Oliveros
[2023-03-18 06:43] LABS: Basophils # (auto) 0.03 K/uL (0-0.2); Basophils % (auto) 0.4 %; Eosinophils # (auto) 0.24 K/uL (0-0.50); Eosinophils % (auto) 2.9 %; Hematocrit (blood only) 32.1 % (42.0-52.0); Hemoglobin 10.8 g/dl (14.0-18.0); Immature Granulocytes # (auto) 0.03 K/uL (0.01-0.20); Immature Granulocytes % (auto) 0.4 %; Lymphocytes # (auto) 1.77 K/uL (1.2-3.4); Lymphocytes % (auto) 21.5 %; Mean Corpuscular Hemoglobin 28.6 pg (25.0-34.0); Mean Corpuscular Hgb Conc 33.6 g/dL (32.0-36.0); Mean Corpuscular Volume 85.1 fL (80.0-100.0); Mean Platelet Volume 11.9 fL (9.4-12.4); Monocytes # (auto) 0.59 K/uL (0.11-0.59); Monocytes % (auto) 7.2 %; Neutrophils # (auto) 5.58 K/uL (1.40-6.50); Neutrophils % (auto) 67.6 %; Platelet Count 160 K/uL (130-400); RDW Coefficient of Variation 14.3 % (11.5-14.5); RDW Standard Deviation 44.2 fL (36.4-46.3); Red Blood Count 3.77 M/uL (4.70-6.10); White Blood Count 8.24 K/ul (4.8-10.8)
[2023-03-18 06:46] LABS: Epithelial Cell Urine Auto 0-5 /lpf (0-5); RBC Urine Automated 0-4 /hpf (0-4); WBC Urine Automated >30 /hpf (0-5)
[2023-03-18 06:47] LABS: Bacteria Urine Automated 2+ (Negative)
[2023-03-18 06:49] LABS: INR 1.1 (0.9-1.1); Prothrombin Time 11.5 Seconds (9.0-12.0)
[2023-03-18 07:04] LABS: BUN Creatinine Ratio 17.2 (10-20); Calcium 8.4 mg/dl (8.6-10.3); Creatinine Clr Calc Pharmacy 104.1 ml/min; Est GFR (African American) 102.3 ml/min; Est GFR (Non-African American) 88.3 ml/min; Magnesium 1.9 mg/dl (1.7-2.4)
[2023-03-18] MEDS ORDERED: NON-FORMULARY MEDICATION (Coq10 (Ubiquinol) 100 mg Capsule) PO SCH (09:00)
[2023-03-18] MEDS: FINASTERIDE 5 MG TAB PO SCH (09:25)
[2023-03-18] MEDS: LANTUS PER UNIT CHARGE SQ SCH ×2 (09:25→21:07)
[2023-03-18] MEDS: EZETIMIBE 10 MG TAB PO SCH (09:25)
[2023-03-18] MEDS: ASPIRIN 81 MG ECTAB PO SCH (09:26)
[2023-03-18] MEDS: INSULIN ASPART PER UNIT CHARGE SC SCH ×4 (09:26→20:27)
[2023-03-18] MEDS: CIPROFLOXACIN / D5W 400 MG/200 ML BAG IV SCH (12:10)
--- NOTE | 2023-03-18 18:55 | Hospitalist Progress Note ---
Date of Service March 18, 2023 Assessment & Plan (1) Atrial fibrillation with RVR: Plan: Patient converted to sinus rhythm Hold diltiazem drip for now. Most likely secondary to electrolyte imbalances and UTI. TSH normal PERCY done, report pending Electrolytes repleted Subcu heparin for DVT prophylaxis since this is most likely triggered by other factors Check BMP and magnesium tomorrow (2) Syncope: Plan: -Likely due to his afib RVR with possible orthostasis as well -Has not occurred since arriving to the ED -Has been hemodynamically stable -Fall precautions and am orthostatic vitals ordered -Follow TTE (3) Catheter-associated urinary tract infection: Plan: -Patient was diagnosed with a UTI at the Urology clinic on 03/13 -Kay cath was placed on 03/13 due to recurrent urinary retention -Will have nursing staff exchange his kay and collect a new UA with urine culture. Urine culture pending from today -Urine culture from 03/13 shows Enterobacter cloacae intermediately sensitive to ceftriaxone but otherwise pansensitive -S/P one dose of cefepime in the ED -Will start IV ciprofloxacin, can convert to PO prior to discharge (4) Elevated troponin: Plan: -Initial high sen trop elevated at 80 -Patient has been without chest discomfort -Was noted to have ST depression in the inferior leads -Likely due to demand from acute infection and afib RVR -Will repeat a STAT 2 hour trop now then continue to trend q6h overnight -Follow TTE tomorrow (5) LUIS (acute kidney injury): Plan: -Patient with mild LUIS Resolved -Avoid nephrotoxic agents -Monitor daily renal function (6) Multiple sclerosis: Plan: -Recently diagnosed during his last admission in December -Not on medical therapy at this time but denies acute decreased in strength or new neuro defects -Continue to monitor (7) Hypomagnesemia: Plan: -Noted to be 1.6 on admission Improved to 1.9 after repletion Recheck in a.m. -Likely due to poor oral intake with recent diet adjustments -Monitor on tele and daily mag level, consider discharging on PO mag (8) Diabetes: Plan: -Monitor BSG ACHS, goal is 110-160 -Normally takes 26 units of Tresiba daily, will convert to 10 units Lantus BID for now -CF of 50 ACHS for now -DMII and HH diet -Adjust regimen as needed (9) HTN (hypertension): Plan: -Stable -Hold lisinopril for now with recent syncopal episode andmild LUIS (10) Enlarged prostate: Plan: -Continue kay cath, flomax, and finasteride (11) Hypokalemia: Plan: -Noted to be 3.0 on admission -Likely due to poor oral intake and low mag level -Continue to monitor on tele and monitor daily electrolytes Plan Admission and Anticipated Discharge Date Admission Date: March 17, 2023 Subjective Patient feels better overall. Had converted to sinus rhythm spontaneously soon after admission. Review of Systems Review of Systems: All systems reviewed & are unremarkable except as noted in Subjective Physical Exam Physical Exam: General: Awake, conversant Heart: S1, S2/regular rate and rhythm, no murmur rubs or gallops Lungs: Clear to auscultation bilaterally. Normal effort Abdomen: Soft/nontender/nondistended. No hepatosplenomegaly Extremities: No clubbing/cyanosis. No edema Behavior: Appropriate, cooperative Results & Data Results & Data Vital Signs (Past 12 Hours) Vital Signs Temp Pulse Resp BP Pulse Ox O2 Del Method 03/18/23 16:12 37.0 C 70 21 166/92 H 97 Room Air 03/18/23 12:19 36.9 C 75 21 178/80 H 98 Room Air 03/18/23 08:00 Room Air 03/18/23 07:33 36.7 C 62 19 133/75 98 Room Air Laboratory Results Abnormal lab results 03/17/23 03/17/23 03/18/23 Range/Units 19:13 21:13 00:50 RBC (4.70-6.10) M/uL Hgb (14.0-18.0) g/dl Hct (42.0-52.0) % Chloride (98-107) mmol/L Glucose (70-99(Fasting)) mg/dl POC Glucose 160 H (70-99) mg/dl Calcium (8.6-10.3) mg/dl Troponin I High Sens 164.6 H* D 283.7 H* D (0-20) pg/ml Urine Appearance (Clear) Urine Protein (Negative) Urine Blood (Negative) Ur Leukocyte Esterase (Negative) Urine WBC (Auto) (0-5) /hpf Urine Bacteria (Auto) (Negative) Ur Renal Epithelial Cell (0-5) /lpf 03/18/23 03/18/23 03/18/23 Range/Units 05:56 06:18 06:18 RBC 3.77 L (4.70-6.10) M/uL Hgb 10.8 L (14.0-18.0) g/dl Hct 32.1 L (42.0-52.0) % Chloride 109 H (98-107) mmol/L Glucose 147 H (70-99(Fasting)) mg/dl POC Glucose (70-99) mg/dl Calcium 8.4 L (8.6-10.3) mg/dl Troponin I High Sens (0-20) pg/ml Urine Appearance Cloudy A (Clear) Urine Protein Trace H (Negative) Urine Blood 1+ H (Negative) Ur Leukocyte Esterase 3+ H (Negative) Urine WBC (Auto) >30 H (0-5) /hpf Urine Bacteria (Auto) 2+ H (Negative) Ur Renal Epithelial Cell 5-10 H (0-5) /lpf 03/18/23 03/18/23 03/18/23 Range/Units 06:18 07:27 11:34 RBC (4.70-6.10) M/uL Hgb (14.0-18.0) g/dl Hct (42.0-52.0) % Chloride (98-107) mmol/L Glucose (70-99(Fasting)) mg/dl POC Glucose 141 H 162 H (70-99) mg/dl Calcium (8.6-10.3) mg/dl Troponin I High Sens 222.6 H* D (0-20) pg/ml Urine Appearance (Clear) Urine Protein (Negative) Urine Blood (Negative) Ur Leukocyte Esterase (Negative) Urine WBC (Auto) (0-5) /hpf Urine Bacteria (Auto) (Negative) Ur Renal Epithelial Cell (0-5) /lpf 03/18/23 03/18/23 Range/Units 12:48 16:23 RBC (4.70-6.10) M/uL Hgb (14.0-18.0) g/dl Hct (42.0-52.0) % Chloride (98-107) mmol/L Glucose (70-99(Fasting)) mg/dl POC Glucose 177 H (70-99) mg/dl Calcium (8.6-10.3) mg/dl Troponin I High Sens 143.0 H* D (0-20) pg/ml Urine Appearance (Clear) Urine Protein (Negative) Urine Blood (Negative) Ur Leukocyte Esterase (Negative) Urine WBC (Auto) (0-5) /hpf Urine Bacteria (Auto) (Negative) Ur Renal Epithelial Cell (0-5) /lpf PG Care Time/CCT Total # of Minutes Spent Total Time Spent with Patient: Total time spent is greater than 50% in coordination of care (as documented) at patient's floor/unit and/or counseling patient: Coding Level of Care Code 75104 SUB INP/OBS CARE 2/35MIN Diagnoses Atrial fibrillation with RVR I48.91 Syncope R55 Catheter-associated urinary tract infection T83.511A; N39.0 Elevated troponin R77.8 LUIS (acute kidney injury) N17.9 Multiple sclerosis G35 Hypomagnesemia E83.42 Diabetes E11.9 HTN (hypertension) I10 Enlarged prostate N40.0 Hypokalemia E87.6 Time Spent (min) 35
--- NOTE | 2023-03-18 19:25 | XCELERA ---
[id number] [id number]
[2023-03-18] MEDS ORDERED: POTASSIUM CHLORIDE CRTAB 20 MEQ TABCR PO ONE (19:30)
[2023-03-18] MEDS: TAMSULOSIN HCL 0.4 MG CAP PO SCH (21:07)
[2023-03-19] MEDS: CIPROFLOXACIN / D5W 400 MG/200 ML BAG IV SCH ×2 (00:13→12:32)
[2023-03-19] MEDS: HEPARIN SOD 5,000 UNIT/0.5 ML VIAL SQ SCH ×2 (05:20→16:06)
--- NOTE | 2023-03-19 06:35 | Electrocardiogram Report ---
Test Reason : Blood Pressure : / mmHG Vent. Rate : 085 BPM Atrial Rate : 085 BPM P-R Int : 198 ms QRS Dur : 084 ms QT Int : 366 ms P-R-T Axes : 077 040 -61 degrees QTc Int : 435 ms Normal sinus rhythm Septal infarct , age undetermined Marked ST abnormality, possible inferior subendocardial injury Abnormal ECG When compared with ECG of 17-MAR-2023 16:01, Sinus rhythm has replaced Atrial fibrillation Confirmed by Faustino Oliveros ([id number]) on 03/18/2023 5:05:52 PM Referred By: REFERRED SELF Confirmed By:Faustino Oliveros
[2023-03-19 07:24] LABS: Basophils # (auto) 0.04 K/uL (0-0.2); Basophils % (auto) 0.7 %; Eosinophils # (auto) 0.25 K/uL (0-0.50); Eosinophils % (auto) 4.5 %; Hematocrit (blood only) 35.5 % (42.0-52.0); Immature Granulocytes # (auto) 0.02 K/uL (0.01-0.20); Immature Granulocytes % (auto) 0.4 %; Lymphocytes # (auto) 1.46 K/uL (1.2-3.4); Mean Corpuscular Hemoglobin 29.2 pg (25.0-34.0); Mean Corpuscular Hgb Conc 33.8 g/dL (32.0-36.0); Mean Corpuscular Volume 86.4 fL (80.0-100.0); Mean Platelet Volume 11.6 fL (9.4-12.4); Monocytes # (auto) 0.46 K/uL (0.11-0.59); Monocytes % (auto) 8.2 %; Neutrophils # (auto) 3.38 K/uL (1.40-6.50); Neutrophils % (auto) 60.2 %; Platelet Count 184 K/uL (130-400); RDW Coefficient of Variation 14.5 % (11.5-14.5); RDW Standard Deviation 45.5 fL (36.4-46.3); Red Blood Count 4.11 M/uL (4.70-6.10); White Blood Count 5.61 K/ul (4.8-10.8)
[2023-03-19 07:30] LABS: INR 1.1 (0.9-1.1); Prothrombin Time 11.8 Seconds (9.0-12.0)
[2023-03-19 07:54] LABS: BUN Creatinine Ratio 14.5 (10-20); Calcium 8.7 mg/dl (8.6-10.3); Creatinine Clr Calc Pharmacy 140.3 ml/min; Est GFR (African American) 118.8 ml/min; Est GFR (Non-African American) 102.5 ml/min; Magnesium 1.6 mg/dl (1.7-2.4); Potassium 3.5 mmol/L (3.5-5.1)
[2023-03-19 08:02] LABS: Troponin I High Sensitivity 84.2 pg/ml (0-20)
[2023-03-19] MEDS: EZETIMIBE 10 MG TAB PO SCH (08:38)
[2023-03-19] MEDS: ASPIRIN 81 MG ECTAB PO SCH (08:38)
[2023-03-19] MEDS: FINASTERIDE 5 MG TAB PO SCH (08:38)
[2023-03-19] MEDS: INSULIN ASPART PER UNIT CHARGE SC SCH ×3 (08:39→17:45)
[2023-03-19] MEDS: LANTUS PER UNIT CHARGE SQ SCH (08:46)
[2023-03-19] MEDS ORDERED: POTASSIUM CHLORIDE CRTAB 20 MEQ TABCR PO STA (09:11)
[2023-03-19] MEDS ORDERED: MAGNESIUM OXIDE 400 MG TAB PO SCH (09:15)
--- NOTE | 2023-03-19 13:42 | Discharge Summary ---
Date of Service March 19, 2023 Admission HPI Per Admitting Provider Lul is a 62 year old male with a PMH significant for recent MS diagnosis, BPH with urinary retention, DMII, HTN, and hyperlipidemia who presented to the [facility] ED on 03/17 via EMS after a syncopal event at work this afternoon. In the ED the patient was noted to be hypothermic at 35.5C but otherwise stable. Labs were significant for a Hgb of 11.9 (down from 15 as of 01/07), HCT of 35 (down from 42 as of 01/07), potassium of 3.0, cr of 1.23 (baseline appears near 0.8), mag of 1.6, initial high sen trop of 81, and procal less than 0.05. Chest xray was read as "No acute process.". ECG on arrival showed new onset afiv RVR with HR in the low 100's. Prior to admission the patient was given a dose of Cefepime, 500 mL NSS, 1gm IV mag sulfate, 10 meq IV KCL, and 10 mg IV diltiazem. He was subsequently transitioned onto a diltiazem drip but converted back to NSR shortly after. Per chart review, the patient was recently seen in the [facility] Urology clinic for follow up. They had plans to obtain urodynamics at that visit, but there were concerns for acute UTI so this was delayed. He was started on a 10 day course of bactrim and wanted to try straight cathing at home prior to another Kay catheter being placed in the office. At the time of the exam the patient was lying in bed in no acute distress with his sitting bedside, history was obtained from both. He states that he was in his normal state of health this am upon waking. He was at work when he began to feel light-headed/dizzy while sitting at his desk at approximately 2 pm. He went and laid flat on another desk in his office, his symptoms started to improve but he did notice an irregular heartbeat, which is new for him. He sat back at his desk but his symptoms continued to progress. He got up to go to the bathroom and lost consciousness shortly after. He woke up on the ground, surround by coworkers. He denies recent fever, chills, chest pain, SOB, cough, abd pain, nausea, vomiting, diarrhea, hematuria, melena, diarrhea, LE swelling. When speaking about his recent UTI, he explains that he only picked the Bactrim up from the Pharmacy today as he was unaware that it was filled after Urology called the prescription in on 03/13. He confirms that he has been without chest discomfort throughout the day today. He states that he had a heart cath in [place] approximately 2 years ago. He was told that one of his coronary arteries was approximately 40% occluded but his coronaries were otherwise unremarkable. We discussed code status, he is a full code. Please refer to Dr. Villanueva's attestation for any changes to the treatment plan Discharge Exam General: Awake, conversant Heart: S1, S2/regular rate and rhythm, no murmur rubs or gallops Lungs: Clear to auscultation bilaterally. Normal effort Abdomen: Soft/nontender/nondistended. No hepatosplenomegaly Extremities: No clubbing/cyanosis. No edema Behavior: Appropriate, cooperative Discharge Data Allergies Allergy/AdvReac Type Severity Reaction Status Date / Time bee venom protein (honey bee) Allergy Severe Anaphylaxis Verified 01/22/23 15:06 Consultations 03/17/23 17:57 ED Decision to Admit Stat Hospital Course (1) Atrial fibrillation with RVR: Patient converted to sinus rhythm Hold diltiazem drip for now. Most likely secondary to electrolyte imbalances and UTI. TSH normal PERCY done, report pending Electrolytes repleted Subcu heparin for DVT prophylaxis since this is most likely triggered by other factors Check BMP and magnesium tomorrow (2) Syncope: -Likely due to his afib RVR with possible orthostasis as well -Has not occurred since arriving to the ED -Has been hemodynamically stable -Fall precautions and am orthostatic vitals ordered -Follow TTE (3) Catheter-associated urinary tract infection: -Patient was diagnosed with a UTI at the Urology clinic on 03/13 -Kay cath was placed on 03/13 due to recurrent urinary retention -Will have nursing staff exchange his kay and collect a new UA with urine culture. Urine culture pending from today -Urine culture from 03/13 shows Enterobacter cloacae intermediately sensitive to ceftriaxone but otherwise pansensitive -S/P one dose of cefepime in the ED -Will start IV ciprofloxacin, can convert to PO prior to discharge (4) Elevated troponin: -Initial high sen trop elevated at 80 -Patient has been without chest discomfort -Was noted to have ST depression in the inferior leads -Likely due to demand from acute infection and afib RVR -Will repeat a STAT 2 hour trop now then continue to trend q6h overnight -Follow TTE tomorrow (5) LUIS (acute kidney injury): -Patient with mild LUIS Resolved -Avoid nephrotoxic agents -Monitor daily renal function (6) Multiple sclerosis: -Recently diagnosed during his last admission in December -Not on medical therapy at this time but denies acute decreased in strength or new neuro defects -Continue to monitor (7) Hypomagnesemia: -Noted to be 1.6 on admission Improved to 1.9 after repletion Recheck in a.m. -Likely due to poor oral intake with recent diet adjustments -Monitor on tele and daily mag level, consider discharging on PO mag (8) Diabetes: -Monitor BSG ACHS, goal is 110-160 -Normally takes 26 units of Tresiba daily, will convert to 10 units Lantus BID for now -CF of 50 ACHS for now -DMII and HH diet -Adjust regimen as needed (9) HTN (hypertension): -Stable -Hold lisinopril for now with recent syncopal episode andmild LUIS (10) Enlarged prostate: -Continue kay cath, flomax, and finasteride (11) Hypokalemia: -Noted to be 3.0 on admission -Likely due to poor oral intake and low mag level -Continue to monitor on tele and monitor daily electrolytes Plan Discharge Plan Discharge Items Patient Disposition: Home - Self-Care Reason For Visit: NEW ONSET AFIB RVR, UTI, ELEVATED TROP Discharge Diagnosis: new onset Afib, electrolyte imbalances, UTI Condition on Discharge: Fair Activity: Resume your previous activity Non-emergency contact: Primary Care Provider Call non-emergency contact if: you have any medication questions and your symptoms worsen Follow-up/Referrals: Maxwell Velarde [Primary Care Provider] - Diet: Carb Consistent or DM2 and Heart Healthy Addtl Attending Provider Instructions: Advised to follow-up with PCP in 1 week Pending Studies at Discharge: No Stand-Alone Forms: My [facility] Medications and DC Order Prescriptions: New ciprofloxacin HCl [Cipro] 500 mg tablet 500 mg PO BID 5 Days Qty: 10 0RF magnesium oxide 200 mg magnesium tablet 200 mg PO DAILY Qty: 30 0RF potassium chloride 20 mEq tablet extended release 20 meq PO DAILY Qty: 30 0RF Continued finasteride 5 mg tablet 5 mg PO DAILY Qty: 90 3RF tamsulosin 0.4 mg capsule 0.4 mg PO QPM Qty: 90 3RF aspirin 81 mg Tablet,Delayed Release (Dr/Ec) 81 mg PO QAM epinephrine 0.3 mg/0.3 mL auto-injector 0.3 mg subcut UD PRN (Reason: Anaphylaxis) ezetimibe 10 mg tablet 10 mg PO QAM omega 5-wjx-dbi-fish oil [Fish Oil] 1,000 mg (120 mg-180 mg) Capsule 2 cap PO QAM lisinopril 20 mg Tablet 2.5 mg PO DAILY zinc 50 mg Tablet 50 mg PO QAM vitamin E 100 unit Tablet 180 unit PO QAM cholecalciferol (vitamin D3) [Vitamin D3] 125 mcg (5,000 unit) Tablet 125 mcg PO QAM insulin degludec [Tresiba FlexTouch U-100] 100 unit/mL (3 mL) insulin pen 26 unit SUBCUT DAILY Advance Digestive Enzyme 1 cap PO DAILY B12 1 tab PO DAILY Bcq 5 cap PO BID Gi Revive Gut Health 1 dose PO DIRECTED Rx Instructions: one dose= one scoop per pt Nerve Support Complex 3 cap PO DIRECTED Rx Instructions: 3 caps with each meal coQ10 (ubiquinol) 100 mg Capsule 100 mg PO QAM Discontinued sulfamethoxazole-trimethoprim [Bactrim DS] 800-160 mg tablet 1 tab PO BID 10 Days Qty: 20 0RF Discharge Orders: Discharge Order (Routine); Ordered 03/19/23 Ordered By: Daren Kennedy Admission Data Admit Date/Time: 03/17/23 18:49 Attending Provider: Daren Kennedy Admit Provider: José Villanueva Primary Care Provider: Maxwell Velarde Other Providers: José Villanueva Coding Diagnoses Atrial fibrillation with RVR I48.91 Syncope R55 Catheter-associated urinary tract infection T83.511A; N39.0 Elevated troponin R77.8 LUIS (acute kidney injury) N17.9 Multiple sclerosis G35 Hypomagnesemia E83.42 Diabetes E11.9 HTN (hypertension) I10 Enlarged prostate N40.0 Hypokalemia E87.6
[2023-03-19] MEDS ORDERED: lisinopril 20 MG TAB PO STA (16:37)
--- NOTE | 2023-03-19 16:44 | Hospitalist Progress Note ---
Date of Service March 19, 2023 Assessment & Plan (1) Atrial fibrillation with RVR: Plan: Patient converted to sinus rhythm Hold diltiazem drip for now. Most likely secondary to electrolyte imbalances and UTI. TSH normal PERCY done, report pending Electrolytes repleted Subcu heparin for DVT prophylaxis since this is most likely triggered by other factors Replace potassium and magnesium. Will discharge on p.o. potassium and magnesium (2) Syncope: Plan: -Likely due to his afib RVR with possible orthostasis as well -Has not occurred since arriving to the ED -Has been hemodynamically stable -Fall precautions and am orthostatic vitals ordered - echo findings reviewed. (3) Catheter-associated urinary tract infection: Plan: -Patient was diagnosed with a UTI at the Urology clinic on 03/13 -Kay cath was placed on 03/13 due to recurrent urinary retention - nurse tried to replace Kay catheter but failed Urology consulted -Urine culture from 03/13 shows Enterobacter cloacae intermediately sensitive to ceftriaxone but otherwise pansensitive -S/P one dose of cefepime in the ED - continue IV ciprofloxacin, can convert to PO prior to discharge (4) Elevated troponin: Plan: -Initial high sen trop elevated at 80 -Patient has been without chest discomfort -Was noted to have ST depression in the inferior leads -Likely due to demand from acute infection and afib RVR -Will repeat a STAT 2 hour trop now then continue to trend q6h overnight - TTE did not show any wall motion abnormalities (5) LUIS (acute kidney injury): Plan: -Patient with mild LUIS Resolved Resume lisinopril -Avoid nephrotoxic agents -Monitor daily renal function (6) Multiple sclerosis: Plan: -Recently diagnosed during his last admission in December -Not on medical therapy at this time but denies acute decreased in strength or new neuro defects -Continue to monitor (7) Hypomagnesemia: Plan: -Noted to be 1.6 on admission Improved to 1.9 after repletion Recheck in a.m. -Likely due to poor oral intake with recent diet adjustments - discharged on p.o. mag (8) Diabetes: Plan: -Monitor BSG ACHS, goal is 110-160 -Normally takes 26 units of Tresiba daily, will convert to 10 units Lantus BID for now -CF of 50 ACHS for now -DMII and HH diet -Adjust regimen as needed (9) HTN (hypertension): Plan: - blood pressure creeping up - resume lisinopril now that LUIS has resolved and is not hypotensive or hypertensive (10) Enlarged prostate: Plan: -Continue kay cath, flomax, and finasteride (11) Hypokalemia: Plan: -Noted to be 3.0 on admission -Likely due to poor oral intake and low mag level -Continue to monitor on tele and monitor daily electrolytes Plan discharge canceled for today due to failed attempt to replace Kay catheter . Urology consulted Admission and Anticipated Discharge Date Admission Date: March 17, 2023 Subjective Patient feels well. nurse attempted to replaced his catheter but met with resistance and failed. Urology consulted. Noted elevated blood pressure readi ngs. Review of Systems Review of Systems: All systems reviewed & are unremarkable except as noted in Subjective Physical Exam Physical Exam: General: Awake, conversant Heart: S1, S2/regular rate and rhythm, no murmur rubs or gallops Lungs: Clear to auscultation bilaterally. Normal effort Abdomen: Soft/nontender/nondistended. No hepatosplenomegaly Extremities: No clubbing/cyanosis. No edema Behavior: Appropriate, cooperative Results & Data Results & Data Vital Signs (Past 12 Hours) Vital Signs Temp Pulse Resp BP BP Pulse Ox O2 Del Method 03/19/23 14:54 36.5 C 62 21 182/91 H 168/78 H 96 03/19/23 11:04 36.5 C 62 21 182/91 H 96 Room Air 03/19/23 09:58 36.6 C 56 L 24 160/88 H 96 Room Air PG Care Time/CCT Total # of Minutes Spent Total Time Spent with Patient: Total time spent is greater than 50% in coordination of care (as documented) at patient's floor/unit and/or counseling patient: Coding Level of Care Code 26838 SUB INP/OBS CARE 2/35MIN Diagnoses Atrial fibrillation with RVR I48.91 Syncope R55 Catheter-associated urinary tract infection T83.511A; N39.0 Elevated troponin R77.8 LUIS (acute kidney injury) N17.9 Multiple sclerosis G35 Hypomagnesemia E83.42 Diabetes E11.9 HTN (hypertension) I10 Enlarged prostate N40.0 Hypokalemia E87.6 Time Spent (min) 35
--- NOTE | 2023-03-19 17:48 | Urology Consultation ---
Date of Consultation March 19, 2023 Assessment & Plan (1) Acute urinary retention: Urinary retention now addressed with Milner catheter. Recommending keeping catheter until outpatient follow-up with urology. He will be rescheduled for urodynamic testing as an outpatient. (2) Catheter-associated urinary tract infection: Most recent urine sample with no growth. Sample from 03/13 with Enterobacter. He is being treated with ciprofloxacin -sensitive per culture data. He remains afebrile/asymptomatic I think would be reasonable to stop antibiotics for urinary source in 3-5 days unless new culture data emerges. Plan Urology will sign off for now. Please call with any questions or concerns. History of Present Illness Reason for Consultation: Urinary retention, difficult catheter placement Attending Physician: Daren Kennedy MD History of Present Illness This is a 62-year-old male previously seen by urology for prostatic enlargement, urinary retention, recurrent UTIs. He is currently in the hospital with A-fib with RVR, elevated troponin, recent syncopal episode. Recent urine sample was concerning for infection, therefore his primary team desired catheter exchange for first catheter. Previous Milner was removed without any difficulty, but could not be replaced by nursing staff and urology was consulted for assistance. At the bedside, he is currently in no acute distress. He was recently supposed to have outpatient urodynamic testing but was canceled due to a urinary tract infection. He currently denies any lower abdominal pain. He has a little discomfort near the urethra from recent catheter attempts. He has tried CIC wit hout success and has noticed some blood per urethra. He also notes hypertension and recent exacerbation of MS symptoms. Labs reviewed: 03/19/2023: WBC 5.61, glucose 123, creatinine 0.69. Urine and blood cultures from 03/17 and 03/18 with no growth. Urine culture from 03/13 with Enterobacter cloacae No recent coaxial imaging to review A Milner catheter was placed in the following fashion: The patient was identified and informed consent was obtained. He was prepped with Betadine and draped in sterile fashion. The urethra was distended with lubricating jelly. A well-lubricated 18 Swedish coud catheter was advanced per urethra with no resistance. Once advanced to the hub, there was good return of clear yellow urine. The balloon was inflated with 10 mL of normal saline and the catheter was attached to gravity drainage. Patient tolerated the procedure well with no immediate complications. Allergies Allergy/AdvReac Type Severity Reaction Status Date / Time bee venom protein (honey bee) Allergy Severe Anaphylaxis Verified 01/22/23 15:06 Home Medications Medication Instructions Recorded Confirmed Type aspirin 81 mg tablet,delayed 81 mg PO QAM 12/29/19 03/17/23 History release epinephrine 0.3 mg/0.3 mL 0.3 mg subcut UD PRN Anaphylaxis 12/29/19 03/17/23 History injection, auto-injector ezetimibe 10 mg tablet 10 mg PO QAM 12/29/19 03/17/23 History omega 5-lzk-akn-fish oil 1,000 mg 2 cap PO QAM 12/29/19 03/17/23 History (120 mg-180 mg) capsule (Fish Oil) cholecalciferol (vitamin D3) 125 125 mcg PO QAM 09/07/21 03/17/23 History mcg (5,000 unit) tablet (Vitamin D3) lisinopril 20 mg tablet 2.5 mg PO DAILY 09/07/21 03/17/23 History vitamin E 100 unit tablet 180 unit PO QAM 09/07/21 03/17/23 History zinc 50 mg tablet 50 mg PO QAM 09/07/21 03/17/23 History coQ10 (ubiquinol) 100 mg capsule 100 mg PO QAM 11/26/21 03/17/23 History finasteride 5 mg tablet 5 mg PO DAILY #90 tabs 04/09/22 03/17/23 Rx tamsulosin 0.4 mg capsule 0.4 mg PO QPM #90 caps 09/03/22 03/17/23 Rx insulin degludec 100 unit/mL (3 26 unit subcut DAILY 02/18/23 03/17/23 History mL) subcutaneous pen (Tresiba FlexTouch U-100 insulin) Advance Digestive Enzyme 1 cap PO DAILY 03/17/23 03/17/23 History B12 1 tab PO DAILY 03/17/23 03/17/23 History Bcq 5 cap PO BID 03/17/23 03/17/23 History Gi Revive Gut Health 1 dose PO DIRECTED 03/17/23 03/17/23 History Nerve Support Complex 3 cap PO DIRECTED 03/17/23 03/17/23 History ciprofloxacin HCl 500 mg tablet 500 mg PO BID 5 days #10 tabs 03/19/23 Rx (Cipro) magnesium oxide 200 mg PO DAILY #30 tabs 03/19/23 Rx potassium chloride 20 mEq 20 meq PO DAILY #30 tabs 03/19/23 Rx tablet,extended release Patient History Medical History BPH (benign prostatic hyperplasia) Cardiac murmur slight--follows with Dr. Singh Diabetes type 2--IDDM has insulin pump in place HTN (hypertension) Hyperlipidemia Insulin pump in place Osteoarthritis Surgical History History of amputation of lesser toe of left foot (~09/10/21) fifth toe amputation and fifth metatarsal head resection with I&D History of amputation of toe x4 History of arthroscopic knee surgery meniscus repair History of cardiac cath x2--in [place] 1995 (no stents) and [place] 2019 no stents--follows with Dr. Singh History of colonoscopy History of tonsillectomy and adenoids History of wisdom tooth extraction Status post insertion of insulin pump Family History Father Heart disease, Onset Age: 54 Had CABG at age 54 Mother Diabetes Other No family history of adverse response to anesthesia Social History Smoking Status: Never smoker Second Hand Exposure: No; Do You Dip or Chew Tobacco: No; Hx Alcohol Use: No Hx Substance Use: No Preferred Language: Latvian Communication Ability: Effective Visual Impairment: Limited Hearing Ability: Normal Hat Presser Required: No Beliefs That Will Affect Care: None marital status: Current Living Situation: Spouse current occupational status: employed 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 Physical Exam Constitutional: well developed and well nourished; no acute distress Eyes: + anicteric sclerae; pupils not irregular Respiratory: normal respiratory effort; no respiratory distress, does not use accessory muscles and no cough Cardiovascular: well perfused Gastrointestinal (Abdomen): Inspection/Auscultation: abdomen normal to inspection; abdomen not distended Musculoskeletal: Extremities: extremities normal to inspection Skin: normal turgor; no rashes and no lesions Neurologic: moves all extremities and awake Psychiatric: Orientation: alert and oriented x 3 Genitourinary: Milner catheter in place draining clear yellow urine. Results & Data Vital Signs (Past 12 Hours) Vital Signs Temp Pulse Resp BP BP Pulse Ox O2 Del Method 03/19/23 16:00 36.9 C 69 24 195/101 H 95 Room Air 03/19/23 14:54 36.5 C 62 21 182/91 H 168/78 H 96 03/19/23 11:04 36.5 C 62 21 182/91 H 96 Room Air 03/19/23 09:58 36.6 C 56 L 24 160/88 H 96 Room Air PG Care Time/CCT Total # of Minutes Spent Total Time Spent with Patient: Total time spent is greater than 50% in coordination of care (as documented) at patient's floor/unit and/or counseling patient: Coding Level of Care Code 46455 IN/OBS CONSULT LVL 4,60M Diagnoses Acute urinary retention R33.8 Catheter-associated urinary tract infection T83.511A; N39.0
--- NOTE | 2023-03-20 07:25 | Discharge Summary ---
Date of Service March 20, 2023 Admission HPI Per Admitting Provider Lul is a 62-year-old male with a past medical history of type II DM, LUTS, hyperlipidemia, hypertension who presented to the ER 01/04 with urinary incontinence, poor balance, elevated blood sugars. Per reprot pts symptoms began November 30 and was walking his dog uphill, when coming back downhill he felt his legs became weak and could not walk well. He started to lose control of urine and was Ataxic acutely. Now has overflow incontience. Last 2-3 days no control of bladder, has been feely leaking into depends. Saw PCP as outpatient, was pending some tests but his symptoms continued Friday- Friday and he came to ER Has had tinling in the legs into the groin which began from the knees down and now extends into the thighs and lower back.Has come and gone, not there right. Does have some tinlging in the saddle area. Some R lumbar low back tingling, no pain. BP has always been high (160s -> 190s) even in college, has been following with [facility] and a strict ketogenic diet which he started in October with dramatic improvements in BP but does take bullion cubes every day and salt with each meal due to that diet. Had prostate MRI, no evidence of cancer. NO headache NO chest pain, chest pressure NO headache, no vision change. Had a heart cath 3 years ago in [facility] to 'get a baseline' due to very high FHX. Had not had chest pain. Father had CA at 54 and 75. 40% single artery blockage, no stents placed. Denies chest pain, crescendo angina, shortness of breath Last A1C >9%. Multiple DM infection sin the past. Denies current ulcers/infection 2021. Medical History: Reviewed Medications: Reviewed. Took AM meds. Surgical History: Reviewed. Hx of L 5th digit revision 2/2 DM infection last year, well healed. Sep 10, 2021. Distal amputation of each L distal digit. NO R foot surgeries. Family history: Reviewed Allergies: Reviewed. NKDA Social History: no tobacco or etoh use. Code Status: FUll COde Admission Exam Per Admitting Provider Constitutional: WD/WN, vitals as above Eyes: PERRL, conjunctivae normal, anicteric sclerae ENMT: external ear and nose normal, oropharynx normal Neck: trachea midline, no thyromegaly Respiratory: normal respiratory effort, lungs clear to auscultation Cardiovascular: RRR, no murmur, no edema Chest (Breasts): Chest: normal inspection of chest Gastrointestinal (Abdomen): normal bowel sounds, soft, nontender, no hepatosplenomegaly Musculoskeletal: Extremities: no cyanosis and no clubbing Left fourth toe appears to be a sausage digit with an open deep ulceration on the plantar and dorsal surface of the distal phalanx with significant erythema, with mild erythema and edema spread up to the mid tibia anteriorly 1+ dorsalis pedis pulses bilaterally Also noted to have distal phalanx amputations of the left great and middle toes Skin: no rashes, warm and dry Neurologic: moves all extremities and awake; no focal motor deficits Psychiatric: A+Ox3, euthymic affect Lymphatic: no lymphedema Principal Diagnosis Syncope due to rapid A-fib Atrial fibrillation most likely related to electrolyte imbalances Electrolyte imbalances including hypokalemia, hypomagnesemia complicated UTI related to indwelling Kay catheter Elevated troponin most likely demand ischemia that is rate related Uncontrolled hypertension possibly due to holding home medications Discharge Exam General: Awake, conversant Heart: S1, S2/regular rate and rhythm, no murmur rubs or gallops Lungs: Clear to auscultation bilaterally. Normal effort Abdomen: Soft/nontender/nondistended. No hepatosplenomegaly Extremities: No clubbing/cyanosis. No edema Behavior: Appropriate, cooperative Discharge Data Allergies Allergy/AdvReac Type Severity Reaction Status Date / Time bee venom protein (honey bee) Allergy Severe Anaphylaxis Verified 01/22/23 15:06 Consultations 03/17/23 17:57 ED Decision to Admit Stat 03/19/23 15:20 Consult Urology Routine Hospital Course (1) Atrial fibrillation with RVR: Patient converted to sinus rhythm diltiazem drip discontinued Most likely secondary to electrolyte imbalances and UTI. TSH normal PERCY done, report pending Electrolytes repleted Subcu heparin for DVT prophylaxis since this is most likely triggered by other factors Replace potassium and magnesium. Will discharge on p.o. potassium and magnesium (2) Syncope: -Likely due to his afib RVR with possible orthostasis as well -Has not occurred since arriving to the ED -Has been hemodynamically stable -Fall precautions ordered - echo findings reviewed. (3) Catheter-associated urinary tract infection: -Patient was diagnosed with a UTI at the Urology clinic on 03/13 -Kay cath was placed on 03/13 due to recurrent urinary retention - nurse tried to replace Kay catheter but failed Urology consulted who replaced the Kay catheter -Urine culture from 03/13 shows Enterobacter cloacae intermediately sensitive to ceftriaxone but otherwise pansensitive -S/P one dose of cefepime in the ED - continue IV ciprofloxacin, can convert to PO prior to discharge to complete the course (4) Elevated troponin: -Initial high sen trop elevated at 80 -Patient has been without chest discomfort -Was noted to have ST depression in the inferior leads -Likely due to demand from acute infection and afib RVR - TTE did not show any wall motion abnormalities (5) LUIS (acute kidney injury): -Patient with mild LUIS Resolved Resume lisinopril -Avoid nephrotoxic agents -Monitor daily renal function (6) Multiple sclerosis: -Recently diagnosed during his last admission in December -Not on medical therapy at this time but denies acute decreased in strength or new neuro defects -Continue to monitor (7) Hypomagnesemia: -Noted to be 1.6 on admission Improved to 1.9 after repletion -Likely due to poor oral intake with recent diet adjustments - discharge on p.o. mag (8) Diabetes: -Monitor BSG ACHS, goal is 110-160 -Normally takes 26 units of Tresiba daily, will convert to 10 units Lantus BID for now -CF of 50 ACHS for now -DMII and HH diet -Adjust regimen as needed (9) HTN (hypertension): - blood pressure creeping up - resume lisinopril now that LUIS has resolved and is not hypotensive or hypertensive Patient was not discharged due to uncontrolled blood pressure. However he wanted to leave AGAINST MEDICAL ADVICE. All risks explained. Patient is in a sound state of mind and has capacity to make decisions. He was allowed to leave AGAINST MEDICAL ADVICE. (10) Enlarged prostate: -Continue kay cath, flomax, and finasteride (11) Hypokalemia: -Noted to be 3.0 on admission -Likely due to poor oral intake and low mag level -Continue to monitor on tele and monitor daily electrolytes Plan discharge canceled for today Due to uncontrolled hypertension. However the patient left AGAINST MEDICAL ADVICE. Total Time Total Time Spent Total Time Spent (In Minutes): 35 Discharge Plan Discharge Items Patient Disposition: Against Medical Advice Reason For Visit: NEW ONSET AFIB RVR, UTI, ELEVATED TROP Discharge Diagnosis: new onset Afib, electrolyte imbalances, UTI Condition on Discharge: Fair Activity: Resume your previous activity Non-emergency contact: Primary Care Provider Call non-emergency contact if: you have any medication questions and your symptoms worsen Follow-up/Referrals: Maxwell Velarde [Primary Care Provider] - 03/26/23 9:45 am Diet: Carb Consistent or DM2 and Heart Healthy Addtl Attending Provider Instructions: Advised to follow-up with PCP in 1 week Pending Studies at Discharge: No Stand-Alone Forms: My [facility] Medications and DC Order Prescriptions: New ciprofloxacin HCl [Cipro] 500 mg tablet 500 mg PO BID 5 Days Qty: 10 0RF magnesium oxide 200 mg magnesium tablet 200 mg PO DAILY Qty: 30 0RF potassium chloride 20 mEq tablet extended release 20 meq PO DAILY Qty: 30 0RF Continued finasteride 5 mg tablet 5 mg PO DAILY Qty: 90 3RF tamsulosin 0.4 mg capsule 0.4 mg PO QPM Qty: 90 3RF aspirin 81 mg Tablet,Delayed Release (Dr/Ec) 81 mg PO QAM epinephrine 0.3 mg/0.3 mL auto-injector 0.3 mg subcut UD PRN (Reason: Anaphylaxis) ezetimibe 10 mg tablet 10 mg PO QAM omega 6-nwg-bam-fish oil [Fish Oil] 1,000 mg (120 mg-180 mg) Capsule 2 cap PO QAM lisinopril 20 mg Tablet 2.5 mg PO DAILY zinc 50 mg Tablet 50 mg PO QAM vitamin E 100 unit Tablet 180 unit PO QAM cholecalciferol (vitamin D3) [Vitamin D3] 125 mcg (5,000 unit) Tablet 125 mcg PO QAM insulin degludec [Tresiba FlexTouch U-100] 100 unit/mL (3 mL) insulin pen 26 unit SUBCUT DAILY Advance Digestive Enzyme 1 cap PO DAILY B12 1 tab PO DAILY Bcq 5 cap PO BID Gi Revive Gut Health 1 dose PO DIRECTED Rx Instructions: one dose= one scoop per pt Nerve Support Complex 3 cap PO DIRECTED Rx Instructions: 3 caps with each meal coQ10 (ubiquinol) 100 mg Capsule 100 mg PO QAM Discontinued sulfamethoxazole-trimethoprim [Bactrim DS] 800-160 mg tablet 1 tab PO BID 10 Days Qty: 20 0RF Discharge Orders: Discharge Order (Routine); Ordered 03/20/23 Ordered By: Daren Kennedy Admission Data Admit Date/Time: 03/17/23 18:49 Attending Provider: Daren Kennedy Admit Provider: José Villanueva Primary Care Provider: Maxwell Velarde Other Providers: José Villanueva ; Miah Reich Other Interventions: Discharge Summary Assessment (RN) Last Done: 03/19/23 14:54 Coding Level of Care Code 12358 INP/OBS DISCH >30 MIN Diagnoses Atrial fibrillation with RVR I48.91 Syncope R55 Catheter-associated urinary tract infection T83.511A; N39.0 Elevated troponin R77.8 LUIS (acute kidney injury) N17.9 Multiple sclerosis G35 Hypomagnesemia E83.42 Diabetes E11.9 HTN (hypertension) I10 Enlarged prostate N40.0 Hypokalemia E87.6
[2023-03-20] MEDS ORDERED: lisinopril 20 MG TAB PO SCH (09:00)
== END 2023-03-19 19:04 | disposition left against medical advice (07) | DRG 699 ==
LOC: ED 15:55 → SUATTDRO 18:49 → 4W 18:49

== ENCOUNTER 2023-10-15 13:43 | Inpatient (IN) ==
--- NOTE | 2023-10-15 13:58 | ED Triage Note ---
Date of Service October 15, 2023 Provider in Triage Author: Liliana Ann History of Present Illness This patient was briefly evaluated while in triage. An abbreviated physical exam was performed. This patient is a 63-year-old Male who presents to the ED for evaluation of left testicular pain Friday. Notes associated swelling. Has indwelling catheter secondary to neurogenic bladder from MS. Denies penile discharge or rashes. Started on Bactrim from PCP yesterday, 2 doses. Denies fevers, abd pain, low back pain. Physical Exam Constitutional: alert and oriented x3. no acute distress. HEENT: normocephalic, atraumatic. normal conjunctiva.PERRLA. EOM's grossly intact. Respiratory: equal chest rise. normal respiratory effort, no accessory muscle use. Cardiovascular: regular rate and rhythm. MSK: moves all 4 extremities spontaneously Psych:appropriate mood and affect. Initial orders for labs and / or imaging were placed and patient was placed in the waiting area until a bed is available. Please see further documentation for the full ED course.
[2023-10-15 14:27] LABS: Appearance Urine Cloudy (Clear); Bacteria Urine Automated 1+ (Negative); Bilirubin Urine Negative (Negative); Blood Urine 3+ (Negative); Cast Urine Automated 0 /lpf (0-5); Color Urine Dark Yellow; Glucose Urine UA 2+ (Negative); Ketones Urine 2+ (Negative); Leukocyte Esterase Urine 2+ (Negative); Nitrite Urine Positive (Negative); Protein Urine Trace (Negative); Specific Gravity Urine 1.026 (1.000-1.030); Urobilinogen Urine Negative (Negative); WBC Urine Automated >30 /hpf (0-5); pH Urine 5.5 (4.5-7.5)
--- NOTE | 2023-10-15 15:14 | Ultrasound Report ---
TESTICULAR ULTRASOUND HISTORY: L testicular pain/swelling COMPARISON: None. FINDINGS: Right testis: 50 x 31 x 26 mm. There are no intratesticular masses. There may be mildly increased col or flow within the right testis. Small complex hydrocele containing multiple septations.. Thickened r ight epididymis with increased color flow. Left testis: 41 x 25 x 32 mm. There are no intratesticular masses. Increased color flow within the le ft testis. There is a thickened left epididymis with increased color flow. Small complex hydrocele wi th septations. IMPRESSION: 1. Above findings consistent with a left-sided epididymoorchitis. 2. There is also thickening of the right epididymis with slight increased color flow. There may be mi ld increased color flow within the right testis. Therefore, there may be an associated mild right-belem ed epididymoorchitis. 3. Small septated bilateral hydroceles. ACT 112: Negative or not required by law. Electronically signed by: Philip Otero M.D. 10/15/2023 3:13 PM
[2023-10-15] MEDS ORDERED: VANCOMYCIN CONSULT ACTIVE PRN (16:49)
[2023-10-15] MEDS: cefTRIAXone SODIUM 2,000 MG/50 ML BAG IV STA (17:05)
[2023-10-15] MEDS: SODIUM CHLORIDE 0.9% 1,000 ML IV SCH (17:06)
[2023-10-15 17:29] LABS: Basophils # (auto) 0.05 K/uL (0.00-0.20); Basophils % (auto) 0.4 %; Eosinophils # (auto) 0.26 K/uL (0.00-0.50); Hematocrit (blood only) 34.8 % (42.0-52.0); Hemoglobin 11.6 g/dl (14.0-18.0); Immature Granulocytes # (auto) 0.06 K/uL (0.01-0.20); Immature Granulocytes % (auto) 0.5 %; Lymphocytes # (auto) 1.72 K/uL (1.20-3.40); Lymphocytes % (auto) 13.4 %; Mean Corpuscular Hemoglobin 27.3 pg (25.0-34.0); Mean Corpuscular Hgb Conc 33.3 g/dL (32.0-36.0); Mean Corpuscular Volume 81.9 fL (80.0-100.0); Mean Platelet Volume 11.5 fL (9.4-12.4); Monocytes # (auto) 0.85 K/uL (0.11-0.59); Monocytes % (auto) 6.6 %; Neutrophils # (auto) 9.94 K/uL (1.40-6.50); Neutrophils % (auto) 77.1 %; Platelet Count 200 K/uL (130-400); RDW Standard Deviation 38.7 fL (36.4-46.3); Red Blood Count 4.25 M/uL (4.70-6.10); White Blood Count 12.88 K/ul (4.8-10.8)
[2023-10-15 17:42] LABS: Albumin Level 3.6 gm/dl (3.4-5.0); BUN Creatinine Ratio 18.5 (10-20); Bilirubin Direct 0.1 mg/dl (0-0.2); Bilirubin,Total 0.5 mg/dl (0.2-1.0); Calcium 8.6 mg/dl (8.6-10.3); Creatinine Clr Calc Pharmacy 98.7 ml/min; Est GFR (African American) 110.4 ml/min; Est GFR (Non-African American) 95.3 ml/min; Magnesium 1.7 mg/dl (1.7-2.4); Potassium 3.7 mmol/L (3.5-5.1); Total Protein 6.6 gm/dl (6.0-8.3)
[2023-10-15] MEDS: VANCOMYCIN HCL 1,750 MG in SODIUM CHLORIDE 0.9% 500 ML IV ONE (17:44)
[2023-10-15 17:53] LABS: Partial Thromboplastin Ratio 1.1; Partial Thromboplastin Time 30 Seconds (21-31); Prothrombin Time 10.8 Seconds (9.0-12.0)
[2023-10-15 17:55] LABS: Troponin I High Sensitivity 321.7 pg/ml (0-20)
--- NOTE | 2023-10-15 19:27 | History & Physical Report ---
Date of Service October 15, 2023 Assessment & Plan (1) Neurogenic bladder: (2) Elevated troponin: (3) Atrial fibrillation with rapid ventricular response: (4) Multiple sclerosis: (5) Hyperlipidemia: (6) HTN (hypertension): (7) Diabetes: (8) Kay catheter in place: (9) Testicular pain, left: Plan 63 year old male with past medical history significant for MS with associated neurogenic bladder (with indwelling catheter), A-fib, HTN, HLD, T2DM presenting with left testicular pain and swelling. Testicular pain, left / Epididymoorchitis/ UTI: - UA with positive nitrites, 2+ LE, >30WBC, 1+ bacteria - Testicular US consistent with left epididymoorchitis, possible right epididymoorchitis, small bilateral hydroceles - Will continue broad spectrum IV abx (Vanc + Ceftriaxone) - Urology consulted, appreciate recs - Blood and urine cultures pending - Scrotal support MS, neurogenic bladder, indwelling kay catheter: - Indwelling catheter likely source for recurrent infections - Plan as noted above Elevated Troponin: - Chronically elevated troponin without symptoms and without EKG changes, low suspicion for ACS, could be related to chronically elevated BP - Repeat troponin HTN: - Continue home Lisinopril - PRN Hydralazine 10mg Q8H for systolic BP>160 T2DM: - Blood glucose checks ACHS - Lantus 14 units QAM - Sliding scale insulin for meal coverage Dispo: Admit to med-tele FEN/GI: gluten free, lactose intolerant VTE ppx: Lovenox Full Code History of Present Illness Primary Care Provider: Maxwell Velarde 63 year old male with past medical history significant for MS with associated neurogenic bladder (with indwelling catheter), A-fib, HTN, HLD, T2DM presenting with left testicular pain and swelling. Patient notes that he had his catheter changed last Friday, started to notice testicular pain on Friday. Since then, has had progressively worsening pain and swelling. Denies associated urinary sx, denies fever/chills. Patient saw his PCP and was started on Bactrim yesterday - was unable to get in to see urology and was advised to be seen in the ED today. Of note, patient has had recurrent UTIs since urinary catheter placement in December 2022, states that he has been treated with abx an average of once per month. Also notes that he has not tolerated treatment with cipro- and levofloxacin, reports this caused hand swelling and caused his blood sugar and blood pressure to be more erratic. Denies chest pain, shortness of breath, palpitations. ED Course: Lab work up significant for: WBC 12.9, negative lactate/procal, troponin 322 UA with positive nitrites, 2+ LE, >30WBC, 1+ bacteria Testicular US consistent with left epididymoorchitis, possible right epididymoorchitis, small bilateral hydroceles EKG without ischemic changes Allergies Allergy/AdvReac Type Severity Reaction Status Date / Time bee venom protein (honey bee) Allergy Severe Anaphylaxis Verified 10/15/23 17:05 ciprofloxacin Allergy Unknown inflammation-"flared Verified 10/15/23 17:05 up MS" levofloxacin Allergy Unknown inflammation-"flared Verified 10/15/23 17:05 up MS" dairy products Allergy Unknown inflammation-"flared Uncoded 10/15/23 17:05 up MS" Home Medications Medication Instructions Recorded Confirmed Type aspirin 81 mg tablet,delayed 81 mg PO QAM 12/29/19 10/15/23 History release epinephrine 0.3 mg/0.3 mL 0.3 mg subcut UD PRN Anaphylaxis 12/29/19 10/15/23 History injection, auto-injector omega 5-qvt-nzv-fish oil 1,000 mg 3 cap PO BID 12/29/19 10/15/23 History (120 mg-180 mg) capsule (Fish Oil) cholecalciferol (vitamin D3) 125 125 mcg PO QAM 09/07/21 10/15/23 History mcg (5,000 unit) tablet (Vitamin D3) vitamin E 100 unit tablet 180 unit PO QAM 09/07/21 10/15/23 History coQ10 (ubiquinol) 100 mg capsule 100 mg PO QAM 11/26/21 10/15/23 History insulin degludec 100 unit/mL (3 28 unit subcut QAM 02/18/23 10/15/23 History mL) subcutaneous pen (Tresiba FlexTouch U-100 insulin) Advance Digestive Enzyme 1 cap PO DAILY 03/17/23 10/15/23 History Bcq 5 cap PO BID 03/17/23 10/15/23 History Gi Revive Gut Health 1 dose PO UD 03/17/23 10/15/23 History Nerve Support Complex 3 cap PO TIDM 03/17/23 10/15/23 History magnesium oxide 200 mg PO DAILY #30 tabs 03/19/23 10/15/23 Rx lisinopril 2.5 mg tablet 2.5 mg PO QAM 09/02/23 10/15/23 History cyanocobalamin (vitamin B-12) 1,000 mcg PO DAILY 10/15/23 10/15/23 History 1,000 mcg tablet (Vitamin B-12) zinc gluconate 50 mg tablet 50 mg PO QAM 10/15/23 10/15/23 History Past Med/Surg History Medical History CAD (coronary artery disease) Non-obstructive, medical management recommended Atrial fibrillation Aortic stenosis Echo 02/2023: "Mild" aortic stenosis (KEVIN 1.7-1.8cm2, MG 14.4mmhg) Bladder stones Kay catheter in place Multiple sclerosis Neuropathy Osteoarthritis BPH (benign prostatic hyperplasia) Hyperlipidemia HTN (hypertension) Patient reports HTN hx, indicating that current reason for lisinopril is for renal protection/not BP management Diabetes Type 2 IDDM Surgical History History of amputation of lesser toe of left foot (~09/10/21) fifth toe amputation and fifth metatarsal head resection with I&D History of colonoscopy History of wisdom tooth extraction History of cardiac cath 1995- no stents 2019 ([facility])- no stents History of arthroscopic knee surgery meniscus repair History of amputation of toe x4 History of tonsillectomy and adenoids Family History Father Heart disease, Onset Age: 54 Had CABG at age 54 Mother Diabetes Other No family history of adverse response to anesthesia Social History Smoking Status: Never smoker Second Hand Exposure: No; Do You Dip or Chew Tobacco: No; Hx Alcohol Use: No Hx Substance Use: No Preferred Language: Congolese Communication Ability: Effective Visual Impairment: No Limitations Hearing Ability: Normal 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 No acute distress Cardiac: Regular rate and rhythm, +systolic ejection murmur Respiratory: Lungs clear to auscultation bilaterally, No increased work of breathing Abdominal: non-tender, non-distended : generalized scrotal swelling and erythema, diffusely tender to palpation Results & Data Results & Data Vital Signs (Past 12 Hours) Vital Signs Temp Pulse Pulse Resp BP BP Pulse Ox 10/15/23 18:35 74 20 196/98 H 99 10/15/23 18:04 71 10/15/23 16:35 67 20 160/83 H 97 10/15/23 13:55 36.6 C 77 20 166/83 H 99 O2 Del Method 10/15/23 18:35 Room Air 10/15/23 18:04 10/15/23 16:35 Room Air 10/15/23 13:55 Room Air Code Status & VTE Plan Code Status Full code, I personally spoke with the patient at the bedside Supervising Physician Co-Signing Physician Notes I have personally seen, evaluated and examined the patient. I have also personally discussed the management of the patient with the resident physician/JOHNATHAN and I agree with the exam findings documented in the history and physical examination and the documented assessment and plan unless otherwise stated below. Brief Exam: In general she is pleasant 63-year-old male who is alert and oriented x 3 at the time of my exam he is in mild distress with his degree of scrotal pain. He is accompanied by his at the time my examination. He interacts appropriately pleasantly. I had a lengthy conversation with the patient about blood pressure. His manual blood pressures are much better than it Dinamap again around 152/80 the patient has a spreadsheet with his home blood pressures on he has been averaging over the last 7 days 152/82 In terms of the patient's troponin the patient adamantly denies any symptomatology in the chest no chest pain no chest heaviness no shortness of breath. The patient has been noted to have a chronic troponinemia during his last 2 admissions ranging from 80 to the mid 200s. His repeat troponin is pending tonight. Pending his repeat troponin will determine whether or not we use aspirin and/or anticoagulation. The patient had an outpatient echocardiogram just last month August 2023 showed a well-preserved left ventricular ejection fraction with moderate aortic stenosis which is progressed from mild aortic stenosis from his echocardiogram in 2022 the patient denies any symptomatology whatsoever of aortic stenosis including presyncope or syncope or shortness of breath with exertion. HEENT: Normocephalic atraumatic. Heart: Regular rate and rhythm there is a 3 out of 6 systolic ejection murmur best heard at the right sternal border. No ectopy or rub. Lungs: Are clear bilaterally. Abdomen: Soft nontender positive bowel sounds no appreciable organomegaly or abdominal bruits. Chronic Kay catheter is noted draining yellow urine. Extremities intact peripheral pulses are palpable and equal x 4. . Neurologically: Patient is intact with no focal deficit on exam. Genital exam-accompanied by the physician trading assistant from surgery, [place], as well as the patient's . The patient has a significantly swollen swollen scrotum is erythematous is painful to the touch. There appears to be no eschar or active drainage or breakdown of the skin. Assessment/plan: As described above. IV antibiotics, urological consultation, repeat troponins are pending, blood cultures were obtained, urine and urine culture. In addition the patient reports he had a percutaneous heart catheterization at [facility] 4 years ago and he had 40% blockage in 1 artery only. Resident Activity Tracking Resident Involvement: Resident Care Provided Care Provided: Adult Hospital Medicine
--- NOTE | 2023-10-15 19:58 | Urology Consultation ---
Date of Consultation October 15, 2023 Assessment & Plan (1) Testicular pain, left: The patient is being admitted on the hospitalist service. I did discuss with the admitting hospitalist. From a urologic perspective we recommend the following: Patient is noted to have an elevated troponin. We will defer further management of this to the hospital service It appears by ultrasound the patient has an epididymitis/orchitis. He also appears to have an underlying urinary tract infection. He has been placed on vancomycin and Rocephin. Appropriate cultures have been sent. Antibiotic should continue and can be tailored based on culture results as they are obtained Ice packs can be applied to the scrotum as needed for comfort Analgesics to be provided Antiemetics to be provided if needed Scrotal support should be employed as this may provide some symptomatic relief Will monitor the patient's clinical progress and make further recommendations based on his clinical course as unfolds History of Present Illness Reason for Consultation: Testicular pain History of Present Illness This is a 63-year-old male who presented to the emergency department [facility] secondary to testicular pain. Patient says that he was having urinary difficulties and underwent a Rezum procedure in August with Dr. Kay. The patient says that since that time he was having some varying degrees of difficulty and in December of this year the patient was hospitalized and urology was consulted for urinary retention. The patient did have a Milner catheter placed and the patient notes that he has had a Milner catheter in place since that time. He does note that since that time there was question whether the patient had neurogenic bladder secondary to multiple sclerosis. As noted, the patient has had a Milner catheter in place since December of this year. The patient notes that his Milner catheter was most recently changed at the [facility] urology office approximately 6 days ago. The patient notes that 2 days later (4 days prior to presentation today) he started to develop some left testicular pain and swelling. He denies any nausea or vomiting. He has not had any fevers, shakes, or chills. Since he has had a Milner catheter in place that it we are unable to ascertain whether or not he is having any dysuria. He denies any back or flank pain. He does note that his testicular pain is worse when he stands and walks and it is somewhat better when he is lying or sitting down. The patient notes that since his Milner catheter was placed he has had difficulties with urinary tract infections and he does note that substances that cause inflammation in his body seem to trigger his MS symptomsas he specifically notes he has been tried on Cipro and Levaquin which both seem to exacerbate his MS symptoms. Since arrival to the hospital the patient has had labs and imaging which I independent reviewed. Patient had a scrotum ultrasound. This study showed the patient had findings consistent with a left-sided epididymitis/orchitis. Labs include a CBC her white blood cell count was elevated 12.8. Hemoglobin and hematocrit are 11.6 and 34.8. Platelet count was 200,000. Chemistry profile showed sodium was 135 with a normal potassium. BUN and creatinine were both normal. Urinalysis showed cloudy urine which was positive for nitrites. There is 2+ leukocyte Estrace and pyuria with greater than 30 white blood cells per high-power field. There is also 1+ bacteria on the study. Patient's past urine cultures were reviewed and the patient did have a urine culture on 09/01/2023 which grew Klebsiella. This organism was noted to be pansensitive. The patient also had a urine culture on 06/23/2023 that grew Pseudomonas. This organism was also pansensitive. At the time of my interview the patient was resting comfortably in bed and he was in no distress. Allergies Allergy/AdvReac Type Severity Reaction Status Date / Time bee venom protein (honey bee) Allergy Severe Anaphylaxis Verified 10/15/23 17:05 ciprofloxacin Allergy Unknown inflammation-"flared Verified 10/15/23 17:05 up MS" levofloxacin Allergy Unknown inflammation-"flared Verified 10/15/23 17:05 up MS" dairy products Allergy Unknown inflammation-"flared Uncoded 10/15/23 17:05 up MS" Home Medications Medication Instructions Recorded Confirmed Type aspirin 81 mg tablet,delayed 81 mg PO QAM 12/29/19 10/15/23 History release epinephrine 0.3 mg/0.3 mL 0.3 mg subcut UD PRN Anaphylaxis 12/29/19 10/15/23 History injection, auto-injector omega 9-xpc-jce-fish oil 1,000 mg 3 cap PO BID 12/29/19 10/15/23 History (120 mg-180 mg) capsule (Fish Oil) cholecalciferol (vitamin D3) 125 125 mcg PO QAM 09/07/21 10/15/23 History mcg (5,000 unit) tablet (Vitamin D3) vitamin E 100 unit tablet 180 unit PO QAM 09/07/21 10/15/23 History coQ10 (ubiquinol) 100 mg capsule 100 mg PO QAM 11/26/21 10/15/23 History insulin degludec 100 unit/mL (3 28 unit subcut QAM 02/18/23 10/15/23 History mL) subcutaneous pen (Tresiba FlexTouch U-100 insulin) Advance Digestive Enzyme 1 cap PO DAILY 03/17/23 10/15/23 History Bcq 5 cap PO BID 03/17/23 10/15/23 History Gi Revive Gut Health 1 dose PO UD 03/17/23 10/15/23 History Nerve Support Complex 3 cap PO TIDM 03/17/23 10/15/23 History magnesium oxide 200 mg PO DAILY #30 tabs 03/19/23 10/15/23 Rx lisinopril 2.5 mg tablet 2.5 mg PO QAM 09/02/23 10/15/23 History cyanocobalamin (vitamin B-12) 1,000 mcg PO DAILY 10/15/23 10/15/23 History 1,000 mcg tablet (Vitamin B-12) zinc gluconate 50 mg tablet 50 mg PO QAM 10/15/23 10/15/23 History Patient History Medical History CAD (coronary artery disease) Non-obstructive, medical management recommended Atrial fibrillation Aortic stenosis Echo 02/2023: "Mild" aortic stenosis (KEVIN 1.7-1.8cm2, MG 14.4mmhg) Bladder stones Milner catheter in place Multiple sclerosis Neuropathy Osteoarthritis BPH (benign prostatic hyperplasia) Hyperlipidemia HTN (hypertension) Patient reports HTN hx, indicating that current reason for lisinopril is for renal protection/not BP management Diabetes Type 2 IDDM Surgical History History of amputation of lesser toe of left foot (~09/10/21) fifth toe amputation and fifth metatarsal head resection with I&D History of colonoscopy History of wisdom tooth extraction History of cardiac cath 1995- no stents 2019 ([place])- no stents History of arthroscopic knee surgery meniscus repair History of amputation of toe x4 History of tonsillectomy and adenoids Family History Father Heart disease, Onset Age: 54 Had CABG at age 54 Mother Diabetes Other No family history of adverse response to anesthesia Social History Smoking Status: Never smoker Second Hand Exposure: No; Do You Dip or Chew Tobacco: No; Hx Alcohol Use: No Hx Substance Use: No Preferred Language: Persian Communication Ability: Effective Visual Impairment: No Limitations Hearing Ability: Normal [employer] Required: No Beliefs That Will Affect Care: None marital status: Current Living Situation: Spouse current occupational status: employed 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 [employer] Feels Safe at Home: Yes Diet: diabetic and low carbohydrate caffeine: Yes (tea) Assistive Devices: Glasses Review of Systems Constitutional: no fever and no chills Eyes: + corrective lenses Ear, Nose, Mouth, Throat: no hearing loss Respiratory: no cough and no dyspnea Cardiovascular: no chest pain Gastrointestinal: no abdominal pain, no nausea and no vomiting Genitourinary: + as per Subjective / HPI Musculoskeletal: no back pain Integumentary: no rash Neurologic: no localized weakness Physical Exam Constitutional: WD/WN, vitals as above Eyes: Wears glasses ENMT: Ears: no hearing impairment Mouth: no oropharynx abnormality Neck: trachea midline Respiratory: normal respiratory effort; no respiratory distress and no labored breathing Cardiovascular: Rate/Rhythm: regular rate and regular rhythm Gastrointestinal (Abdomen): Abdomen is soft, nondistended, nontender to palpation Musculoskeletal: No calf tenderness Skin: no rashes Neurologic: moves all extremities Psychiatric: A+Ox3, euthymic affect Genitourinary: No CVA tenderness bilaterally with percussion. Patient did have a Milner catheter in place that appeared patent and was draining yellow-colored urine. The patient's scrotum was examined. The patient had marked swelling of the left testicle. I did not appreciate any masses. There was some erythema of the testicle. There were no open areas or areas of drainage. There are no areas of eschar. There is no crepitus in the soft tissue. Patient did have a lesser degree of swelling of the right testicle. As on the left side, there were no open areas of drainage. There are no areas of eschar. There is no crepitus in the soft tissue. The left testicle was markedly tender to palpation. Results & Data Vital Signs (Past 12 Hours) Vital Signs Temp Pulse Pulse Resp BP BP Pulse Ox 10/15/23 19:00 65 21 193/98 H 96 10/15/23 18:35 74 20 196/98 H 99 10/15/23 18:04 71 10/15/23 16:35 67 20 160/83 H 97 10/15/23 13:55 36.6 C 77 20 166/83 H 99 O2 Del Method 10/15/23 19:00 Room Air 10/15/23 18:35 Room Air 10/15/23 18:04 10/15/23 16:35 Room Air 10/15/23 13:55 Room Air PG Care Time/CCT Total # of Minutes Spent Total Time Spent with Patient: Total time spent is greater than 50% in coordination of care (as documented) at patient's floor/unit and/or counseling patient: Coding Level of Care Code 86946 OFFICE CONSULT LVL M Diagnoses Testicular pain, left N50.812
[2023-10-15] MEDS ORDERED: GLUCAGON FOR INJ 1 MG VIAL SQ PRN (22:28)
[2023-10-15] MEDS ORDERED: GLUCOSE 40% GEL 15 GM TUBE PO PRN (22:28)
[2023-10-15] MEDS ORDERED: [UNRECOGNIZED DRUG - OTHER] PO SCH (22:28)
[2023-10-15] MEDS ORDERED: MELATONIN 3 MG TAB PO PRN (22:28)
[2023-10-15] MEDS ORDERED: CARBOHYDRATES FOR HYPOGLYCEMIA PO PRN (22:28)
[2023-10-15] MEDS ORDERED: GLUCOSE 10 TAB/TUBE PO PRN (22:28)
[2023-10-15] MEDS ORDERED: POLYETHYLENE (MIRALAX) 17 GM PACK PO PRN (22:28)
[2023-10-15] MEDS ORDERED: hydrALAZINE HCL 20 MG/ML VIAL IV PRN (22:28)
[2023-10-15] MEDS ORDERED: DEXTROSE 50% 50 ML SYRINGE IV PRN (22:28)
--- NOTE | 2023-10-15 23:05 | Emergency Department Note ---
History of Present Illness General Chief complaint: Testicular Pain Stated complaint: SWOLLEN TESTICLES Time Seen by Provider: 10/15/23 16:13 History of Present Illness Provider Complaint: + testicle pain and + testicle swelling Onset (ago): day(s) 2 Duration: + constant Radiation: + left testicle Quality: + aching, + burning, + dull and + stabbing Associated symptoms: no chest pain, no cough or no shortness of breath Other Symptoms: no discharge or no dysuria Patient states he has a chronic indwelling Milner catheter secondary to MS. He reports no trauma to the area. Patient states he was started on Bactrim by his PCP yesterday for the edema erythema and tenderness over his left testicle. He denies any discharge from his scrotum is firm dense testicles. He states he tried to get in touch with urology and was referred to the emergency department. Home Medications Medication Instructions Recorded Confirmed Type aspirin 81 mg tablet,delayed 81 mg PO QAM 12/29/19 10/15/23 History release epinephrine 0.3 mg/0.3 mL 0.3 mg subcut UD PRN Anaphylaxis 12/29/19 10/15/23 History injection, auto-injector omega 1-sxb-cza-fish oil 1,000 mg 3 cap PO BID 12/29/19 10/15/23 History (120 mg-180 mg) capsule (Fish Oil) cholecalciferol (vitamin D3) 125 125 mcg PO QAM 09/07/21 10/15/23 History mcg (5,000 unit) tablet (Vitamin D3) vitamin E 100 unit tablet 180 unit PO QAM 09/07/21 10/15/23 History coQ10 (ubiquinol) 100 mg capsule 100 mg PO QAM 11/26/21 10/15/23 History insulin degludec 100 unit/mL (3 28 unit subcut QAM 02/18/23 10/15/23 History mL) subcutaneous pen (Tresiba FlexTouch U-100 insulin) Advance Digestive Enzyme 1 cap PO DAILY 03/17/23 10/15/23 History Bcq 5 cap PO BID 03/17/23 10/15/23 History Gi Revive Gut Health 1 dose PO UD 03/17/23 10/15/23 History Nerve Support Complex 3 cap PO TIDM 03/17/23 10/15/23 History magnesium oxide 200 mg PO DAILY #30 tabs 08/23/23 03/20/24 Rx lisinopril 2.5 mg tablet 2.5 mg PO QAM 09/02/23 10/15/23 History cyanocobalamin (vitamin B-12) 1,000 mcg PO DAILY 10/15/23 10/15/23 History 1,000 mcg tablet (Vitamin B-12) zinc gluconate 50 mg tablet 50 mg PO QAM 10/15/23 10/15/23 History Allergies Allergy/AdvReac Type Severity Reaction Status Date / Time bee venom protein (honey bee) Allergy Severe Anaphylaxis Verified 10/15/23 17:05 ciprofloxacin Allergy Unknown inflammation-"flared Verified 10/15/23 17:05 up MS" levofloxacin Allergy Unknown inflammation-"flared Verified 10/15/23 17:05 up MS" Milk Containing Products Allergy Unknown inflammation-"flared Verified 10/15/23 22:49 (Dairy) up MS" Past Med/Surg History Medical History CAD (coronary artery disease) Non-obstructive, medical management recommended Atrial fibrillation Aortic stenosis Echo 02/2023: "Mild" aortic stenosis (KEVIN 1.7-1.8cm2, MG 14.4mmhg) Bladder stones Milner catheter in place Multiple sclerosis Neuropathy Osteoarthritis BPH (benign prostatic hyperplasia) Hyperlipidemia HTN (hypertension) Patient reports HTN hx, indicating that current reason for lisinopril is for renal protection/not BP management Diabetes Type 2 IDDM Surgical History History of amputation of lesser toe of left foot (~09/10/21) fifth toe amputation and fifth metatarsal head resection with I&D History of colonoscopy History of wisdom tooth extraction History of cardiac cath 1995- no stents 2019 ([place])- no stents History of arthroscopic knee surgery meniscus repair History of amputation of toe x4 History of tonsillectomy and adenoids Family History Father Heart disease, Onset Age: 54 Had CABG at age 54 Mother Diabetes Other No family history of adverse response to anesthesia Social History Smoking Status: Never smoker Second Hand Exposure: No; Do You Dip or Chew Tobacco: No; Hx Alcohol Use: No Hx Substance Use: No Preferred Language: Nauruan Communication Ability: Effective Visual Impairment: No Limitations Hearing Ability: Normal [employer] Required: No Beliefs That Will Affect Care: None marital status: Current Living Situation: Spouse current occupational status: employed 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 [employer] Feels Safe at Home: Yes Diet: diabetic and low carbohydrate caffeine: Yes (tea) Assistive Devices: Glasses Physical Exam 2 Vital Signs: Vital Signs - 24 hr 10/15/23 13:55 10/15/23 16:35 10/15/23 18:04 Temperature 36.6 C Temperature Source Temporal Artery Sc an Pulse Rate 77 71 Pulse Rate [Finger ] 67 Respiratory Rate 20 20 Respiratory Effort / Characteristics Non-Labored Non-Labored Sponta neous Respiratory Depth Normal Normal Blood Pressure 166/83 H Blood Pressure [Ri ght Arm] 160/83 H Blood Pressure Christiana n 110 Blood Pressure Christiana n [Right Arm] 108 Pulse Oximetry 99 97 Oxygen Delivery Me thod Room Air Room Air Sepsis Recent Feve r Within 48 Hours No Sepsis New/Unexpla ined Change in Men marianna Status No Sepsis Action Take n by Nursing No Action Required 10/15/23 18:35 10/15/23 19:00 Temperature Temperature Source Pulse Rate Pulse Rate [Finger ] 74 65 Respiratory Rate 20 21 Respiratory Effort / Characteristics Respiratory Depth Normal Blood Pressure Blood Pressure [Ri ght Arm] 196/98 H 193/98 H Blood Pressure Christiana n Blood Pressure Christiana n [Right Arm] 130 129 Pulse Oximetry 99 96 Oxygen Delivery Me thod Room Air Room Air Sepsis Recent Feve r Within 48 Hours Sepsis New/Unexpla ined Change in Men marianna Status Sepsis Action Take n by Nursing Physical Exam: Physical Exam GENERAL: oriented to person, place, and time. appears well-developed and well- nourished. HENT: Exam performed. - Head: Normocephalic and atraumatic. EYES: Conjunctivae and EOM are normal. Right eye exhibits no discharge. Left eye exhibits no discharge. No scleral icterus. NECK: Normal range of motion. Neck supple. No JVD present. CV: Normal rate, regular rhythm, normal heart sounds and intact distal pulses. There is no peripheral edema. Palpable radial pulses bue. PULM/CHEST: Effort normal and breath sounds normal. No respiratory distress. No stridor. no wheezes. no rales. ABD: The abdomen is soft. There is no tenderness. : Milner catheter in place. There is a large amount of edema and erythema over his scrotum and particularly over his left testicular area. Scrotum and testicles are hot to touch. The erythema over his scrotum extends into his pubis area. Exam findings are consistent with cellulitis. There is no crepitus and no black or dark lesions. No clinical evidence of George's gangrene at this time. NEURO: Motor and sensation grossly intact. SKIN: Skin is warm and dry. He is not diaphoretic. PSYCH: normal mood and affect. Behavior is normal. Judgment and thought content normal. Course Course 1613: The patient was evaluated in room C10. A complete history and physical exam was performed Cardiac monitoring: An order was placed for continuous cardiac monitoring. The monitor shows a rate of 70 with sinus rhythm interpreted by me 1830: Vital signs stable. Labs show white blood cell count of 12.88 hemoglobin 11.6 electrolytes are within normal limits. Troponin 321.7, patient has chronically elevated troponin. Patient not reporting any chest pain or difficulty breathing. Lactic acid within normal limits. Procalcitonin 0.19. IV antibiotics started for the patient's epididymalorchitis and scrotal cellulitis. Discussed with Dr. Farley on-call urology and he states to admit to medicine. Hospitalist team will be consulted. Administered Medications Discontinued Medications Sodium Chloride (Nss) 1,000 mls @ 999 mls/hr IV .Q1H1M IZAIAH Stop: 10/15/23 18:00 Last Infusion: 10/15/23 18:14 Dose: Infused Documented By: Admin: 10/15/23 17:06 Dose: 999 mls/hr Documented By: SHIRLEY Ceftriaxone Sodium (Rocephin) 2,000 mg in 50 mls @ 100 mls/hr IV NOW STA Stop: 10/15/23 17:18 Last Infusion: 10/15/23 17:42 Dose: Infused Documented By: Admin: 10/15/23 17:05 Dose: 100 mls/hr Documented By: SHIRLEY Vancomycin HCl 1,750 mg/ (Sodium Chloride) 535 mls @ 200 mls/hr IV NOW ONE Stop: 10/15/23 19:29 Last Infusion: 03/20/24 20:38 Dose: Infused Documented By: Admin: 10/15/23 17:44 Dose: 200 mls/hr Documented By: SHIRLEY Medical Decision Making Laboratory Data Attestation: I reviewed the patient's lab results. 10/15/23 17:05 10/15/23 17:05 Lab Results 10/15/23 Range/Units 17:05 WBC 12.88 H (4.8-10.8) K/ul RBC 4.25 L (4.70-6.10) M/uL Hgb 11.6 L (14.0-18.0) g/dl Hct 34.8 L (42.0-52.0) % MCV 81.9 (80.0-100.0) fL MCH 27.3 (25.0-34.0) pg MCHC 33.3 (32.0-36.0) g/dL RDW Std Deviation 38.7 (36.4-46.3) fL RDW Coeff of Spenser 13.0 (11.5-14.5) % Plt Count 200 (130-400) K/uL MPV 11.5 (9.4-12.4) fL Immature Gran % (Auto) 0.5 % Neut % (Auto) 77.1 % Lymph % (Auto) 13.4 % [place] % (Auto) 6.6 % Eos % (Auto) 2.0 % Baso % (Auto) 0.4 % Neut # (Auto) 9.94 H (1.40-6.50) K/uL Lymph # (Auto) 1.72 (1.20-3.40) K/uL [place] # (Auto) 0.85 H (0.11-0.59) K/uL Eos # (Auto) 0.26 (0.00-0.50) K/uL Baso # (Auto) 0.05 (0.00-0.20) K/uL Immature Gran # (Auto) 0.06 (0.01-0.20) K/uL PT 10.8 (9.0-12.0) Seconds INR 1.0 (0.9-1.1) APTT 30 (21-31) Seconds PTT Ratio 1.1 Sodium 135 L (136-145) mmol/L Potassium 3.7 (3.5-5.1) mmol/L Chloride 103 (98-107) mmol/L Carbon Dioxide 25 (21-32) mmol/L Anion Gap 7 (3-11) BUN 15 (6-23) mg/dl Creatinine 0.81 (0.6-1.4) mg/dl Est Cr Clr Drug Dosing 98.7 ml/min Est GFR ( Amer) 110.4 ml/min Est GFR (Non-Af Amer) 95.3 ml/min BUN/Creatinine Ratio 18.5 (10-20) Glucose 232 H (70-99(Fasting)) mg/dl Lactate 1.0 (0.4-2.0) mmol/L Calcium 8.6 (8.6-10.3) mg/dl Magnesium 1.7 (1.7-2.4) mg/dl Total Bilirubin 0.5 (0.2-1.0) mg/dl Direct Bilirubin 0.1 (0-0.2) mg/dl AST 14 (13-39) U/L ALT 14 (7-52) U/L Alkaline Phosphatase 96 (34-104) U/L Troponin I High Sens 321.7 H* (0-20) pg/ml Total Protein 6.6 (6.0-8.3) gm/dl Albumin 3.6 (3.4-5.0) gm/dl Procalcitonin 0.19 (0-0.5) ng/ml Imaging Data Radiologist's Impression: Scrotum Ultrasound 10/15/23 13:58 TESTICULAR ULTRASOUND HISTORY: L testicular pain/swelling COMPARISON: None. FINDINGS: Right testis: 50 x 31 x 26 mm. There are no intratesticular masses. There may be mildly increased color flow within the right testis. Small complex hydrocele containing multiple septations.. Thickened right epididymis with increased color flow. Left testis: 41 x 25 x 32 mm. There are no intratesticular masses. Increased color flow within the left testis. There is a thickened left epididymis with increased color flow. Small complex hydrocele with septations. IMPRESSION: 1. Above findings consistent with a left-sided epididymoorchitis. 2. There is also thickening of the right epididymis with slight increased color flow. There may be mild increased color flow within the right testis. Therefore, there may be an associated mild right-sided epididymoorchitis. 3. Small septated bilateral hydroceles. ACT 112: Negative or not required by law. Electronically signed by: Philip Otero M.D. 10/15/2023 3:13 PM ECG Data Attestation: I personally reviewed and interpreted this ECG as follows: Rate (beats per minute): 64 Rhythm: normal sinus Findings: no ST depression, no ST elevation or no prolonged QT Additional Comments: QRS 74 MDM Narrative 1613: The patient was evaluated in room C10. A complete history and physical exam was performed Cardiac monitoring: An order was placed for continuous cardiac monitoring. The monitor shows a rate of 70 with sinus rhythm interpreted by me 1830: Vital signs stable. Labs show white blood cell count of 12.88 hemoglobin 11.6 electrolytes are within normal limits. Troponin 321.7, patient has chronically elevated troponin. Patient not reporting any chest pain or difficulty breathing. Lactic acid within normal limits. Procalcitonin 0.19. IV antibiotics started for the patient's epididymalorchitis and scrotal cellulitis. Discussed with Dr. Farley on-call urology and he states to admit to medicine. Hospitalist team will be consulted. Impression & Plan Acute epididymo-orchitis, Cellulitis of scrotum Discharge Plan Visit Data Chief Complaint: Testicular Pain Stated Complaint: SWOLLEN TESTICLES ED Provider: Zach Prasad Discharge Problem: Acute epididymo-orchitis, Cellulitis of scrotum Patient Disposition: Admitted As Inpatient Discharge Instructions Interventions: ED Discharge Assessment Last Done: 10/15/23 22:29
[2023-10-16] MEDS: INSULIN ASPART PER UNIT CHARGE SC SCH (00:27)
[2023-10-16] MEDS: OMEGA-3 (PURIFIED FISH OIL) 1 GM CAP PO SCH ×2 (01:48→21:37)
[2023-10-16] MEDS: [UNRECOGNIZED DRUG - OTHER] PO SCH (01:48)
[2023-10-16] MEDS: VANCOMYCIN HCL 1,250 MG in SODIUM CHLORIDE 0.9% 250 ML IV SCH (02:43)
[2023-10-16 03:47] LABS: Basophils # (auto) 0.05 K/uL (0.00-0.20); Basophils % (auto) 0.5 %; Eosinophils # (auto) 0.34 K/uL (0.00-0.50); Eosinophils % (auto) 3.4 %; Hematocrit (blood only) 33.8 % (42.0-52.0); Hemoglobin 10.9 g/dl (14.0-18.0); Immature Granulocytes # (auto) 0.03 K/uL (0.01-0.20); Immature Granulocytes % (auto) 0.3 %; Lymphocytes % (auto) 18.1 %; Mean Corpuscular Hgb Conc 32.2 g/dL (32.0-36.0); Mean Corpuscular Volume 83.7 fL (80.0-100.0); Mean Platelet Volume 11.4 fL (9.4-12.4); Monocytes # (auto) 0.75 K/uL (0.11-0.59); Monocytes % (auto) 7.5 %; Neutrophils # (auto) 6.97 K/uL (1.40-6.50); Neutrophils % (auto) 70.2 %; Platelet Count 197 K/uL (130-400); RDW Standard Deviation 39.3 fL (36.4-46.3); Red Blood Count 4.04 M/uL (4.70-6.10); White Blood Count 9.94 K/ul (4.8-10.8)
[2023-10-16 04:06] LABS: Albumin Globulin Ratio 1.1 (0.9-2); Albumin Level 3.2 gm/dl (3.4-5.0); BUN Creatinine Ratio 14.7 (10-20); Bilirubin,Total 0.6 mg/dl (0.2-1.0); Calcium 8.1 mg/dl (8.6-10.3); Chol HDL Ratio 4.7 (0-5); Creatinine Clr Calc Pharmacy 106.6 ml/min; Est GFR (African American) 113.9 ml/min; Est GFR (Non-African American) 98.3 ml/min; Globulin 2.8 gm/dl (2.5-4.0); Magnesium 1.5 mg/dl (1.7-2.4); Potassium 3.5 mmol/L (3.5-5.1)
[2023-10-16 04:14] LABS: Troponin I High Sensitivity 126.9 pg/ml (0-20)
[2023-10-16 04:23] LABS: Thyroid Stimulating Hormone 3.038 uIu/ml (0.300-4.500)
[2023-10-16 07:32] LABS: Estimated Average Glucose 197 mg/dl; Hemoglobin A1C 8.5 % (4.5-5.6)
[2023-10-16] MEDS ORDERED: hydrALAZINE HCL 20 MG/ML VIAL IV PRN (07:58)
[2023-10-16] MEDS ORDERED: [UNRECOGNIZED DRUG - OTHER] PO SCH (08:00)
[2023-10-16] MEDS ORDERED: [UNRECOGNIZED DRUG - OTHER] PO SCH (09:00)
[2023-10-16] MEDS ORDERED: lisinopril 2.5 MG TAB PO SCH (09:00)
[2023-10-16] MEDS ORDERED: NON-FORMULARY MEDICATION (Coq10 (Ubiquinol) 100 mg Capsule) PO SCH (09:00)
[2023-10-16] MEDS: TOCOPHERYL, DL-ALPHA 100 UNITS 67 MG CAP PO SCH (09:27)
[2023-10-16] MEDS: lisinopril 10 MG TAB PO SCH (09:27)
[2023-10-16] MEDS: MAGNESIUM OXIDE 400 MG TAB PO SCH (09:27)
[2023-10-16] MEDS: ZINC SULFATE 220 MG CAPSULE PO SCH (09:27)
[2023-10-16] MEDS: CHOLECALCIFEROL 125 MCG (5,000 UNITS) TAB PO SCH (09:28)
[2023-10-16] MEDS: CYANOCOBALAMIN (B-12) 500 MCG TABLET PO SCH (09:28)
[2023-10-16] MEDS: ASPIRIN 81 MG ECTAB PO SCH (09:28)
[2023-10-16] MEDS: LANTUS PER UNIT CHARGE SQ SCH (09:29)
[2023-10-16] MEDS: ENOXAPARIN INJ 40 MG/0.4 ML SYR SQ SCH (09:29)
--- NOTE | 2023-10-16 09:30 | Electrocardiogram Report ---
Test Reason : Blood Pressure : / mmHG Vent. Rate : 064 BPM Atrial Rate : 064 BPM P-R Int : 198 ms QRS Dur : 074 ms QT Int : 392 ms P-R-T Axes : 048 007 002 degrees QTc Int : 404 ms Normal sinus rhythm Poor R wave progression, consider anterior OR vs. lead placement vs. LVH Abnormal ECG When compared with ECG of 04-SEP-2023 10:42, Anterior infarct is now Present T wave inversion now evident in Anterior leads Confirmed by Alberto Booth ([id number]) on 10/16/2023 9:29:48 AM Referred By: Maxwell Velarde Confirmed By:Marko Booth
--- NOTE | 2023-10-16 10:55 | Pharmacy Report ---
Pharmacy PK ABX Note - Date of Service October 16, 2023 - Assessment and Plan Assessment 63 year old M receiving vancomycin/ceftriaxone for empiric treatment of UTI/ epididymoorchitis. Pertinent microbiologic data includes: urine/blood cultures pending. Leukocytosis has resolved. Previous urine cultures have grown Klebsiella pneumoniae, Pseudomonas aeruginosa and Enterobacter cloacae. Plan Vancomycin * Loading dose: 1750 mg IV x 1 * Maintenance dose: 1250 mg IV every 12 hours * Regimen is predicted to achieve target AUC/MILES of 400-600 mg/L.hr * Random level ordered for 10/16 @1200 Pharmacy will continue to follow and will adjust dose/frequency as necessary. Thank you. Pharmacy has transitioned to AUC monitoring for vancomycin. AUC/MILES is the preferred PK/PD target and is associated with decreased risk of nephrotoxicity compared to traditional trough targets.
--- NOTE | 2023-10-16 12:33 | Hospitalist Progress Note ---
Date of Service October 16, 2023 Assessment & Plan (1) Epididymitis: Plan: Currently on vancomycin and Rocephin, day 2. Appreciate urology consultation and recommendations. Milner catheter has been in place since last year. Anticipate eventual discharge to home on an oral antibiotic (2) Neurogenic bladder: Plan: History of neurogenic bladder probably from underlying MS. Milner catheter was placed last year. (3) Elevated troponin: Plan: Chronic. No chest pain. No acute EKG changes (4) Multiple sclerosis: Plan: Supportive care. No acute exacerbation (5) Hyperlipidemia: Plan: Stable. Continue current medical manage (6) HTN (hypertension): Plan: Lisinopril temporarily uptitrated while hospitalized for better blood pressure control (7) Diabetes: Plan: Type II. ADA diet. Sliding scale coverage as needed (8) Milner catheter in place: Plan: Milner catheter was placed last year due to neurogenic bladder related to MS. Plan Anticipate eventual discharge to home on an oral antibiotic Admission and Anticipated Discharge Date Admission Date: October 15, 2023 Subjective Alert and oriented. No distress. Urology consultation appreciated. Scrotal ultrasound negative for torsion. He does have evidence of epididymitis however. He has a chronic indwelling Milner catheter. He is currently on vancomycin and Rocephin. Will eventually discharged on oral antibiotic. Lisinopril dosage temporarily uptitrated for better blood pressure control. Review of Systems 2 Review of Systems: Constitutional-no fever or chills ENT-no blurred vision, no double vision, no epistaxis, no sore throat Respiratory-no cough, no wheezing, no shortness of breath Cardiac-no palpitations, no chest pain, no syncope GI-no nausea, vomiting, diarrhea, melena, hematochezia -scrotal enlargement and tenderness and erythema. Milner catheter in place without hematuria Musculoskeletal-no joint pain, no muscle tenderness Skin-no bruising, no rashes, no pruritus Neuro-no isolated weakness, no paresthesia, no weakness Psych-no depression, no anxiety Physical Exam 2 Physical Exam: General-alert and oriented x3, no fever, no chills HEENT-head atraumatic and normocephalic, pupils equal and reactive to light, extraocular muscles intact Neck-no lymphadenopathy or thyromegaly, trachea midline Chest-clear to auscultation. No rales, wheezing or rhonchi Cardiac-regular rate and rhythm, normal S1 and S2 Abdomen-normal bowel sounds, nontender, no hepatosplenomegaly GUdiffuse scrotal erythema and enlargement with tenderness Extremities-no cyanosis, clubbing, or edema Neuro-cranial nerves II through XII intact, motor and sensory function within normal limits, strength symmetrical, no focal deficits Psych-normal affect, normal mood Results & Data Results & Data Vital Signs (Past 12 Hours) Vital Signs Pulse Pulse Resp BP Pulse Ox O2 Del Method 10/16/23 07:57 69 10/16/23 06:00 75 18 166/86 H 97 Room Air 10/16/23 03:00 75 19 182/94 H 97 Room Air Laboratory Results 10/16/23 03:13 10/16/23 03:13 PG Care Time/CCT Total # of Minutes Spent Total Time Spent with Patient: Total time spent is greater than 50% in coordination of care (as documented) at patient's floor/unit and/or counseling patient: Coding Level of Care Code 33293 SUB INP/OBS CARE 3/50MIN Diagnoses Epididymitis N45.1 Neurogenic bladder N31.9 Elevated troponin R77.8 Multiple sclerosis G35 Hyperlipidemia E78.5 HTN (hypertension) I10 Diabetes E11.[address] Z97.8
--- NOTE | 2023-10-16 13:23 | Urology Progress Note ---
Date of Service October 16, 2023 Assessment & Plan (1) Epididymitis: (2) Testicular pain, left: (3) Cellulitis of scrotum: Plan 63yo M with a hx of MS and neurogenic bladder currently managed with Milner catheter admitted with left sided testicular pain, epididymoorchitis, and UTI - Scrotal US consistent with left epididymoorchitis, possible right epididymoorchitis, small bilateral hydroceles - Pt afebrile and hemodynamically stable - Labs reviewed - WBC improved from 12.88-9.94 today, normal renal function - Urine culture 10/14 with more than 3 types of organisms, all high counts - Blood cultures pending - On Vanco and Ceftriaxone - Milner draining appropriately - urine is clear yellow. - No indication for urologic intervention. - Continue antibiotics and tailor as culture data becomes available. - Continue supportive care. - Recommend scrotal elevation and ice as needed to help with the swelling. - Urology will follow along. Admission and Anticipated Discharge Date Admission Date: October 15, 2023 Subjective Patient examined at bedside this AM. Awake, resting in bed on arrival. No acute distress. Milner draining clear yellow urine. Denies fever, chills, nausea, vomiting. Reports testicular pain and swelling L>R. Pain has improved some since arrival. No additional complaints at time of exam. Review of Systems Constitutional: as per Subjective / HPI Genitourinary: + as per Subjective / HPI Physical Exam Constitutional: no acute distress Respiratory: no respiratory distress and no labored breathing Neurologic: awake Psychiatric: A+Ox3, euthymic affect Genitourinary: Milner intact draining clear yellow urine. Scrotal edema and erythema L>R. Marked swelling of left testicle and tender with palpation. Right testicle is non tender with palpation. No open areas or drainage. No areas of eschar. No fluctuance or crepitus appreciated. Results & Data Vital Signs (Past 12 Hours) Vital Signs Pulse Pulse Resp BP Pulse Ox O2 Del Method 10/16/23 07:57 69 10/16/23 06:00 75 18 166/86 H 97 Room Air 10/16/23 03:00 75 19 182/94 H 97 Room Air PG Care Time/CCT Total # of Minutes Spent Total Time Spent with Patient: Total time spent is greater than 50% in coordination of care (as documented) at patient's floor/unit and/or counseling patient: Coding Level of Care Code 25825 SUB INP/OBS CARE MIN Diagnoses Epididymitis N45.1 Testicular pain, left N50.812 Cellulitis of scrotum N49.2
[2023-10-16] MEDS: cefTRIAXone SODIUM 2,000 MG in DEXTROSE 5 % MINI-B 50 ML IV SCH (16:41)
[2023-10-17 06:06] LABS: Basophils # (auto) 0.07 K/uL (0.00-0.20); Eosinophils # (auto) 0.27 K/uL (0.00-0.50); Hematocrit (blood only) 34.4 % (42.0-52.0); Hemoglobin 11.3 g/dl (14.0-18.0); Immature Granulocytes # (auto) 0.04 K/uL (0.01-0.20); Immature Granulocytes % (auto) 0.6 %; Lymphocytes # (auto) 1.21 K/uL (1.20-3.40); Lymphocytes % (auto) 18.1 %; Mean Corpuscular Hemoglobin 26.9 pg (25.0-34.0); Mean Corpuscular Hgb Conc 32.8 g/dL (32.0-36.0); Mean Corpuscular Volume 81.9 fL (80.0-100.0); Mean Platelet Volume 11.1 fL (9.4-12.4); Monocytes # (auto) 0.57 K/uL (0.11-0.59); Monocytes % (auto) 8.5 %; Neutrophils # (auto) 4.52 K/uL (1.40-6.50); Neutrophils % (auto) 67.8 %; Platelet Count 228 K/uL (130-400); RDW Standard Deviation 38.9 fL (36.4-46.3); White Blood Count 6.68 K/ul (4.8-10.8)
[2023-10-17 06:23] LABS: BUN Creatinine Ratio 14.3 (10-20); Calcium 8.4 mg/dl (8.6-10.3); Creatinine Clr Calc Pharmacy 102.9 ml/min; Est GFR (African American) 112.7 ml/min; Est GFR (Non-African American) 97.3 ml/min; Potassium 3.6 mmol/L (3.5-5.1)
[2023-10-17] MEDS ORDERED: VANCOMYCIN LEVEL ONE (12:00)
--- NOTE | 2023-10-17 12:00 | Discharge Summary ---
Date of Service October 17, 2023 Admission HPI Per Admitting Provider 63 year old male with past medical history significant for MS with associated neurogenic bladder (with indwelling catheter), A-fib, HTN, HLD, T2DM presenting with left testicular pain and swelling. Patient notes that he had his catheter changed last Friday, started to notice testicular pain on Friday. Since then, has had progressively worsening pain and swelling. Denies associated urinary sx, denies fever/chills. Patient saw his PCP and was started on Bactrim yesterday - was unable to get in to see urology and was advised to be seen in the ED today. Of note, patient has had recurrent UTIs since urinary catheter placement in December 2022, states that he has been treated with abx an average of once per month. Also notes that he has not tolerated treatment with cipro- and levofloxacin, reports this caused hand swelling and caused his blood sugar and blood pressure to be more erratic. Denies chest pain, shortness of breath, palpitations. ED Course: Lab work up significant for: WBC 12.9, negative lactate/procal, troponin 322 UA with positive nitrites, 2+ LE, >30WBC, 1+ bacteria Testicular US consistent with left epididymoorchitis, possible right epididymoorchitis, small bilateral hydroceles EKG without ischemic changes Principal Diagnosis Epididymitis, possible associated orchitis Discharge Exam General-alert and oriented x3, no fever, no chills HEENT-head atraumatic and normocephalic, pupils equal and reactive to light, extraocular muscles intact Neck-no lymphadenopathy or thyromegaly, trachea midline Chest-clear to auscultation. No rales, wheezing or rhonchi Cardiac-regular rate and rhythm, normal S1 and S2 Abdomen-normal bowel sounds, nontender, no hepatosplenomegaly GUdiffuse scrotal erythema and enlargement with tenderness Extremities-no cyanosis, clubbing, or edema Neuro-cranial nerves II through XII intact, motor and sensory function within normal limits, strength symmetrical, no focal deficits Psych-normal affect, normal mood Discharge Data Allergies Allergy/AdvReac Type Severity Reaction Status Date / Time bee venom protein (honey bee) Allergy Severe Anaphylaxis Verified 10/15/23 17:05 ciprofloxacin Allergy Unknown inflammation-"flared Verified 10/15/23 17:05 up MS" levofloxacin Allergy Unknown inflammation-"flared Verified 10/15/23 17:05 up MS" Milk Containing Products Allergy Unknown inflammation-"flared Verified 10/15/23 22:49 (Dairy) up MS" Consultations 10/15/23 18:23 ED Decision to Admit Stat 10/15/23 22:28 Consult Urology Routine Ordered Studies 10/15/23 13:58 US scrotum/testicle Stat Hospital Course (1) Epididymitis: Treated while hospitalized with vancomycin and Rocephin. He has a Bactrim prescription at home which she will take. Appreciate urology consultation and recommendations. Milner catheter has been in place since last year. He is afebrile now with stable vital signs and his white blood cell count is decreasing. He is medically stable for discharge to home (2) Neurogenic bladder: History of neurogenic bladder probably from underlying MS. Milner catheter was placed last year. (3) Elevated troponin: Chronic. No chest pain. No acute EKG changes (4) Multiple sclerosis: Supportive care. No acute exacerbation (5) Hyperlipidemia: Stable. Continue current medical manage (6) HTN (hypertension): Lisinopril temporarily uptitrated while hospitalized for better blood pressure control. He will return to his usual dosage at discharge (7) Diabetes: Type II. ADA diet. Sliding scale coverage as needed (8) Milner catheter in place: Milner catheter was placed last year due to neurogenic bladder related to MS. Plan Home today, October 16, on oral Bactrim therapy. Total Time Total Time Spent Total Time Spent (In Minutes): 45 minutes Discharge Plan Discharge Items Patient Disposition: Home - Self-Care Reason For Visit: TESTICULAR PAIN Discharge Diagnosis: Epididymitis, possible associated orchitis Activity: Per Instructions section Activity Comment: Scrotal support with tight underwear Non-emergency contact: Primary Care Provider and Urologist Call non-emergency contact if: you have any medication questions and your symptoms worsen Follow-up/Referrals: Maxwell Velarde [Primary Care Provider] - Diet: Carb Consistent or DM2 and Heart Healthy Addtl Attending Provider Instructions: Scrotal support with tight underwear. Continue Bactrim therapy as previously prescribed Pending Studies at Discharge: No Stand-Alone Forms: [employer], Smoking Cessation Medications and DC Order Prescriptions: New sulfamethoxazole-trimethoprim [Bactrim DS] 800-160 mg tablet 1 tab PO BID 10 Days Qty: 20 0RF Continued aspirin 81 mg Tablet,Delayed Release (Dr/Ec) 81 mg PO QAM epinephrine 0.3 mg/0.3 mL auto-injector 0.3 mg subcut UD PRN (Reason: Anaphylaxis) omega 6-xlr-dzt-fish oil [Fish Oil] 1,000 mg (120 mg-180 mg) Capsule 3 cap PO BID vitamin E 100 unit Tablet 180 unit PO QAM cholecalciferol (vitamin D3) [Vitamin D3] 125 mcg (5,000 unit) Tablet 125 mcg PO QAM insulin degludec [Tresiba FlexTouch U-100] 100 unit/mL (3 mL) insulin pen 28 unit SUBCUT QAM Advance Digestive Enzyme 1 cap PO DAILY Bcq 5 cap PO BID Gi Revive Gut Health 1 dose PO UD Rx Instructions: one dose= one scoop per pt Nerve Support Complex 3 cap PO TIDM Rx Instructions: 3 caps with each meal magnesium oxide 200 mg magnesium tablet 200 mg PO DAILY Qty: 30 0RF coQ10 (ubiquinol) 100 mg Capsule 100 mg PO QAM lisinopril 2.5 mg Tablet 2.5 mg PO QAM cyanocobalamin (vitamin B-12) [Vitamin B-12] 1,000 mcg Tablet 1,000 mcg PO DAILY zinc gluconate 50 mg Tablet 50 mg PO QAM Discharge Orders: Discharge Order (Routine); Ordered 10/17/23 Ordered By: Trevor Farfan/Other Patient Handouts: Managing Type 2 Diabetes Admission Data Admit Date/Time: 10/15/23 19:23 Attending Provider: Trevor Manley Admit Provider: Zach Almanzar Primary Care Provider: Maxwell Velarde Other Providers: Blayne Mendosa; Albert Farley Coding Level of Care Code 87069 INP/OBS DISCH >30 MIN Diagnoses Epididymitis N45.1 Neurogenic bladder N31.9 Elevated troponin R77.8 Multiple sclerosis G35 Hyperlipidemia E78.5 HTN (hypertension) I10 Diabetes E11.[address] Z97.8
--- NOTE | 2023-10-17 14:06 | Urology Progress Note ---
Date of Service October 17, 2023 Assessment & Plan (1) Epididymitis: (2) Testicular pain, left: (3) Cellulitis of scrotum: Plan 63yo M with a hx of MS and neurogenic bladder currently managed with Milner catheter admitted with left sided testicular pain, epididymoorchitis, and UTI - Scrotal US consistent with left epididymoorchitis, possible right epididymoorchitis, small bilateral hydroceles - Pt afebrile and hemodynamically stable - Labs reviewed - No leukocytosis and normal renal function - Urine culture 10/14 with more than 3 types of organisms, all high counts - Blood cultures prelim no growth - On Vanco and Ceftriaxone - Milner draining appropriately - urine is clear yellow. - No indication for urologic intervention. - He is gradually improving. We discussed the expected time for full resolution. - Continue antibiotics and tailor as culture data becomes available. - Continue supportive care. - Recommend scrotal elevation and ice as needed to help with the swelling. - Will arrange outpatient follow-up with our service. - Urology will sign off. Please call with any further questions or concerns. Admission and Anticipated Discharge Date Admission Date: October 15, 2023 Subjective Patient examined at bedside this AM. Awake, resting in bed on arrival. No acute distress. Milner draining clear yellow urine. Denies fever, chills, nausea, vomiting. Reports an improvement in pain/swelling. No additional complaints at time of exam. Review of Systems Constitutional: as per Subjective / HPI Genitourinary: + as per Subjective / HPI Physical Exam Constitutional: no acute distress Respiratory: no respiratory distress and no labored breathing Neurologic: awake Psychiatric: A+Ox3, euthymic affect Genitourinary: Milner intact draining clear yellow urine. Scrotal edema and erythema L>R, improved some since yesterday. Mild tenderness with palpation. No open areas or drainage. No areas of eschar. No fluctuance or crepitus appreciated. Results & Data Vital Signs (Past 12 Hours) Vital Signs Temp Pulse Pulse Resp BP BP Pulse Ox 10/17/23 13:34 36.7 C 78 18 180/77 H 165/80 H 97 10/17/23 11:56 36.7 C 78 18 180/77 H 97 10/17/23 07:56 36.8 C 59 L 18 164/75 H 97 10/17/23 07:35 80 10/17/23 03:24 36.8 C 66 16 165/80 H 97 O2 Del Method 10/17/23 13:34 10/17/23 11:56 Room Air 10/17/23 07:56 Room Air 10/17/23 07:35 10/17/23 03:24 Room Air PG Care Time/CCT Total # of Minutes Spent Total Time Spent with Patient: Total time spent is greater than 50% in coordination of care (as documented) at patient's floor/unit and/or counseling patient: Coding Level of Care Code 20783 SUB INP/OBS CARE 235MIN Diagnoses Epididymitis N45.1 Testicular pain, left N50.812 Cellulitis of scrotum N49.2
== END 2023-10-17 13:54 | disposition home or self-care (01) | DRG 728 ==
LOC: ED 13:43 → SUATTDRO 19:23 → EDINP 19:23 → 2W 22:29

== ENCOUNTER 2023-11-04 23:11 | Inpatient (IN) ==
[2023-11-05] MEDS: SODIUM CHLORIDE 0.9% 1,000 ML IV SCH (00:09)
[2023-11-05] MEDS: ACETAMINOPHEN 500 MG TAB PO STA (00:09)
--- NOTE | 2023-11-05 00:33 | Emergency Department Note ---
Impression & Plan Sepsis ED Provider Note NAME: ADE DAVIES AGE: 63 SEX: Male INFORMANT: Patient ED PROVIDER(S): Sujit Louis MD CHIEF COMPLAINT: Syncope and fever PLAN: Disposition: Admitted Outpatient prescription management: none Referral: None MEDICAL DECISION MAKING: Patient presented due to syncopal episode and had a fever. He was tachycardic. Concerns for sepsis. Blood work including cultures, lactate ordered. Patient was given 2 L normal saline bolus. Empiric cefepime done after cultures. Urinalysis from last night was concerning but that is baseline for the patient. Culture is still pending. Patient did take a dose of Bactrim prior to his syncopal event that was leftover from a prior prescription. Cefepime was ordered initially but not given due to concern for RLL infiltrate and aspiration concerns. Pt ordered Zosyn and vancomycin for broad spectrum coverage. Lactate negative. Leukocytosis noted on CBC. Mild hypomagnesemia which was repleted. Nursing noted weight to be 80 KG and total fluids were 2650. Pt reassessed frequently and was feeling improved and tachycardia improving as well. Concerns for developing sepsis with fever, tachycardia, possible aspiration and UTI. Troponin also mildly elevated but no chest pain. Will need admission and further management. Consultation made with Dr. Hatfield of the hospitalist service. Patient was promptly evaluated in the ED and admitted for further management by the team. Care/management discussed with: firmware manager Level of care consideration(s): After review of the information above and other included data, I feel the patient requires escalation of care to admission. Triage Nursing notes: reviewed and agree them. Vital Signs: reviewed and remarkable for tachycardia and fever Additional History obtained from: Patients regarding the event noted below Chronic Medical/Social Conditions affecting care: MS Prior/ Outside/ External records reviewed: none Differential Diagnosis: Viral syndrome, otitis, pharyngitis, pneumonia, influenza, meningitis, urinary tract infection, sepsis, bacteremia, as well as other pathologies. Diagnostics, independently interpreted by me: EC Lead ECG performed and revealed ST rhythym at 124, normal [place], QRS normal. No elevation. Poor baseline data and inferolateral TWI. When compared to September ECG, TWI replaced NST inferolaterally and rate increased. Cardiac Monitoring: Cardiac monitoring ordered by me: The patient was placed on continuous cardiac monitoring and observed. It revealed a ST at 117 beats per minute without ectopy or evidence of dysrhythmia. Medical decision rules: none Imaging studies: CXR concerning for RLL infiltrate HPI: 63 year old Male arrives for evaluation of syncope. This started tonight and was witnessed by the . They went out to [employer] and the patient had seafood. Did not think anything of that meal has he had it before. He noted having a fever. He took a Bactrim that was leftover from a prior prescription. Patient notes no catheter problems since his visit last night.. The patient also notes the following associated symptoms, feeling feverish, vomiting x 1. states that he was unresponsive for about 10 to 15 minutes. No seizure activity reported. EMS noted his O2 saturation was mildly low. The patient has been given no other medication for relieving factors. Current pain is rated as 0/10. Pt denies headache, sick contacts, URI symptoms, diaphoresis, visual changes, neck pain, chest pain, breathing difficulties, nausea, abdominal pain, back pain, melena, hematochezia, new urinary symptoms, numbness, new weakness, lymphadenopathy, rash, or other complaints. PAST MEDICAL HISTORY: See Below, MS, urinary retention PAST SURGICAL HISTORY: See Below, SOCIAL HISTORY: See Below, HOME MEDICATIONS: See Below ALLERGIES: See Below VITALS: See Below PHYSICAL EXAMINATION: GENERAL: Awake, alert, well-appearing, in no distress HENT: Normocephalic, atraumatic. Oropharynx unremarkable. EYES: Normal conjunctiva. Sclera non-icteric. NECK: Inspection normal. Non-tender. Supple. No nuchal rigidity. FROM. No masses. RESPIRATORY: Clear to auscultation. No wheezes. No rales. Normal respiratory effort. CARDIAC: Tachycardic rate. Normal rhythm. Systolic ejection murmur. No rubs. Extremities warm and well perfused. Pulses equal. No JVD. GI: Soft, non-distended. No tenderness to palpation. No rebound or guarding. No masses. RECTAL: Deferred. MUSCULOSKELETAL: Atraumatic. Chest examination reveals no tenderness. The back is symmetrical on inspection without obvious abnormality. There is no CVA tenderness to palpation. No joint edema. LOWER EXTREMITIES: Calves are equal size bilaterally and non-tender. No edema. No discoloration. NEURO: Normal sensorium. Speech normal. No tremor. No focal deficits. SKIN: No rash or jaundice noted. PROCEDURES: none CRITICAL CARE: I have personally spent 40 minutes of critical care time in the direct management of this patient. This includes bedside care, interpretation of diagnostic studies, and testing, discussion with consultants, patient, and family members, and other required patient management activities. These minutes are in excess of all separately billable procedures. OBSERVATION NOTE: [none] Past Med/Surg History Medical History (Updated 11/05/23 @ 16:25 by Del Trammell MD) Hyperlipidemia HTN (hypertension) Patient reports HTN hx, indicating that current reason for lisinopril is for renal protection/not BP management Diabetes Type 2 IDDM Neurogenic bladder Elevated troponin Multiple sclerosis CAD (coronary artery disease) Non-obstructive, medical management recommended Atrial fibrillation Aortic stenosis Echo 02/2023: "Mild" aortic stenosis (KEVIN 1.7-1.8cm2, MG 14.4mmhg) Bladder stones Milner catheter in place Multiple sclerosis Neuropathy Osteoarthritis BPH (benign prostatic hyperplasia) Surgical History (Updated 10/20/23 @ 00:08 by Katalina Masters) History of amputation of lesser toe of left foot (~09/10/21) fifth toe amputation and fifth metatarsal head resection with I&D History of colonoscopy History of wisdom tooth extraction History of cardiac cath 1995- no stents 2019 ([place])- no stents History of arthroscopic knee surgery meniscus repair History of amputation of toe x4 History of tonsillectomy and adenoids Family History Father Heart disease, Onset Age: 54 Had CABG at age 54 Mother Diabetes Other No family history of adverse response to anesthesia Social History Smoking Status: Never smoker Second Hand Exposure: No; Do You Dip or Chew Tobacco: No; Hx Alcohol Use: No Hx Substance Use: No Preferred Language: Hebrew Communication Ability: Effective Visual Impairment: No Limitations Hearing Ability: Normal Chain Testing Machine Operator Required: No Beliefs That Will Affect Care: None marital status: Current Living Situation: Spouse current occupational status: employed 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 [employer] Feels Safe at Home: Yes Diet: diabetic and low carbohydrate caffeine: Yes (tea) Assistive Devices: Glasses Allergies Allergies Allergy/AdvReac Type Severity Reaction Status Date / Time bee venom protein (honey bee) Allergy Severe Anaphylaxis Verified 11/03/23 10:06 ciprofloxacin Allergy Unknown inflammation-"flared Verified 11/03/23 10:06 up MS" levofloxacin Allergy Unknown inflammation-"flared Verified 11/03/23 10:06 up MS" Milk Containing Products Allergy Unknown inflammation-"flared Verified 11/03/23 10:06 (Dairy) up MS" Home Meds Home Medications Medication Instructions Recorded Confirmed epinephrine 0.3 mg/0.3 mL 0.3 mg subcut UD PRN Anaphylaxis 12/29/19 11/05/23 injection, auto-injector omega [id number] oil 1,000 mg 3 cap PO BID 12/29/19 11/05/23 (120 mg-180 mg) capsule (Fish Oil) cholecalciferol (vitamin D3) 125 125 mcg PO QAM 09/07/21 11/05/23 mcg (5,000 unit) tablet (Vitamin D3) coQ10 (ubiquinol) 100 mg capsule 100 mg PO QAM 11/26/21 11/05/23 insulin degludec 100 unit/mL (3 22 unit subcut QAM 02/18/23 11/05/23 mL) subcutaneous pen (Tresiba FlexTouch U-100 insulin) Advance Digestive Enzyme 1 cap PO DAILY 03/17/23 11/05/23 Gi Revive Gut Health 1 dose PO DAILY 03/17/23 11/05/23 Nerve Support Complex 3 cap PO TIDM 03/17/23 11/05/23 lisinopril 2.5 mg tablet 2.5 mg PO QAM 09/02/23 11/05/23 cyanocobalamin (vitamin B-12) 1,000 mcg PO DAILY 10/15/23 11/05/23 1,000 mcg tablet (Vitamin B-12) zinc gluconate 50 mg tablet 50 mg PO QAM 10/15/23 11/05/23 vitamin E 268 mg (400 unit) capsule 268 mg PO DAILY 11/05/23 11/05/23 Previous Rx's Medication Instructions Recorded magnesium oxide 200 mg PO DAILY #30 tabs 03/19/23 Results & Data (ED) Vital Signs Vital Signs - 24 hr 11/04/23 23:08 11/04/23 23:35 Temperature 37.9 C H Temperature Source Oral Pulse Rate 125 H 124 H Respiratory Rate 18 Respiratory Effort / Characteristics Non-Labored Respiratory Depth Normal Blood Pressure 161/76 H Blood Pressure Mean 104 Pulse Oximetry 96 Oxygen Delivery Method Room Air Sepsis Recent Fever Within 48 Hours Yes Sepsis New/Unexplained Change in Mental Status No Sepsis Action Taken by Nursing No Action Required Laboratory Data 11/06/23 05:32 11/06/23 05:32 Lab Results 11/04/23 11/05/23 11/05/23 Range/Units 23:40 00:15 00:37 WBC 12.36 H (4.8-10.8) K/ul RBC 4.78 (4.70-6.10) M/uL Hgb 12.8 L (14.0-18.0) g/dl Hct 40.2 L (42.0-52.0) % MCV 84.1 (80.0-100.0) fL MCH 26.8 (25.0-34.0) pg MCHC 31.8 L (32.0-36.0) g/dL RDW Std Deviation 43.0 (36.4-46.3) fL RDW Coeff of [place]ens[place] 14.1 (11.5-14.5) % Plt Count 248 (130-400) K/uL MPV 11.8 (9.4-12.4) fL Immature Gran % (Auto) 0.6 % Neut % (Auto) 84.6 % Lymph % (Auto) 12.5 % [place] % (Auto) 1.9 % Eos % (Auto) 0.2 % Baso % (Auto) 0.2 % Neut # (Auto) 10.47 H (1.40-6.50) K/uL Lymph # (Auto) 1.54 (1.20-3.40) K/uL [place] # (Auto) 0.23 (0.11-0.59) K/uL Eos # (Auto) 0.03 (0.00-0.50) K/uL Baso # (Auto) 0.02 (0.00-0.20) K/uL Immature Gran # (Auto) 0.07 (0.01-0.20) K/uL Sodium 136 (136-145) mmol/L Potassium 3.8 (3.5-5.1) mmol/L Chloride 100 (98-107) mmol/L Carbon Dioxide 23 (21-32) mmol/L Anion Gap 13 H (3-11) BUN 29 H (6-23) mg/dl Creatinine 1.14 (0.6-1.4) mg/dl Est Cr Clr Drug Dosing 73.7 ml/min Est GFR ( Amer) 79.4 ml/min Est GFR (Non-Af Amer) 68.5 ml/min BUN/Creatinine Ratio 25.4 H (10-20) Glucose 315 H* (70-99(Fasting)) mg/dl Lactate 1.6 (0.4-2.0) mmol/L Calcium 9.4 (8.6-10.3) mg/dl Magnesium 1.5 L (1.7-2.4) mg/dl Total Bilirubin 0.7 (0.2-1.0) mg/dl Direct Bilirubin 0.1 (0-0.2) mg/dl AST 19 (13-39) U/L ALT 17 (7-52) U/L Alkaline Phosphatase 94 (34-104) U/L Troponin I High Sens 24.0 H (0-20) pg/ml Total Protein 6.7 (6.0-8.3) gm/dl Albumin 3.9 (3.4-5.0) gm/dl Procalcitonin 0.08 (0-0.5) ng/ml Urine Color Yellow Urine Appearance Turbid A (Clear) Urine pH 5.5 (4.5-7.5) Ur Specific [place] 1.015 (1.000-1.030) Urine Protein 2+ H (Negative) Urine Glucose (UA) 1+ H (Negative) Urine Ketones 2+ H (Negative) Urine Blood 3+ H (Negative) Urine Nitrite Positive A (Negative) Urine Bilirubin Negative (Negative) Urine Urobilinogen Negative (Negative) Ur Leukocyte Esterase 3+ H (Negative) Urine WBC (Auto) >50 H (0-5) /hpf Urine RBC (Auto) >20 H (0-2) /hpf U Hyaline Cast (Auto) 0-2 (0-2) /lpf U Epithel Cells (Auto) 0-2 (0-2) /hpf Urine Bacteria (Auto) 1+ H (None Seen) Nasal Screen MRSA (PCR) (Negative) Adenovirus (PCR) Not Detected (NotDetected) B. pertussis DNA (PCR) Not Detected (NotDetected) B.parapertussis DNA PCR Not Detected (NotDetected) C. pneumoniae DNA (PCR) Not Detected (NotDetected) Coronavirus OC43 (PCR) Not Detected (NotDetected) Coronavirus HKU1 (PCR) Not Detected (NotDetected) Coronavirus 229E (PCR) Not Detected (NotDetected) SARS-CoV-2 (PCR) Not Detected (NotDetected) Coronavirus NL63 (PCR) Not Detected (NotDetected) Human Metapneumovir PCR Not Detected (NotDetected) Influenza Type A (PCR) Not Detected (NotDetected) Influenza Type B (PCR) Not Detected (NotDetected) M. pneumoniae (PCR) Not Detected (NotDetected) Parainfluenza 1 (PCR) Not Detected (NotDetected) Parainfluenza 2 (PCR) Not Detected (NotDetected) Parainfluenza 3 (PCR) Not Detected (NotDetected) Parainfluenza 4 (PCR) Not Detected (NotDetected) RSV (PCR) Not Detected (NotDetected) Entero/Rhino (PCR) Not Detected (NotDetected) 11/05/23 Range/Units 01:36 WBC (4.8-10.8) K/ul RBC (4.70-6.10) M/uL Hgb (14.0-18.0) g/dl Hct (42.0-52.0) % MCV (80.0-100.0) fL MCH (25.0-34.0) pg MCHC (32.0-36.0) g/dL RDW Std Deviation (36.4-46.3) fL RDW Coeff of Spenser (11.5-14.5) % Plt Count (130-400) K/uL MPV (9.4-12.4) fL Immature Gran % (Auto) % Neut % (Auto) % Lymph % (Auto) % [place] % (Auto) % Eos % (Auto) % Baso % (Auto) % Neut # (Auto) (1.40-6.50) K/uL Lymph # (Auto) (1.20-3.40) K/uL [place] # (Auto) (0.11-0.59) K/uL Eos # (Auto) (0.00-0.50) K/uL Baso # (Auto) (0.00-0.20) K/uL Immature Gran # (Auto) (0.01-0.20) K/uL Sodium (136-145) mmol/L Potassium (3.5-5.1) mmol/L Chloride (98-107) mmol/L Carbon Dioxide (21-32) mmol/L Anion Gap (3-11) BUN (6-23) mg/dl Creatinine (0.6-1.4) mg/dl Est Cr Clr Drug Dosing ml/min Est GFR ( Amer) ml/min Est GFR (Non-Af Amer) ml/min BUN/Creatinine Ratio (10-20) Glucose (70-99(Fasting)) mg/dl Lactate (0.4-2.0) mmol/L Calcium (8.6-10.3) mg/dl Magnesium (1.7-2.4) mg/dl Total Bilirubin (0.2-1.0) mg/dl Direct Bilirubin (0-0.2) mg/dl AST (13-39) U/L ALT (7-52) U/L Alkaline Phosphatase (34-104) U/L Troponin I High Sens (0-20) pg/ml Total Protein (6.0-8.3) gm/dl Albumin (3.4-5.0) gm/dl Procalcitonin (0-0.5) ng/ml Urine Color Urine Appearance (Clear) Urine pH (4.5-7.5) Ur Specific [place] (1.000-1.030) Urine Protein (Negative) Urine Glucose (UA) (Negative) Urine Ketones (Negative) Urine Blood (Negative) Urine Nitrite (Negative) Urine Bilirubin (Negative) Urine Urobilinogen (Negative) Ur Leukocyte Esterase (Negative) Urine WBC (Auto) (0-5) /hpf Urine RBC (Auto) (0-2) /hpf U Hyaline Cast (Auto) (0-2) /lpf U Epithel Cells (Auto) (0-2) /hpf Urine Bacteria (Auto) (None Seen) Nasal Screen MRSA (PCR) Negative (Negative) Adenovirus (PCR) (NotDetected) B. pertussis DNA (PCR) (NotDetected) B.parapertussis DNA PCR (NotDetected) C. pneumoniae DNA (PCR) (NotDetected) Coronavirus OC43 (PCR) (NotDetected) Coronavirus HKU1 (PCR) (NotDetected) Coronavirus 229E (PCR) (NotDetected) SARS-CoV-2 (PCR) (NotDetected) Coronavirus NL63 (PCR) (NotDetected) Human Metapneumovir PCR (NotDetected) Influenza Type A (PCR) (NotDetected) Influenza Type B (PCR) (NotDetected) M. pneumoniae (PCR) (NotDetected) Parainfluenza 1 (PCR) (NotDetected) Parainfluenza 2 (PCR) (NotDetected) Parainfluenza 3 (PCR) (NotDetected) Parainfluenza 4 (PCR) (NotDetected) RSV (PCR) (NotDetected) Entero/Rhino (PCR) (NotDetected) Administered Medications Acetaminophen (Acetaminophen 325 Mg Tab) 650 mg PO Q4H PRN PRN Reason: pain/fever Stop: 12/05/23 02:19 Last Admin: 11/05/23 12:30 Dose: 650 mg Documented By: ANUP Enoxaparin Sodium (Enoxaparin Inj 40 Mg/0.4 Ml Syr) 40 mg SQ QAM [facility] Stop: 12/05/23 08:59 Last Admin: 11/06/23 10:48 Dose: Not Given Documented By: Admin: 11/05/23 09:45 Dose: 40 mg Documented By: KAYLAN Ceftriaxone Sodium 2,000 mg/ (Dextrose) 50 mls @ 100 mls/hr IV Q24H [facility]; Protocol Stop: 11/15/23 19:59 Last Infusion: 11/06/23 21:04 Dose: Infused Documented By: Admin: 11/06/23 20:34 Dose: 100 mls/hr Documented By: Infusion: 11/05/23 21:22 Dose: Infused Documented By: Admin: 11/05/23 20:52 Dose: 100 mls/hr Documented By: JAN Insulin Aspart (Insulin Aspart Per Unit Charge) 0 units SC ACHS [facility] Stop: 12/05/23 07:29 Last Admin: 11/06/23 20:33 Dose: 2 units Documented By: KATH Co-signed By: JAN Admin: 11/06/23 16:48 Dose: Not Given Documented By: Admin: 11/06/23 11:41 Dose: Not Given Documented By: Admin: 11/06/23 08:12 Dose: Not Given Documented By: Admin: 11/05/23 20:56 Dose: 2 units Documented By: JAN Co-signed By: VEDA Admin: 11/05/23 19:29 Dose: Not Given Documented By: Admin: 11/05/23 13:37 Dose: 2 units Documented By: ANUP Co-signed By: ZEKE Admin: 11/05/23 09:45 Dose: 3 units Documented By: KAYLAN Co-signed By: JASS Insulin Glargine (Lantus Per Unit Charge) 10 units SQ BID [facility] Stop: 12/05/23 08:59 Last Admin: 11/06/23 20:33 Dose: 10 units Documented By: KATH Co-signed By: JAN Admin: 11/06/23 08:01 Dose: 10 units Documented By: KARLI Co-signed By: MIKE Admin: 11/05/23 20:57 Dose: 10 units Documented By: JAN Co-signed By: VEDA Admin: 11/05/23 09:46 Dose: 10 units Documented By: KAYLAN Co-signed By: JASS Lisinopril (Lisinopril 2.5 Mg Tab) 2.5 mg PO QAM [facility] Stop: 12/05/23 08:59 Last Admin: 11/06/23 08:00 Dose: 2.5 mg Documented By: Admin: 11/05/23 09:45 Dose: 2.5 mg Documented By: KAYLAN Metoprolol Tartrate (Metoprolol Tartrate 25 Mg Tab) 25 mg PO BID [facility] Stop: 12/05/23 20:59 Last Admin: 11/06/23 20:35 Dose: 25 mg Documented By: Admin: 11/06/23 08:00 Dose: 25 mg Documented By: Admin: 11/05/23 21:21 Dose: 25 mg Documented By: JAN Discontinued Medications Acetaminophen (Acetaminophen 500 Mg Tab) 1,000 mg PO NOW STA Stop: 11/04/23 23:58 Last Admin: 11/05/23 00:09 Dose: 1,000 mg Documented By: Aspirin (Aspirin 325 Mg Ectab) 325 mg PO NOW STA Stop: 11/05/23 13:07 Last Admin: 11/05/23 13:37 Dose: 325 mg Documented By: ANUP Fentanyl Citrate (Fentanyl Citrate Pf 100 Mcg/2 Ml Vial) Confirm Administered Dose 100 mcg .ROUTE .STK-MED ONE Stop: 11/06/23 13:31 Last Increment: 11/06/23 14:43 Dose: 25 mcg Documented By: CARD SERVICES SPECIALIST Heparin Sodium (Porcine) (Heparin (Porcine) 1000 Unit/Ml 10 Ml (Insurance Policy Issue Clerk Use Only)) Confirm Administered Dose 10,000 units .ROUTE .STK-MED ONE Stop: 11/06/23 13:31 Last Admin: 11/06/23 14:43 Dose: 4,500 units Documented By: CARD SERVICES SPECIALIST Heparin Sodium/Sodium Chloride (Heparin In Nss Infusion 1000 Unit/500 Ml (2 U/Ml) Bag) Confirm Administered Dose 3,000 units IV .STK-MED ONE Stop: 11/06/23 13:31 Last Admin: 11/06/23 14:43 Dose: 3,000 units Documented By: CARD SERVICES SPECIALIST Sodium Chloride (Nss) 1,000 mls @ 999 mls/hr IV .Q1H1M [facility] Stop: 11/05/23 01:45 Last Infusion: 11/05/23 01:21 Dose: Infused Documented By: Admin: 11/05/23 00:12 Dose: 999 mls/hr Documented By: Infusion: 11/05/23 00:12 Dose: Infused Documented By: Admin: 11/05/23 00:09 Dose: 999 mls/hr Documented By: Cefepime HCl (Maxipime) 2,000 mg in 20 mls @ 5 mls/min IV NOW STA; Protocol Stop: 11/05/23 00:08 Last Admin: 11/05/23 00:40 Dose: Not Given Documented By: Vancomycin HCl 1,500 mg/ (Sodium Chloride) 530 mls @ 200 mls/hr IV NOW ONE Stop: 11/05/23 03:12 Last Infusion: 11/05/23 04:30 Dose: Infused Documented By: Admin: 11/05/23 01:51 Dose: 200 mls/hr Documented By: Piperacillin Sod/Tazobactam Sod (Zosyn) 4.5 gm in 100 mls @ 200 mls/hr IV NOW ONE Stop: 11/05/23 01:03 Last Infusion: 11/05/23 01:55 Dose: Infused Documented By: Admin: 11/05/23 01:13 Dose: 200 mls/hr Documented By: Magnesium Sulfate/Dextrose (Magnesium Sulfate / D5w) 1 gm in 100 mls @ 50 mls/hr IV ONE ONE Stop: 11/05/23 03:26 Last Infusion: 11/05/23 04:30 Dose: Infused Documented By: Admin: 11/05/23 02:26 Dose: 50 mls/hr Documented By: Magnesium Sulfate/Dextrose (Magnesium Sulfate / D5w) 1 gm in 100 mls @ 50 mls/hr IV Q2H [facility] Stop: 11/06/23 13:44 Last Infusion: 11/06/23 15:18 Dose: Infused Documented By: Admin: 11/06/23 11:41 Dose: 50 mls/hr Documented By: Infusion: 11/06/23 11:41 Dose: Infused Documented By: Admin: 11/06/23 10:15 Dose: 50 mls/hr Documented By: KARLI Ioversol (Optiray 350) Confirm Administered Dose 1 ml .ROUTE .STK-MED ONE Stop: 11/06/23 14:46 Last Admin: 11/06/23 15:36 Dose: Not Given Documented By: KARLI Labetalol HCl (Labetalol Hcl Iv 5 Mg/Ml 20ml) 10 mg IV NOW STA Stop: 11/05/23 13:43 Last Admin: 11/05/23 13:55 Dose: 10 mg Documented By: ANUP Co-signed By: DAJUAN Midazolam HCl (Midazolam Hcl 1 Mg/Ml 2ml Vial) Confirm Administered Dose 2 mg .ROUTE .STK-MED ONE Stop: 11/06/23 13:31 Last Increment: 11/06/23 14:44 Dose: 1 mg Documented By: PEYTON Nicardipine HCl (Nicardipine Hcl Inj 2.5 Mg/Ml 10 Ml Amp) Confirm Administered Dose 25 mg .ROUTE .STK-MED ONE Stop: 11/06/23 13:31 Last Admin: 11/06/23 14:44 Dose: 25 mg Documented By: PEYTON Nitroglycerin/Dextrose (Nitroglycerin/D5w 100mcg/Ml 20ml Syr) Confirm Administered Dose 2,000 mcg .ROUTE .STK-MED ONE Stop: 04/11/24 13:32 Last Admin: 11/06/23 14:44 Dose: 2,000 mcg Documented By: CARD SERVICES SPECIALIST Discharge Plan Visit Data Chief Complaint: Syncope Stated Complaint: SYNCOPE X1, VOMITING ED Provider: Sujit Louis Discharge Problem: Sepsis Patient Disposition: Admitted As Inpatient Discharge Instructions Interventions: ED Discharge Assessment Last Done: 11/05/23 03:33
[2023-11-05] MEDS ORDERED: VANCOMYCIN CONSULT ACTIVE PRN (00:34)
[2023-11-05] MEDS: CEFEPIME 2,000 MG/20 ML VIAL IV STA (00:40)
[2023-11-05 00:45] LABS: Basophils # (auto) 0.02 K/uL (0.00-0.20); Basophils % (auto) 0.2 %; Eosinophils # (auto) 0.03 K/uL (0.00-0.50); Eosinophils % (auto) 0.2 %; Hematocrit (blood only) 40.2 % (42.0-52.0); Hemoglobin 12.8 g/dl (14.0-18.0); Immature Granulocytes # (auto) 0.07 K/uL (0.01-0.20); Immature Granulocytes % (auto) 0.6 %; Lymphocytes # (auto) 1.54 K/uL (1.20-3.40); Lymphocytes % (auto) 12.5 %; Mean Corpuscular Hemoglobin 26.8 pg (25.0-34.0); Mean Corpuscular Hgb Conc 31.8 g/dL (32.0-36.0); Mean Corpuscular Volume 84.1 fL (80.0-100.0); Mean Platelet Volume 11.8 fL (9.4-12.4); Monocytes # (auto) 0.23 K/uL (0.11-0.59); Monocytes % (auto) 1.9 %; Neutrophils # (auto) 10.47 K/uL (1.40-6.50); Neutrophils % (auto) 84.6 %; Platelet Count 248 K/uL (130-400); RDW Coefficient of Variation 14.1 % (11.5-14.5); Red Blood Count 4.78 M/uL (4.70-6.10); White Blood Count 12.36 K/ul (4.8-10.8)
[2023-11-05 00:51] LABS: Appearance Urine Turbid (Clear); Bacteria Urine Automated 1+ (None Seen); Bilirubin Urine Negative (Negative); Blood Urine 3+ (Negative); Color Urine Yellow; Epithelial Cell Urine Auto 0-2 /hpf (0-2); Glucose Urine UA 1+ (Negative); Ketones Urine 2+ (Negative); Leukocyte Esterase Urine 3+ (Negative); Nitrite Urine Positive (Negative); Protein Urine 2+ (Negative); RBC Urine Automated >20 /hpf (0-2); Specific Gravity Urine 1.015 (1.000-1.030); Urobilinogen Urine Negative (Negative); WBC Urine Automated >50 /hpf (0-5); pH Urine 5.5 (4.5-7.5)
[2023-11-05 00:56] LABS: Albumin Level 3.9 gm/dl (3.4-5.0); Bilirubin Direct 0.1 mg/dl (0-0.2); Bilirubin,Total 0.7 mg/dl (0.2-1.0); Calcium 9.4 mg/dl (8.6-10.3); Magnesium 1.5 mg/dl (1.7-2.4); Potassium 3.8 mmol/L (3.5-5.1)
[2023-11-05 01:03] LABS: Cast Urine Automated 0-2 /lpf (0-2)
[2023-11-05] MEDS: PIPERACILLIN/TAZOBACTAM 4.5 GM/100 ML BAG IV ONE (01:13)
[2023-11-05 01:30] LABS: Adenovirus PCR Not Detected (NotDetected); Bordetella parapertussis PCR Not Detected (NotDetected); Bordetella pertussis PCR Not Detected (NotDetected); Chlamydia pneumoniae PCR Not Detected (NotDetected); Coronavirus 229E PCR Not Detected (NotDetected); Coronavirus CoV-2 (COVID19)PCR Not Detected (NotDetected); Coronavirus HKU1 PCR Not Detected (NotDetected); Coronavirus NL63 PCR Not Detected (NotDetected); Coronavirus OC43PCR Not Detected (NotDetected); Human Metapneumovirus PCR Not Detected (NotDetected); Influenza A PCR Not Detected (NotDetected); Influenza B PCR Not Detected (NotDetected); Mycoplasma pneumoniae PCR Not Detected (NotDetected); Parainfluenza Virus 1 PCR Not Detected (NotDetected); Parainfluenza Virus 2 PCR Not Detected (NotDetected); Parainfluenza Virus 3 PCR Not Detected (NotDetected); Parainfluenza Virus 4 PCR Not Detected (NotDetected); Respiratory Syncytial VirusPCR Not Detected (NotDetected); Rhinovirus/Enterovirus PCR Not Detected (NotDetected)
[2023-11-05 01:40] LABS: BUN Creatinine Ratio 25.4 (10-20); Creatinine Clr Calc Pharmacy 73.7 ml/min; Est GFR (African American) 79.4 ml/min; Est GFR (Non-African American) 68.5 ml/min; Total Protein 6.7 gm/dl (6.0-8.3)
--- NOTE | 2023-11-05 01:44 | History & Physical Report ---
Date of Service November 05, 2023 Assessment & Plan (1) Syncope: Plan: Pt is a 63 yo male with PMH of MS w/ chronic indwelling kay, afib, CAD, aortic stenosis, BPH, HLD, HTN, and DM presenting after an episode of syncope. Syncope - no proceeding symptoms prior to event - lab work significant for leukocytosis to 12.36 w/ left shift, BMP WNL, mag 1.5, trop 24 - RVP neg; EKG showing sinus tachycardia - pt w/ hx of aortic stenosis; last echo 08/2023 showing progression to moderate from prior echo 02/2023; echo ordered for AM - ordered bilateral carotid dopplers to r/o stenosis - will monitor heart rhythm on tele to assess for arrhythmias possibly leading to syncopal event Aspiration pneumonitis - occurred after an episode of vomiting in the setting of syncope - lab work showing leukocytosis, procal 0.08, lactate 1.6 - CXR showing minor infiltrate of RLL base; MRSA nares pending - blood cultures pending - s/p vancomycin x1 and zosyn x1 given in ER; no further ABX necessary at this point as pt clinically appears well and stable Elevated trop - 24 upon admission; repeat 84 - EKG showing sinus tachycardia; trend trop until peak - otherwise, cardiac work up as above Hypomagnesemia - 1.5 upon admission - s/p 1g in ER - will hold home supplementation and replete IV PRN - continue to monitor HTN - continue home lisinopril 2.5mg DM - last A1c 09/2023 8.5% - pt takes 22 units insulin degludec at home - while hospitalized, will start with insulin glargine 10 units BID and SSI; adjust as necessary MS - diagnosed 12/2022; currently following with naturopathic doctor for this Diet: heart healthy VTE ppx: lovenox Code: full Dispo: med/tele (2) Elevated troponin: (3) Diabetes: (4) Aspiration of gastric contents: (5) Hypomagnesemia: History of Present Illness Chief Complaint: syncope Primary Care Provider: Maxwell Velarde Pt is a 63 yo male with PMH of MS w/ chronic indwelling kay, afib, CAD, aortic stenosis, BPH, HLD, HTN, and DM presenting after an episode of syncope. Pt explains that he was sitting on his couch this evening watching TV and passed out. He came to consciousness in the ambulance. He does not recall any symptoms prior to passing out. The ER note references an episode of vomiting as well- the pt does not recall this. He has passed out in the past in the setting of afib an d bumping his knees (which he attributes that syncope to sensitive nerves). He does note he has a family hx of cardiac concerns- his grandfather had an DC at age 54 and his father also had heart problems in his 50s. He was in the ER yesterday d/t urinary retention. He has not had further issues with his kay since then. He was discharged with bactrim d/t a presumed UTI. In the ER, pt was given 2 L NS, vancomycin x1, tylenol 1000mg x1, zosyn x1, and mag 1g. Allergies Allergy/AdvReac Type Severity Reaction Status Date / Time bee venom protein (honey bee) Allergy Severe Anaphylaxis Verified 11/03/23 10:06 ciprofloxacin Allergy Unknown inflammation-"flared Verified 11/03/23 10:06 up MS" levofloxacin Allergy Unknown inflammation-"flared Verified 11/03/23 10:06 up MS" Milk Containing Products Allergy Unknown inflammation-"flared Verified 11/03/23 10:06 (Dairy) up MS" Home Medications Medication Instructions Recorded Confirmed Type epinephrine 0.3 mg/0.3 mL 0.3 mg subcut UD PRN Anaphylaxis 12/29/19 11/05/23 History injection, auto-injector omega [id number]-fish oil 1,000 mg 3 cap PO BID 12/29/19 11/05/23 History (120 mg-180 mg) capsule (Fish Oil) cholecalciferol (vitamin D3) 125 125 mcg PO QAM 09/07/21 11/05/23 History mcg (5,000 unit) tablet (Vitamin D3) coQ10 (ubiquinol) 100 mg capsule 100 mg PO QAM 11/26/21 11/05/23 History insulin degludec 100 unit/mL (3 22 unit subcut QAM 02/18/23 11/05/23 History mL) subcutaneous pen (Tresiba FlexTouch U-100 insulin) Advance Digestive Enzyme 1 cap PO DAILY 03/17/23 11/05/23 History Gi Revive Gut Health 1 dose PO DAILY 03/17/23 11/05/23 History Nerve Support Complex 3 cap PO TIDM 03/17/23 11/05/23 History magnesium oxide 200 mg PO DAILY #30 tabs 03/19/23 11/05/23 Rx lisinopril 2.5 mg tablet 2.5 mg PO QAM 09/02/23 11/05/23 History cyanocobalamin (vitamin B-12) 1,000 mcg PO DAILY 10/15/23 11/05/23 History 1,000 mcg tablet (Vitamin B-12) zinc gluconate 50 mg tablet 50 mg PO QAM 10/15/23 11/05/23 History vitamin E 268 mg (400 unit) capsule 268 mg PO DAILY 11/05/23 11/05/23 History Past Med/Surg History Medical History (Updated 11/05/23 @ 02:43 by Stephanie Qiu DO) Diabetes Type 2 IDDM Neurogenic bladder Elevated troponin Multiple sclerosis CAD (coronary artery disease) Non-obstructive, medical management recommended Atrial fibrillation Aortic stenosis Echo 02/2023: "Mild" aortic stenosis (KEVIN 1.7-1.8cm2, MG 14.4mmhg) Bladder stones Kay catheter in place Multiple sclerosis Neuropathy Osteoarthritis BPH (benign prostatic hyperplasia) Hyperlipidemia HTN (hypertension) Patient reports HTN hx, indicating that current reason for lisinopril is for renal protection/not BP management Surgical History (Updated 10/20/23 @ 00:08 by Katalina Masters) History of amputation of lesser toe of left foot (~09/10/21) fifth toe amputation and fifth metatarsal head resection with I&D History of colonoscopy History of wisdom tooth extraction History of cardiac cath 1995- no stents 2019 ([place])- no stents History of arthroscopic knee surgery meniscus repair History of amputation of toe x4 History of tonsillectomy and adenoids Family History Father Heart disease, Onset Age: 54 Had CABG at age 54 Mother Diabetes Other No family history of adverse response to anesthesia Social History Smoking Status: Never smoker Second Hand Exposure: No; Do You Dip or Chew Tobacco: No; Hx Alcohol Use: No Hx Substance Use: No Preferred Language: Tamazight Communication Ability: Effective Visual Impairment: No Limitations Hearing Ability: Normal Railroad Shop Inspector Required: No Beliefs That Will Affect Care: None marital status: Current Living Situation: Spouse current occupational status: employed 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 Respiratory: CTA bilaterally. Non labored breathing. No rhonchi, wheezing, or crackles. Cardiovascular: Regular rhythm. Tachycardic. 3/6 systolic murmur noted. No LE edema. Gastrointestinal (Abdomen): Nontender, +BS. No masses noted. Skin: No rashes or skin lesions noted. Neurologic: Sensation grossly intact. No FND appreciated. Psychiatric: Speech of normal pace and content. Mood and affect congruent. Results & Data Results & Data Vital Signs (Past 12 Hours) Vital Signs Temp Pulse Resp BP Pulse Ox O2 Del Method O2 Flow Rate 11/05/23 00:53 37 C 11/05/23 00:30 125 H 20 91 11/05/23 00:02 128 H 28 H 91 Nasal Cannula 2 11/05/23 00:00 126 H 25 H 152/74 H 92 11/04/23 23:35 122 H 28 H 97 11/04/23 23:35 124 H 11/04/23 23:08 37.9 C H 125 H 18 161/76 H 96 Room Air Supervising Physician Co-Signing Physician Notes Patient seen and examined, chart reviewed, case discussed with dr. Qiu and I agree with the assessment and plan as above. In brief, patient is a 63yo male with MS, chronic kay, CAD, AF and presenting with syncope - no prodrome. Vomiting with possible aspiration - given Vancomycin and Zosyn in the ER On exam patient is resting comfortably, NAD +S1/S2, regular, 4/6 MARIANA across precordium Lungs - +Crackles in right base Abd - soft, NT/ND Ext - warm/well perfused Assessment/Plan- syncope followed by vomiting and possible aspiration Continue supplemental O2 as needed. Will hold further antibiotics at this time Repeat echo to assess Carotid dopplers Telemetry monitoring Remainder as above Resident Activity Tracking Resident Involvement: Resident Care Provided Care Provided: Adult Hospital Medicine (1) Syncope Syncope type: unspecified Qualified Code(s): R55 - Syncope and collapse
[2023-11-05] MEDS: VANCOMYCIN HCL 1,500 MG in SODIUM CHLORIDE 0.9% 500 ML IV ONE (01:51)
[2023-11-05] MEDS ORDERED: ONDANSETRON INJ 2 MG/ML 2 ML VIAL IV PRN (02:20)
[2023-11-05] MEDS ORDERED: MELATONIN 3 MG TAB PO PRN (02:20)
[2023-11-05] MEDS ORDERED: POLYETHYLENE (MIRALAX) 17 GM PACK PO PRN (02:20)
[2023-11-05] MEDS: MAGNESIUM SULFATE / D5W 1 GM/100 ML BAG IV ONE (02:26)
[2023-11-05] MEDS ORDERED: GLUCAGON FOR INJ 1 MG VIAL SQ PRN (03:32)
[2023-11-05] MEDS ORDERED: CARBOHYDRATES FOR HYPOGLYCEMIA PO PRN (03:32)
[2023-11-05] MEDS ORDERED: GLUCOSE 10 TAB/TUBE PO PRN (03:32)
[2023-11-05] MEDS ORDERED: DEXTROSE 50% 50 ML SYRINGE IV PRN (03:32)
[2023-11-05] MEDS ORDERED: GLUCOSE 40% GEL 15 GM TUBE PO PRN (03:32)
--- NOTE | 2023-11-05 06:48 | XRay Report ---
XR chest 1V portable HISTORY: 63 years-old Male Sepsis COMPARISON: 03/17/2023 TECHNIQUE: AP view of the chest FINDINGS: Cardiac silhouette is enlarged. No pneumothorax, pleural effusion or pulmonary edema. Subsegmental me dial right lung base/right infrahilar opacities. IMPRESSION: Mild right infrahilar airspace opacities may represent atelectasis versus pneumonia. ACT 112: Negative or not required by law. The above report was generated using voice recognition software. It may contain grammatical, syntax o r spelling errors. Electronically signed by: Jeet Barnard M.D. 11/05/2023 6:47 AM
--- NOTE | 2023-11-05 07:15 | Billing Data ---
Date of Service November 05, 2023 Coding Level of Care Code 86092 INT INP/OBS CARE
--- NOTE | 2023-11-05 07:50 | Hospitalist Progress Note ---
Date of Service November 05, 2023 Assessment & Plan (1) Syncope: Plan: Pt is a 63 yo male with PMH of MS w/ chronic indwelling kay, afib, CAD, aortic stenosis, BPH, HLD, HTN, and DM presenting after an episode of syncope. Syncope NSTEMI - no proceeding symptoms prior to event - lab work significant for leukocytosis to 12.36 w/ left shift, BMP WNL, mag 1.5, - RVP neg; EKG showing sinus tachycardia - pt w/ hx of aortic stenosis; last echo 08/2023 showing progression to moderate from prior echo 02/2023; echo pending. - ordered bilateral carotid dopplers to r/o stenosis, negative - will monitor heart rhythm on tele to assess for arrhythmias possibly leading to syncopal event. Patient does have a history of paroxysmal A-fib. - Troponin initially 24 in the ED. Increased to 1522 today. 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 - Most likely syncopal event occurred after NSTEMI which led to an arrhythmia. Aspiration pneumonitis - occurred after an episode of vomiting in the setting of syncope - lab work showing leukocytosis, procal 0.08, lactate 1.6 - CXR showing minor infiltrate of RLL base; MRSA nares pending - blood cultures pending - s/p vancomycin x1 and zosyn x1 given in ER; no further ABX necessary at this point as pt clinically appears well and stable Hypomagnesemia - 1.5 upon admission - s/p 1g in ER - will hold home supplementation and replete IV PRN - continue to monitor HTN - continue home lisinopril 2.5mg DM - last A1c 09/2023 8.5% - pt takes 22 units insulin degludec at home - while hospitalized, will start with insulin glargine 10 units BID and SSI; adjust as necessary MS - diagnosed 12/2022; currently following with naturopathic doctor for this Diet: heart healthy VTE ppx: lovenox Code: full Dispo: med/tele (2) Elevated troponin: (3) Diabetes: (4) Aspiration of gastric contents: (5) Hypomagnesemia: (6) Hyperlipidemia: (7) Paroxysmal atrial fibrillation: (8) Non-ST elevation (NSTEMI) myocardial infarction: Admission and Anticipated Discharge Date Admission Date: November 05, 2023 Supervising Physician Co-Signing Physician Notes I personally examined the patient and verified all moise points of history and exam, discussed case, and agree with decision making with Dr Boss Feeling okay whenever I see him. No acute complaints. Senior Marketing Coordinator input appreciated. Vitals noted, in general he is awake and alert pleasant no distress. HEENT normocephalic atraumatic mucous membranes moist. Breathing unlabored no accessory muscle use good effort. Skin shows no rashes no pallor or icterus. Neuro without focal deficits. EKGs and troponins noted. Cardiology input noted and appreciated. Syncopehistory seems to be a little bit odd for most "common forms of syncope", but with rising troponin and EKG showing ischemiaseems most likely he had an NSTEMI and his syncope was due to arrhythmia. For cath tomorrow. Currently asymptomatic. Catheter associated UTI present on admissionstarted on cefepime and was also given Zosyn in the ERculture showing gram-negative'scontinue with ceftriaxone for now pending speciation. DVT prophylaxisLovenox Subjective Patient seen bedside this morning. Patient currently denies any chest pain, shortness of breath, any episodes of syncope. Does state though that he feels feverish and has chills. States that he feels back to his baseline and feels pretty good overall since coming to the hospital. Review of Systems Review of Systems: All systems reviewed & are unremarkable except as noted in Subjective Physical Exam Constitutional: NAD, vitals WNL aside from tachycardia. Respiratory: CTA bilaterally. Non labored breathing. No rhonchi, wheezing, or crackles. Cardiovascular: Regular rhythm. Tachycardic. 3/6 systolic murmur noted. No LE edema. Gastrointestinal (Abdomen): Nontender, +BS. No masses noted. Skin: No rashes or skin lesions noted. Neurologic: Sensation grossly intact. No FND appreciated. Psychiatric: Speech of normal pace and content. Mood and affect congruent. Results & Data Results & Data Vital Signs (Past 12 Hours) Vital Signs Temp Pulse Resp BP Pulse Ox O2 Del Method O2 Flow Rate 11/05/23 07:24 66 11/05/23 06:00 72 14 108/66 98 11/05/23 05:00 79 14 114/66 98 11/05/23 04:06 83 16 106/68 98 11/05/23 04:00 85 14 109/68 97 04/10/24 03:35 89 11/05/23 03:00 94 H 14 125/72 11/05/23 02:00 113 H 18 125/72 11/05/23 01:30 115 H 20 11/05/23 01:00 116 H 95 11/05/23 00:53 37 C 11/05/23 00:30 125 H 20 91 11/05/23 00:02 128 H 28 H 91 Nasal Cannula 2 11/05/23 00:00 126 H 25 H 152/74 H 92 11/04/23 23:35 122 H 28 H 97 11/04/23 23:35 124 H 11/04/23 23:08 37.9 C H 125 H 18 161/76 H 96 Room Air (1) Syncope Syncope type: unspecified Qualified Code(s): R55 - Syncope and collapse
[2023-11-05] MEDS: lisinopril 2.5 MG TAB PO SCH (09:45)
[2023-11-05] MEDS: ENOXAPARIN INJ 40 MG/0.4 ML SYR SQ SCH (09:45)
[2023-11-05] MEDS: INSULIN ASPART PER UNIT CHARGE SC SCH (09:45)
[2023-11-05] MEDS: LANTUS PER UNIT CHARGE SQ SCH (09:46)
--- NOTE | 2023-11-05 11:16 | Ultrasound Report ---
BILATERAL CAROTID DOPPLER STUDY HISTORY: syncope COMPARISON: None. TECHNIQUE: Real-time, grayscale, and color Doppler sonography of the carotid arteries was performed. Imaging reviewed in the transverse and longitudinal planes. All measurements were calculated based on NASCET criteria. FINDINGS: Antegrade flow is seen in the bilateral vertebral arteries. Mild calcified plaque within the bilateral carotid bifurcations. The peak systolic velocity within the right ICA is 86 cm/s. The right systolic ratio is 1.0. The peak systolic velocity within the left ICA is 77 cm. The left systolic ratio is 0.9. IMPRESSION: No hemodynamically significant stenosis seen within the carotid arteries. ACT 112: Negative or not required by law. Electronically signed by: Philip Otero M.D. 11/05/2023 11:15 AM
[2023-11-05] MEDS: ACETAMINOPHEN 325 MG TAB PO PRN (12:30)
[2023-11-05] MEDS: ASPIRIN 325 MG ECTAB PO STA (13:37)
[2023-11-05] MEDS: LABETALOL HCL IV 5 MG/ML 20ML IV STA (13:55)
[2023-11-05 14:32] LABS: Basophils # (auto) 0.05 K/uL (0.00-0.20); Basophils % (auto) 0.3 %; Eosinophils % (auto) 0.7 %; Hematocrit (blood only) 34.7 % (42.0-52.0); Hemoglobin 11.2 g/dl (14.0-18.0); Immature Granulocytes # (auto) 0.11 K/uL (0.01-0.20); Immature Granulocytes % (auto) 0.8 %; Lymphocytes # (auto) 1.28 K/uL (1.20-3.40); Lymphocytes % (auto) 8.8 %; Mean Corpuscular Hgb Conc 32.3 g/dL (32.0-36.0); Mean Corpuscular Volume 83.6 fL (80.0-100.0); Mean Platelet Volume 11.3 fL (9.4-12.4); Monocytes # (auto) 0.77 K/uL (0.11-0.59); Monocytes % (auto) 5.3 %; Neutrophils # (auto) 12.28 K/uL (1.40-6.50); Neutrophils % (auto) 84.1 %; Platelet Count 168 K/uL (130-400); RDW Coefficient of Variation 14.2 % (11.5-14.5); RDW Standard Deviation 43.3 fL (36.4-46.3); Red Blood Count 4.15 M/uL (4.70-6.10); White Blood Count 14.59 K/ul (4.8-10.8)
[2023-11-05 14:51] LABS: Chol HDL Ratio 4.8 (0-5)
[2023-11-05 14:53] LABS: BUN Creatinine Ratio 18.5 (10-20); Calcium 8.4 mg/dl (8.6-10.3); Creatinine Clr Calc Pharmacy 80.1 ml/min; Est GFR (African American) 84.8 ml/min; Est GFR (Non-African American) 73.2 ml/min; Magnesium 1.5 mg/dl (1.7-2.4); Potassium 3.9 mmol/L (3.5-5.1)
--- NOTE | 2023-11-05 16:08 | Cardiology Consultation ---
Date of Consultation November 05, 2023 Assessment & Plan (1) Non-ST elevation (NSTEMI) myocardial infarction: (2) Aortic stenosis: (3) Syncope: (4) Paroxysmal atrial fibrillation: (5) Hyperlipidemia: (6) HTN (hypertension): Plan ASSESSMENT/PLAN: 1. NSTEMI: No angina but had an episode of loss of consciousness which is not yet explained with significantly abnormal ECG on presentation with inferolateral ST/T wave abnormalities which have since improved and high-sensitivity troponins continue to climb. Has known CAD. He would like to have a cardiac catheterization. Risks and benefits were discussed with him in detail. Cath is not urgent. N.p.o. after midnight. Continue aspirin. For any symptoms, would initiate heparin. Echo pending. Given known CAD for which medical management was recommended in the past, beta-nehemias would be reasonable, especially with history of paroxysmal atrial fibrillation. Statin intolerant due to myalgias. 2. Aortic stenosis: Moderate when last evaluated. Discussed natural history. Continue to monitor. 3. Syncope: Unclear if syncope versus falling asleep but given that he vomited and did not wake up for some time, may have actually lost consciousness with syncope. Difficult to know. Outpatient monitoring may be reasonable, especially with history of paroxysmal atrial fibrillation. Also, febrile illness and may be related to infection, specifically UTI. Workup is pending with primary hospitalist service. 4. Paroxysmal atrial fibrillation: Diagnosed in February 2023 when he presented with syncope and had hypomagnesemia and hypokalemia in the setting of UTI. Could be lone event. Recommend 30-day event monitor to further evaluate. Elevated [id number] or and recommend anticoagulation therapy if no contraindication, especially since unable to determine if he has had recurrent episodes. 5. Dyslipidemia: LDL not at goal in the setting of CAD. Statin intolerant due to myalgias and apparently have tried several statins in the past. Did not tolerate Repatha. Would consider Praluent to see if he tolerates it and if not, would recommend Zetia. 6. Hypertension: Blood pressure mostly elevated. Continue home LANDRY inhibitor and can titrate as appropriate. Will initiate beta-nehemias given his other cardiac issues as well. 7. Disposition: Cardiology will continue to follow. Patient care communicated with primary hospitalist service, Dr. May. Highly complex medical issues. Thank you for allowing me to participate in the care of your patient. Please call for any other questions or concerns. Sincerely, Gene Trammell M.D. History of Present Illness Reason for Consultation: ND Requesting Physician: Bertrand Liao DO Attending Physician: Bertrand Liao DO History of Present Illness Mr. Mendez is a pleasant 63-year-old gentleman with a history significant for CAD, insulin-dependent diabetes, hypertension, dyslipidemia, paroxysmal atrial fibrillation, aortic stenosis, and multiple sclerosis. He had been followed by Dr. Singh for his cardiology care but has not been seen since approximately 2021. He was diagnosed with atrial fibrillation in February 2023 when he was hospitalized with catheter associated urinary tract infection, hypomagnesemia, and hypokalemia. He presented with syncope. He eventually signed out AGAINST MEDICAL ADVICE according to records. He has not been on anticoagulation therapy as it was felt as though atrial fibrillation was due to his other acute issues. He spontaneously converted to sinus. He has had the following studies/procedures: 1. Nuclear stress 04/21/2020 outside facility: Inferolateral ischemia reported. 8 minutes 24 seconds Harjit protocol. Abnormal exercise ECG. 2. Cardiac cath 05/22/2020 [facility] [place]: Mid LAD 50%; proximal branch of large OM with proximal 99% stenosis. Dominant RCA. Mid RCA 40 to 50%. No aortic stenosis. 3. Echo 09/24/2023 [facility]: Normal LV size, wall motion, systolic function. EF 60 to 65%. Moderate aortic stenosis. He was hospitalized on 11/05/2023 after losing consciousness at home. He had been in the emergency department overnight the night before with issues with his indwelling urinary catheter. He states he was discharged at approximately 4 AM and therefore was tired last night. He was on the couch watching TV when he lost consciousness. He is not exactly sure if he had a syncopal event or simply fell asleep but he apparently began vomiting while unconscious and his called EMS. He did not wake up until he was in the ambulance. When he woke up, he felt back to baseline other than feeling tired. He denies chest pain, shortness of breath, syncope otherwise, edema, melena, hematochezia, or hematuria. He recalls feeling febrile yesterday and reports a temperature at home at 101.7 F prior to his loss of consciousness. He believes he has a UTI and has been started on antibiotics here. He walks but multiple sclerosis limits his walking due to lower extremity instability. He typically stops walking due to his lower extremities and denies any exertional cardiac symptoms but also admits that he is unable to walk significant distances. He has had a urinary catheter since December 2022, when he was diagnosed with multiple sclerosis. He has noted palpitations in the past with ciprofloxacin and states that his MS symptoms worsen with fluoroquinolones in general. He recalls being on several statin therapies in the past but had myalgias. He was on Repatha in the past and also reports myalgias on that medication. His lipids have improved with adjustments in his diet. He is currently without chest pain or shortness of breath. Early during our conversation, he made it clear that he would like to have a cardiac catheterization. He also states that he has to leave town to help care for his [id number] in [place]. He does not need to drive. Review of systems: As above. Review of systems otherwise negative/unremarkable. Family history: Father had CABG at 57 and later had a valve replacement after having a mechanical complication from another ND. Social history: He denies tobacco, alcohol, or drug abuse. He lives at home with his . He has 3 adult children. He works at [employer]. He was unaccompanied in his ER room. Allergies Allergy/AdvReac Type Severity Reaction Status Date / Time bee venom protein (honey bee) Allergy Severe Anaphylaxis Verified 11/03/23 10:06 ciprofloxacin Allergy Unknown inflammation-"flared Verified 11/03/23 10:06 up MS" levofloxacin Allergy Unknown inflammation-"flared Verified 11/03/23 10:06 up MS" Milk Containing Products Allergy Unknown inflammation-"flared Verified 11/03/23 10:06 (Dairy) up MS" Home Medications Medication Instructions Recorded Confirmed Type epinephrine 0.3 mg/0.3 mL 0.3 mg subcut UD PRN Anaphylaxis 12/29/19 11/05/23 History injection, auto-injector omega 4-hyn-str-fish oil 1,000 mg 3 cap PO BID 12/29/19 11/05/23 History (120 mg-180 mg) capsule (Fish Oil) cholecalciferol (vitamin D3) 125 125 mcg PO QAM 09/07/21 11/05/23 History mcg (5,000 unit) tablet (Vitamin D3) coQ10 (ubiquinol) 100 mg capsule 100 mg PO QAM 11/26/21 11/05/23 History insulin degludec 100 unit/mL (3 22 unit subcut QAM 02/18/23 11/05/23 History mL) subcutaneous pen (Tresiba FlexTouch U-100 insulin) Advance Digestive Enzyme 1 cap PO DAILY 03/17/23 11/05/23 History Gi Revive Gut Health 1 dose PO DAILY 03/17/23 11/05/23 History Nerve Support Complex 3 cap PO TIDM 03/17/23 11/05/23 History magnesium oxide 200 mg PO DAILY #30 tabs 03/19/23 11/05/23 Rx lisinopril 2.5 mg tablet 2.5 mg PO QAM 09/02/23 11/05/23 History cyanocobalamin (vitamin B-12) 1,000 mcg PO DAILY 10/15/23 11/05/23 History 1,000 mcg tablet (Vitamin B-12) zinc gluconate 50 mg tablet 50 mg PO QAM 10/15/23 11/05/23 History vitamin E 268 mg (400 unit) capsule 268 mg PO DAILY 11/05/23 11/05/23 History Patient History Medical History (Updated 11/05/23 @ 16:25 by Del Trammell MD) Hyperlipidemia HTN (hypertension) Patient reports HTN hx, indicating that current reason for lisinopril is for renal protection/not BP management Diabetes Type 2 IDDM Neurogenic bladder Elevated troponin Multiple sclerosis CAD (coronary artery disease) Non-obstructive, medical management recommended Atrial fibrillation Aortic stenosis Echo 02/2023: "Mild" aortic stenosis (KEVIN 1.7-1.8cm2, MG 14.4mmhg) Bladder stones Milner catheter in place Multiple sclerosis Neuropathy Osteoarthritis BPH (benign prostatic hyperplasia) Surgical History (Updated 10/20/23 @ 00:08 by Katalina Masters) History of amputation of lesser toe of left foot (~09/10/21) fifth toe amputation and fifth metatarsal head resection with I&D History of colonoscopy History of wisdom tooth extraction History of cardiac cath 1995- no stents 2019 ([place])- no stents History of arthroscopic knee surgery meniscus repair History of amputation of toe x4 History of tonsillectomy and adenoids Family History Father Heart disease, Onset Age: 54 Had CABG at age 54 Mother Diabetes Other No family history of adverse response to anesthesia Social History Smoking Status: Never smoker Second Hand Exposure: No; Do You Dip or Chew Tobacco: No; Hx Alcohol Use: No Hx Substance Use: No Preferred Language: Sammarinese Communication Ability: Effective Visual Impairment: No Limitations Hearing Ability: Normal 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 Alert and oriented. HEENT: Anicteric sclera. Neck: No JVD. Bilateral bruits vs radiation of cardiac murmur. Normal carotid upstrokes bilaterally. Cardiac: No ventricular heave. Regular. Normal S1-S2. 2/6 mid peaking systolic ejection murmur heard best at right upper sternal border. No rubs or gallops. Pulmonary: Clear to auscultation bilaterally without wheezes, rales, or rhonchi. Abdomen: Soft, nontender, nondistended, with normoactive bowel sounds. No bruits noted. Extremities: 2+ radial pulses bilaterally. 2+ posterior tibialis pulses bilaterally. Trace bilateral lower extremity edema. No cyanosis. Results & Data Vital Signs (Past 12 Hours) Vital Signs Temp Pulse Pulse Resp BP BP Pulse Ox 11/05/23 14:56 94 H 11/05/23 14:06 92 H 145/72 H 11/05/23 14:01 37.1 C 11/05/23 14:00 91 H 19 11/05/23 13:51 99 H 26 H 161/75 H 11/05/23 13:00 107 H 25 H 180/94 H 11/05/23 12:32 102 H 14 164/91 H 11/05/23 11:57 37.1 C 96 H 16 98 11/05/23 10:35 75 14 139/68 96 11/05/23 08:00 67 17 115/65 100 11/05/23 07:24 66 11/05/23 06:00 72 14 108/66 98 11/05/23 05:00 79 14 114/66 98 O2 Del Method O2 Flow Rate 11/05/23 14:56 11/05/23 14:06 11/05/23 14:01 11/05/23 14:00 11/05/23 13:51 11/05/23 13:00 11/05/23 12:32 11/05/23 11:57 Room Air 11/05/23 10:35 11/05/23 08:00 Nasal Cannula 2 11/05/23 07:24 11/05/23 06:00 11/05/23 05:00 Laboratory Results Laboratory Results - last 24 hr 11/04/23 11/05/23 11/05/23 23:40 00:15 00:37 WBC 12.36 H RBC 4.78 Hgb 12.8 L Hct 40.2 L MCV 84.1 MCH 26.8 MCHC 31.8 L RDW Std Deviation 43.0 RDW Coeff of Spenser 14.1 Plt Count 248 MPV 11.8 Immature Gran % (Auto) 0.6 Neut % (Auto) 84.6 Lymph % (Auto) 12.5 [place] % (Auto) 1.9 Eos % (Auto) 0.2 Baso % (Auto) 0.2 Neut # (Auto) 10.47 H Lymph # (Auto) 1.54 [place] # (Auto) 0.23 Eos # (Auto) 0.03 Baso # (Auto) 0.02 Immature Gran # (Auto) 0.07 Sodium 136 Potassium 3.8 Chloride 100 Carbon Dioxide 23 Anion Gap 13 H BUN 29 H Creatinine 1.14 Est Cr Clr Drug Dosing 73.7 Est GFR ( Amer) 79.4 Est GFR (Non-Af Amer) 68.5 BUN/Creatinine Ratio 25.4 H Glucose 315 H* POC Glucose Lactate 1.6 Calcium 9.4 Magnesium 1.5 L Total Bilirubin 0.7 Direct Bilirubin 0.1 AST 19 ALT 17 Alkaline Phosphatase 94 Troponin I High Sens 24.0 H Total Protein 6.7 Albumin 3.9 Triglycerides Cholesterol LDL Cholesterol, Calc VLDL Cholesterol, Calc HDL Cholesterol Cholesterol/HDL Ratio Procalcitonin 0.08 Urine Color Yellow Urine Appearance Turbid A Urine pH 5.5 Ur Specific [place] 1.015 Urine Protein 2+ H Urine Glucose (UA) 1+ H Urine Ketones 2+ H Urine Blood 3+ H Urine Nitrite Positive A Urine Bilirubin Negative Urine Urobilinogen Negative Ur Leukocyte Esterase 3+ H Urine WBC (Auto) >50 H Urine RBC (Auto) >20 H U Hyaline Cast (Auto) 0-2 U Epithel Cells (Auto) 0-2 Urine Bacteria (Auto) 1+ H Nasal Screen MRSA (PCR) Adenovirus (PCR) Not Detected B. pertussis DNA (PCR) Not Detected B.parapertussis DNA PCR Not Detected C. pneumoniae DNA (PCR) Not Detected Coronavirus OC43 (PCR) Not Detected Coronavirus HKU1 (PCR) Not Detected Coronavirus 229E (PCR) Not Detected SARS-CoV-2 (PCR) Not Detected Coronavirus NL63 (PCR) Not Detected Human Metapneumovir PCR Not Detected Influenza Type A (PCR) Not Detected Influenza Type B (PCR) Not Detected M. pneumoniae (PCR) Not Detected Parainfluenza 1 (PCR) Not Detected Parainfluenza 2 (PCR) Not Detected Parainfluenza 3 (PCR) Not Detected Parainfluenza 4 (PCR) Not Detected RSV (PCR) Not Detected Entero/Rhino (PCR) Not Detected 11/05/23 11/05/23 11/05/23 01:36 02:43 07:43 WBC RBC Hgb Hct MCV MCH MCHC RDW Std Deviation RDW Coeff of Spenser Plt Count MPV Immature Gran % (Auto) Neut % (Auto) Lymph % (Auto) [place] % (Auto) Eos % (Auto) Baso % (Auto) Neut # (Auto) Lymph # (Auto) [place] # (Auto) Eos # (Auto) Baso # (Auto) Immature Gran # (Auto) Sodium Potassium Chloride Carbon Dioxide Anion Gap BUN Creatinine Est Cr Clr Drug Dosing Est GFR ( Amer) Est GFR (Non-Af Amer) BUN/Creatinine Ratio Glucose POC Glucose 229 H Lactate Calcium Magnesium Total Bilirubin Direct Bilirubin AST ALT Alkaline Phosphatase Troponin I High Sens 84.8 H* D Total Protein Albumin Triglycerides Cholesterol LDL Cholesterol, Calc VLDL Cholesterol, Calc HDL Cholesterol Cholesterol/HDL Ratio Procalcitonin Urine Color Urine Appearance Urine pH Ur Specific [place] Urine Protein Urine Glucose (UA) Urine Ketones Urine Blood Urine Nitrite Urine Bilirubin Urine Urobilinogen Ur Leukocyte Esterase Urine WBC (Auto) Urine RBC (Auto) U Hyaline Cast (Auto) U Epithel Cells (Auto) Urine Bacteria (Auto) Nasal Screen MRSA (PCR) Negative Adenovirus (PCR) B. pertussis DNA (PCR) B.parapertussis DNA PCR C. pneumoniae DNA (PCR) Coronavirus OC43 (PCR) Coronavirus HKU1 (PCR) Coronavirus 229E (PCR) SARS-CoV-2 (PCR) Coronavirus NL63 (PCR) Human Metapneumovir PCR Influenza Type A (PCR) Influenza Type B (PCR) M. pneumoniae (PCR) Parainfluenza 1 (PCR) Parainfluenza 2 (PCR) Parainfluenza 3 (PCR) Parainfluenza 4 (PCR) RSV (PCR) Entero/Rhino (PCR) 11/05/23 11/05/23 11/05/23 11:43 12:54 14:12 WBC 14.59 H RBC 4.15 L Hgb 11.2 L Hct 34.7 L MCV 83.6 MCH 27.0 MCHC 32.3 RDW Std Deviation 43.3 RDW Coeff of Spenser 14.2 Plt Count 168 MPV 11.3 Immature Gran % (Auto) 0.8 Neut % (Auto) 84.1 Lymph % (Auto) 8.8 [place] % (Auto) 5.3 Eos % (Auto) 0.7 Baso % (Auto) 0.3 Neut # (Auto) 12.28 H Lymph # (Auto) 1.28 [place] # (Auto) 0.77 H Eos # (Auto) 0.10 Baso # (Auto) 0.05 Immature Gran # (Auto) 0.11 Sodium 132 L Potassium 3.9 Chloride 103 Carbon Dioxide 21 Anion Gap 8 BUN 20 Creatinine 1.08 Est Cr Clr Drug Dosing 80.1 Est GFR ( Amer) 84.8 Est GFR (Non-Af Amer) 73.2 BUN/Creatinine Ratio 18.5 Glucose 190 H POC Glucose 161 H Lactate Calcium 8.4 L Magnesium 1.5 L Total Bilirubin Direct Bilirubin AST ALT Alkaline Phosphatase Troponin I High Sens 1522.2 H* D Total Protein Albumin Triglycerides 177 H Cholesterol 167 LDL Cholesterol, Calc 97 VLDL Cholesterol, Calc 35 H HDL Cholesterol 35 Cholesterol/HDL Ratio 4.8 Procalcitonin Urine Color Urine Appearance Urine pH Ur Specific [place] Urine Protein Urine Glucose (UA) Urine Ketones Urine Blood Urine Nitrite Urine Bilirubin Urine Urobilinogen Ur Leukocyte Esterase Urine WBC (Auto) Urine RBC (Auto) U Hyaline Cast (Auto) U Epithel Cells (Auto) Urine Bacteria (Auto) Nasal Screen MRSA (PCR) Adenovirus (PCR) B. pertussis DNA (PCR) B.parapertussis DNA PCR C. pneumoniae DNA (PCR) Coronavirus OC43 (PCR) Coronavirus HKU1 (PCR) Coronavirus 229E (PCR) SARS-CoV-2 (PCR) Coronavirus NL63 (PCR) Human Metapneumovir PCR Influenza Type A (PCR) Influenza Type B (PCR) M. pneumoniae (PCR) Parainfluenza 1 (PCR) Parainfluenza 2 (PCR) Parainfluenza 3 (PCR) Parainfluenza 4 (PCR) RSV (PCR) Entero/Rhino (PCR) Diagnostic Findings Telemetry personally reviewed: Sinus rhythm. No arrhythmia. ECGs personally reviewed: ECG 11/04/2023 at 2330: Sinus tachycardia 124 bpm. Possible anterior infarct. Inferolateral ST depression with T wave inversion. ECG 11/05/2023 at 1320: Sinus tachycardia [address]/T wave abnormalities remain but much improved. Echo and cardiac catheterization reports reviewed as noted above in HPI. Carotid Doppler 11/05/2023: No hemodynamically significant stenosis within carotids per radiology. Chest x-ray 11/04/2023: Mild right infrahilar airspace opacities may represent atelectasis versus pneumonia per radiology. History and physical report reviewed. Labs notable for high-sensitivity troponin of 24 which later increased up to 1522. Stable renal function, normal potassium, mild hyponatremia, hypomagnesemia, elevated LDL in the setting of CAD, leukocytosis, mild anemia. Medications Administered Current Inpatient Medications Acetaminophen (Acetaminophen 325 Mg Tab) 650 mg PO Q4H PRN PRN Reason: pain/fever Stop: 12/05/23 02:19 Last Admin: 11/05/23 12:30 Dose: 650 mg Dextrose (Dextrose 50% 50 Ml Syringe) 25 - 50 ml IV UD PRN; Protocol PRN Reason: Hypoglycemia Protocol Stop: 12/05/23 03:31 Enoxaparin Sodium (Enoxaparin Inj 40 Mg/0.4 Ml Syr) 40 mg SQ QAM IZAIAH Stop: 12/05/23 08:59 Last Admin: 11/05/23 09:45 Dose: 40 mg Glucagon (Glucagon For Inj 1 Mg Vial) 1 mg SQ UD PRN; Protocol PRN Reason: Hypoglycemia Protocol Stop: 12/05/23 03:31 Glucose (Glucose 10 Tab/Tube) 4 - 8 tab PO UD PRN; Protocol PRN Reason: Hypoglycemia Treatment Stop: 12/05/23 03:31 Glucose (Glucose 40% Gel 15 Gm Tube) 15 - 30 gm PO UD PRN; Protocol PRN Reason: Hypoglycemia Protocol Stop: 12/05/23 03:31 Insulin Aspart (Insulin Aspart Per Unit Charge) 0 units SC ACHS IZAIAH Stop: 12/05/23 07:29 Last Admin: 11/05/23 13:37 Dose: 2 units Insulin Glargine (Lantus Per Unit Charge) 10 units SQ BID IZAIAH Stop: 12/05/23 08:59 Last Admin: 11/05/23 09:46 Dose: 10 units Lisinopril (Lisinopril 2.5 Mg Tab) 2.5 mg PO QAM IZAIAH Stop: 12/05/23 08:59 Last Admin: 11/05/23 09:45 Dose: 2.5 mg Melatonin (Melatonin 3 Mg Tab) 3 mg PO HS PRN PRN Reason: Insomnia Stop: 12/05/23 02:19 Miscellaneous (Carbohydrates For Hypoglycemia ) 15 - 30 gm PO UD PRN PRN Reason: Hypoglycemia Protocol Stop: 12/05/23 03:31 Ondansetron HCl (Ondansetron Inj 2 Mg/Ml 2 Ml Vial) 4 mg IV Q6H PRN PRN Reason: Nausea Stop: 12/05/23 02:19 Polyethylene Glycol (Polyethylene (Miralax) 17 Gm Pack) 17 gm PO DAILY PRN PRN Reason: Constipation Stop: 12/05/23 02:19 PG Care Time/CCT Total # of Minutes Spent Total Time Spent with Patient: Total time spent is greater than 50% in coordination of care (as documented) at patient's floor/unit and/or counseling patient: Coding Level of Care Code 85857 IN/OBS CONSULT LVL 5,80M Diagnoses Non-ST elevation (NSTEMI) myocardial infarction I21.4 Aortic stenosis I35.0 Syncope R55 Syncope type: unspecified Paroxysmal atrial fibrillation I48.0 Hyperlipidemia E78.5 HTN (hypertension) I10 (3) Syncope Syncope type: unspecified Qualified Code(s): R55 - Syncope and collapse
--- NOTE | 2023-11-05 19:24 | Billing Data ---
Date of Service November 05, 2023 Coding Level of Care Code 67131 SUB INP/OBS CARE MIN
--- NOTE | 2023-11-05 19:47 | XCELERA ---
[id number] [id number]
[2023-11-05] MEDS: cefTRIAXone SODIUM 2,000 MG in DEXTROSE 5 % MINI-B 50 ML IV SCH (20:52)
[2023-11-05] MEDS: METOPROLOL TARTRATE 25 MG TAB PO SCH (21:21)
[2023-11-06 06:29] LABS: Hemoglobin 11.4 g/dl (14.0-18.0); Mean Corpuscular Hemoglobin 27.3 pg (25.0-34.0); Mean Corpuscular Hgb Conc 33.5 g/dL (32.0-36.0); Mean Corpuscular Volume 81.3 fL (80.0-100.0); Mean Platelet Volume 11.7 fL (9.4-12.4); Platelet Count 154 K/uL (130-400); RDW Coefficient of Variation 14.4 % (11.5-14.5); RDW Standard Deviation 42.2 fL (36.4-46.3); Red Blood Count 4.18 M/uL (4.70-6.10); White Blood Count 11.61 K/ul (4.8-10.8)
[2023-11-06 06:41] LABS: BUN Creatinine Ratio 13.7 (10-20); Calcium 8.3 mg/dl (8.6-10.3); Creatinine Clr Calc Pharmacy 91.1 ml/min; Est GFR (Non-African American) 85.4 ml/min; Magnesium 1.5 mg/dl (1.7-2.4); Potassium 3.5 mmol/L (3.5-5.1)
--- NOTE | 2023-11-06 08:04 | Hospitalist Progress Note ---
Date of Service November 06, 2023 Assessment & Plan (1) Syncope: Plan: Pt is a 63 yo male with PMH of MS w/ chronic indwelling kay, afib, CAD, aortic stenosis, BPH, HLD, HTN, and DM presenting after an episode of syncope. Syncope NSTEMI - no proceeding symptoms prior to event - lab work significant for leukocytosis to 12.36 w/ left shift, BMP WNL, mag 1.5, - RVP neg; EKG showing sinus tachycardia - pt w/ hx of aortic stenosis; last echo 08/2023 showing progression to moderate from prior echo 02/2023; echo pending. - ordered bilateral carotid dopplers to r/o stenosis, negative - will monitor heart rhythm on tele to assess for arrhythmias possibly leading to syncopal event. Patient does have a history of paroxysmal A-fib. - Troponin initially 24 in the ED. Increased to 1522 today. Cardiology consulted, Advanced Manager today. - Most likely syncopal event occurred after NSTEMI which led to an arrhythmia. - Started on aspirin daily. -Advanced Manager report in chart, recommend medical management. Aspiration pneumonitis - occurred after an episode of vomiting in the setting of syncope - lab work showing leukocytosis, procal 0.08, lactate 1.6 - CXR showing minor infiltrate of RLL base; MRSA nares pending - blood cultures pending - s/p vancomycin x1 and zosyn x1 given in ER; -Given patient is having fever, will continue on ceftriaxone 2 g daily. Urinary tract infection -Cultures pending -Continue on ceftriaxone 2 g daily. Hypomagnesemia - 1.5 upon admission - s/p 1g in ER - will hold home supplementation and replete IV PRN - continue to monitor HTN - continue home lisinopril 2.5mg DM - last A1c 09/2023 8.5% - pt takes 22 units insulin degludec at home - while hospitalized, will start with insulin glargine 10 units BID and SSI; adjust as necessary MS - diagnosed 12/2022; currently following with naturopathic doctor for this Diet: heart healthy VTE ppx: lovenox Code: full Dispo: med/tele (2) Elevated troponin: (3) Diabetes: (4) Aspiration of gastric contents: (5) Hypomagnesemia: (6) Hyperlipidemia: (7) Paroxysmal atrial fibrillation: (8) Non-ST elevation (NSTEMI) myocardial infarction: Admission and Anticipated Discharge Date Admission Date: November 05, 2023 Supervising Physician Co-Signing Physician Notes I personally examined the patient and verified all moise points of history and exam, discussed case, and agree with decision making with Dr Boss sleeping/appearing still sedated post cath. low grade temp noted. vitals noted nad resting comfortably but still appears sedated post procedure. breathing unlabored no accessory muscles good effort skin no rashes no pallor or icterus Syncopeappears due to NSTEMI CAD/NSTEMI - post cath - nothing amenable to stenting. med management as best he will allow. Catheter associated UTI present on admissionon ceftriaxone pending speciation DVT prophylaxisLovenox Subjective Patient seen bedside this morning. He is currently waiting to go to the Advanced Manager. He has no issues or concerns at this time. He denies any further fever or chills. Denies any chest pain. Review of Systems Review of Systems: All systems reviewed & are unremarkable except as noted in Subjective Physical Exam Constitutional: NAD, vitals WNL aside from tachycardia. Respiratory: CTA bilaterally. Non labored breathing. No rhonchi, wheezing, or crackles. Cardiovascular: Regular rhythm. Tachycardic. 3/6 systolic murmur noted. No LE edema. Gastrointestinal (Abdomen): Nontender, +BS. No masses noted. Skin: No rashes or skin lesions noted. Neurologic: Sensation grossly intact. No FND appreciated. Psychiatric: Speech of normal pace and content. Mood and affect congruent. Results & Data Results & Data Vital Signs (Past 12 Hours) Vital Signs Temp Pulse Pulse Resp BP Pulse Ox O2 Del Method 11/06/23 03:00 37.1 C 101 H 22 153/77 H 90 Room Air 11/05/23 23:00 36.5 C 87 20 141/70 H 94 Room Air 11/05/23 21:55 91 H (1) Syncope Syncope type: unspecified Qualified Code(s): R55 - Syncope and collapse
[2023-11-06] MEDS: MAGNESIUM SULFATE / D5W 1 GM/100 ML BAG IV SCH (10:15)
--- NOTE | 2023-11-06 13:44 | Pre Anesthesia Assessment ---
Date of Service November 06, 2023 Pre Sedation Assessment Vital Signs Temp Pulse Pulse Resp BP BP BP 11/06/23 12:45 96 H 18 111/77 11/06/23 11:37 37.3 C 83 18 130/71 11/06/23 08:10 36.8 C 91 H 18 145/70 H 11/06/23 08:00 90 11/06/23 03:00 37.1 C 101 H 22 153/77 H 11/05/23 23:00 36.5 C 87 20 141/70 H 11/05/23 21:55 91 H 11/05/23 19:44 95 H 11/05/23 19:18 37.0 C 96 H 16 153/76 H 11/05/23 17:57 94 H 18 153/74 H 11/05/23 16:00 95 H 14 150/69 H 11/05/23 15:00 93 H 18 131/66 11/05/23 14:56 94 H 11/05/23 14:06 92 H 145/72 H 11/05/23 14:01 37.1 C 11/05/23 14:00 91 H 19 11/05/23 13:51 99 H 26 H 161/75 H Pulse Ox O2 Del Method 11/06/23 12:45 97 Room Air 11/06/23 11:37 94 Room Air 11/06/23 08:10 93 Room Air 11/06/23 08:00 11/06/23 03:00 90 Room Air 11/05/23 23:00 94 Room Air 11/05/23 21:55 11/05/23 19:44 11/05/23 19:18 91 Room Air 11/05/23 17:57 92 Room Air 11/05/23 16:00 98 Room Air 11/05/23 15:00 11/05/23 14:56 11/05/23 14:06 11/05/23 14:01 11/05/23 14:00 11/05/23 13:51 Cardiovascular + regular rate + murmur Respiratory normal respiratory effort, lungs clear to auscultation Pre-Sedation Airway Assessment Smoking Status: Never smoker Hx Sleep Apnea: No Short, Thick Neck: No Thyromental Distance: > or= 3.5 Finger Breadths Oral Cavity: + WNL Mallampati Class: III ASA: ASA3 NPO Status Date of Last Intake of Fluids: 11/06/23 Time of Last Intake of Fluids: 08:00 Last Oral Intake of Fluids Comment: sips with meds Date of Last Intake of Solid Food: 11/05/23 Time of Last Intake of Solid Foods: 14:00 Procedure Planning Contraindications for Sedation: none Current Medications Reviewed: Yes Notes The planned sedation has been discussed with the patient. Informed Consent was obtained. I have identified the patient, determined the appropriateness of sedation and have assessed the patient immediately prior to the procedure. All medicine(s) and interventions are by my order.
--- NOTE | 2023-11-06 13:46 | Cardiology Progress Note ---
Date of Service November 06, 2023 Assessment & Plan (1) Non-ST elevation (NSTEMI) myocardial infarction: (2) Aortic stenosis: (3) Syncope: (4) Paroxysmal atrial fibrillation: (5) Hyperlipidemia: (6) HTN (hypertension): Plan ASSESSMENT/PLAN: 1. NSTEMI/CAD: No angina. Episode occurred in the setting of UTI and loss of consciousness vs falling asleep with vomiting. Severe stenosis noted on cardiac catheterization seems stable compared to 2019 cath report at outside facility. Continue aspirin 81 mg daily. Continue beta-nehemias for medical management of underlying CAD. Continue LANDRY inhibitor. Statin intolerant due to myalgias. Consider cardiac rehab if patient is agreeable. 2. Aortic stenosis: Moderate. Monitor as an outpatient with repeat echo in 1 to 2 years. 3. Syncope: Unclear if syncope versus falling asleep but given that he vomited and did not wake up for some time, may have actually lost consciousness with syncope. Difficult to know. Outpatient monitoring may be reasonable, especially with history of paroxysmal atrial fibrillation. Also, UTI likely contributed to his presentation. 4. Paroxysmal atrial fibrillation: Diagnosed in February 2023 when he presented with syncope and had hypomagnesemia and hypokalemia in the setting of UTI. Cou ld be lone event. Recommend 30-day event monitor to further evaluate if patient is agreeable. Elevated [id number] or and recommend anticoagulation therapy if no contraindication, especially since unable to determine if he has had recurrent episodes. We discussed anticoagulation for stroke risk reduction and he declines. 5. Dyslipidemia: LDL not at goal in the setting of CAD. Statin intolerant due to myalgias and apparently have tried several statins in the past. Did not tolerate Repatha. Would consider Praluent to see if he tolerates it and if not, would recommend Zetia. He declines and states that he improved his lipids via diet and plans to continue to do so. Rationale for strict lipid management discussed. Goal LDL < 70. 6. Hypertension: Blood pressure was mostly elevated but more recently normotensive the past several hours. Continue home LANDRY inhibitor and can titrate as appropriate. Metoprolol initiated during this hospital stay as above. 7. UTI: As per primary hospitalist service. 8. Disposition: Cardiology will sign off at this time. Please call with any further questions or concerns. Patient has followed with outside reading tutor and should continue to follow in the outpatient setting with a reading tutor. Offered to call patient's to update her about the cardiac catheterization findings, but he declined. Admission and Anticipated Discharge Date Admission Date: November 05, 2023 Subjective Patient denies chest pain, shortness of breath, syncope, near syncope, palpitations, edema, or bleeding. He was unaccompanied. Physical Exam Physical Exam: Gen.: No acute distress. Alert and oriented. HEENT: Anicteric sclera. Neck: No JVD. Cardiac: No ventricular heave. Regular. Normal S1-S2. 2/6 mid peaking systolic ejection murmur heard best at right upper sternal border. No rubs or gallops. Pulmonary: Clear to auscultation bilaterally without wheezes, rales, or rhonchi. Abdomen: Soft, nontender, nondistended, with normoactive bowel sounds. No bruits noted. Extremities: 2+ radial pulses bilaterally. 2+ posterior tibialis pulses bilaterally. No edema. No cyanosis. Results & Data Vital Signs (Past 12 Hours) Vital Signs Temp Pulse Pulse Resp BP Pulse Ox O2 Del Method 11/06/23 12:45 96 H 18 111/77 97 Room Air 11/06/23 11:37 37.3 C 83 18 130/71 94 Room Air 11/06/23 08:10 36.8 C 91 H 18 145/70 H 93 Room Air 11/06/23 08:00 90 11/06/23 03:00 37.1 C 101 H 22 153/77 H 90 Room Air Laboratory Results Laboratory Results - last 24 hr 11/05/23 11/05/23 11/05/23 14:12 16:23 17:55 WBC 14.59 H RBC 4.15 L Hgb 11.2 L Hct 34.7 L MCV 83.6 MCH 27.0 MCHC 32.3 RDW Std Deviation 43.3 RDW Coeff of Spenser 14.2 Plt Count 168 MPV 11.3 Immature Gran % (Auto) 0.8 Neut % (Auto) 84.1 Lymph % (Auto) 8.8 Marion % (Auto) 5.3 Eos % (Auto) 0.7 Baso % (Auto) 0.3 Neut # (Auto) 12.28 H Lymph # (Auto) 1.28 Marion # (Auto) 0.77 H Eos # (Auto) 0.10 Baso # (Auto) 0.05 Immature Gran # (Auto) 0.11 Sodium 132 L Potassium 3.9 Chloride 103 Carbon Dioxide 21 Anion Gap 8 BUN 20 Creatinine 1.08 Est Cr Clr Drug Dosing 80.1 Est GFR ( Amer) 84.8 Est GFR (Non-Af Amer) 73.2 BUN/Creatinine Ratio 18.5 Glucose 190 H POC Glucose 178 H Calcium 8.4 L Magnesium 1.5 L Troponin I High Sens 1845.0 H* D Triglycerides 177 H Cholesterol 167 LDL Cholesterol, Calc 97 VLDL Cholesterol, Calc 35 H HDL Cholesterol 35 Cholesterol/HDL Ratio 4.8 11/05/23 11/05/23 11/06/23 20:34 22:35 05:32 WBC 11.61 H RBC 4.18 L Hgb 11.4 L Hct 34.0 L MCV 81.3 MCH 27.3 MCHC 33.5 RDW Std Deviation 42.2 RDW Coeff of Spenser 14.4 Plt Count 154 MPV 11.7 Immature Gran % (Auto) Neut % (Auto) Lymph % (Auto) Marion % (Auto) Eos % (Auto) Baso % (Auto) Neut # (Auto) Lymph # (Auto) Marion # (Auto) Eos # (Auto) Baso # (Auto) Immature Gran # (Auto) Sodium 132 L Potassium 3.5 Chloride 101 Carbon Dioxide 24 Anion Gap 7 BUN 13 Creatinine 0.95 Est Cr Clr Drug Dosing 91.1 Est GFR ( Amer) 99.0 Est GFR (Non-Af Amer) 85.4 BUN/Creatinine Ratio 13.7 Glucose 163 H POC Glucose 190 H Calcium 8.3 L Magnesium 1.5 L Troponin I High Sens 1658.8 H* Triglycerides Cholesterol LDL Cholesterol, Calc VLDL Cholesterol, Calc HDL Cholesterol Cholesterol/HDL Ratio 11/06/23 11/06/23 07:03 11:36 WBC RBC Hgb Hct MCV MCH MCHC RDW Std Deviation RDW Coeff of Spenser Plt Count MPV Immature Gran % (Auto) Neut % (Auto) Lymph % (Auto) Marion % (Auto) Eos % (Auto) Baso % (Auto) Neut # (Auto) Lymph # (Auto) Marion # (Auto) Eos # (Auto) Baso # (Auto) Immature Gran # (Auto) Sodium Potassium Chloride Carbon Dioxide Anion Gap BUN Creatinine Est Cr Clr Drug Dosing Est GFR ( Amer) Est GFR (Non-Af Amer) BUN/Creatinine Ratio Glucose POC Glucose 160 H 163 H Calcium Magnesium Troponin I High Sens Triglycerides Cholesterol LDL Cholesterol, Calc VLDL Cholesterol, Calc HDL Cholesterol Cholesterol/HDL Ratio Diagnostic Findings Telemetry personally reviewed: Sinus rhythm. Labs reviewed from 11/06/2023 notable for stable renal function, hypomagnesemia, improved leukocytosis, mild anemia and high-sensitivity troponin that trended down yesterday from a peak of 1845. Urine culture positive for gram-negative bacilli. Blood cultures negative to date. Coronary angiography 11/06/2023: 1. Left main: No significant CAD. 2. Left anterior descending: Proximal LAD 20%. Mid LAD 50%. MARS 3 flow. 3. Circumflex: Luminal irregularities in the proximal portion. Mid to distal circumflex continues in the AV groove as a small caliber vessel. Very small high OM1. Large OM2 vessel proximal 50%. First inferior OM branch ostial 98%. MARS-3 flow. 4. Right coronary artery: RCA is dominant. Mid to distal RCA diffusely diseased 40 to 60%. PDA and PL without significant CAD. MARS-3 flow. Medications Administered Current Inpatient Medications Acetaminophen (Acetaminophen 325 Mg Tab) 650 mg PO Q4H PRN PRN Reason: pain/fever Stop: 12/05/23 02:19 Last Admin: 11/05/23 12:30 Dose: 650 mg Aspirin (Aspirin 81 Mg Ectab) 81 mg PO QAM [facility] Stop: 12/07/23 08:59 Dextrose (Dextrose 50% 50 Ml Syringe) 25 - 50 ml IV UD PRN; Protocol PRN Reason: Hypoglycemia Protocol Stop: 12/05/23 03:31 Enoxaparin Sodium (Enoxaparin Inj 40 Mg/0.4 Ml Syr) 40 mg SQ QAM [facility] Stop: 12/05/23 08:59 Last Admin: 11/06/23 10:48 Dose: Not Given Glucagon (Glucagon For Inj 1 Mg Vial) 1 mg SQ UD PRN; Protocol PRN Reason: Hypoglycemia Protocol Stop: 12/05/23 03:31 Glucose (Glucose 10 Tab/Tube) 4 - 8 tab PO UD PRN; Protocol PRN Reason: Hypoglycemia Treatment Stop: 12/05/23 03:31 Glucose (Glucose 40% Gel 15 Gm Tube) 15 - 30 gm PO UD PRN; Protocol PRN Reason: Hypoglycemia Protocol Stop: 12/05/23 03:31 Ceftriaxone Sodium 2,000 mg/ (Dextrose) 50 mls @ 100 mls/hr IV Q24H [facility]; Protocol Stop: 11/15/23 19:59 Last Infusion: 11/05/23 21:22 Dose: Infused Magnesium Sulfate/Dextrose (Magnesium Sulfate / D5w) 1 gm in 100 mls @ 50 mls/hr IV Q2H [facility] Stop: 11/06/23 13:44 Last Admin: 11/06/23 11:41 Dose: 50 mls/hr Insulin Aspart (Insulin Aspart Per Unit Charge) 0 units SC ACHS [facility] Stop: 12/05/23 07:29 Last Admin: 11/06/23 11:41 Dose: Not Given Insulin Glargine (Lantus Per Unit Charge) 10 units SQ BID [facility] Stop: 12/05/23 08:59 Last Admin: 11/06/23 08:01 Dose: 10 units Lisinopril (Lisinopril 2.5 Mg Tab) 2.5 mg PO QAM [facility] Stop: 12/05/23 08:59 Last Admin: 11/06/23 08:00 Dose: 2.5 mg Melatonin (Melatonin 3 Mg Tab) 3 mg PO HS PRN PRN Reason: Insomnia Stop: 12/05/23 02:19 Metoprolol Tartrate (Metoprolol Tartrate 25 Mg Tab) 25 mg PO BID [facility] Stop: 12/05/23 20:59 Last Admin: 11/06/23 08:00 Dose: 25 mg Miscellaneous (Carbohydrates For Hypoglycemia ) 15 - 30 gm PO UD PRN PRN Reason: Hypoglycemia Protocol Stop: 12/05/23 03:31 Ondansetron HCl (Ondansetron Inj 2 Mg/Ml 2 Ml Vial) 4 mg IV Q6H PRN PRN Reason: Nausea Stop: 12/05/23 02:19 Polyethylene Glycol (Polyethylene (Miralax) 17 Gm Pack) 17 gm PO DAILY PRN PRN Reason: Constipation Stop: 12/05/23 02:19 PG Care Time/CCT Total # of Minutes Spent Total Time Spent with Patient: Total time spent is greater than 50% in coordination of care (as documented) at patient's floor/unit and/or counseling patient: Coding Level of Care Code 22416 SUB INP/OBS CARE 3/50MIN Diagnoses Non-ST elevation (NSTEMI) myocardial infarction I21.4 Aortic stenosis I35.0 Syncope R55 Syncope type: unspecified Paroxysmal atrial fibrillation I48.0 Hyperlipidemia E78.5 HTN (hypertension) I10 (3) Syncope Syncope type: unspecified Qualified Code(s): R55 - Syncope and collapse
[2023-11-06] MEDS: HEPARIN (PORCINE) 1000 UNIT/ML 10 ML (CATH LAB USE ONLY) ONE (14:43)
[2023-11-06] MEDS: fentaNYL citrate PF 100 MCG/2 ML VIAL ONE (14:43)
[2023-11-06] MEDS: NITROGLYCERIN/D5W 100MCG/ML 20ML SYR ONE (14:44)
[2023-11-06] MEDS: niCARdipine HCL INJ 2.5 MG/ML 10 ML AMP ONE (14:44)
[2023-11-06] MEDS: MIDAZOLAM HCL 1 MG/ML 2ML VIAL ONE (14:44)
--- NOTE | 2023-11-06 14:52 | Cardiac Catheterization ---
[facility] Data: Filler Wiper Cardiac Status Clinical evaluation leading to the procedure CAD Presenation: Non STEMI Anginal Classification: No Symptoms Heart Failure: No Cardiogenic Shock within 24 Hours: No Cardiac Arrest within 24 Hours: No Imaging Studies Past 6 Months: Yes Stress Studies Past 6 Months: No Coronary Anatomy Dominant: Right Diagnostic Physicians Name: Del Trammell MD Status: Elective Closure Device Percutaneous Entry Location: Radial Closure Device: Radial Band Recommendations: Management Recommendatons Cardiac Cath Procedure Full Procedure Date November 06, 2023 Pre-Procedure Diagnosis Pre-Procedure Diagnosis: Non STEMI AUC Score AUC Score: 8 Post-Procedure Diagnosis Post-Procedure Diagnosis: Severe CAD Procedure(s) Performed Procedure(s) Performed: Coronary Angiography Staff Command And Control Officer Del Trammell MD Telephone Operator Chief(s) Showers Estimated Blood Loss Estimated Blood Loss: < 20 ml Medication(s) Medication(s): Fentanyl, Heparin, Lidocaine 1%, Nicardipine and Versed Summary of Findings Procedures: 1. Coronary angiography 2. Moderate sedation Indication: Mr. Mendez is a 63-year-old gentleman with known CAD, diabetes, hypertension, aortic stenosis, and dyslipidemia. He presented with loss of consciousness, UTI, and NSTEMI. Coronary angiography: 1. Left main: No significant CAD. 2. Left anterior descending: Proximal LAD 20%. Mid LAD 50%. MARS 3 flow. 3. Circumflex: Luminal irregularities in the proximal portion. Mid to distal circumflex continues in the AV groove as a small caliber vessel. Very small high OM1. Large OM2 vessel proximal 50%. First inferior OM branch ostial 98%. MARS-3 flow. 4. Right coronary artery: RCA is dominant. Mid to distal RCA diffusely diseased 40 to 60%. PDA and PL without significant CAD. MARS-3 flow. Moderate sedation: 1. Sedation start time: 2:22 PM 2. Sedation end time: 2:33 PM Procedural notes: 1. Coronary angiography was performed via the right radial artery without known complication. 2. There was no attempt to cross the previously documented stenotic aortic valve. Impression: 1. Severe CAD involving inferior branch of OM 2, similar to what was previously described on outside cath from 2019. 2. Otherwise, moderate nonobstructive CAD. Plan: 1. Recommend medical therapy and risk factor modification. 2. If he should develop angina, felt to be from his OM branch CAD, could consider PCI. Hemodynamics Rest Ao:: 129/62 Final Ao: 120/53 LV: n/a Recommendations Recommendations: Management Recommendatons Specimens Specimens: None Radiation Exposure (mGy) 716 mGy. Fluoro time 2.9 min. Contrast (mls) 40 ml Procedural Complication(s) None Disposition PCU I attest to the content of the Intraoperative Record and any orders documented therein. Any exceptions are noted below. [facility] Card Cath Procedure Codes Cardiac Catheterization Procedure 1: Cardiovascular Cath Procedures: 71430 Coronaries Moderate Sedation Procedure 1: Sedation/Anesthesia: 20713 Mod Sedation by the same physician;Init15 Min Child Age 5 & Up PG Care Time/CCT Total # of Minutes Spent Total Time Spent with Patient: Total time spent is greater than 50% in coordination of care (as documented) at patient's floor/unit and/or counseling patient:
--- NOTE | 2023-11-06 14:57 | Post Anesthesia Assessment ---
Date of Service November 06, 2023 Post Sedation Assessment Vital Signs Temp Pulse Pulse Resp BP BP Pulse Ox 11/06/23 12:45 96 H 18 111/77 97 11/06/23 11:37 37.3 C 83 18 130/71 94 11/06/23 08:10 36.8 C 91 H 18 145/70 H 93 11/06/23 08:00 90 11/06/23 03:00 37.1 C 101 H 22 153/77 H 90 11/05/23 23:00 36.5 C 87 20 141/70 H 94 11/05/23 21:55 91 H 11/05/23 19:44 95 H 11/05/23 19:18 37.0 C 96 H 16 153/76 H 91 11/05/23 17:57 94 H 18 153/74 H 92 11/05/23 16:00 95 H 14 150/69 H 98 11/05/23 15:00 93 H 18 131/66 O2 Del Method 11/06/23 12:45 Room Air 11/06/23 11:37 Room Air 11/06/23 08:10 Room Air 11/06/23 08:00 11/06/23 03:00 Room Air 11/05/23 23:00 Room Air 11/05/23 21:55 11/05/23 19:44 11/05/23 19:18 Room Air 11/05/23 17:57 Room Air 11/05/23 16:00 Room Air 11/05/23 15:00 Recovery Score Activity: Moves 4 extremities Respiration: Deep Breath/Cough Circulation: +/-20% PreAnes Value Consciousness: Fully Awake Oxygen Saturation: > 92% On Room Air Post Anesthesia Score: 10 Discharge Sedation Level of Care: Fast Track Phase II Post Sedation Plan On clinical assessment, the patient appears to have tolerated the sedation without complications. Patient is recovering as anticipated. Patient will continue to be monitored by nursing and may be discharged when sedation discharge criteria are met per below protocol. Upon Completions of procedure up to 15 minutes continue every 5 minute vital signs and the P.A.R. score; then discharge to a Phase I or Fast Track to Phase II per the following guidelines: * Discharge Patient to appropriate Phase II area if PAR is 8 or greater or return to pre- procedure baseline. The post - procedure orders will be as directed. * If PAR score is less than 8 or not return to pre-procedure baseline then patient will follow Phase I monitoring till PAR is reached for Phase II. The Phase I may be done in procedure room or may call to secure a Phase I area. * If naloxone or flumazenil are used for reversal, hold in Phase I for continued monitoring from when last reversal dose was given for a minimum of 60 minutes or longer pending the nurse and/or physician discretion of patient condition before discharge to Phase II. Please call the Sedation Physician to re-evaluate and complete post-note for discharge to Phase II area. Do NOT discharge from procedure sedation or Phase 1 until post- sedation evaluation note is complete by procedure /sedation MD Sedation Discharge Instructions to be given to the patient at discharge to home.
[2023-11-06] MEDS: OPTIRAY 350 ONE (15:36)
--- NOTE | 2023-11-06 16:13 | Billing Data ---
Date of Service November 06, 2023 Coding Level of Care Code 54256 SUB INP/OBS CARE
[2023-11-07 06:24] LABS: Hematocrit (blood only) 35.5 % (42.0-52.0); Hemoglobin 11.7 g/dl (14.0-18.0); Mean Corpuscular Hemoglobin 26.8 pg (25.0-34.0); Mean Corpuscular Volume 81.4 fL (80.0-100.0); Mean Platelet Volume 10.8 fL (9.4-12.4); Platelet Count 141 K/uL (130-400); RDW Coefficient of Variation 13.9 % (11.5-14.5); RDW Standard Deviation 40.9 fL (36.4-46.3); Red Blood Count 4.36 M/uL (4.70-6.10); White Blood Count 7.56 K/ul (4.8-10.8)
[2023-11-07 06:46] LABS: BUN Creatinine Ratio 15.1 (10-20); Calcium 8.5 mg/dl (8.6-10.3); Creatinine Clr Calc Pharmacy 100.6 ml/min; Est GFR (African American) 107.7 ml/min; Est GFR (Non-African American) 92.9 ml/min; Magnesium 1.7 mg/dl (1.7-2.4); Potassium 3.8 mmol/L (3.5-5.1)
--- NOTE | 2023-11-07 07:16 | Discharge Summary ---
Date of Service November 07, 2023 Admission HPI Per Admitting Provider Pt is a 63 yo male with PMH of MS w/ chronic indwelling kay, afib, CAD, aortic stenosis, BPH, HLD, HTN, and DM presenting after an episode of syncope. Pt explains that he was sitting on his couch this evening watching TV and passed out. He came to consciousness in the ambulance. He does not recall any symptoms prior to passing out. The ER note references an episode of vomiting as well- the pt does not recall this. He has passed out in the past in the setting of afib and bumping his knees (which he attributes that syncope to sensitive nerves). He does note he has a family hx of cardiac concerns- his grandfather had an PA at age 54 and his father also had heart problems in his 50s. He was in the ER yesterday d/t urinary retention. He has not had further issues with his kay since then. He was discharged with bactrim d/t a presumed UTI. In the ER, pt was given 2 L NS, vancomycin x1, tylenol 1000mg x1, zosyn x1, and mag 1g. Admission Exam Per Admitting Provider Constitutional: NAD, vitals WNL aside from tachycardia. Respiratory: CTA bilaterally. Non labored breathing. No rhonchi, wheezing, or crackles. Cardiovascular: Regular rhythm. Tachycardic. 3/6 systolic murmur noted. No LE edema. Gastrointestinal (Abdomen): Nontender, +BS. No masses noted. Skin: No rashes or skin lesions noted. Neurologic: Sensation grossly intact. No FND appreciated. Psychiatric: Speech of normal pace and content. Mood and affect congruent. Principal Diagnosis NSTEMI Discharge Exam Constitutional WD/WN, vitals as above Eyes PERRL, conjunctivae normal, anicteric sclerae ENMT external ear and nose normal, oropharynx normal Neck trachea midline, no thyromegaly Respiratory normal respiratory effort, lungs clear to auscultation Cardiovascular RRR, no murmur, no edema Gastrointestinal (Abdomen) normal bowel sounds, soft, nontender, no hepatosplenomegaly Skin no rashes, warm and dry Discharge Data Allergies Allergy/AdvReac Type Severity Reaction Status Date / Time bee venom protein (honey bee) Allergy Severe Anaphylaxis Verified 11/03/23 10:06 ciprofloxacin Allergy Unknown inflammation-"flared Verified 11/03/23 10:06 up MS" levofloxacin Allergy Unknown inflammation-"flared Verified 11/03/23 10:06 up MS" Milk Containing Products Allergy Unknown inflammation-"flared Verified 11/03/23 10:06 (Dairy) up MS" Consultations 11/05/23 01:42 ED Decision to Admit Stat 11/05/23 13:07 Consult Cardiology Stat 11/05/23 13:09 Consult Cardiology Stat Procedures Performed Operation Date: 11/06/23 13:00 Actual Procedures p Cath, Coronaries ONLY (no LV) - Del Trammell MD s Cineradiography w/Routine Exam - Del Trammell MD Ordered Studies 11/05/23 02:27 Carotid duplex [US carotid doppler BI] Routine 11/06/23 06:35 CL Cath Imgs for PACS use only Routine Hospital Course (1) Syncope: Pt is a 63 yo male with PMH of MS w/ chronic indwelling kay, afib, CAD, aortic stenosis, BPH, HLD, HTN, and DM presenting after an episode of syncope. Syncope NSTEMI - no proceeding symptoms prior to event - lab work significant for leukocytosis to 12.36 w/ left shift, BMP WNL, mag 1.5, - RVP neg; EKG showing sinus tachycardia - pt w/ hx of aortic stenosis; last echo 08/2023 showing progression to moderate from prior echo 02/2023; echo pending. - ordered bilateral carotid dopplers to r/o stenosis, negative - Patient does have a history of paroxysmal A-fib. - Troponin increased to 1845. 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 - Most likely syncopal event occurred after NSTEMI which led to an arrhythmia. - Started on aspirin daily, metoprolol 25mg BID - follow up with cardiology in outpatient Aspiration pneumonitis - occurred after an episode of vomiting in the setting of syncope - lab work showing leukocytosis, procal 0.08, lactate 1.6 - CXR showing minor infiltrate of RLL base; MRSA nares pending - blood cultures negative - s/p vancomycin x1 and zosyn x1 given in ER; -Given patient is having fever, was switched to ceftriaxone, later switched to cefdinir 300mg BID for 4 days in outpatient Urinary tract infection -Cultures and sensitivities available -Continue on ceftriaxone, later switched to cefdinir 300mg BID for 4 days in outpatient Hypomagnesemia - repleted HTN - continue home lisinopril 2.5mg DM - last A1c 09/2023 8.5% - pt takes 22 units insulin degludec at home - placed on SSI in hospital, may resume outpatient regime upon leaving MS - diagnosed 12/2022; currently following with naturopathic doctor for this (2) Elevated troponin: (3) Diabetes: (4) Aspiration of gastric contents: (5) Hypomagnesemia: (6) Hyperlipidemia: (7) Paroxysmal atrial fibrillation: (8) Non-ST elevation (NSTEMI) myocardial infarction: Total Time Total Time Spent Total Time Spent (In Minutes): <30 Discharge Plan Discharge Items Patient Disposition: Home - Self-Care Reason For Visit: SYNCOPE, ASPIRATION Discharge Diagnosis: NSTEMI Activity: Resume your previous activity Non-emergency contact: Primary Care Provider Call non-emergency contact if: you have any medication questions, your symptoms worsen and your temperature is above 101 Follow-up/Referrals: Del Trammell MD [Physician] - ([facility] will be calling you back with an appointment time for cardiology.) Maxwell Velarde [Primary Care Provider] - 11/10/23 10:30 am Diet: Heart Healthy Addtl Attending Provider Instructions: ACTIVITY RECOMMENDATIONS: Excess manipulation of the wrist should be avoided for the next 24-48 hours. * No lifting over 2 pounds (approximately a 1/2 gallon of milk) with the utilized arm for 24 hours. * No strenuous activity such as bowling or tennis for 3 days. * Keep the site of the procedure covered with a bandage for 24 hours. *You may shower the day after the procedure. Do not take a tub bath or submerge the puncture site in water for the next 3 days. *Do not operate any motorized equipment for 3 days. SPECIAL CARE INSTRUCTIONS: The site may be slightly bruised and sore following your procedure. Should any of the following occur, contact the DrThanh who performed your procedure. 1. Redness/inflammation, swelling, chills, or fever, or colored drainage at procedure site within 3-7 days after your procedure. 2. Coldness, discoloration, ongoing numbness, severe pain, or swelling. Expect mild tingling of hand and tenderness at the puncture site for up to three days. If this persists beyond three days, or other symptoms develop, notify the Dr. who performed your procedure. BLEEDING: If the procedure site on your wrist begins to bleed, do not panic 1. Place 1 or 2 fingers firmly just slightly above the insertion site to stop the bleeding. You may be able to feel your pulse as you hold pressure. 2. Lift your finger after 5 minutes to see if the bleeding has stopped. 3. Once the bleeding has stopped, gently wipe the wrist area clean with a bandage. * If the bleeding from your wrist does not stop after 10 minutes, or if there is a large amount of bleeding or spurting, call 911 (do not drive yourself to the hospital). SKIN IRRITATION: * You may experience some redness and/or swelling in the area where radiation was administered. If any skin irritation occurs, please contact your family physician. FOLLOW UP VISIT: Keep any scheduled doctor appointments. Addtl Superintendent Storage Area Provider Instructions: You were admitted to the hospital for loss of consciousness and found to have a type of heart attack called an NSTEMI. You were seen by cardiology and the arteries of your heart were checked. There is an artery that is narrow and at risk of closing off. We will start you on medications to try and keep your heart in a better working state. There was also a concern you may have a urinary tract infection. We started you on antibiotics, please complete your course of antibiotics after discharge. A discharge summary will be sent to your primary care physician to ensure continuity of care. Please bring this discharge summary with you to your next office appointment so that your provider can review it at that time. Follow-up appointments: Make a follow-up appointment with your PCP within the next week. It is very important that you follow up with them shortly after discharge from the hospital. We have requested a follow-up appointment with cardiology. Please call their office if you do not hear from them. Keep all your follow-up appointments as already scheduled. If you cannot make an appointment, notify your provider. Medications: Your medication list has been reviewed and reconciled upon discharge to ensure accuracy and continuity of care. An updated list of all your medications is included with your hospital discharge paperwork. Please review this list closely, and make note of any changes. * We sent a new medication called Aspirin to your pharmacy. Take Aspirin 81mg one tablet daily * We sent a new medication called Metoprolol to your pharmacy. Take Metoprolol 25mg one tablet twice a day * We sent a new medication called Cefdinir to your pharmacy. Take Cefdinir 300mg one tablet twice a day for 4 days. Take your medications as instructed; do not skip a dose of your medicines. Make sure all of your doctors know every medicine you are taking (including ihrv-qbz-nuvfnvh medicines, vitamins, and supplements). Call your primary care provider before taking any new medicines (including lprk-mkn-hbktatv medicines, vitamins, and supplements), because some of these may interact with your current medications, or may make your symptoms worse. Tell your primary care provider if you cannot afford your medications. CONTACT YOUR PRIMARY CARE PROVIDER if you experience any of the following: Fever, chills, loss of appetite Weakness Difficulty following your treatment plan, or difficulty taking medications CALL 911 OR GO TO THE EMERGENCY DEPARTMENT if you experience any of the following: Sudden, severe abdominal pain or nausea/vomiting Severe chest pain, or chest pain that radiates (moves) to your jaw or arm Sudden, severe shortness of breath or difficulty breathing Thank you for allowing us to participate in your care. Pending Studies at Discharge: No Stand-Alone Forms: My [facility], Smoking Cessation Medications and DC Order Prescriptions: New metoprolol tartrate 25 mg tablet 25 mg PO BID 30 Days Qty: 60 0RF aspirin 81 mg Tablet,Delayed Release (Dr/Ec) 81 mg PO QAM 30 Days Qty: 30 0RF cefdinir 300 mg capsule 300 mg PO BID 4 Days Qty: 8 0RF Continued epinephrine 0.3 mg/0.3 mL auto-injector 0.3 mg subcut UD PRN (Reason: Anaphylaxis) omega 9-nqi-fgi-fish oil [Fish Oil] 1,000 mg (120 mg-180 mg) Capsule 3 cap PO BID cholecalciferol (vitamin D3) [Vitamin D3] 125 mcg (5,000 unit) Tablet 125 mcg PO QAM insulin degludec [Tresiba FlexTouch U-100] 100 unit/mL (3 mL) insulin pen 22 unit SUBCUT QAM Advance Digestive Enzyme 1 cap PO DAILY Gi Revive Gut Health 1 dose PO DAILY Rx Instructions: one dose= one scoop per pt Nerve Support Complex 3 cap PO TIDM Rx Instructions: 3 caps with each meal magnesium oxide 200 mg magnesium tablet 200 mg PO DAILY Qty: 30 0RF coQ10 (ubiquinol) 100 mg Capsule 100 mg PO QAM lisinopril 2.5 mg Tablet 2.5 mg PO QAM cyanocobalamin (vitamin B-12) [Vitamin B-12] 1,000 mcg Tablet 1,000 mcg PO DAILY zinc gluconate 50 mg Tablet 50 mg PO QAM vitamin E 268 mg (400 unit) Capsule 268 mg PO DAILY Discharge Orders: Discharge Order (Routine); Ordered 11/07/23 Ordered By: Nova Farfan/Other Patient Handouts: High Blood Sugar (Hyperglycemia), Managing Type 2 Diabetes Admission Data Admit Date/Time: 11/05/23 02:20 Attending Provider: Bertrand Liao Admit Provider: Stephanie Qiu Primary Care Provider: Maxwell Velarde Other Providers: Anuja Hatfield; Del Trammell; Alberto Duncan Other Interventions: Discharge Summary Assessment (RN) Last Done: 11/07/23 07:20 Supervising Physician Co-Signing Physician Notes I personally examined the patient and verified all moise points of history and exam, discussed case, and agree with decision making with Dr May Feeling better and very much wants to go home. Has a flight to take care of his thkjgq-hr-ven in the [facility] later today. No new complaints. Vitals noted, in general he is awake and alert pleasant no distress. HEENT normocephalic atraumatic mucous membranes moist. Breathing unlabored no accessory muscle use good effort. Skin shows no rashes no pallor or icterus. Neuro without focal deficits. Syncopeappears due to NSTEMI CAD/NSTEMI - post cath - nothing amenable to stenting. med management as best he will allow. Right now that includes aspirin and metoprolol. Discussed statin and the risk/benefit and established coronary disease, as well as my experience that most patients with statin related muscle aches are not really cqcop-bpi-ylhhfb as much is correlationand asked him to reconsider therapeutic trial. Discussed that I did not find it the best plan to have had a heart attack basically 2 days ago and [place] qsgxfy-dh-jix. He understood and disagreed. Catheter associated UTI present on admissionwas on ceftriaxone, sent home on cefdinir. Had not changed catheter yet because I wanted to ensure that we had him on antibiotics that were killing the bacteria before removing suspected biofilm. Discussed catheter change this morning, discussed concern on biofilm and higher risk for recurrent infection once antibiotics are completed. He refused catheter changenoting that he feels like he gets an infection every time there is a catheter change. Discussed risk of recurrent infection, as well as the fact that he is on antibiotics right now, but he still declined. DVT prophylaxisLovenox Resident Activity Tracking Resident Involvement: Resident Care Provided Care Provided: Adult Hospital Medicine
[2023-11-07] MEDS: ASPIRIN 81 MG ECTAB PO SCH (07:40)
--- NOTE | 2023-11-07 09:33 | Electrocardiogram Report ---
Test Reason : Blood Pressure : / mmHG Vent. Rate : 124 BPM Atrial Rate : 124 BPM P-R Int : 178 ms QRS Dur : 092 ms QT Int : 290 ms P-R-T Axes : 082 061 267 degrees QTc Int : 416 ms Poor data quality, interpretation may be adversely affected Sinus tachycardia Cannot rule out Anterior infarct (cited on or before 15-OCT-2023) Abnormal ECG When compared with ECG of 15-OCT-2023 16:59, ST now depressed in Inferolateral leads T wave inversion now evident in Inferolateral leads Confirmed by Del Trammell ([id number]) on 11/07/2023 9:32:52 AM Referred By: REFERRED SELF Confirmed By:Del Trammell
--- NOTE | 2023-11-07 16:25 | Billing Data ---
Date of Service November 07, 2023 Coding Level of Care Code 97639 IN/OBS DISCH 30 MIN/LESS
--- NOTE | 2023-11-07 21:30 | Electrocardiogram Report ---
Test Reason : Blood Pressure : / mmHG Vent. Rate : 103 BPM Atrial Rate : 103 BPM P-R Int : 204 ms QRS Dur : 104 ms QT Int : 340 ms P-R-T Axes : 059 014 -31 degrees QTc Int : 445 ms Sinus tachycardia Nonspecific ST and T wave abnormality Abnormal ECG When compared with ECG of 04-NOV-2023 23:30, ST no longer depressed in Inferior leads ST less depressed in Lateral leads Nonspecific T wave abnormality has replaced inverted T waves in Inferior leads Nonspecific T wave abnormality has replaced inverted T waves in Lateral leads Confirmed by Del Trammell ([id number]) on 11/07/2023 9:30:28 PM Referred By: REFERRED SELF Confirmed By:Del Trammell
== END 2023-11-07 09:28 | disposition home or self-care (01) | DRG 280 ==
LOC: ED 23:11 → EDINP 11-05 02:20 → SUATTDRO 11-05 02:20 → 2E 11-05 03:33
PROC: CLB.CCO (2023-11-06 13:00)